=== PATIENT | male | born 1955 | race Caucasian/White ===

== ENCOUNTER 2016-04-22 20:30 | Outpatient (CLI) | payer BC ==
[~2016-04-22 20:30] MED LIST: ACET-93 PO; APIX5TAB PO; FLUT1DIS28 IH; HYDR-34 PO; OXYC-12 PO; SIMV10TA3 PO; SLMFT1E INH
--- OUTSIDE RECORDS SUMMARY | 2016-04-22 20:44 | XMS REPORT | Continuity of Care Document ---
Author Author [facility] Organization [facility] Address Unknown Phone Unavailable Care Team Providers Care Java Groovy Developer Name Role Phone ESTHER GARCIA MD PCP Insurance Providers Payer Name Policy Number Subscriber Name [id number] Justina Norris K 01 Advance Directives Directive Response Recorded Date/Time Advance Directives No 01/16/16 11:14am Health Care Power of Photographic Supervisor No 01/16/16 11:14am Problems Active Problems Medical Problem Onset Date Status Atrial fibrillation Unknown Resolved Medications Current Home Medications Medication Dose Units Route Directions Days/Qty Instructions Start Date Simvastatin 10 Mg 10 Mg Oral Bedtime LAST FILLED 10/02/15 #90 01/16/16 Fluticasone/Salmeterol 1 Each 1 Puff Inhalation Daily LAST FILLED 10/01 #1 INHALER 01/16/16 Acetaminophen 500 Mg 1,000 Mg Oral Twice A Day as needed for Pain TAKES 2 (500 MG) TABLETS 01/16/16 Apixaban 5 Mg 5 Mg Oral Twice A Day 60 01/17/16 Past Home Medications Medication Directions Ordered Status Simvastatin 10 Mg Tablet, 10 Mg Oral Daily 11/17/12 Discontinued Salmeterol Xinafoate/Fluticasone 1 Diskus Inhp, 1 Puff Inhalation Daily 11/17 Discontinued Oxycodone Hcl/Acetaminophen 1 Each Tablet, 1 - 2 Each Oral Q4-6H Prn Discontinued Acetaminophen/Hydrocodone Bitart 1 Ea Tablet, 1 - 2 Tab Oral 4-6HR as needed 11/26/12 Discontinued Social History Social History Problem Response Recorded Date/Time Alcohol Use Denies Use 11/23/2012 3:20pm Recreational Drug Use No 11/23/2012 3:20pm Recent Foreign Travel Yes 11/23/2012 3:20pm Recent Infectious Disease Exposure No 11/23/2012 3:20pm Hospitalization with Isolation Denies 11/26/2012 3:29pm Sexually Transmitted Disease No 01/16/2016 5:58pm HIV/AIDS No 01/16/2016 11:20am Recent Hopitalizations No 01/16/2016 11:20am Sexually Transmitted Disease No 01/16/2016 5:58pm Hospitalization with Isolation Denies 11/26/2012 3:29pm Hospital Discharge Instructions Current inpatient/outpatient. Discharge instructions are currently unavailable. Plan of Care Prescriptions Functional Status No functional status results. Allergies, Adverse Reactions, Alerts No known allergies. Immunizations Name Given Type FLU TRIvalent 5 years - Adult 01/16/16 Administered Vital Signs Acute Vital Signs Vital Response Date/Time Temperature (Fahrenheit) 98.0 degrees F (97.6 - 99.5) 01/17/2016 4:20pm Temperature (Calculated Celsius) 36.34141 degrees C (36.4 - 37.5) 01/17/2016 3:47pm Temperature Source Tympanic 01/17/2016 4:20pm Pulse Rate (adult) 59 bpm (60 - 90) 01/17/2016 4:20pm Respiratory Rate 16 bpm (12 - 24) 01/17/2016 4:20pm O2 Sat by Pulse Oximetry 98 % (88 - 100) 01/17/2016 4:20pm Blood Pressure 141/98 mm Hg 01/17/2016 4:20pm Blood Pressure Mean 112 mm Hg 01/17/2016 3:45pm Pain Numeric Pain Scale 0-No Pain 01/17/2016 4:20pm Height (Feet) 6 feet 01/16/2016 11:07am Height (Inches) 1.00 inches 01/16/2016 11:07am Height (Calculated Centimeters) 185.709713 cm 01/16/2016 11:07am Weight (Pounds) 190 pounds 01/16/2016 11:07am Weight (Ounces) 1.0 oz 01/16/2016 11:07am Weight (Calculated Grams) 79526.90 gm 01/16/2016 11:07am Weight (Calculated Kilograms) 86.425960 kilograms 01/16/2016 11:07am Calculated BMI 25.1 01/16/2016 11:07am Capillary Refill Capillary Refill Less Than 3 Seconds 01/17/2016 3:15pm Capillary Refill Capillary Refill Less Than 3 Seconds 01/17/2016 3:15pm Results Laboratory Results Test Name Result Units Flags Reference Collection Date/Time Result Date/ Time Comments White Blood Count 7.5 10^3/uL 4.3-11.0 01/17/2016 3:01/17/2016 3: 52am Red Blood Count 5.43 10^6/uL 4.35-5.85 01/17/2016 3:01/17/2016 3: 52am Hemoglobin 16.5 G/DL 13.3-17.7 01/17/2016 3:01/17/2016 3:52am Hematocrit 48 % 40-54 01/17/2016 3:01/17/2016 3:52am Mean Corpuscular Volume 89 FL 80-99 01/17/2016 3:01/17/2016 3: 52am Mean Corpuscular Hemoglobin 30 PG 25-34 01/17/2016 3:01/17/2016 3: 52am Mean Corpuscular Hemoglobin Concent 34 G/DL 32-36 01/17/2016 3:03/2015 3:52am Red Cell Distribution Width 13.1 % 10.0-14.5 01/17/2016 3:2015 3:52am Platelet Count 231 10^3/uL 130-400 01/17/2016 3:01/17/2016 3:52am Mean Platelet Volume 9.3 FL 7.4-10.4 01/17/2016 3:01/17/2016 3: 52am Neutrophils (%) (Auto) 65 % 42-75 01/17/2016 3:01/17/2016 3:52am Lymphocytes (%) (Auto) 20 % 12-44 01/17/2016 3:01/17/2016 3:52am Monocytes (%) (Auto) 13 % H 0-12 01/17/2016 3:01/17/2016 3:52am Eosinophils (%) (Auto) 2 % 0-10 01/17/2016 3:01/17/2016 3:52am Basophils (%) (Auto) 0 % 0-10 01/17/2016 3:01/17/2016 3:52am Neutrophils # (Auto) 4.9 X 10^3 1.8-7.8 01/17/2016 3:01/17/2016 3: 52am Lymphocytes # (Auto) 1.5 X 10^3 1.0-4.0 01/17/2016 3:01/17/2016 3: 52am Monocytes # (Auto) 0.9 X 10^3 0.0-1.0 01/17/2016 3:01/17/2016 3: 52am Eosinophils # (Auto) 0.2 10^3/uL 0.0-0.3 01/17/2016 3:01/17/2016 3 :52am Basophils # (Auto) 0.0 10^3/uL 0.0-0.1 01/17/2016 3:01/17/2016 3: 52am Sodium Level 142 MMOL/L 135-145 01/17/2016 3:01/17/2016 4:13am Potassium Level 4.2 MMOL/L 3.6-5.0 01/17/2016 3:01/17/2016 4:13am Chloride Level 112 MMOL/L H 98-107 01/17/2016 3:01/17/2016 4:13am Carbon Dioxide Level 22 MMOL/L 21-32 01/17/2016 3:01/17/2016 4: 13am Anion Gap 8 MMOL/L 5-14 01/17/2016 3:01/17/2016 4:13am Blood Urea Nitrogen 16 MG/DL 7-18 01/17/2016 3:01/17/2016 4:13am Creatinine 1.01 MG/DL 0.60-1.30 01/17/2016 3:01/17/2016 4:13am BUN/Creatinine Ratio 16 01/17/2016 3:01/17/2016 4:13am Estimat Glomerular Filtration Rate > 60 01/17/2016 3:2015 4:13am GFR INTERPRETIVE DATA UNITS FOR ESTIMATED GFR (eGFR): mL/min/1.73 M2 REFERENCE RANGE FOR ESTIMATED GFR (eGFR) eGFR NORMAL eGFR >60 MODERATELY DECREASED eGFR 30-59 SEVERLY DECREASED eGFR 15-29 KIDNEY FAILURE <15 (OR DIALYSIS) Glucose Level 99 MG/DL 70-105 01/17/2016 3:21am 01/17/2016 4:13am Calcium Level 8.6 MG/DL 8.5-10.1 01/17/2016 3:21am 01/17/2016 4:13am Phosphorus Level 3.9 MG/DL 2.3-4.7 01/17/2016 3:21am 01/17/2016 4:13am Magnesium Level 2.2 MG/DL 1.8-2.4 01/17/2016 3:21am 01/17/2016 4:13am Total Bilirubin 0.5 MG/DL 0.1-1.0 01/16/2016 10:40am 01/16/2016 11: 16am Alkaline Phosphatase 77 U/L 40-136 01/16/2016 10:40am 01/16/2016 11: 16am Aspartate Amino Transf (AST/SGOT) 23 U/L 5-34 01/16/2016 10:40am 2015 11:16am Alanine Aminotransferase (ALT/SGPT) 33 U/L 0-55 01/16/2016 10:40am 02/2015 11:16am Troponin I < 0.30 NG/ML <0.30 01/16/2016 10:40am 01/16/2016 11:24am Troponin I < 0.30 NG/ML <0.30 01/16/2016 10:11pm 01/16/2016 10:46pm Total Protein 6.4 G/DL 6.4-8.2 01/16/2016 10:40am 01/16/2016 11:16am Albumin 3.8 G/DL 3.2-4.5 01/16/2016 10:40am 01/16/2016 11:16am Procedures Procedure Status Date Provider(s) Tracing only of electrocardiogram Completed 01/16/16 ESTHER GARCIA MD Color Doppler echocardiography Active 01/16/16 Mulugeta JOEL MD Tracing only of electrocardiogram Completed 01/17/16 ESTHER GARCIA MD Encounters Encounter Location Arrival/Admit Date Discharge/Depart Date Attending Provider Registered Clinic [facility] 01/17/16 4:23pm Mulugeta JOEL MD Admitted Inpatient [facility] 01/16/16 10:12am ESTHER GARCIA MD
== END 2016-04-23 06:20 | disposition home or self-care (01) ==
LOC: SLEEP 20:30
PROVIDERS: ATTEND Internal Medicine Interventional Cardiology
DX: G47.33 Obstructive sleep apnea (adult) (pediatric) (principal)
CPT/HCPCS: 95810

== ENCOUNTER 2016-05-01 22:42 | Emergency (ER) | payer BC ==
[~2016-05-01] VITALS: Ht 182.9 cm; Wt 83.9 kg
--- OUTSIDE RECORDS SUMMARY | 2016-05-01 22:48 | XMS REPORT | Continuity of Care Document ---
Author Author [facility] Organization [facility] Address Unknown Phone Unavailable Care Team Providers Care Puddler Pile Driving Name Role Phone ESTHER GARCIA MD PCP Insurance Providers Payer Name Policy Number Subscriber Name [id number] Justina Norris K 01 Advance Directives Directive Response Recorded Date/Time Advance Directives No 01/16/16 11:14am Health Care Power of A/C Technician No 01/16/16 11:14am Problems Active Problems Medical [...] Isolation Denies 11/26/2012 3:29pm Hospital Discharge Instructions No hospital discharge instructions. Plan of Care Discharge Date 04/23/16 6:20am Prescriptions See Medication Section Functional Status No functional status results. Allergies, Adverse Reactions, Alerts No known allergies. Immunizations No immunization records. Vital Signs No known vital signs results. Results No known relevant diagnostic tests, laboratory data and/or discharge summary. Procedures No known history of procedures. Encounters Encounter Location Arrival/Admit Date Discharge/Depart Date Attending Provider Departed Clinic [facility] 04/22/16 8:30pm 04/23/16 6: 20am Mulugeta JOEL MD
--- NOTE | 2016-05-01 22:56 | ED Cardiac General ---
History of Present Illness General Chief Complaint: Cardiac/General Problems Stated Complaint: FLUTTER IN CHEST Nursing Triage Note: STARTED 2029 TODAY, CHEST "FLUTTERING" Source: patient History of Present Illness Time seen by provider: 22:44 Initial Comments PT ARRIVES VIA POV FROM HOME C/O FLUTTERING IN CHEST SINCE 2029--HAS BEEN GETTING BETTER ON THE WAY HERE AND IS NOT OCCURRING NOW HEART WAS BEATING FAST AND IRREGULAR STATES HE HAS HAD SEVERAL TIMES TODAY--ALL WENT AWAY AFTER A SHORT PERIOD OF TIME, WAS FINE YESTERDAY PT WAS DX WITH ATRIAL FIBRILLATION 01/2016, AND IS ON ELIQUIS SLIGHT CHEST PAIN WITH IT, NOT NOW NO SWEATS NO SHORTNESS OF BREATH NO DIZZINESS NO SWELLING IN LEGS/ FEET OR PAIN IN CALVES PCP: DR. GARCIA HOTEL ATTENDANT: DR. JOEL Allergies and Home Medications Allergies Coded Allergies: No Known Drug Allergies (Unverified , 11/13/11) Home Medications Acetaminophen 500 Mg Tablet 1,000 MG PO BID PRN PRN PAIN (Reported) TAKES 2 (500 MG) TABLETS Apixaban 5 Mg Tablet #60 5 MG PO BID Prescribed by: ESTHER GARCIA on 01/17/16 1423 Fluticasone/Salmeterol 1 Each Blst.w.dev 1 PUFF IH DAILY (Reported) LAST FILLED 10/02/15 #1 INHALER Simvastatin 10 Mg Tablet 10 MG PO HS (Reported) LAST FILLED 10/02/15 #90 Review of Systems Constitutional: no symptoms reported EENTM: No Symptoms Reported Respiratory: No Symptoms Reported Cardiovascular: See HPIDenies Edema, Irregular Heart RateDenies Lightheadedness, PalpitationsDenies Syncope Gastrointestinal: No Symptoms Reported Genitourinary: No Symptoms Reported Musculoskeletal: no symptoms reported Skin: no symptoms reported Psychiatric/Neurological: No Symptoms Reported Endocrine: No Symptoms Reported Hematologic/Lymphatic: No Symptoms Reported Past Jwzsqre-Wvmuha-Ererfs Hx Patient Social History 2nd Hand Smoke Exposure: No Recent Foreign Travel: No Contact w/Someone Who Travel: No Recent Infectious Disease Expo: No Recent Hopitalizations: No Immunizations Up To Date Tetanus Booster (TDap): Unknown PED Vaccines UTD: Yes Seasonal Allergies Seasonal Allergies: Yes Surgeries HX Surgeries: Yes (HERNIA, KNEE SCOPE, Left Total Knee ) Surgeries: Abdominal, Joint Replacement, Orthopedic Respiratory Hx Respiratory Disorders: Yes (ASTHMA) Respiratory Disorders: Asthma Cardiovascular Hx Cardiac Disorders: Yes Cardiac Disorders: Atrial Fibrillation, High Cholesterol, Hypertension Neurological Hx Neurological Disorders: No Reproductive System Hx Reproductive Disorders: No Sexually Transmitted Disease: No HIV/AIDS: No Genitourinary Hx Genitourinary Disorders: No Gastrointestinal Hx Gastrointestinal Disorders: No Musculoskeletal Hx Musculoskeletal Disorders: Yes (left knee surgery) Musculoskeletal Disorders: Arthritis Endocrine Hx Endocrine Disorders: No HEENT HX ENT Disorders: No Loss of Vision: Denies Hearing Impairment: Denies Cancer Hx Cancer: No Psychosocial Hx Psychiatric Problems: No Integumentary HX Skin/Integumentary Disorder: No Blood Transfusions Hx Blood Disorders: No Adverse Reaction to a Blood Tr: No Family Medical History Significant Family History: Heart Disease, Diabetes, Hypertension Family Medial History: Arthritis 19 FATHER Hypercholesterolemia 19 FATHER Hypertension 19 FATHER Myocardial infarction 19 FATHER Thyroid disease Daughter Physical Exam Vital Signs Vital Sign - Last 12Hours 05/01/16 22:47 Temp 97.5 Pulse 61 Resp 20 B/P 149/108 Pulse Ox 91 O2 Delivery Room Air Capillary Refill : Less Than 3 Seconds General Appearance: No Apparent Distress WD/WN HEENT: PERRL/EOMI Neck: Full Range of Motion Normal Inspection Non Tender SuppleNo Carotid Bruit , No JVD Respiratory: Normal Breath Sounds No Accessory Muscle Use No Respiratory Distress Cardiovascular: Regular Rate, Rhythm No Edema No Gallop No JVD No Murmur Normal Peripheral Pulses Gastrointestinal: Normal Bowel Sounds No Organomegaly No Pulsatile Mass Non Tender Soft Extremity: Normal Capillary Refill Normal Inspection Normal Range of Motion Non Tender No Calf Tenderness No Pedal Edema Neurologic/Psychiatric: Alert Oriented x3 No Motor/Sensory Deficits Normal Mood/Affect lens molder II-XII Norm as Tested Skin: Normal Color Warm/Dry Focused Exam Lactic Acid Level Laboratory Tests Test 05/01/16 22:50 Alanine Aminotransferase (ALT/SGPT) 33U/L (0-55) Albumin 4.0G/DL (3.2-4.5) Alkaline Phosphatase 79U/L (40-136) Anion Gap 10MMOL/L (5-14) Aspartate Amino Transf (AST/SGOT) 23U/L (5-34) B-Type Natriuretic Peptide 34.8PG/ML (<100.0) BUN/Creatinine Ratio 22 Blood Urea Nitrogen 24MG/DL (7-18) H Calcium Level 9.1MG/DL (8.5-10.1) Carbon Dioxide Level 23MMOL/L (21-32) Chloride Level 109MMOL/L (98-107) H Creatine Kinase MB 2.8NG/ML (<6.6) Creatinine 1.11MG/DL (0.60-1.30) Estimat Glomerular Filtration Rate > 60 Glucose Level 180MG/DL (70-105) H Potassium Level 3.9MMOL/L (3.6-5.0) Sodium Level 142MMOL/L (135-145) TSH Cloud Testing 3.42UIU/ML (0.35-4.94) Total Bilirubin 0.4MG/DL (0.1-1.0) Total Creatine Kinase 133U/L (30-200) Total Protein 6.7G/DL (6.4-8.2) Troponin I < 0.30NG/ML (<0.30) Progress/Results/Core Measures Results/Orders Lab Results Laboratory Tests Test 05/01/16 22:50 Range/Units Activated Partial Thromboplast Time 34 24-35 SEC Alanine Aminotransferase (ALT/SGPT) 33 0-55 U/L Albumin 4.0 3.2-4.5 G/DL Alkaline Phosphatase 79 40-136 U/L Anion Gap 10 5-14 MMOL/L Aspartate Amino Transf (AST/SGOT) 23 5-34 U/L B-Type Natriuretic Peptide 34.8 <100.0 PG/ML BUN/Creatinine Ratio 22 Basophils # (Auto) 0.0 0.0-0.1 10^3/uL Basophils (%) (Auto) 1 0-10 % Blood Urea Nitrogen 24 H 7-18 MG/DL Calcium Level 9.1 8.5-10.1 MG/DL Carbon Dioxide Level 23 21-32 MMOL/L Chloride Level 109 H 98-107 MMOL/L Creatine Kinase MB 2.8 <6.6 NG/ML Creatinine 1.11 0.60-1.30 MG/DL Eosinophils # (Auto) 0.1 0.0-0.3 10^3/uL Eosinophils (%) (Auto) 2 0-10 % Estimat Glomerular Filtration Rate > 60 Glucose Level 180 H 70-105 MG/DL Hematocrit 46 40-54 % Hemoglobin 15.6 13.3-17.7 G/DL INR Comment 1.0 0.8-1.4 Lymphocytes # (Auto) 1.6 1.0-4.0 X 10^3 Lymphocytes (%) (Auto) 29 12-44 % Mean Corpuscular Hemoglobin 31 25-34 PG Mean Corpuscular Hemoglobin Concent 34 32-36 G/DL Mean Corpuscular Volume 91 80-99 FL Mean Platelet Volume 9.3 7.4-10.4 FL Monocytes # (Auto) 0.6 0.0-1.0 X 10^3 Monocytes (%) (Auto) 11 0-12 % Neutrophils # (Auto) 3.3 1.8-7.8 X 10^3 Neutrophils (%) (Auto) 58 42-75 % Platelet Count 192 130-400 10^3/uL Potassium Level 3.9 3.6-5.0 MMOL/L Prothrombin Time 12.9 12.2-14.7 SEC Red Blood Count 5.08 4.35-5.85 10^6/uL Red Cell Distribution Width 13.9 10.0-14.5 % Sodium Level 142 135-145 MMOL/L TSH Cloud Testing 3.42 0.35-4.94 UIU/ML Total Bilirubin 0.4 0.1-1.0 MG/DL Total Creatine Kinase 133 30-200 U/L Total Protein 6.7 6.4-8.2 G/DL Troponin I < 0.30 <0.30 NG/ML White Blood Count 5.7 4.3-11.0 10^3/uL My Orders Orders-GEREMIAS VALIENTE DO Cbc With Automated Diff (05/01/16 22:50) Comprehensive Metabolic Panel (05/01/16 22:50) Creatine Kinase (05/01/16 22:50) Creatine Kinase Mb (05/01/16 22:50) Partial Thromboplastin Time (05/01/16 22:50) Protime With Inr (05/01/16 22:50) Troponin I (05/01/16 22:50) Chest 1 View, Ap/Pa Only (05/01/16 22:50) O2 (05/01/16 22:50) Ekg Tracing (05/01/16 22:50) BNP (05/01/16 22:50) Monitor-Rhythm Ecg Trace Only (05/01/16 22:50) Thyroid Analyzer (05/01/16 22:50) Vital Signs/I&O Vital Sign - Last 12Hours 05/01/16 05/02/16 22:47 00:06 Temp 97.5 97.5 Pulse 61 57 Resp 20 20 B/P 149/108 Pulse Ox 91 95 O2 Delivery Room Air Blood Pressure Mean: 122 Progress Note : Progress Note NO SYMPTOMS OF ANY KIND DURING ER STAY NO ARRHYTHMIAS DURING ER STAY ECG Initial ECG Impression Time: 21:47 Initial ECG Rate: 58 Initial ECG Rhythm: Normal Sinus Initial ECG Impression: Nonspecific Changes Initial ECG Comparisson: Changed (WAS IN ATRIAL FIB ON EKG 01/16/16) Diagnostic Imaging Comments CXR--NO ACUTE PROCESS, PENDING RADIOLOGIST REVIEW Departure Communication Progress Notes 2672--SPOKE WITH DR. DOLAN, DOES NOT FEEL THAT PT NEEDS ANY OTHER MEDICAL TREATMENT AT THIS TIME. WILL HAVE PT FOLLOW UP WITH DR. JOEL NEXT WEEK Impression Impression: Primary Impression: Palpitations Additional Impression: History of atrial fibrillation Disposition: HOME, SELF-CARE Condition: Improved Departure-Patient Inst. Referrals: ESTHER GARCIA MD (PCP/Family) Primary Care Physician Mulugeta JOEL MD Patient Instructions: Atrial Fibrillation (DC), Palpitations (DC) Add. Discharge Instructions: CONTINUE YOUR MEDICATIONS PRESCRIBED FOLLOW UP WITH DR. JOEL NEXT WEEK RETURN TO ER IF SYMPTOMS WORSEN All discharge instructions reviewed with patient and/or family. Voiced understanding. GEREMIAS VALIENTE DO May 01, 2016 22:56
[2016-05-01 22:59] LABS: BASOPHILS % (AUTO) 1 % (0-10); EOSINOPHILS # (AUTO) 0.1 10^3/uL (0.0-0.3); EOSINOPHILS % (AUTO) 2 % (0-10); LYMPHOCYTES # (AUTO) 1.6 X 10^3 (1.0-4.0); LYMPHOCYTES % (AUTO) 29 % (12-44); MEAN CORPUSCULAR HEMOGLOBIN 31 PG (25-34); MEAN CORPUSCULAR HGB CONC 34 G/DL (32-36); MEAN CORPUSCULAR VOLUME 91 FL (80-99); MEAN PLATELET VOLUME 9.3 FL (7.4-10.4); MONOCYTES # (AUTO) 0.6 X 10^3 (0.0-1.0); MONOCYTES % (AUTO) 11 % (0-12); NEUTROPHILS # (AUTO) 3.3 X 10^3 (1.8-7.8); NEUTROPHILS % (AUTO) 58 % (42-75); PLATELET COUNT 192 10^3/uL (130-400); RED BLOOD COUNT 5.08 10^6/uL (4.35-5.85); RED CELL DISTRIBUTION WIDTH 13.9 % (10.0-14.5); WHITE BLOOD COUNT 5.7 10^3/uL (4.3-11.0)
[2016-05-01 23:13] LABS: PROTHROMBIN TIME PATIENT 12.9 SEC (12.2-14.7)
[2016-05-01 23:28] LABS: ALANINE AMINOTRANSFERASE 33 U/L (0-55); ANION GAP 10 MMOL/L (5-14); ASPARTATE AMINO TRANSFERASE 23 U/L (5-34); BILIRUBIN,TOTAL 0.4 MG/DL (0.1-1.0); BLOOD UREA NITROGEN 24 MG/DL (7-18); BUN/CREATININE RATIO 22; CALCIUM 9.1 MG/DL (8.5-10.1); CARBON DIOXIDE 23 MMOL/L (21-32); CHLORIDE 109 MMOL/L (98-107); CREATINE KINASE 133 U/L (30-200); CREATININE SERUM 1.11 MG/DL (0.60-1.30); GFR ESTIMATED > 60; GLUCOSE 180 MG/DL (70-105); POTASSIUM 3.9 MMOL/L (3.6-5.0); SODIUM 142 MMOL/L (135-145); TOTAL PROTEIN 6.7 G/DL (6.4-8.2)
[2016-05-01 23:48] LABS: TROPONIN I < 0.30 NG/ML (<0.30)
[2016-05-02 00:06] VITALS: BP 115/92
--- NOTE | 2016-05-02 07:38 | Diagnostic Imaging Report ---
INDICATION: Patient feels fluttering in the chest. History of A-fib. Comparison is made with prior examination from 01-17-16. FINDINGS: The heart size, mediastinal configuration, and pulmonary vascularity are within normal limits. There is no pleural effusion, pneumothorax, or pneumonia. The osseous structures are unremarkable. IMPRESSION: No acute cardiopulmonary abnormality. Dictated by: Dictated on workstation # [id number]
== END 2016-05-02 00:07 | disposition home or self-care (01) ==
LOC: EDUNIT# 22:42 → ER 22:44
DX: R00.2 Palpitations (principal); I10 Essential (primary) hypertension; I48.2 Chronic atrial fibrillation; Z79.01 Long term (current) use of anticoagulants; Z79.899 Other long term (current) drug therapy
CPT/HCPCS: 36415; 71010; 80053; 82550; 82553; 83880; 84443; 84484; 85025; 85610; 85730; 93005; 93041

== ENCOUNTER → 2016-08-14 | Outpatient (CLI) | payer BC ==
--- NOTE | 2016-08-14 15:19 | Diagnostic Imaging Report ---
INDICATION: Left hand injury. EXAMINATION: AP, oblique and lateral views of the left hand were obtained. FINDINGS: No fracture or acute bony abnormality is seen. There are degenerative changes in the interphalangeal joints. IMPRESSION: No acute bony abnormality. Report was called to Katie Brand APRN at 3:17 p.m., by ruma. Dictated by: Dictated on workstation # [id number]
== END ==
LOC: RAD 14:53
PROVIDERS: ATTEND Nurse Practitioner Family
DX: M25.542 Pain in joints of left hand (principal)
CPT/HCPCS: 73130

== ENCOUNTER 2016-12-10 08:12 | Day surgery (SDC) | payer BC ==
[~2016-12-10] VITALS: Ht 182.9 cm; Wt 83.9 kg
[2016-12-10 08:25] VITALS: BP 139/102
[2016-12-10 10:28] VITALS: BP 143/96
--- NOTE | 2016-12-10 11:50 | Cardiac Procedure Note-CS/ASA ---
Pre-Procedure Note Pre-Op Procedure Note H&P Reviewed The H&P was reviewed, patient examined and no changes noted. Date H&P Reviewed: Dec 10, 2016 Time H&P Reviewed: 09:30 Conscious Sedation Pre-Proced Time Reviewed: 09:45 ASA Class: 3 Airway Mallampati Classification: ([place] appropriate class) I. II. III, IV Lungs Heart ASA score ASA 1: a normal healthy patient ASA 2: a patient with a mild systemic disease (mid diabetes, controlled hypertension, obesity ASA 3: a patient with a severe systemic disease that limits activity (angina , COPD, prior Myocardial infarction) ASA 4: a patient with an incapacitating disease that is a constant threat to life (CHF, renal failure) ASA 5: a moribund patient not expected to survive 24 hrs. (ruptured aneurysm) ASA 6: a declared brain patient whose organs are being harvested. For emergent operations, add the letter E after the classification Grade 1 Sedation Plan: Analgesia, Amnesia, Plan communicated to team members, Discussed options with patient/fam, Discussed risks with patient/fam Note The patient is an appropriate candidate to undergo the planned procedure, sedation, and anesthesia. The patient immediately re-assessed prior to indication. Mulugeta JOEL MD Dec 10, 2016 11:50 am
--- NOTE | 2016-12-10 11:51 | Cardiology Post Procedure Note ---
Post-Procedure Note Physician (s)/Store Administrative Assistant (s) Physician Mulugeta JOEL MD Pre-Procedure Diagnosis Pre-Procedure Diagnosis: Atrial Fibrillation Post-Procedure Note Procedure Start Date: Dec 10, 2016 Procedure Start Time: 09:45 Name of Procedure: implantable loop recorder Findings/Procedure Note for atrial fibrillation surveillance, a Medtronic implantable loop recorder was implanted under local anesthesia. Patient tolerated the procedure well and did not have any complications. Estimated blood loss (mL): none Contrast Amount: none Post-Procedure Diagnosis Post-operative diagnosis: implantation of loop recorder. Mulugeta JOEL MD Dec 10, 2016 11:51 am
--- NOTE | 2016-12-11 15:02 | OPERATIVE REPORT ---
DATE OF SERVICE: 12/10/2016 IMPLANTABLE LOOP RECORDER IMPLANTATION PREOPERATIVE DIAGNOSIS: Atrial fibrillation surveillance. POSTOPERATIVE DIAGNOSES: Successful Medtronic loop recorder implantation. HISTORY OF PRESENT ILLNESS: The patient is a 61-year-old gentleman who has previous history of atrial fibrillation. He has been in sinus rhythm, however, complains of occasional palpitations. An event monitor was done for 4 weeks, which did not show any episodes of atrial fibrillation. Long-term surveillance of atrial fibrillation is recommended. Therefore, the patient was consented for implantable loop recorder. PROCEDURE IN DETAIL: The patient was brought to the laborer car barn after informed consent was taken. All the risks and complications were explained in detail. The patient was draped and prepped in the usual sterile fashion. A Medtronic LINQ loop recorder was implanted according to the protocol on the left chest with local anesthesia. Steri-Strips were placed. The patient tolerated the procedure well and did not have any complications. IMPRESSION/CONCLUSION: 1. Long-term surveillance of atrial fibrillation with the implantable loop recorder, Medtronic. 2. The patient will follow up in the office in four to six weeks. Job ID: [id number] DocumentID: [id number] Dictated Date: 12/10/2016 13:16:35 Bleacher Sulfite Pulp Date: 12/10/2016 20:13:24 Dictated By: JOSHUA JOEL MD MTDD
--- NOTE | 2016-12-12 00:32 | OPERATIVE REPORT ---
DATE OF SERVICE: 12/10/2016 IMPLANTABLE LOOP RECORDER REPORT INDICATION: Long-term surveillance of atrial fibrillation is recommended. PREOPERATIVE DIAGNOSIS: Atrial fibrillation. POSTOPERATIVE DIAGNOSIS: Successful implantation of implantable loop recorder. HISTORY: The patient is a 61-year-old gentleman with history of paroxysmal atrial fibrillation. Event monitor was done for 4 weeks, which did not show any episodes of atrial fibrillation. The patient was complaining of occasional palpitations. Long-term surveillance of atrial fibrillation is recommended. Therefore an implantable loop recorder was indicated. PROCEDURE IN DETAIL: The patient was brought to the lab support tech after informed consent was taken. He was draped and prepped in the usual sterile fashion. Next, a small incision after local anesthesia was done in the 4th left lower sternal border close to the fourth intercostal space. The device of Medtronic LINQ implantable loop recorder was placed. The incision was closed with Steri-Strips. The patient tolerated procedure well, did not have any complications. IMPRESSION/CONCLUSION: 1. Long-term surveillance of atrial fibrillation is recommended. 2. Successful implantation of a Medtronic implantable loop recorder. Job ID: [id number] DocumentID: [id number] Dictated Date: 12/11/2016 13:00:37 Clearing Supervisor Date: 12/12/2016 00:31:00 Dictated By: JOSHUA JOEL MD
== END 2016-12-10 10:29 | disposition home or self-care (01) ==
LOC: CATH 08:12
PROVIDERS: ATTEND Internal Medicine Interventional Cardiology
DX: I48.0 Paroxysmal atrial fibrillation (principal); I10 Essential (primary) hypertension; E78.5 Hyperlipidemia, unspecified; G47.33 Obstructive sleep apnea (adult) (pediatric); M47.12 Other spondylosis with myelopathy, cervical region; M47.22 Other spondylosis with radiculopathy, cervical region; Z79.01 Long term (current) use of anticoagulants; Z79.899 Other long term (current) drug therapy
CPT/HCPCS: 33282

== ENCOUNTER 2018-08-15 09:28 | Day surgery (SDC) | payer BC ==
[2018-08-15] VITALS (17 sets, daily range): BP systolic 105–133; BP diastolic 71–96
[~2018-08-15] VITALS: Ht 182.9 cm; Wt 86.2 kg
[~2018-08-15 09:28] MED LIST changes: +HEParin (CATH LAB) 2,000 ML IV ONE; +LIDOCAINE 1% INJ 20 ML 20 ML VIAL ONE; +NS IV 1000 ML 1,000 ML ONE
[2018-08-15] MEDS ORDERED: NS IV 1000 ML 1,000 ML IV SCH ×2 (09:32→14:56)
[2018-08-15] MEDS ORDERED: ISOPROTERENOL 0.2 MG/D5W 50 ML IV ONE (09:45)
[2018-08-15 09:56] LABS: HEMOGLOBIN 15.7 G/DL (13.3-17.7); MEAN PLATELET VOLUME 9.2 FL (7.4-10.4); RED CELL DISTRIBUTION WIDTH 13.4 % (10.0-14.5); WHITE BLOOD COUNT 5.4 10^3/uL (4.3-11.0)
[2018-08-15] MEDS ORDERED: LISI-552 PO ×2 (09:58)
[2018-08-15] MEDS ORDERED: FLUT1AER IH ×2 (09:58)
[2018-08-15] MEDS ORDERED: DILT120T11 PO ×2 (09:58)
[2018-08-15 10:12] LABS: ALBUMIN 4.4 GM/DL (3.2-4.5); BILIRUBIN,TOTAL 0.9 MG/DL (0.1-1.0); CALCIUM 9.4 MG/DL (8.5-10.1); CREATININE SERUM 1.28 MG/DL (0.60-1.30); POTASSIUM 4.1 MMOL/L (3.6-5.0); TOTAL PROTEIN 7.1 GM/DL (6.4-8.2)
[2018-08-15] MEDS ORDERED: ONDANSETRON 4 MG/2 ML (SDV) Z0FRAN ONE (12:43)
[2018-08-15] MEDS ORDERED: MIDAZOLAM 2 MG/2 ML (VERSED) VIAL ONE (12:43)
[2018-08-15] MEDS ORDERED: proPOfol 200 MG/20 ML (DIPRIVAN) VIAL IV ONE (12:43)
[2018-08-15] MEDS ORDERED: DEXAMETHASONE 10 MG/ML (DECADRON) 1 ML VIAL ONE (12:43)
[2018-08-15] MEDS ORDERED: fentaNYL INJECTION 100 MCG/2 ML AMP ONE (12:43)
[2018-08-15] MEDS ORDERED: LIDOCAINE PF 1% 2 ML AMP ONE (12:44)
[2018-08-15] MEDS ORDERED: SEVOFLURANE (ULTANE) 15 ML INHAL SOLN ONE ×2 (12:44→14:50)
[2018-08-15] MEDS ORDERED: LIDOCAINE 1% INJ 20 ML 20 ML VIAL ONE (13:10)
[2018-08-15] MEDS ORDERED: GLYCOPYRROLATE 0.2 MG/ML (ROBINUL) 2 ML VIAL ONE (13:13)
[2018-08-15] MEDS ORDERED: PHENYLEPHRINE 100 MCG/ML 10 ML (ANESTHESIA) SYR ONE (13:33)
[2018-08-15] MEDS ORDERED: NS IV 1000 ML 1,000 ML ONE (14:17)
--- NOTE | 2018-08-15 14:53 | Cardiac Procedure Note-CS/ASA ---
Pre-Procedure Note Pre-Op Procedure Note H&P Reviewed The H&P was reviewed, patient examined and no changes noted. Date H&P Reviewed: Aug 15, 2018 Time H&P Reviewed: 11:00 Conscious Sedation Pre-Proced Time 11:00 ASA Score 3 For ASA 3 and 4: Consider anesthesia and medical clearance. Also, for patients with a history of failed moderate sedation consider anesthesia. Airway Lungs Heart ASA score ASA 1: a normal healthy patient ASA 2: a patient with a mild systemic disease (mid diabetes, controlled hypertension, obesity ASA 3: a patient with a severe systemic disease that limits activity (angina, COPD, prior Myocardial infarction) ASA 4: a patient with an incapacitating disease that is a constant threat to life (CHF, renal failure) ASA 5: a moribund patient not expected to survive 24 hrs. (ruptured aneurysm) ASA 6: a declared brain- patient whose organs are being harvested. For emergent operations, add the letter E after the classification Mallampati Classification Grade 1 Sedation Plan Analgesia, Amnesia, Plan communicated to team members, Discussed options with patient/fam, Discussed risks with patient/fam The patient is an appropriate candidate to undergo the planned procedure, sedation, and anesthesia. The patient immediately re-assessed prior to indication. Mulugeta JOEL MD Aug 15, 2018 14:53
--- NOTE | 2018-08-15 14:55 | History & Physicial-Cardiolgy ---
HPI-Cardiology Cardiology Consultation: Date of Consultation 08/15/18 Date of Admission Attending Physician Mulugeta Humphries MD Admitting Physician Esther Babb MD Consulting Physician Mulugeta HUMPHRIES MD HPI: Time Seen by a Provider: 11:00 Chief Complaint: palpitations this is a 62-year-old gentleman with possible paroxysmal atrial fibrillation. He has an implantable loop recorder which showed narrow complex tachycardia at cycle length 400 ms which is very typical for typical atrial flutter. Therefore EP study and typical atrial flutter ablation was recommended. Review of Systems-Cardiology Review of Systems Constitutional: As described under HPI; No As described under HPI, No no symptoms reported, No chills, No fever, No lightheadedness Eyes: No As described under HPI, No no symptoms reported, No blindness, No blurred vision, No contact lenses, No drainage, No decreased acuity, No foreign body sensation, No pain, No vision change Ears/Nose/Throat: No As described under HPI, No no symptoms reported, No chronic hearing loss, No ear discharge, No ear pain, No nasal drainage, No ulcerations Respiratory: No no symptoms reported; As described under HPI; No As described under HPI, No cough, No orthopnea, No shortness of breath, No SOB with excertion Cardiovascular: No no symptoms reported; As described under HPI; No As described under HPI, No chest pain, No edema, No irregular heart rate, No lightheadedness; palpitations Gastrointestinal: No no symptoms reported, No As described under HPI, No abdomen distended, No abdominal pain, No blood streaked bowels, No constipation, No diarrhea, No nausea, No vomiting, No stool coloration changes Genitourinary: No As described under HPI, No burning, No dysuria, No discharge, No frequency, No flank pain, No hematuria, No urgency Skin: No rash, No skin related problems, No ulcerations Psychiatric/Neurological: No anxiety, No depression, No seizure, No focal weakness, No syncope Hematologic: No bleeding abnormalities [id number]-[id number] Hx Patient Social History Alcohol Use: Occasionally Uses Recreational Drug Use: No Smoking Status: Never a Smoker 2nd Hand Smoke Exposure: No Recent Foreign Travel: No Recent Infectious Disease Expo: No Immunizations Up To Date Tetanus Booster (TDap): Unknown Past Medical History PMH As described under Assessment. Family Medical History Family History: Arthritis 19 FATHER Hypercholesterolemia 19 FATHER Hypertension 19 FATHER Myocardial infarction 19 FATHER Thyroid disease Daughter Allergies and Home Medications Allergies Coded Allergies: No Known Drug Allergies (Unverified , 11/13/11) Home Medications Acetaminophen 500 Mg Tablet, 1,000 MG PO BID PRN for PAIN, (Reported) TAKES 2 (500 MG) TABLETS Apixaban 5 Mg Tablet, 5 MG PO BID Prescribed by: ESTHER BABB on 01/17/16 1423 Diltiazem HCl 120 Mg Tablet, 120 MG PO DAILY, (Reported) Fluticasone/Vilanterol 1 Each Blst.w.dev, 1 EACH IH DAILY, (Reported) Lisinopril 20 Mg Tablet, 20 MG PO DAILY, (Reported) Simvastatin 10 Mg Tablet, 10 MG PO HS, (Reported) LAST FILLED 10/02/15 #90 Patient Home Medication List Home Medication List Reviewed: Yes Physical Exam-Cardiology Physical Exam Vital Signs/I&O 08/15/18 09:51 Temp 98.0 Pulse 52 Resp 18 B/P (MAP) 133/96 (108) Pulse Ox 98 O2 Delivery Room Air Capillary Refill : Constitutional: appears stated age, AAO x 3; No apparent distress; well- developed, well-nourished HEENT: PERRL; No normal ENT inspection, No TMs normal, No pharynx normal, No scleral icterus (R), No scleral icterus (L), No pale conjunctivae (R), No pale conjunctivae (L), No photophobia, No TM abnormal (R), No TM abnormal (L), No pharyngeal erythema, No tonsillar exudate, No other, No discharge, No EOMI; hearing is well preserved; No hard of hearing; oral hygience is good; No ulcera tion, No xanthelasmas are seen Neck: No non-tender, No full range of motion, No supple, No normal inspection, No carotid bruit, No limited range of motion, No lymphadenopathy (R), No lymphadenopathy (L), No tender lateral, No tender midline, No thyromegaly, No other; carotid pulses are 2 + bilaterally; No with good upstrokes Respiratory: No accessory muscle use, No respiratory distress, No chest tender, No chest expansion is symmetric; chest is bilaterally symmetric; No lungs clear to percussion; lungs clear to auscultation; No crackles, No rhonchi, No rales, No stridor, No wheezing, No pleural rub, No other Cardiovascular: regular rate-rhythm; No irregularly irregular, No extra beats, No parasternal heave is noted, No JVD, No edema, No bradycardia, No tachycardia, No point of maximal impulse, No cardiac thrills are palpable; S1 and S2; No gallop/S3, No gallop/S4, No diastolic murmur, No systolic murmur, No friction rub, No click, No other Gastrointestinal: No tender, No soft, No round, No distended, No pulsatile mass, No organomegaly, No guarding, No rebound, No tenderness, No hernia, No mass, No audible bowel sounds, No abnormal bowel sounds, No abdominal bruits, No spleenomegaly, No other Rectal: deferred Extremities: No normal range of motion, No non-tender, No normal inspection, No pedal edema, No calf tenderness, No normal capillary refill, No pelvis stable, No calf tenderness, No inflammation, No pedal edema, No slow capillary refill, No swelling, No other, No abrasion, No clubbing, No cyanosis, No ecchymosis, No laceration, No no lower extremity edema bilateral, No significant edema, No tenderness, No wound Neurologic/Psychiatric: no motor/sensory deficits, alert, normal mood/affect, oriented x 3, power is 5/5 both on sides Skin: No rash, No ulcerations Data Review Labs Laboratory Tests 08/15/18 09:50: White Blood Count 5.4, Red Blood Count 5.17, Hemoglobin 15.7, Hematocrit 47, Mean Corpuscular Volume 91, Mean Corpuscular Hemoglobin 30, Mean Corpuscular Hemoglobin Concent 33, Red Cell Distribution Width 13.4, Platelet Count 212, Mean Platelet Volume 9.2, Activated Partial Thromboplast Time 37H, Sodium Level 141, Potassium Level 4.1, Chloride Level 107, Carbon Dioxide Level 26, Anion Gap 8, Blood Urea Nitrogen 22H, Creatinine 1.28, Estimat Glomerular Filtration Rate 57, BUN/Creatinine Ratio 17, Glucose Level 98, Calcium Level 9.4, Corrected Calcium 9.1, Total Bilirubin 0.9, Aspartate Amino Transf (AST/SGOT) 24, Alanine Aminotransferase (ALT/SGPT) 32, Alkaline Phosphatase 84, Total Protein 7.1, Albumin 4.4 ECG Impression ECG Initial ECG Rhythm: Normal Sinus A/P-Cardiology Assessment/Admission Diagnosis paroxysmal atrial fibrillation, Typical atrial flutter Admission Status: Observation Plan typical atrial flutter ablation is recommended. Mulugeta HUMPHRIES MD Aug 15, 2018 14:55
--- NOTE | 2018-08-15 14:56 | Electrophysiology Procedure ---
EP Procedure DATE OF SERVICE:08/15/18 REFERRING PHYSICIAN: Michelle Babb MD CARDIAC ROCK CRUSHER: Ladarius Humphries MD INDICATION: Typical atrial flutter. PREOPERATIVE DIAGNOSIS: Typical atrial flutter. POSTOPERATIVE DIAGNOSES: Successful typical atrial flutter ablation. HISTORY: This is a 62-year-old gentleman who has paroxysmal atrial fibrillation and an implantable loop recorder. Implantable loop recorder showed narrow complex tachycardia with cycle length of 400 ms, very likely typical atrial flutter. The patient is planned for comprehensive EP study and ablation. PROCEDURE PERFORMED: 1. Comprehensive EP study with induction. 2. Fluoroscopy. 3. Left atrial pacing and recording. 4. Drug infusion. 5. Ablation of typical atrial flutter. 6. Comprehensive 3D mapping with the carto system. COMPLICATION: None. ESTIMATED BLOOD LOSS: 10 mL. CONTRAST USED: None. FLUOROSCOPY TIME: FLUOROSCOPY DOSE: SPECIMENS: None. ANESTHESIA: Done by our anesthesia colleagues. ANTICOAGULATION: Uninterrupted oral anticoagulation. PROCEDURE IN DETAIL: After informed consent was taken, the patient was brought to the EP lab. Anesthesia was provided by our anesthesia colleagues. The patient was draped and prepped in the usual sterile fashion. The patient presented to the EP lab in sinus rhythm. Access was gained in the right femoral vein with a 6-Thai and an 8-Thai sheath. Left access in left femoral vein was gained with 5-Thai and 6-Thai sheath respectively. High right atrial catheter was an ablation catheter, right ventricular catheter was placed, his catheter and the CS catheter were also placed. A comprehensive EP study was done. Typical atrial flutter was not induced with rapid atrial pacing with and without Isuprel infusion. A 3D electroanatomic mapping was donewith the carto system. Left atrial pacing and recording was done which did not demonstrate Left lateral bypass tract. There was no dual AV swapnil physiology. No PSVT was induced. Ablation was performed in the cavotricuspid isthmus.CS pacing and pacing from the ablation catheter at different positions on the lateral side of the ablation line were used to verify bidirectional block. We then waited for 30 minutes and rechecked and confirmed bidirectional block.Isuprel was given post-procedure, however, we could not induce atrial flutter.The patienttolerated the procedure well and did not have any complication. The patientleft the lab in sinus rhythm. Total ablation time was seconds. MEASUREMENTS/EP STUDY: AH Interval HV Interval AV Wenckebach retrograde Wenckebach AV node ERP Ventricular ERP PLAN: The patient will be observed overnight and will be discharged home tomorrow with precise followup instructions. Ladarius Humphries MD, RS, CCDS Cardiac Electrophysiology Mulugeta HUMPHRIES MD Aug 15, 2018 14:56
[2018-08-15] MEDS ORDERED: PATIENT MAY USE OWN MEDS, ALL PO SCH (15:00)
[2018-08-15] MEDS ORDERED: ONDANSETRON 4 MG/2 ML (SDV) Z0FRAN IVP PRN (16:00)
[2018-08-15] MEDS ORDERED: PROMETHAZINE INJ 25 MG/ML (PHENERGAN) AMP IVP ONE (16:00)
[2018-08-15] MEDS ORDERED: morphine INJ 10 MG/ML 1ML (SYR OR VIAL) IVP ONE (16:00)
--- NOTE | 2018-08-15 16:05 | NUR ---
ZULLY HOBBS admitted to room CU7-1, with an admitting diagnosis of EP, on 08/15/18 from PACU via , accompanied by .ZULLY HOBBS introduced to surroundings, call light, bed controls, phone, TV, temperature control, lights, meal times, smoking policy, visitor policy, side rail policy, bathrooms and showers. Patient Rights given to patient in the handbook. ZULLY HOBBS verbalizes understanding that [facility] is not responsible for the loss or damage to any personal effects or valuables that are kept in the patients posession during their hospitalization. The following Patient Care Plans were discussed with the : Discharge Planning, ,, and . ZULLY HOBBS verbalizes understanding of Interdisciplinary Patient Education. Patient and/or family were informed about the Rapid Response Team and its purpose.
--- OUTSIDE RECORDS SUMMARY | 2018-08-15 16:29 | XMS REPORT | CCD ---
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 Name Role Phone PP Unavailable CCM Unavailable Summary Purpose Interface Exchange Insurance Providers Payer name Policy type / Coverage type Covered democrat ID Effective Begin Date Effective End Date [place] [employer] [facility] Blue Cross/Blue [facility] [id number] Unknown Unknown Family history Mother Diagnosis Age At Onset Heart Attack Unknown Arthritis Unknown Skin cancer Unknown Father Diagnosis Age At Onset Cancer Unknown Social History Social History Element Codes Description Effective Dates Number of children Unknown 2 Kerry Jaramillo 08/24/2016 Marital status Unknown Justina 08/02/[address]: 844144501 Never smoker 08/02/2014 Alcohol history Unknown occasionally drinks alcohol 08/02/2014 Allergies, Adverse Reactions, Alerts Substance Reaction Codes Entered Date Inactivated Date Status * NO KNOWN DRUG ALLERGIES Unknown 08/01/2015 No Inactive Date Active Past Medical History Illness Codes Condition Status Onset Date Resolved Date Encounter for general adult medical examination without abnormal findings ICD-9: V70.0 ICD-10: Z00.00 Active 08/01/2014 Unknown Chronic atrial fibrillation ICD-9: 427.31 ICD-10: I48.2 Active 01/27/2016 Unknown Essential (primary) hypertension ICD-9: 401.1 ICD-10: I10 Active 07/30/2016 Unknown Other acute sinusitis ICD- 9: 461.8 ICD-10: J01.80 Active 01/28/2018 Unknown Other allergic rhinitis ICD-9: 477.8 ICD-10: J30.89 Active 04/01/2016 Unknown Acute upper respiratory infection, unspecified ICD-9: 465.9 ICD-10: J06.9 Active 01/28/2017 Unknown Cough ICD-9: 786.2 ICD-10: R05 Active 01/28/2017 Unknown Pain in left hand ICD-9: 729.5 ICD-10: M79.642 Active 08/24/2016 Unknown Melanocytic nevi of right ear and external auricular canal ICD-9: 216.2 ICD-10: D22.21 Active 07/30/2016 Unknown Acute laryngopharyngitis ICD-9: 465.0 ICD-10: J06.0 Active 04/01/2016 Unknown Other chest pain ICD-9: 786.59 ICD-10: R07.89 Active 01/15/2016 Unknown Other specified cardiac arrhythmias ICD-9: 427.89 ICD-10: I49.8 Active 01/15/2016 Unknown Palpitations ICD-9: 785.1 ICD-10: R00.2 Active 01/15/2016 Unknown Encounter for screening for malignant neoplasm of prostate ICD-9: V76.44 ICD-10: Z12.5 Active 11/18/2015 Unknown Cervicalgia ICD-9: 723.1 ICD-10: M54.2 Active 10/08/2015 Unknown Routine medical exam ICD- 9: V70.0 Active 08/01/2014 Unknown Problems Condition Codes Effective Dates Condition Status Encounter for general adult medical examination without abnormal findings ICD-9: V70.0 ICD-10: Z00.00 08/01/2014 Active Chronic atrial fibrillation ICD-9: 427.31 ICD-10: I48.2 01/27/2016 Active Essential (primary) hypertension ICD-9: 401.1 ICD-10: I10 07/30/2016 Active Other acute sinusitis ICD- 9: 461.8 ICD-10: J01.80 01/28/2018 Active Other allergic rhinitis ICD-9: 477.8 ICD-10: J30.89 04/01/2016 Active Acute upper respiratory infection, unspecified ICD-9: 465.9 ICD-10: J06.9 01/28/2017 Active Cough ICD-9: 786.2 ICD-10: R05 01/28/2017 Active Pain in left hand ICD-9: 729.5 ICD-10: M79.642 08/24/2016 Active Melanocytic nevi of right ear and external auricular canal ICD-9: 216.2 ICD-10: D22.21 07/30/2016 Active Acute laryngopharyngitis ICD-9: 465.0 ICD-10: J06.0 04/01/2016 Active Other chest pain ICD-9: 786.59 ICD-10: R07.89 01/15/2016 Active Other specified cardiac arrhythmias ICD-9: 427.89 ICD-10: I49.8 01/15/2016 Active Palpitations ICD-9: 785.1 ICD-10: R00.2 01/15/2016 Active Encounter for screening for malignant neoplasm of prostate ICD-9: V76.44 ICD-10: Z12.5 11/18/2015 Active Cervicalgia ICD-9: 723.1 ICD-10: M54.2 10/08/2015 Active Routine medical exam ICD- 9: V70.0 08/01/2014 Active Medications Medication Codes Instructions Start Date Stop Date Status Fill Instructions simvastatin 10 mg tablet RxNorm: 271702 TAKE ONE TABLET BY MOUTH ONCE A DAY 06/29/2018 03/25/2019 Active Zithromax Z-Sinan 250 mg tablet RxNorm: 764027 1 Tablet(s) PO UD 01/28/2018 02/01/2018 Inactive Eliquis 5 mg tablet RxNorm: 1711609 TAKE ONE TABLET BY MOUTH TWICE A DAY 08/17/2017 12/14/2017 Inactive simvastatin 10 mg tablet RxNorm: 516971 TAKE ONE TABLET BY MOUTH ONCE A DAY 06/11/2017 06/05/2018 Inactive Breo Ellipta 100 mcg-25 mcg/dose powder for inhalation RxNorm: 2540383 INHALE ONE DOSE BY MOUTH DAILY 05/03/2017 07/01/2017 Inactive Breo Ellipta 100 mcg-25 mcg/dose powder for inhalation RxNorm: 3800243 INHALE ONE DOSE BY MOUTH DAILY 05/03/2017 07/01/2017 Inactive Keflex 500 mg capsule RxNorm: 499381 1 Capsule(s) PO TID 02/19/2017 02/28/2017 Inactive Keflex 500 mg capsule RxNorm: 714345 1 Capsule(s) PO TID 02/19/2017 02/18/2017 Inactive Breo Ellipta 100 mcg-25 mcg/dose powder for inhalation RxNorm: 2977650 1 Puff(s) INH daily 02/04/2017 05/02/2017 Inactive Zithromax Z-Sinan 250 mg tablet RxNorm: 597846 1 Tablet(s) PO UD 01/28/2017 02/01/2017 Inactive simvastatin 10 mg tablet RxNorm: 873617 TAKE ONE TABLET BY MOUTH ONCE A DAY 08/24/2016 05/20/2017 Inactive Eliquis 5 mg tablet RxNorm: 8105110 1 Tablet(s) PO BID 08/04/2016 07/29/2017 Inactive Zithromax Z-Sinan 250 mg tablet RxNorm: 116601 1 Tablet(s) PO UD 04/01/2016 07/29/2016 Inactive ibuprofen 800 mg tablet RxNorm: 640769 1 Tablet(s) PO TID take with food - then when done with 2 weeks take as needed for pain 10/09/2015 10/22/2015 Inactive Advair Diskus 100 mcg-50 mcg/dose powder for inhalation RxNorm: 1988030 USE 1 INHALATION DAILY 10/02/2015 07/29/2016 Inactive Advair Diskus 100 mcg-50 mcg/dose powder for inhalation RxNorm: 5900982 USE 1 INHALATION DAILY 10/02/2015 10/01/2015 Inactive simvastatin 10 mg tablet RxNorm: 456856 TAKE ONE TABLET BY MOUTH ONCE A DAY 09/26/2015 06/30/2016 Inactive ibuprofen 800 mg tablet RxNorm: 434849 1 Tablet(s) PO TID take with food - then when done with 2 weeks take as needed for pain 08/01/2015 08/14/2015 Inactive Advair Diskus 100 mcg-50 mcg/dose powder for inhalation RxNorm: 8578593 1 INH daily 08/20/2014 08/19/2014 Inactive Advair Diskus 100 mcg-50 mcg/dose powder for inhalation RxNorm: 1997986 1 INH daily 08/20/2014 12/17/2014 Inactive simvastatin 10 mg tablet RxNorm: 317326 1 Tablet(s) PO daily 08/20/2014 04/16/2015 Inactive lisinopril 20 mg tablet RxNorm: 327096 1 Tablet(s) PO daily -Prescribed by Dr. Humphries No Start Date Active Cartia XT 120 mg capsule,extended release RxNorm: 382429 1 Capsule(s) PO daily No Start Date Active Breo Ellipta 100 mcg-25 mcg/dose powder for inhalation RxNorm: 6633600 1 Puff(s) INH daily No Start Date 02/03/2017 Inactive simvastatin 10 mg tablet RxNorm: 432978 1 Tablet(s) PO daily No Start Date 08/19/2014 Inactive Eliquis 5 mg tablet RxNorm: 1376145 1 Tablet(s) PO BID No Start Date 08/03/2016 Inactive Advair Diskus 100 mcg-50 mcg/dose powder for inhalation RxNorm: 1316040 1 INH daily No Start Date 08/19/2014 Inactive Medication Administered No Medication Administered data Immunizations Vaccine Codes Date Status Tetanus, Diptheria, Pertussis CVX: 113 11/15/2013 completed Tetanus/Diptheria CVX: 113 11/15/2013 completed Assessments Condition Codes Effective Dates Encounter for general adult medical examination without abnormal findings ICD-10: Z00.00 ICD-9: V70.0 08/04/2018 Essential (primary) hypertension ICD-10: I10 ICD-9: 401.1 08/01/2018 Chronic atrial fibrillation ICD-10: I48.2 ICD-9: 427.31 08/01/2018 Other acute sinusitis ICD-10: J01.80 ICD-9: 461.8 01/28/2018 Other allergic rhinitis ICD-10: J30.89 ICD-9: 477.8 01/28/2018 Acute upper respiratory infection, unspecified ICD-10: J06.9 ICD-9: 465.9 01/28/2017 Cough ICD-10: R05 ICD-9: 786.2 01/28/2017 Pain in left hand ICD-10: M79.642 ICD-9: 729.5 08/24/2016 Melanocytic nevi of right ear and external auricular canal ICD- 10: D22.21 ICD-9: 216.2 07/30/2016 Acute laryngopharyngitis ICD-10: J06.0 ICD-9: 465.0 04/01/2016 Other specified cardiac arrhythmias ICD-10: I49.8 ICD-9: 427.89 01/16/2016 Other chest pain ICD-10: R07.89 ICD-9: 786.59 01/16/2016 Palpitations ICD-10: R00.2 ICD-9: 785.1 01/16/2016 Encounter for screening for malignant neoplasm of prostate ICD- 10: Z12.5 ICD-9: V76.44 11/19/2015 Cervicalgia ICD-10: M54.2 ICD-9: 723.1 10/09/2015 Routine medical exam ICD-9: V70.0 08/02/2014 Reason For Visit Reason For Visit Effective Dates Notes well man exam (40-65 years) 08/04/2018 palpitations 08/01/2018 sinus congestion 01/28/2018 well man exam (40-65 years) 08/02/2017 cough 01/28/2017 hand pain 08/24/2016 well man exam (40-65 years) 07/30/2016 cough 04/01/2016 Hospital Follow Up 01/27/2016 palpitations 01/16/2016 neck pain 10/09/2015 hyperlipidemia 08/01/2015 hyperlipidemia 08/02/2014 Results No Results data Review of Systems System Result Effective Dates Constitutional No recent illness 08/04/2018 Constitutional No chills 08/04/2018 Constitutional No fatigue 08/04/2018 Constitutional No fever 08/04/2018 Constitutional No insomnia 08/04/2018 Constitutional No malaise 08/04/2018 Eyes No blindness 08/04/2018 Eyes No vision change 08/04/2018 Ears/Nose/Throat/Neck No dental pain 08/04/2018 Ears/Nose/Throat/Neck No dizziness 08/04/2018 Ears/Nose/Throat/Neck No dysphagia 08/04/2018 Ears/Nose/Throat/Neck No headache 08/04/2018 Ears/Nose/Throat/Neck No hearing loss 08/04/2018 Ears/Nose/Throat/Neck No nasal allergies 08/04/2018 Ears/Nose/Throat/Neck No sore throat 08/04/2018 Ears/Nose/Throat/Neck No postnasal drip 08/04/2018 Ears/Nose/Throat/Neck No sinus congestion 08/04/2018 Cardiovascular No chest pain/pressure 08/04/2018 Cardiovascular No dyspnea 08/04/2018 Cardiovascular No edema 08/04/2018 Cardiovascular No exercise intolerance 08/04/2018 Cardiovascular No fatigue 08/04/2018 Cardiovascular No near-syncope/dizziness 08/04/2018 Respiratory No chest tightness 08/04/2018 Respiratory No cough 08/04/2018 Respiratory No dyspnea 08/04/2018 Respiratory No pedal edema 08/04/2018 Gastrointestinal No abdominal pain 08/04/2018 Gastrointestinal No constipation 08/04/2018 Gastrointestinal No diarrhea 08/04/2018 Gastrointestinal No gastroesophageal reflux 08/04/2018 Gastrointestinal No nausea 08/04/2018 Gastrointestinal No vomiting 08/04/2018 Genitourinary/Nephrology No dysuria 08/04/2018 Genitourinary/Nephrology No nocturia 08/04/2018 Genitourinary/Nephrology No urinary incontinence 08/04/2018 Musculoskeletal No stiffness 08/04/2018 Musculoskeletal No swelling 08/04/2018 Musculoskeletal No muscle weakness 08/04/2018 Musculoskeletal No myalgias 08/04/2018 Dermatologic No rash 08/04/2018 Dermatologic No sores 08/04/2018 Dermatologic No scar 08/04/2018 Neurologic No dizziness 08/04/2018 Neurologic No headache 08/04/2018 Neurologic No neck pain 08/04/2018 Neurologic No syncope 08/04/2018 Psychiatric No anxiety 08/04/2018 Psychiatric No depression 08/04/2018 Respiratory snoring 08/04/2018 Cardiovascular palpitations 08/04/2018 Constitutional No recent illness 08/01/2018 Constitutional No night sweats 08/01/2018 Constitutional No chills 08/01/2018 Constitutional No diaphoresis 08/01/2018 Constitutional No fatigue 08/01/2018 Constitutional No fever 08/01/2018 Constitutional No insomnia 08/01/2018 Constitutional No malaise 08/01/2018 Constitutional No weight loss 08/01/2018 Constitutional No weight gain 08/01/2018 Constitutional No obesity 08/01/2018 Eyes No blindness 08/01/2018 Eyes No eye discharge 08/01/2018 Eyes No eye erythema 08/01/2018 Eyes No eye floaters 08/01/2018 Eyes No eye foreign body 08/01/2018 Eyes No eye pain 08/01/2018 Eyes No eye tearing 08/01/2018 Eyes No eye trauma 08/01/2018 Eyes No eyelid edema 08/01/2018 Eyes No eyelid erythema 08/01/2018 Eyes No eyelid pain 08/01/2018 Eyes No photophobia 08/01/2018 Eyes No vision change 08/01/2018 Eyes No amblyopia 08/01/2018 Eyes No cataract 08/01/2018 Eyes No glaucoma 08/01/2018 Eyes No macular degeneration 08/01/2018 Ears/Nose/Throat/Neck No dry mouth 08/01/2018 Ears/Nose/Throat/Neck No dental pain 08/01/2018 Ears/Nose/Throat/Neck No dizziness 08/01/2018 Ears/Nose/Throat/Neck No dysphagia 08/01/2018 Ears/Nose/Throat/Neck No headache 08/01/2018 Ears/Nose/Throat/Neck No hearing loss 08/01/2018 Ears/Nose/Throat/Neck No nasal allergies 08/01/2018 Ears/Nose/Throat/Neck No nasal discharge 08/01/2018 Ears/Nose/Throat/Neck No postnasal drip 08/01/2018 Ears/Nose/Throat/Neck No sinus congestion 08/01/2018 Ears/Nose/Throat/Neck No sore throat 08/01/2018 Cardiovascular chest pain/pressure 08/01/2018 Cardiovascular No dyspnea 08/01/2018 Cardiovascular No fatigue 08/01/2018 Cardiovascular hypertension 08/01/2018 Cardiovascular palpitations 08/01/2018 Cardiovascular No syncope 08/01/2018 Respiratory No electronic cigarettes/Vapor 08/01/2018 Respiratory No asthma 08/01/2018 Respiratory No pleuritic pain 08/01/2018 Respiratory No productive sputum 08/01/2018 Respiratory No chest tightness 08/01/2018 Respiratory No cigarette smoking 08/01/2018 Respiratory No cough 08/01/2018 Respiratory No dyspnea 08/01/2018 Respiratory No pedal edema 08/01/2018 Respiratory No snoring 08/01/2018 Respiratory No wheezing 08/01/2018 Gastrointestinal No hemorrhoids 08/01/2018 Gastrointestinal No abdominal pain 08/01/2018 Gastrointestinal No constipation 08/01/2018 Gastrointestinal No diarrhea 08/01/2018 Gastrointestinal No gastroesophageal reflux 08/01/2018 Gastrointestinal No melena 08/01/2018 Gastrointestinal No nausea 08/01/2018 Gastrointestinal No vomiting 08/01/2018 Genitourinary/Nephrology No dysuria 08/01/2018 Genitourinary/Nephrology No nocturia 08/01/2018 Genitourinary/Nephrology No urinary incontinence 08/01/2018 Musculoskeletal No stiffness 08/01/2018 Musculoskeletal No swelling 08/01/2018 Musculoskeletal No muscle weakness 08/01/2018 Musculoskeletal No myalgias 08/01/2018 Dermatologic No pruritus 08/01/2018 Dermatologic No rash 08/01/2018 Dermatologic No scar 08/01/2018 Neurologic No dizziness 08/01/2018 Neurologic No headache 08/01/2018 Neurologic No neck pain 08/01/2018 Neurologic No syncope 08/01/2018 Constitutional recent illness 01/28/2018 Constitutional No chills 01/28/2018 Constitutional No diaphoresis 01/28/2018 Constitutional No fever 01/28/2018 Eyes No eye erythema 01/28/2018 Ears/Nose/Throat/Neck nasal allergies 01/28/2018 Ears/Nose/Throat/Neck nasal discharge 01/28/2018 Ears/Nose/Throat/Neck postnasal drip 01/28/2018 Ears/Nose/Throat/Neck sinus congestion 01/28/2018 Ears/Nose/Throat/Neck No sore throat 01/28/2018 Cardiovascular No chest pain/pressure 01/28/2018 Cardiovascular No dyspnea 01/28/2018 Respiratory No chest congestion 01/28/2018 Respiratory cough 01/28/2018 Respiratory No dyspnea 01/28/2018 Gastrointestinal No abdominal pain 01/28/2018 Gastrointestinal No constipation 01/28/2018 Gastrointestinal No diarrhea 01/28/2018 Gastrointestinal No nausea 01/28/2018 Gastrointestinal No vomiting 01/28/2018 Dermatologic No rash 01/28/2018 Neurologic No alteration of consciousness 01/28/2018 Neurologic No mental status change 01/28/2018 Constitutional No recent illness 08/02/2017 Constitutional No chills 08/02/2017 Constitutional No fatigue 08/02/2017 Constitutional No fever 08/02/2017 Constitutional No insomnia 08/02/2017 Constitutional No malaise 08/02/2017 Eyes No blindness 08/02/2017 Eyes No vision change 08/02/2017 Ears/Nose/Throat/Neck No dental pain 08/02/2017 Ears/Nose/Throat/Neck No dizziness 08/02/2017 Ears/Nose/Throat/Neck No dysphagia 08/02/2017 Ears/Nose/Throat/Neck No headache 08/02/2017 Ears/Nose/Throat/Neck No hearing loss 08/02/2017 Ears/Nose/Throat/Neck No nasal allergies 08/02/2017 Ears/Nose/Throat/Neck No sore throat 08/02/2017 Ears/Nose/Throat/Neck No postnasal drip 08/02/2017 Ears/Nose/Throat/Neck No sinus congestion 08/02/2017 Cardiovascular No chest pain/pressure 08/02/2017 Cardiovascular No dyspnea 08/02/2017 Cardiovascular No edema 08/02/2017 Cardiovascular No exercise intolerance 08/02/2017 Cardiovascular No fatigue 08/02/2017 Cardiovascular No near-syncope/dizziness 08/02/2017 Respiratory No chest tightness 08/02/2017 Respiratory No cough 08/02/2017 Respiratory No dyspnea 08/02/2017 Respiratory No pedal edema 08/02/2017 Gastrointestinal No abdominal pain 08/02/2017 Gastrointestinal No constipation 08/02/2017 Gastrointestinal No diarrhea 08/02/2017 Gastrointestinal No gastroesophageal reflux 08/02/2017 Gastrointestinal No nausea 08/02/2017 Gastrointestinal No vomiting 08/02/2017 Genitourinary/Nephrology No dysuria 08/02/2017 Genitourinary/Nephrology No nocturia 08/02/2017 Genitourinary/Nephrology No urinary incontinence 08/02/2017 Musculoskeletal No stiffness 08/02/2017 Musculoskeletal No swelling 08/02/2017 Musculoskeletal No muscle weakness 08/02/2017 Musculoskeletal No myalgias 08/02/2017 Dermatologic No rash 08/02/2017 Dermatologic No sores 08/02/2017 Dermatologic No scar 08/02/2017 Neurologic No dizziness 08/02/2017 Neurologic No headache 08/02/2017 Neurologic No neck pain 08/02/2017 Neurologic No syncope 08/02/2017 Psychiatric No anxiety 08/02/2017 Psychiatric No depression 08/02/2017 Constitutional recent illness 01/28/2017 Eyes No blindness 01/28/2017 Ears/Nose/Throat/Neck nasal allergies 01/28/2017 Ears/Nose/Throat/Neck nasal discharge 01/28/2017 Ears/Nose/Throat/Neck postnasal drip 01/28/2017 Ears/Nose/Throat/Neck No sore throat 01/28/2017 Cardiovascular No chest pain/pressure 01/28/2017 Cardiovascular No dyspnea 01/28/2017 Respiratory productive sputum 01/28/2017 Respiratory No chest congestion 01/28/2017 Respiratory cough 01/28/2017 Respiratory No dyspnea 01/28/2017 Gastrointestinal No constipation 01/28/2017 Gastrointestinal No diarrhea 01/28/2017 Gastrointestinal No nausea 01/28/2017 Gastrointestinal No vomiting 01/28/2017 Dermatologic No rash 01/28/2017 Neurologic No alteration of consciousness 01/28/2017 Neurologic No mental status change 01/28/2017 Ears/Nose/Throat/Neck sinus congestion 01/28/2017 Constitutional No recent illness 08/24/2016 Constitutional No anorexia 08/24/2016 Constitutional No chills 08/24/2016 Constitutional No night sweats 08/24/2016 Constitutional No diaphoresis 08/24/2016 Constitutional No fatigue 08/24/2016 Constitutional No fever 08/24/2016 Constitutional No insomnia 08/24/2016 Constitutional No malaise 08/24/2016 Constitutional No weight loss 08/24/2016 Constitutional No weight gain 08/24/2016 Musculoskeletal joint complaint 08/24/2016 Constitutional No recent illness 07/30/2016 Constitutional No chills 07/30/2016 Constitutional No fatigue 07/30/2016 Constitutional No fever 07/30/2016 Constitutional No insomnia 07/30/2016 Constitutional No malaise 07/30/2016 Eyes No blindness 07/30/2016 Eyes No vision change 07/30/2016 Ears/Nose/Throat/Neck No dental pain 07/30/2016 Ears/Nose/Throat/Neck No dizziness 07/30/2016 Ears/Nose/Throat/Neck No dysphagia 07/30/2016 Ears/Nose/Throat/Neck No headache 07/30/2016 Ears/Nose/Throat/Neck No hearing loss 07/30/2016 Ears/Nose/Throat/Neck No nasal allergies 07/30/2016 Ears/Nose/Throat/Neck No sore throat 07/30/2016 Ears/Nose/Throat/Neck No postnasal drip 07/30/2016 Ears/Nose/Throat/Neck No sinus congestion 07/30/2016 Cardiovascular No chest pain/pressure 07/30/2016 Cardiovascular No dyspnea 07/30/2016 Cardiovascular No edema 07/30/2016 Cardiovascular No exercise intolerance 07/30/2016 Cardiovascular No fatigue 07/30/2016 Cardiovascular No near-syncope/dizziness 07/30/2016 Respiratory No chest tightness 07/30/2016 Respiratory No cough 07/30/2016 Respiratory No dyspnea 07/30/2016 Respiratory No pedal edema 07/30/2016 Gastrointestinal No abdominal pain 07/30/2016 Gastrointestinal No constipation 07/30/2016 Gastrointestinal No diarrhea 07/30/2016 Gastrointestinal No gastroesophageal reflux 07/30/2016 Gastrointestinal No nausea 07/30/2016 Gastrointestinal No vomiting 07/30/2016 Genitourinary/Nephrology No dysuria 07/30/2016 Genitourinary/Nephrology No nocturia 07/30/2016 Genitourinary/Nephrology No urinary incontinence 07/30/2016 Musculoskeletal No stiffness 07/30/2016 Musculoskeletal No swelling 07/30/2016 Musculoskeletal No muscle weakness 07/30/2016 Musculoskeletal No myalgias 07/30/2016 Dermatologic No rash 07/30/2016 Dermatologic No sores 07/30/2016 Dermatologic No scar 07/30/2016 Neurologic No dizziness 07/30/2016 Neurologic No headache 07/30/2016 Neurologic No neck pain 07/30/2016 Neurologic No syncope 07/30/2016 Psychiatric No anxiety 07/30/2016 Psychiatric No depression 07/30/2016 Constitutional recent illness 04/01/2016 Eyes No eye erythema 04/01/2016 Ears/Nose/Throat/Neck nasal allergies 04/01/2016 Ears/Nose/Throat/Neck nasal discharge 04/01/2016 Ears/Nose/Throat/Neck postnasal drip 04/01/2016 Ears/Nose/Throat/Neck sore throat 04/01/2016 Cardiovascular No chest pain/pressure 04/01/2016 Cardiovascular No dyspnea 04/01/2016 Respiratory No chest congestion 04/01/2016 Respiratory cough 04/01/2016 Respiratory No dyspnea 04/01/2016 Gastrointestinal No constipation 04/01/2016 Gastrointestinal No diarrhea 04/01/2016 Gastrointestinal No nausea 04/01/2016 Gastrointestinal No vomiting 04/01/2016 Dermatologic No rash 04/01/2016 Neurologic No alteration of consciousness 04/01/2016 Neurologic No mental status change 04/01/2016 Respiratory productive sputum 04/01/2016 Constitutional recent illness 01/27/2016 Constitutional No chills 01/27/2016 Constitutional No fatigue 01/27/2016 Constitutional No fever 01/27/2016 Constitutional No insomnia 01/27/2016 Constitutional No malaise 01/27/2016 Eyes No blindness 01/27/2016 Eyes No vision change 01/27/2016 Ears/Nose/Throat/Neck No dizziness 01/27/2016 Ears/Nose/Throat/Neck No dysphagia 01/27/2016 Ears/Nose/Throat/Neck No headache 01/27/2016 Ears/Nose/Throat/Neck No hearing loss 01/27/2016 Ears/Nose/Throat/Neck No sinus congestion 01/27/2016 Cardiovascular No chest pain/pressure 01/27/2016 Cardiovascular No dyspnea 01/27/2016 Cardiovascular No edema 01/27/2016 Cardiovascular No exercise intolerance 01/27/2016 Cardiovascular No fatigue 01/27/2016 Cardiovascular No near-syncope/dizziness 01/27/2016 Respiratory No chest tightness 01/27/2016 Respiratory No cough 01/27/2016 Respiratory No dyspnea 01/27/2016 Respiratory No pedal edema 01/27/2016 Gastrointestinal No abdominal pain 01/27/2016 Gastrointestinal No constipation 01/27/2016 Gastrointestinal No diarrhea 01/27/2016 Gastrointestinal No gastroesophageal reflux 01/27/2016 Gastrointestinal No nausea 01/27/2016 Gastrointestinal No vomiting 01/27/2016 Musculoskeletal No stiffness 01/27/2016 Musculoskeletal No swelling 01/27/2016 Musculoskeletal No muscle weakness 01/27/2016 Musculoskeletal No myalgias 01/27/2016 Neurologic No dizziness 01/27/2016 Neurologic No headache 01/27/2016 Neurologic No neck pain 01/27/2016 Neurologic No syncope 01/27/2016 Psychiatric No anxiety 01/27/2016 Psychiatric No depression 01/27/2016 Constitutional recent illness 01/16/2016 Constitutional No chills 01/16/2016 Constitutional fatigue 01/16/2016 Constitutional No fever 01/16/2016 Constitutional No insomnia 01/16/2016 Constitutional No malaise 01/16/2016 Eyes No blindness 01/16/2016 Eyes No vision change 01/16/2016 Ears/Nose/Throat/Neck No dental pain 01/16/2016 Ears/Nose/Throat/Neck No dizziness 01/16/2016 Ears/Nose/Throat/Neck No dysphagia 01/16/2016 Ears/Nose/Throat/Neck No headache 01/16/2016 Ears/Nose/Throat/Neck No hearing loss 01/16/2016 Ears/Nose/Throat/Neck No nasal allergies 01/16/2016 Ears/Nose/Throat/Neck No sore throat 01/16/2016 Ears/Nose/Throat/Neck No postnasal drip 01/16/2016 Ears/Nose/Throat/Neck No sinus congestion 01/16/2016 Cardiovascular chest pain/pressure 01/16/2016 Cardiovascular dyspnea 01/16/2016 Cardiovascular No edema 01/16/2016 Cardiovascular exercise intolerance 01/16/2016 Cardiovascular fatigue 01/16/2016 Cardiovascular No near-syncope/dizziness 01/16/2016 Respiratory No chest tightness 01/16/2016 Respiratory No cough 01/16/2016 Respiratory No dyspnea 01/16/2016 Respiratory No pedal edema 01/16/2016 Gastrointestinal No abdominal pain 01/16/2016 Gastrointestinal No constipation 01/16/2016 Gastrointestinal No diarrhea 01/16/2016 Gastrointestinal No gastroesophageal reflux 01/16/2016 Gastrointestinal No nausea 01/16/2016 Gastrointestinal No vomiting 01/16/2016 Musculoskeletal No stiffness 01/16/2016 Musculoskeletal No swelling 01/16/2016 Musculoskeletal No muscle weakness 01/16/2016 Musculoskeletal No myalgias 01/16/2016 Dermatologic No sores 01/16/2016 Neurologic No dizziness 01/16/2016 Neurologic No headache 01/16/2016 Neurologic No neck pain 01/16/2016 Neurologic No syncope 01/16/2016 Psychiatric No anxiety 01/16/2016 Psychiatric No depression 01/16/2016 Cardiovascular palpitations 01/16/2016 Constitutional No recent illness 10/09/2015 Constitutional No chills 10/09/2015 Constitutional No fever 10/09/2015 Eyes No eye erythema 10/09/2015 Eyes No vision change 10/09/2015 Ears/Nose/Throat/Neck No nasal allergies 10/09/2015 Ears/Nose/Throat/Neck No sore throat 10/09/2015 Ears/Nose/Throat/Neck No postnasal drip 10/09/2015 Ears/Nose/Throat/Neck No sinus congestion 10/09/2015 Cardiovascular No chest pain/pressure 10/09/2015 Cardiovascular No dyspnea 10/09/2015 Cardiovascular No edema 10/09/2015 Respiratory No cough 10/09/2015 Respiratory No dyspnea 10/09/2015 Dermatologic No rash 10/09/2015 Dermatologic No sores 10/09/2015 Dermatologic No scar 10/09/2015 Constitutional No diaphoresis 10/09/2015 Ears/Nose/Throat/Neck No headache 10/09/2015 Ears/Nose/Throat/Neck No nasal discharge 10/09/2015 Respiratory No chest congestion 10/09/2015 Gastrointestinal No abdominal pain 10/09/2015 Musculoskeletal neck pain 10/09/2015 Neurologic No alteration of consciousness 10/09/2015 Neurologic No mental status change 10/09/2015 Constitutional No recent illness 08/01/2015 Constitutional No chills 08/01/2015 Constitutional No fatigue 08/01/2015 Constitutional No fever 08/01/2015 Constitutional No insomnia 08/01/2015 Constitutional No malaise 08/01/2015 Eyes No blindness 08/01/2015 Eyes No vision change 08/01/2015 Ears/Nose/Throat/Neck No dental pain 08/01/2015 Ears/Nose/Throat/Neck No dizziness 08/01/2015 Ears/Nose/Throat/Neck No dysphagia 08/01/2015 Ears/Nose/Throat/Neck No headache 08/01/2015 Ears/Nose/Throat/Neck No hearing loss 08/01/2015 Ears/Nose/Throat/Neck No nasal allergies 08/01/2015 Ears/Nose/Throat/Neck No sore throat 08/01/2015 Ears/Nose/Throat/Neck No postnasal drip 08/01/2015 Ears/Nose/Throat/Neck No sinus congestion 08/01/2015 Cardiovascular No chest pain/pressure 08/01/2015 Cardiovascular No dyspnea 08/01/2015 Cardiovascular No edema 08/01/2015 Cardiovascular No exercise intolerance 08/01/2015 Cardiovascular No fatigue 08/01/2015 Cardiovascular No near-syncope/dizziness 08/01/2015 Respiratory No chest tightness 08/01/2015 Respiratory No cough 08/01/2015 Respiratory No dyspnea 08/01/2015 Respiratory No pedal edema 08/01/2015 Gastrointestinal No abdominal pain 08/01/2015 Gastrointestinal No constipation 08/01/2015 Gastrointestinal No diarrhea 08/01/2015 Gastrointestinal No gastroesophageal reflux 08/01/2015 Gastrointestinal No nausea 08/01/2015 Gastrointestinal No vomiting 08/01/2015 Genitourinary/Nephrology No dysuria 08/01/2015 Genitourinary/Nephrology No nocturia 08/01/2015 Genitourinary/Nephrology No urinary incontinence 08/01/2015 Musculoskeletal No stiffness 08/01/2015 Musculoskeletal No swelling 08/01/2015 Musculoskeletal No muscle weakness 08/01/2015 Musculoskeletal No myalgias 08/01/2015 Dermatologic No rash 08/01/2015 Dermatologic No sores 08/01/2015 Dermatologic No scar 08/01/2015 Neurologic No dizziness 08/01/2015 Neurologic No headache 08/01/2015 Neurologic No neck pain 08/01/2015 Neurologic No syncope 08/01/2015 Psychiatric No anxiety 08/01/2015 Psychiatric No depression 08/01/2015 Constitutional No recent illness 08/02/2014 Constitutional No chills 08/02/2014 Constitutional No fatigue 08/02/2014 Constitutional No fever 08/02/2014 Constitutional No insomnia 08/02/2014 Constitutional No malaise 08/02/2014 Eyes No blindness 08/02/2014 Eyes No vision change 08/02/2014 Ears/Nose/Throat/Neck No dental pain 08/02/2014 Ears/Nose/Throat/Neck No dizziness 08/02/2014 Ears/Nose/Throat/Neck No dysphagia 08/02/2014 Ears/Nose/Throat/Neck No headache 08/02/2014 Ears/Nose/Throat/Neck No hearing loss 08/02/2014 Ears/Nose/Throat/Neck No nasal allergies 08/02/2014 Ears/Nose/Throat/Neck No sore throat 08/02/2014 Ears/Nose/Throat/Neck No postnasal drip 08/02/2014 Ears/Nose/Throat/Neck No sinus congestion 08/02/2014 Cardiovascular No chest pain/pressure 08/02/2014 Cardiovascular No dyspnea 08/02/2014 Cardiovascular No edema 08/02/2014 Cardiovascular No exercise intolerance 08/02/2014 Cardiovascular No fatigue 08/02/2014 Cardiovascular No near-syncope/dizziness 08/02/2014 Respiratory No chest tightness 08/02/2014 Respiratory No cough 08/02/2014 Respiratory No dyspnea 08/02/2014 Respiratory No pedal edema 08/02/2014 Gastrointestinal No abdominal pain 08/02/2014 Gastrointestinal No constipation 08/02/2014 Gastrointestinal No diarrhea 08/02/2014 Gastrointestinal No gastroesophageal reflux 08/02/2014 Gastrointestinal No nausea 08/02/2014 Gastrointestinal No vomiting 08/02/2014 Genitourinary/Nephrology No dysuria 08/02/2014 Genitourinary/Nephrology No nocturia 08/02/2014 Genitourinary/Nephrology No urinary incontinence 08/02/2014 Musculoskeletal No stiffness 08/02/2014 Musculoskeletal No swelling 08/02/2014 Musculoskeletal No muscle weakness 08/02/2014 Musculoskeletal No myalgias 08/02/2014 Dermatologic No rash 08/02/2014 Dermatologic No sores 08/02/2014 Dermatologic No scar 08/02/2014 Neurologic No dizziness 08/02/2014 Neurologic No headache 08/02/2014 Neurologic No neck pain 08/02/2014 Neurologic No syncope 08/02/2014 Psychiatric No anxiety 08/02/2014 Psychiatric No depression 08/02/2014 Physical Exam Exam Name System Name Item Name Status Result Effective Dates Notes Full Exam - General 1994 Constitutional general appearance Development: well developed 08/04/2018 None Full Exam - General 1994 Constitutional general appearance Development: appears stated age 0608/04/2018 None Full Exam - General 1994 Constitutional general appearance Hygiene/Attention to Grooming: good hygiene 08/04/2018 None Full Exam - General 1994 Eyes conjunctiva/eyelids Overall: conjunctiva clear 08/04/2018 None Full Exam - General 1994 Eyes conjunctiva/eyelids Overall: cornea clear 08/04/2018 None Full Exam - General 1994 Eyes conjunctiva/eyelids Overall: eyelids normal 08/04/2018 None Full Exam - General 1994 Eyes pupils and irises Overall: pupils equal, round, reactive to light and accomodation 08/04/2018 None Full Exam - General 1994 Ears/Nose/Throat otoscopic exam Overall: external auditory canals clear 08/04/2018 None Full Exam - General 1994 Ears/Nose/Throat otoscopic exam Overall: tympanic membranes clear 08/04/2018 None Full Exam - General 1994 Ears/Nose/Throat lips/teeth/gingiva Overall: benign lips 08/04/2018 None Full Exam - General 1994 Ears/Nose/Throat lips/teeth/gingiva Overall: normal dentition 08/04/2018 None Full Exam - General 1994 Ears/Nose/Throat oral cavity/pharynx/larynx Overall: oral mucosa clear 08/04/2018 None Full Exam - General 1994 Ears/Nose/Throat oral cavity/pharynx/larynx Overall: oropharyngeal mucosa clear 08/04/2018 None Full Exam - General 1994 Ears/Nose/Throat oral cavity/pharynx/larynx Overall: hypopharynx benign 08/04/2018 None Full Exam - General 1994 Ears/Nose/Throat oral cavity/pharynx/larynx Overall: no masses 08/04/2018 None Full Exam - General 1994 Respiratory auscultation Overall: breath sounds clear bilaterally 08/04/2018 None Full Exam - General 1994 Respiratory respiratory effort/rhythm Overall: no retractions 08/04/2018 None Full Exam - General 1994 Respiratory respiratory effort/rhythm Overall: normal rate 08/04/2018 None Full Exam - General 1994 Cardiovascular extremities Overall: no clubbing 08/04/2018 None Full Exam - General 1994 Cardiovascular auscultation of heart Overall: regular rate 08/04/2018 None Full Exam - General 1994 Cardiovascular auscultation of heart Overall: normal heart sounds 08/04/2018 None Full Exam - General 1994 Abdomen abdominal exam Overall: no tenderness 08/04/2018 None Full Exam - General 1994 Abdomen abdominal exam Overall: normal bowel sounds 08/04/2018 None Full Exam - General 1994 Lymphatic neck nodes Overall: anterior cervical chain benign 08/04/2018 None Full Exam - General 1994 Lymphatic neck nodes Overall: posterior cervical chain benign 08/04/2018 None Full Exam - General 1994 Musculoskeletal spine, ribs and pelvis Overall: spine benign 08/04/2018 None Full Exam - General 1994 Musculoskeletal spine, ribs and pelvis Overall: sacroiliac joint benign 08/04/2018 None Full Exam - General 1994 Musculoskeletal spine, ribs and pelvis Overall: good posture 08/04/2018 None Full Exam - General 1994 Musculoskeletal head and neck Overall: head atraumatic 08/04/2018 None Full Exam - General 1994 Musculoskeletal head and neck Overall: cervical spine benign 08/04/2018 None Full Exam - General 1994 Integument inspection of skin Location: ear 08/04/2018 on top of right ear - dark brown irregularly shaped skin lesion Full Exam - General 1994 Neurologic deep tendon reflexes Overall: deep tendon reflexes intact 08/04/2018 None Full Exam - General 1994 Neurologic cranial nerves Overall: crainial nerves 2 - 12 grossly intact 08/04/2018 None Full Exam - General 1994 Psychiatric orientation/consciousness Overall: oriented to person, place and time 08/04/2018 None Full Exam - General 1994 Psychiatric mood and affect Overall: normal mood and affect 08/04/2018 None Full Exam - General 1994 Constitutional general appearance Development: well developed 08/01/2018 None Full Exam - General 1994 Constitutional general appearance Development: appears stated age 0608/01/2018 None Full Exam - General 1994 Constitutional general appearance Hygiene/Attention to Grooming: good hygiene 08/01/2018 None Full Exam - General 1994 Eyes conjunctiva/eyelids Overall: conjunctiva clear 08/01/2018 None Full Exam - General 1994 Eyes conjunctiva/eyelids Overall: cornea clear 08/01/2018 None Full Exam - General 1994 Eyes conjunctiva/eyelids Overall: eyelids normal 08/01/2018 None Full Exam - General 1994 Eyes pupils and irises Overall: pupils equal, round, reactive to light and accomodation 08/01/2018 None Full Exam - General 1994 Ears/Nose/Throat otoscopic exam Overall: external auditory canals clear 08/01/2018 None Full Exam - General 1994 Ears/Nose/Throat otoscopic exam Overall: tympanic membranes clear 08/01/2018 None Full Exam - General 1994 Ears/Nose/Throat lips/teeth/gingiva Overall: benign lips 08/01/2018 None Full Exam - General 1994 Ears/Nose/Throat lips/teeth/gingiva Overall: normal dentition 08/01/2018 None Full Exam - General 1994 Ears/Nose/Throat oral cavity/pharynx/larynx Overall: oral mucosa clear 08/01/2018 None Full Exam - General 1995 Ears/Nose/Throat oral cavity/pharynx/larynx Overall: oropharyngeal mucosa clear 08/01/2018 None Full Exam - General 1994 Ears/Nose/Throat oral cavity/pharynx/larynx Overall: hypopharynx benign 08/01/2018 None Full Exam - General 1994 Ears/Nose/Throat oral cavity/pharynx/larynx Overall: no masses 08/01/2018 None Full Exam - General 1994 Respiratory auscultation Overall: breath sounds clear bilaterally 08/01/2018 None Full Exam - General 1994 Respiratory respiratory effort/rhythm Overall: no retractions 08/01/2018 None Full Exam - General 1994 Respiratory respiratory effort/rhythm Overall: normal rate 08/01/2018 None Full Exam - General 1994 Cardiovascular extremities Overall: no clubbing 08/01/2018 None Full Exam - General 1994 Cardiovascular auscultation of heart Overall: normal heart sounds 08/01/2018 None Full Exam - General 1994 Abdomen abdominal exam Overall: no tenderness 08/01/2018 None Full Exam - General 1994 Abdomen abdominal exam Overall: normal bowel sounds 08/01/2018 None Full Exam - General 1994 Lymphatic neck nodes Overall: anterior cervical chain benign 08/01/2018 None Full Exam - General 1994 Lymphatic neck nodes Overall: posterior cervical chain benign 08/01/2018 None Full Exam - General 1994 Musculoskeletal spine, ribs and pelvis Overall: spine benign 08/01/2018 None Full Exam - General 1994 Musculoskeletal spine, ribs and pelvis Overall: sacroiliac joint benign 08/01/2018 None Full Exam - General 1994 Musculoskeletal spine, ribs and pelvis Overall: good posture 08/01/2018 None Full Exam - General 1994 Musculoskeletal head and neck Overall: head atraumatic 08/01/2018 None Full Exam - General 1994 Musculoskeletal head and neck Overall: cervical spine benign 08/01/2018 None Full Exam - General 1994 Neurologic deep tendon reflexes Overall: deep tendon reflexes intact 08/01/2018 None Full Exam - General 1994 Neurologic cranial nerves Overall: crainial nerves 2 - 12 grossly intact 08/01/2018 None Full Exam - General 1994 Psychiatric orientation/consciousness Overall: oriented to person, place and time 08/01/2018 None Full Exam - General 1994 Psychiatric mood and affect Overall: normal mood and affect 08/01/2018 None Full Exam - Cardiology Integument inspection/palpation Overall: no rash, lesions 08/01/2018 None Full Exam - Cardiology Cardiovascular auscultation of heart Rate: bradycardia 08/01/2018 None Full Exam - Cardiology Cardiovascular auscultation of heart Rhythm: regular rhythm 08/01/2018 None Full Exam - ENT Constitutional general appearance Overall: well nourished 01/28/2018 None Full Exam - ENT Constitutional general appearance Overall: well developed 01/28/2018 None Full Exam - ENT Constitutional general appearance Overall: in no acute distress 01/28/2018 None Full Exam - ENT Ears/Nose/Throat otoscopic exam Overall: external auditory canals normal 01/28/2018 None Full Exam - ENT Ears/Nose/Throat otoscopic exam Left tympanic membrane: air-fluid level 01/28/2018 None Full Exam - ENT Ears/Nose/Throat otoscopic exam Right tympanic membrane: air-fluid level 01/28/2018 None Full Exam - ENT Ears/Nose/Throat nasal mucosa, septum, turbinates Drainage: clear 01/28/2018 None Full Exam - ENT Ears/Nose/Throat nasal mucosa, septum, turbinates Drainage: yellow 01/28/2018 None Full Exam - ENT Ears/Nose/Throat lips/teeth/gingiva Overall: benign lips 01/28/2018 None Full Exam - ENT Ears/Nose/Throat oropharynx Posterior Pharynx: clear post nasal drainage 01/28/2018 None Full Exam - ENT Face and Head palpation Left maxillary sinus: tender 01/28/2018 None Full Exam - ENT Face and Head palpation Right maxillary sinus: tender 01/28/2018 None Full Exam - ENT Respiratory inspection Overall: no retractions 01/28/2018 None Full Exam - ENT Respiratory inspection Overall: normal rate 01/28/2018 None Full Exam - ENT Respiratory auscultation Overall: breath sounds clear bilaterally 01/28/2018 None Full Exam - ENT Cardiovascular auscultation of heart Overall: regular rate 01/28/2018 None Full Exam - ENT Cardiovascular auscultation of heart Overall: normal heart sounds 01/28/2018 None Full Exam - ENT Lymphatic palpation of lymph nodes Overall: anterior cervical chain benign 01/28/2018 None Full Exam - ENT Lymphatic palpation of lymph nodes Overall: posterior cervical chain benign 01/28/2018 None Full Exam - ENT Neurologic mood and affect Overall: normal mood 01/28/2018 None Full Exam - ENT Neurologic mood and affect Overall: normal affect 01/28/2018 None Full Exam - ENT Neurologic orientation Overall: oriented to person, place and time 01/28/2018 None Full Exam - General 1994 Constitutional general appearance Development: well developed 08/02/2017 None Full Exam - General 1994 Constitutional general appearance Development: appears stated age 0608/02/2017 None Full Exam - General 1994 Constitutional general appearance Hygiene/Attention to Grooming: good hygiene 08/02/2017 None Full Exam - General 1994 Eyes conjunctiva/eyelids Overall: conjunctiva clear 08/02/2017 None Full Exam - General 1994 Eyes conjunctiva/eyelids Overall: cornea clear 08/02/2017 None Full Exam - General 1994 Eyes conjunctiva/eyelids Overall: eyelids normal 08/02/2017 None Full Exam - General 1994 Eyes pupils and irises Overall: pupils equal, round, reactive to light and accomodation 08/02/2017 None Full Exam - General 1994 Ears/Nose/Throat otoscopic exam Overall: external auditory canals clear 08/02/2017 None Full Exam - General 1994 Ears/Nose/Throat otoscopic exam Overall: tympanic membranes clear 08/02/2017 None Full Exam - General 1994 Ears/Nose/Throat lips/teeth/gingiva Overall: benign lips 08/02/2017 None Full Exam - General 1994 Ears/Nose/Throat lips/teeth/gingiva Overall: normal dentition 08/02/2017 None Full Exam - General 1994 Ears/Nose/Throat oral cavity/pharynx/larynx Overall: oral mucosa clear 08/02/2017 None Full Exam - General 1994 Ears/Nose/Throat oral cavity/pharynx/larynx Overall: oropharyngeal mucosa clear 08/02/2017 None Full Exam - General 1994 Ears/Nose/Throat oral cavity/pharynx/larynx Overall: hypopharynx benign 08/02/2017 None Full Exam - General 1994 Ears/Nose/Throat oral cavity/pharynx/larynx Overall: no masses 08/02/2017 None Full Exam - General 1994 Respiratory auscultation Overall: breath sounds clear bilaterally 08/02/2017 None Full Exam - General 1994 Respiratory respiratory effort/rhythm Overall: no retractions 08/02/2017 None Full Exam - General 1994 Respiratory respiratory effort/rhythm Overall: normal rate 08/02/2017 None Full Exam - General 1994 Cardiovascular extremities Overall: no clubbing 08/02/2017 None Full Exam - General 1994 Cardiovascular auscultation of heart Overall: regular rate 08/02/2017 None Full Exam - General 1994 Cardiovascular auscultation of heart Overall: normal heart sounds 08/02/2017 None Full Exam - General 1994 Abdomen abdominal exam Overall: no tenderness 08/02/2017 None Full Exam - General 1994 Abdomen abdominal exam Overall: normal bowel sounds 08/02/2017 None Full Exam - General 1994 Lymphatic neck nodes Overall: anterior cervical chain benign 08/02/2017 None Full Exam - General 1994 Lymphatic neck nodes Overall: posterior cervical chain benign 08/02/2017 None Full Exam - General 1994 Musculoskeletal spine, ribs and pelvis Overall: spine benign 08/02/2017 None Full Exam - General 1994 Musculoskeletal spine, ribs and pelvis Overall: sacroiliac joint benign 08/02/2017 None Full Exam - General 1994 Musculoskeletal spine, ribs and pelvis Overall: good posture 08/02/2017 None Full Exam - General 1994 Musculoskeletal head and neck Overall: head atraumatic 08/02/2017 None Full Exam - General 1994 Musculoskeletal head and neck Overall: cervical spine benign 08/02/2017 None Full Exam - General 1994 Integument inspection of skin Location: ear 08/02/2017 on top of right ear - dark brown irregularly shaped skin lesion Full Exam - General 1994 Neurologic deep tendon reflexes Overall: deep tendon reflexes intact 08/02/2017 None Full Exam - General 1994 Neurologic cranial nerves Overall: crainial nerves 2 - 12 grossly intact 08/02/2017 None Full Exam - General 1994 Psychiatric orientation/consciousness Overall: oriented to person, place and time 08/02/2017 None Full Exam - General 1994 Psychiatric mood and affect Overall: normal mood and affect 08/02/2017 None Full Exam - ENT Constitutional general appearance Overall: well nourished 01/28/2017 None Full Exam - ENT Constitutional general appearance Overall: well developed 01/28/2017 None Full Exam - ENT Constitutional general appearance Overall: in no acute distress 01/28/2017 None Full Exam - ENT Ears/Nose/Throat otoscopic exam Overall: external auditory canals normal 01/28/2017 None Full Exam - ENT Ears/Nose/Throat lips/teeth/gingiva Overall: benign lips 01/28/2017 None Full Exam - ENT Ears/Nose/Throat oropharynx Overall: oral mucosa clear 01/28/2017 None Full Exam - ENT Respiratory inspection Overall: no retractions 01/28/2017 None Full Exam - ENT Respiratory inspection Overall: normal rate 01/28/2017 None Full Exam - ENT Respiratory auscultation Overall: breath sounds clear bilaterally 01/28/2017 None Full Exam - ENT Cardiovascular auscultation of heart Rate: normal rate 01/28/2017 None Full Exam - ENT Cardiovascular auscultation of heart Rhythm: regular rhythm 01/28/2017 None Full Exam - ENT Lymphatic palpation of lymph nodes Overall: anterior cervical chain benign 01/28/2017 None Full Exam - ENT Lymphatic palpation of lymph nodes Overall: posterior cervical chain benign 01/28/2017 None Full Exam - ENT Neurologic mood and affect Overall: normal mood 01/28/2017 None Full Exam - ENT Neurologic mood and affect Overall: normal affect 01/28/2017 None Full Exam - ENT Neurologic orientation Overall: oriented to person, place and time 01/28/2017 None Full Exam - ENT Ears/Nose/Throat otoscopic exam Overall: tympanic membranes normal 01/28/2017 None Full Exam - ENT Face and Head palpation Overall: no sinus tenderness 01/28/2017 None Full Exam - Orthopedics Constitutional general appearance Overall: well nourished 08/24/2016 None Full Exam - Orthopedics Constitutional general appearance Overall: well developed 08/24/2016 None Full Exam - Orthopedics Constitutional general appearance Overall: in no acute distress 08/24/2016 None Full Exam - Orthopedics Constitutional general appearance Overall: normal body habitus 08/24/2016 None Full Exam - Orthopedics Constitutional general appearance Overall: no deformities 08/24/2016 None Full Exam - Orthopedics Constitutional general appearance Overall: no assistive devices 08/24/2016 None Full Exam - Orthopedics Constitutional general appearance Overall: well groomed 08/24/2016 None Full Exam - Orthopedics Constitutional general appearance Overall: atraumatic 08/24/2016 None Full Exam - Orthopedics Constitutional general appearance Overall: cooperative 08/24/2016 None Full Exam - Orthopedics Constitutional general appearance Overall: healthy appearance 08/24/2016 None Full Exam - Orthopedics Constitutional general appearance Overall: pleasant 08/24/2016 None Full Exam - Orthopedics Constitutional general appearance Overall: relaxed 08/24/2016 None Full Exam - Orthopedics Psychiatric orientation/consciousness Overall: oriented to person, place and time 08/24/2016 None Full Exam - Orthopedics MS: left upper extremity insp & palp - LUE Ring finger: swelling 08/24/2016 None Full Exam - Orthopedics MS: left upper extremity insp & palp - LUE Ring finger: tenderness 08/24/2016 None Full Exam - Orthopedics MS: left upper extremity insp & palp - LUE Metacarpals: swelling 08/24/2016 None Full Exam - Orthopedics MS: left upper extremity insp & palp - LUE Metacarpals: bruising 08/24/2016 None Full Exam - Orthopedics MS: left upper extremity insp & palp - LUE Metacarpals: tender over the fourth metacarpal 08/24/2016 None Full Exam - Orthopedics MS: left upper extremity range of motion - LUE Ring finger: full range of motion 08/24/2016 None Full Exam - Orthopedics MS: left upper extremity range of motion - LUE Ring finger: pain with flexion at the MCP joint 08/24/2016 None Full Exam - Orthopedics MS: left upper extremity stability - LUE Ring finger: MCP joint normal 08/24/2016 None Full Exam - Orthopedics MS: left upper extremity stability - LUE Ring finger: PIP joint normal 08/24/2016 None Full Exam - Orthopedics MS: left upper extremity stability - LUE Ring finger: DIP joint normal 08/24/2016 None Full Exam - Orthopedics MS: left upper extremity strength & tone - LUE Ring finger strength: 5/5 strength for all maneuvers 08/24/2016 None Full Exam - Orthopedics MS: left upper extremity strength & tone - LUE Ring finger strength: normal extension with 5/5 strength 08/24/2016 None Full Exam - Orthopedics MS: left upper extremity strength & tone - LUE Ring finger strength: normal abduction with 5/5 strength 08/24/2016 None Full Exam - General 1994 Constitutional general appearance Development: well developed 07/30/2016 None Full Exam - General 1994 Constitutional general appearance Development: appears stated age 0607/30/2016 None Full Exam - General 1994 Constitutional general appearance Hygiene/Attention to Grooming: good hygiene 07/30/2016 None Full Exam - General 1994 Eyes conjunctiva/eyelids Overall: conjunctiva clear 07/30/2016 None Full Exam - General 1994 Eyes conjunctiva/eyelids Overall: cornea clear 07/30/2016 None Full Exam - General 1994 Eyes conjunctiva/eyelids Overall: eyelids normal 07/30/2016 None Full Exam - General 1994 Eyes pupils and irises Overall: pupils equal, round, reactive to light and accomodation 07/30/2016 None Full Exam - General 1994 Ears/Nose/Throat otoscopic exam Overall: external auditory canals clear 07/30/2016 None Full Exam - General 1994 Ears/Nose/Throat otoscopic exam Overall: tympanic membranes clear 07/30/2016 None Full Exam - General 1994 Ears/Nose/Throat lips/teeth/gingiva Overall: benign lips 07/30/2016 None Full Exam - General 1994 Ears/Nose/Throat lips/teeth/gingiva Overall: normal dentition 07/30/2016 None Full Exam - General 1994 Ears/Nose/Throat oral cavity/pharynx/larynx Overall: oral mucosa clear 07/30/2016 None Full Exam - General 1994 Ears/Nose/Throat oral cavity/pharynx/larynx Overall: oropharyngeal mucosa clear 07/30/2016 None Full Exam - General 1994 Ears/Nose/Throat oral cavity/pharynx/larynx Overall: hypopharynx benign 07/30/2016 None Full Exam - General 1994 Ears/Nose/Throat oral cavity/pharynx/larynx Overall: no masses 07/30/2016 None Full Exam - General 1994 Respiratory auscultation Overall: breath sounds clear bilaterally 07/30/2016 None Full Exam - General 1994 Respiratory respiratory effort/rhythm Overall: no retractions 07/30/2016 None Full Exam - General 1994 Respiratory respiratory effort/rhythm Overall: normal rate 07/30/2016 None Full Exam - General 1994 Cardiovascular extremities Overall: no clubbing 07/30/2016 None Full Exam - General 1994 Cardiovascular auscultation of heart Overall: regular rate 07/30/2016 None Full Exam - General 1994 Cardiovascular auscultation of heart Overall: normal heart sounds 07/30/2016 None Full Exam - General 1994 Abdomen abdominal exam Overall: no tenderness 07/30/2016 None Full Exam - General 1994 Abdomen abdominal exam Overall: normal bowel sounds 07/30/2016 None Full Exam - General 1994 Lymphatic neck nodes Overall: anterior cervical chain benign 07/30/2016 None Full Exam - General 1994 Lymphatic neck nodes Overall: posterior cervical chain benign 07/30/2016 None Full Exam - General 1994 Musculoskeletal spine, ribs and pelvis Overall: spine benign 07/30/2016 None Full Exam - General 1994 Musculoskeletal spine, ribs and pelvis Overall: sacroiliac joint benign 07/30/2016 None Full Exam - General 1994 Musculoskeletal spine, ribs and pelvis Overall: good posture 07/30/2016 None Full Exam - General 1994 Musculoskeletal head and neck Overall: head atraumatic 07/30/2016 None Full Exam - General 1994 Musculoskeletal head and neck Overall: cervical spine benign 07/30/2016 None Full Exam - General 1994 Neurologic deep tendon reflexes Overall: deep tendon reflexes intact 07/30/2016 None Full Exam - General 1994 Neurologic cranial nerves Overall: crainial nerves 2 - 12 grossly intact 07/30/2016 None Full Exam - General 1994 Psychiatric orientation/consciousness Overall: oriented to person, place and time 07/30/2016 None Full Exam - General 1994 Psychiatric mood and affect Overall: normal mood and affect 07/30/2016 None Full Exam - General 1994 Integument inspection of skin Location: ear 07/30/2016 on top of right ear - dark brown irregularly shaped skin lesion Full Exam - ENT Constitutional general appearance Overall: well nourished 04/01/2016 None Full Exam - ENT Constitutional general appearance Overall: well developed 04/01/2016 None Full Exam - ENT Constitutional general appearance Overall: in no acute distress 04/01/2016 None Full Exam - ENT Ears/Nose/Throat otoscopic exam Overall: external auditory canals normal 04/01/2016 None Full Exam - ENT Ears/Nose/Throat otoscopic exam Left tympanic membrane: air-fluid level 04/01/2016 None Full Exam - ENT Ears/Nose/Throat otoscopic exam Right tympanic membrane: air-fluid level 04/01/2016 None Full Exam - ENT Ears/Nose/Throat lips/teeth/gingiva Overall: benign lips 04/01/2016 None Full Exam - ENT Ears/Nose/Throat oropharynx Overall: oral mucosa clear 04/01/2016 None Full Exam - ENT Ears/Nose/Throat oropharynx Posterior Pharynx: clear post nasal drainage 04/01/2016 None Full Exam - ENT Ears/Nose/Throat oropharynx Posterior Pharynx: erythema 04/01/2016 None Full Exam - ENT Respiratory inspection Overall: no retractions 04/01/2016 None Full Exam - ENT Respiratory inspection Overall: normal rate 04/01/2016 None Full Exam - ENT Respiratory auscultation Overall: breath sounds clear bilaterally 04/01/2016 None Full Exam - ENT Cardiovascular auscultation of heart Rate: normal rate 04/01/2016 None Full Exam - ENT Cardiovascular auscultation of heart Rhythm: regular rhythm 04/01/2016 None Full Exam - ENT Lymphatic palpation of lymph nodes Overall: anterior cervical chain benign 04/01/2016 None Full Exam - ENT Lymphatic palpation of lymph nodes Overall: posterior cervical chain benign 04/01/2016 None Full Exam - ENT Neurologic mood and affect Overall: normal mood 04/01/2016 None Full Exam - ENT Neurologic mood and affect Overall: normal affect 04/01/2016 None Full Exam - ENT Neurologic orientation Overall: oriented to person, place and time 04/01/2016 None Full Exam - General 1994 Constitutional general appearance Development: well developed 01/27/2016 None Full Exam - General 1994 Constitutional general appearance Development: appears stated age 1201/27/2016 None Full Exam - General 1994 Constitutional general appearance Hygiene/Attention to Grooming: good hygiene 01/27/2016 None Full Exam - General 1994 Eyes conjunctiva/eyelids Overall: conjunctiva clear 01/27/2016 None Full Exam - General 1994 Eyes conjunctiva/eyelids Overall: cornea clear 01/27/2016 None Full Exam - General 1994 Eyes conjunctiva/eyelids Overall: eyelids normal 01/27/2016 None Full Exam - General 1994 Eyes pupils and irises Overall: pupils equal, round, reactive to light and accomodation 01/27/2016 None Full Exam - General 1994 Ears/Nose/Throat lips/teeth/gingiva Overall: benign lips 01/27/2016 None Full Exam - General 1994 Ears/Nose/Throat lips/teeth/gingiva Overall: normal dentition 01/27/2016 None Full Exam - General 1994 Ears/Nose/Throat oral cavity/pharynx/larynx Overall: oral mucosa clear 01/27/2016 None Full Exam - General 1994 Ears/Nose/Throat oral cavity/pharynx/larynx Overall: oropharyngeal mucosa clear 01/27/2016 None Full Exam - General 1994 Ears/Nose/Throat oral cavity/pharynx/larynx Overall: hypopharynx benign 01/27/2016 None Full Exam - General 1994 Ears/Nose/Throat oral cavity/pharynx/larynx Overall: no masses 01/27/2016 None Full Exam - General 1994 Respiratory auscultation Overall: breath sounds clear bilaterally 01/27/2016 None Full Exam - General 1994 Respiratory respiratory effort/rhythm Overall: no retractions 01/27/2016 None Full Exam - General 1994 Respiratory respiratory effort/rhythm Overall: normal rate 01/27/2016 None Full Exam - General 1994 Cardiovascular extremities Overall: no clubbing 01/27/2016 None Full Exam - General 1994 Cardiovascular auscultation of heart Overall: regular rate 01/27/2016 None Full Exam - General 1994 Cardiovascular auscultation of heart Overall: normal heart sounds 01/27/2016 None Full Exam - General 1994 Musculoskeletal spine, ribs and pelvis Overall: good posture 01/27/2016 None Full Exam - General 1994 Musculoskeletal head and neck Overall: head atraumatic 01/27/2016 None Full Exam - General 1994 Musculoskeletal head and neck Overall: cervical spine benign 01/27/2016 None Full Exam - General 1994 Neurologic cranial nerves Overall: crainial nerves 2 - 12 grossly intact 01/27/2016 None Full Exam - General 1994 Psychiatric orientation/consciousness Overall: oriented to person, place and time 01/27/2016 None Full Exam - General 1994 Psychiatric mood and affect Overall: normal mood and affect 01/27/2016 None Full Exam - General 1994 Constitutional general appearance Overall: well nourished 01/16/2016 None Full Exam - General 1994 Constitutional general appearance Overall: well developed 01/16/2016 None Full Exam - General 1994 Constitutional general appearance Overall: in no acute distress 01/16/2016 None Full Exam - General 1994 Eyes pupils and irises Overall: pupils equal, round, reactive to light and accomodation 01/16/2016 None Full Exam - General 1994 Ears/Nose/Throat oral cavity/pharynx/larynx Overall: oropharyngeal mucosa clear 01/16/2016 None Full Exam - General 1994 Ears/Nose/Throat oral cavity/pharynx/larynx Overall: no masses 01/16/2016 None Full Exam - General 1994 Ears/Nose/Throat oral cavity/pharynx/larynx Overall: oral mucosa clear 01/16/2016 None Full Exam - General 1994 Respiratory respiratory effort/rhythm Overall: normal rate 01/16/2016 None Full Exam - General 1994 Respiratory respiratory effort/rhythm Overall: no retractions 01/16/2016 None Full Exam - General 1994 Respiratory auscultation Overall: breath sounds clear bilaterally 01/16/2016 None Full Exam - General 1994 Cardiovascular auscultation of heart Rate: regular rate 01/16/2016 None Full Exam - General 1994 Cardiovascular auscultation of heart Rhythm: irregular rhythm 01/16/2016 None Full Exam - General 1994 Cardiovascular extremities Overall: no clubbing 01/16/2016 None Full Exam - General 1994 Abdomen abdominal exam Overall: no tenderness 01/16/2016 None Full Exam - General 1994 Abdomen abdominal exam Overall: normal bowel sounds 01/16/2016 None Full Exam - General 1994 Psychiatric orientation/consciousness Overall: oriented to person, place and time 01/16/2016 None Full Exam - General 1994 Psychiatric mood and affect Mood: happy 01/16/2016 None Full Exam - General 1994 Psychiatric mood and affect Overall: normal mood and affect 01/16/2016 None Full Exam - General 1994 Psychiatric appearance Overall: well-groomed, good eye contact 01/16/2016 None Full Exam - General 1994 Neurologic cranial nerves Overall: crainial nerves 2 - 12 grossly intact 01/16/2016 None Full Exam - General 1994 Neurologic gait Overall: no ataxia, no unsteadiness 01/16/2016 None Full Exam - General 1994 Musculoskeletal head and neck Overall: cervical spine benign 01/16/2016 None Full Exam - General 1994 Musculoskeletal head and neck Overall: head atraumatic 01/16/2016 None Full Exam - General 1994 Lymphatic neck nodes Overall: anterior cervical chain benign 01/16/2016 None Full Exam - General 1994 Lymphatic neck nodes Overall: posterior cervical chain benign 01/16/2016 None Full Exam - General 1994 Constitutional general appearance Hygiene/Attention to Grooming: good hygiene 10/09/2015 None Full Exam - General 1994 Eyes conjunctiva/eyelids Overall: conjunctiva clear 10/09/2015 None Full Exam - General 1994 Eyes conjunctiva/eyelids Overall: cornea clear 10/09/2015 None Full Exam - General 1994 Eyes conjunctiva/eyelids Overall: eyelids normal 10/09/2015 None Full Exam - General 1994 Eyes pupils and irises Overall: pupils equal, round, reactive to light and accomodation 10/09/2015 None Full Exam - General 1994 Ears/Nose/Throat lips/teeth/gingiva Overall: benign lips 10/09/2015 None Full Exam - General 1994 Ears/Nose/Throat lips/teeth/gingiva Overall: normal dentition 10/09/2015 None Full Exam - General 1994 Ears/Nose/Throat oral cavity/pharynx/larynx Overall: oral mucosa clear 10/09/2015 None Full Exam - General 1994 Respiratory auscultation Overall: breath sounds clear bilaterally 10/09/2015 None Full Exam - General 1994 Respiratory respiratory effort/rhythm Overall: no retractions 10/09/2015 None Full Exam - General 1994 Respiratory respiratory effort/rhythm Overall: normal rate 10/09/2015 None Full Exam - General 1994 Cardiovascular extremities Overall: no clubbing 10/09/2015 None Full Exam - General 1994 Cardiovascular auscultation of heart Overall: regular rate 10/09/2015 None Full Exam - General 1994 Cardiovascular auscultation of heart Overall: normal heart sounds 10/09/2015 None Full Exam - General 1994 Musculoskeletal spine, ribs and pelvis Overall: good posture 10/09/2015 None Full Exam - General 1994 Musculoskeletal head and neck Overall: head atraumatic 10/09/2015 None Full Exam - General 1994 Neurologic cranial nerves Overall: crainial nerves 2 - 12 grossly intact 10/09/2015 None Full Exam - General 1994 Psychiatric orientation/consciousness Overall: oriented to person, place and time 10/09/2015 None Full Exam - General 1994 Psychiatric mood and affect Overall: normal mood and affect 10/09/2015 None Full Exam - General 1994 Constitutional general appearance Overall: well developed 10/09/2015 None Full Exam - General 1994 Constitutional general appearance Overall: in no acute distress 10/09/2015 None Full Exam - General 1994 Constitutional general appearance Overall: well nourished 10/09/2015 None Full Exam - General 1994 Musculoskeletal head and neck Overall: cervical spine benign 10/09/2015 None Full Exam - General 1994 Musculoskeletal gait and station Overall: normal gait 10/09/2015 None Full Exam - General 1994 Musculoskeletal gait and station Overall: normal station 10/09/2015 None Full Exam - General 1994 Musculoskeletal spine, ribs and pelvis Spine: tender @ cervical spine 10/09/2015 None Full Exam - General 1994 Psychiatric appearance Overall: well-groomed, good eye contact 10/09/2015 None Full Exam - General 1994 Psychiatric speech Overall: normal quality, no aphasia 10/09/2015 None Full Exam - General 1994 Psychiatric speech Overall: normal quality, quantity, rate 10/09/2015 None Full Exam - General 1994 Constitutional general appearance Development: well developed 08/01/2015 None Full Exam - General 1994 Constitutional general appearance Development: appears stated age 0608/01/2015 None Full Exam - General 1994 Constitutional general appearance Hygiene/Attention to Grooming: good hygiene 08/01/2015 None Full Exam - General 1994 Eyes conjunctiva/eyelids Overall: conjunctiva clear 08/01/2015 None Full Exam - General 1994 Eyes conjunctiva/eyelids Overall: cornea clear 08/01/2015 None Full Exam - General 1994 Eyes conjunctiva/eyelids Overall: eyelids normal 08/01/2015 None Full Exam - General 1994 Eyes pupils and irises Overall: pupils equal, round, reactive to light and accomodation 08/01/2015 None Full Exam - General 1994 Ears/Nose/Throat otoscopic exam Overall: external auditory canals clear 08/01/2015 None Full Exam - General 1994 Ears/Nose/Throat otoscopic exam Overall: tympanic membranes clear 08/01/2015 None Full Exam - General 1994 Ears/Nose/Throat lips/teeth/gingiva Overall: benign lips 08/01/2015 None Full Exam - General 1994 Ears/Nose/Throat lips/teeth/gingiva Overall: normal dentition 08/01/2015 None Full Exam - General 1994 Ears/Nose/Throat oral cavity/pharynx/larynx Overall: oral mucosa clear 08/01/2015 None Full Exam - General 1994 Ears/Nose/Throat oral cavity/pharynx/larynx Overall: oropharyngeal mucosa clear 08/01/2015 None Full Exam - General 1994 Ears/Nose/Throat oral cavity/pharynx/larynx Overall: hypopharynx benign 08/01/2015 None Full Exam - General 1994 Ears/Nose/Throat oral cavity/pharynx/larynx Overall: no masses 08/01/2015 None Full Exam - General 1994 Respiratory auscultation Overall: breath sounds clear bilaterally 08/01/2015 None Full Exam - General 1994 Respiratory respiratory effort/rhythm Overall: no retractions 08/01/2015 None Full Exam - General 1994 Respiratory respiratory effort/rhythm Overall: normal rate 08/01/2015 None Full Exam - General 1994 Cardiovascular extremities Overall: no clubbing 08/01/2015 None Full Exam - General 1994 Cardiovascular auscultation of heart Overall: regular rate 08/01/2015 None Full Exam - General 1994 Cardiovascular auscultation of heart Overall: normal heart sounds 08/01/2015 None Full Exam - General 1994 Abdomen abdominal exam Overall: no tenderness 08/01/2015 None Full Exam - General 1994 Abdomen abdominal exam Overall: normal bowel sounds 08/01/2015 None Full Exam - General 1994 Lymphatic neck nodes Overall: anterior cervical chain benign 08/01/2015 None Full Exam - General 1994 Lymphatic neck nodes Overall: posterior cervical chain benign 08/01/2015 None Full Exam - General 1994 Musculoskeletal spine, ribs and pelvis Overall: spine benign 08/01/2015 None Full Exam - General 1994 Musculoskeletal spine, ribs and pelvis Overall: sacroiliac joint benign 08/01/2015 None Full Exam - General 1994 Musculoskeletal spine, ribs and pelvis Overall: good posture 08/01/2015 None Full Exam - General 1994 Musculoskeletal head and neck Overall: head atraumatic 08/01/2015 None Full Exam - General 1994 Musculoskeletal head and neck Overall: cervical spine benign 08/01/2015 None Full Exam - General 1994 Integument inspection of skin Overall: few scattered moles, no gross abnormalities 08/01/2015 None Full Exam - General 1994 Neurologic deep tendon reflexes Overall: deep tendon reflexes intact 08/01/2015 None Full Exam - General 1994 Neurologic cranial nerves Overall: crainial nerves 2 - 12 grossly intact 08/01/2015 None Full Exam - General 1994 Psychiatric orientation/consciousness Overall: oriented to person, place and time 08/01/2015 None Full Exam - General 1994 Psychiatric mood and affect Overall: normal mood and affect 08/01/2015 None Full Exam - General 1994 Constitutional general appearance Development: well developed 08/02/2014 None Full Exam - General 1994 Constitutional general appearance Development: appears stated age 0608/02/2014 None Full Exam - General 1994 Constitutional general appearance Hygiene/Attention to Grooming: good hygiene 08/02/2014 None Full Exam - General 1994 Eyes conjunctiva/eyelids Overall: conjunctiva clear 08/02/2014 None Full Exam - General 1994 Eyes conjunctiva/eyelids Overall: cornea clear 08/02/2014 None Full Exam - General 1994 Eyes conjunctiva/eyelids Overall: eyelids normal 08/02/2014 None Full Exam - General 1994 Eyes pupils and irises Overall: pupils equal, round, reactive to light and accomodation 08/02/2014 None Full Exam - General 1994 Ears/Nose/Throat otoscopic exam Overall: external auditory canals clear 08/02/2014 None Full Exam - General 1994 Ears/Nose/Throat otoscopic exam Overall: tympanic membranes clear 08/02/2014 None Full Exam - General 1994 Ears/Nose/Throat lips/teeth/gingiva Overall: benign lips 08/02/2014 None Full Exam - General 1994 Ears/Nose/Throat lips/teeth/gingiva Overall: normal dentition 08/02/2014 None Full Exam - General 1994 Ears/Nose/Throat oral cavity/pharynx/larynx Overall: oral mucosa clear 08/02/2014 None Full Exam - General 1994 Ears/Nose/Throat oral cavity/pharynx/larynx Overall: oropharyngeal mucosa clear 08/02/2014 None Full Exam - General 1994 Ears/Nose/Throat oral cavity/pharynx/larynx Overall: hypopharynx benign 08/02/2014 None Full Exam - General 1994 Ears/Nose/Throat oral cavity/pharynx/larynx Overall: no masses 08/02/2014 None Full Exam - General 1994 Respiratory auscultation Overall: breath sounds clear bilaterally 08/02/2014 None Full Exam - General 1994 Respiratory respiratory effort/rhythm Overall: no retractions 08/02/2014 None Full Exam - General 1994 Respiratory respiratory effort/rhythm Overall: normal rate 08/02/2014 None Full Exam - General 1994 Cardiovascular extremities Overall: no clubbing 08/02/2014 None Full Exam - General 1994 Cardiovascular auscultation of heart Overall: regular rate 08/02/2014 None Full Exam - General 1994 Cardiovascular auscultation of heart Overall: normal heart sounds 08/02/2014 None Full Exam - General 1994 Abdomen abdominal exam Overall: no tenderness 08/02/2014 None Full Exam - General 1994 Abdomen abdominal exam Overall: normal bowel sounds 08/02/2014 None Full Exam - General 1994 Lymphatic neck nodes Overall: anterior cervical chain benign 08/02/2014 None Full Exam - General 1994 Lymphatic neck nodes Overall: posterior cervical chain benign 08/02/2014 None Full Exam - General 1994 Musculoskeletal spine, ribs and pelvis Overall: spine benign 08/02/2014 None Full Exam - General 1994 Musculoskeletal spine, ribs and pelvis Overall: sacroiliac joint benign 08/02/2014 None Full Exam - General 1994 Musculoskeletal spine, ribs and pelvis Overall: good posture 08/02/2014 None Full Exam - General 1994 Musculoskeletal head and neck Overall: head atraumatic 08/02/2014 None Full Exam - General 1994 Musculoskeletal head and neck Overall: cervical spine benign 08/02/2014 None Full Exam - General 1994 Integument inspection of skin Overall: few scattered moles, no gross abnormalities 08/02/2014 None Full Exam - General 1994 Neurologic deep tendon reflexes Overall: deep tendon reflexes intact 08/02/2014 None Full Exam - General 1994 Neurologic cranial nerves Overall: crainial nerves 2 - 12 grossly intact 08/02/2014 None Full Exam - General 1994 Psychiatric orientation/consciousness Overall: oriented to person, place and time 08/02/2014 None Full Exam - General 1994 Psychiatric mood and affect Overall: normal mood and affect 08/02/2014 None Procedures No Procedures data Vital Signs Date Vital 08/04/2018 Blood Pressure 1: 124/70 Code: 8480-6 BMI: 25.8 Code: 21871-5 Heart Rate 1: 50 bpm Height: 6' SpO2: 97% Weight: 190 lbs 08/01/2018 Blood Pressure 1: 136/82 Code: 8480-6 BMI: 26.0 Code: 19649-3 Heart Rate 1: 54 bpm Height: 6' SpO2: 95% Weight: 192 lbs 01/28/2018 Blood Pressure 1: 132/80 Code: 8480-6 BMI: 25.9 Code: 16087-3 Heart Rate 1: 78 bpm Height: 6' SpO2: 97% Temperature: 36.6 (C) / 97.8 (F) Weight: 191 lbs 08/02/2017 Blood Pressure 1: 118/70 Code: 8480-6 BMI: 25.2 Code: 59403-0 Heart Rate 1: 53 bpm Height: 6' SpO2: 95% Weight: 185 lbs 01/28/2017 Blood Pressure 1: 130/82 Code: 8480-6 BMI: 25.8 Code: 56137-7 Heart Rate 1: 60 bpm Height: 6' SpO2: 98% Temperature: 36.7 (C) / 98.0 (F) Weight: 190 lbs 08/24/2016 Blood Pressure 1: 142/86 Code: 8480-6 Heart Rate 1: 62 bpm Height: 6' SpO2: 95% Weight: 07/30/2016 Blood Pressure 1: 136/96 Code: 8480-6 BMI: 25.2 Code: 03620-4 Heart Rate 1: 55 bpm Height: 6' SpO2: 97% Weight: 186 lbs 04/01/2016 Blood Pressure 1: 132/86 Code: 8480-6 BMI: 25.5 Code: 69710-5 Heart Rate 1: 60 bpm Height: 6' SpO2: 96% Weight: 188 lbs 01/27/2016 Blood Pressure 1: 142/82 Code: 8480-6 BMI: 26.6 Code: 48875-1 Heart Rate 1: 53 bpm Height: 6' SpO2: 95% Weight: 196 lbs 01/16/2016 Blood Pressure 1: 122/80 Code: 8480-6 BMI: 26.7 Code: 08885-1 Heart Rate 1: 79 bpm Height: 6' SpO2: 96% Weight: 197 lbs 10/09/2015 Blood Pressure 1: 126/74 Code: 8480-6 BMI: 26.2 Code: 38763-8 Heart Rate 1: 63 bpm Height: 6' SpO2: 97% Weight: 193 lbs 08/01/2015 Blood Pressure 1: 142/100 Code: 8480-6 Blood Pressure 1: 146/104 Code: 8480-6 BMI: 25.8 Code: 84049-7 Heart Rate 1: 57 bpm Height: 6' SpO2: 96% Weight: 190 lbs 08/02/2014 Blood Pressure 1: 126/80 Code: 8480-6 BMI: 25.6 Code: 04946-9 Heart Rate 1: 60 bpm Height: 6' SpO2: 96% Weight: 189 lbs Functional Status No Functional Status data History of Present Illness Symptom Name Status Result Effective Date Notes Lifestyle regular seatbelt use 08/04/2018 None Lifestyle normal sleep patterns 08/04/2018 None Lifestyle normal amount of stress 08/04/2018 None Nutrition and Exercise normal weight 08/04/2018 None Nutrition and Exercise balanced nutrition 08/04/2018 None Nutrition and Exercise moderate exercise 08/04/2018 None Cardiovascular Risk Factors family history of cardiovascular disease 08/04/2018 None Cardiovascular Risk Factors hypertension 08/04/2018 None Cardiovascular Risk Factors dyslipidemia 08/04/2018 None Onset and Resolution ongoing 08/04/2018 None Onset of Symptom during adulthood 08/04/2018 None Blood Pressure Values patient checking blood pressure at home - did not bring in readings 08/04/2018 None Alleviating Factors medication 08/04/2018 None Pertinent Findings Denies dizziness 08/04/2018 None Pertinent Findings Denies dyspnea 08/04/2018 None Pertinent Findings Denies edema 08/04/2018 None Quality intermittent 08/01/2018 None Onset and Resolution sudden in onset 08/01/2018 None Limitation on Activities moderately limits activities 08/01/2018 None Pertinent Findings Denies dyspnea 08/01/2018 None Pertinent Findings tachycardia 08/01/2018 he reports was 100 this am Frequency of Episodes decreasing 08/01/2018 gone now Triggers no known associated factors 08/01/2018 None Alleviating Factors medication 08/01/2018 None Location frontal sinuses 01/28/2018 None Quality fullness 01/28/2018 None Quality pressure 01/28/2018 None Onset and Resolution sudden in onset 01/28/2018 None Onset of Symptom 5 days ago 01/28/2018 None Frequency of Episodes daily 01/28/2018 None well man exam (40-65 years) Lifestyle regular seatbelt use 08/02/2017 None well man exam (40-65 years) Lifestyle normal sleep patterns 08/02/2017 None well man exam (40-65 years) Lifestyle normal amount of stress 08/02/2017 None well man exam (40-65 years) Nutrition and Exercise normal weight 08/02/2017 None well man exam (40-65 years) Nutrition and Exercise balanced nutrition 08/02/2017 None well man exam (40-65 years) Nutrition and Exercise moderate exercise 08/02/2017 None well man exam (40-65 years) Cardiovascular Risk Factors family history of cardiovascular disease 08/02/2017 None well man exam (40-65 years) Cardiovascular Risk Factors hypertension 08/02/2017 None well man exam (40-65 years) Cardiovascular Risk Factors dyslipidemia 08/02/2017 None hypertension Onset and Resolution ongoing 08/02/2017 None hypertension Onset of Symptom during adulthood 08/02/2017 None hypertension Blood Pressure Values patient checking blood pressure at home - did not bring in readings 08/02/2017 None hypertension Alleviating Factors medication 08/02/2017 None hypertension Pertinent Findings Denies dizziness 08/02/2017 None hypertension Pertinent Findings Denies dyspnea 08/02/2017 None hypertension Pertinent Findings Denies edema 08/02/2017 None changing lesion Location-Major on the back 08/02/2017 None changing lesion Color brown 08/02/2017 None changing lesion Pertinent Findings Denies pain 08/02/2017 None cough Quality acute 01/28/2017 None cough Quality intermittent 01/28/2017 None cough Quality productive 01/28/2017 None cough Onset and Resolution sudden in onset 01/28/2017 None cough Onset of Symptom 2 weeks ago 01/28/2017 None cough Pertinent Findings Denies fever 01/28/2017 None cough Pertinent Findings nasal congestion 01/28/2017 None cough Pertinent Findings post nasal drip 01/28/2017 None cough Pertinent Findings sputum production 01/28/2017 (clear) sinus congestion Quality acute 01/28/2017 None sinus congestion Onset and Resolution sudden in onset 01/28/2017 None sinus congestion Onset of Symptom 2 weeks ago 01/28/2017 None sinus congestion Pertinent Findings cough 01/28/2017 None sinus congestion Pertinent Findings Denies fever 01/28/2017 None cough Limitation on Activities does not limit activities 01/28/2017 None cough Frequency of Episodes increasing 01/28/2017 None cough Length of Episodes 2 weeks 01/28/2017 None cough Triggers no known associated factors 01/28/2017 None hand pain Location on the left 08/24/2016 None hand pain Quality sharp pain 08/24/2016 None hand pain Quality acute 08/24/2016 None hand pain Alleviating Factors rest 08/24/2016 None hand pain Pertinent Findings Denies decreased range of motion 08/24/2016 None hand pain Pertinent Findings pain with movement 08/24/2016 None hand pain Pertinent Findings stiffness 08/24/2016 None hand pain Mechanism of injury direct trauma 08/24/2016 None hand pain Severity severe 08/24/2016 None hand pain Onset and Resolution ongoing 08/24/2016 None hand pain Onset of Symptom 1 weeks ago 08/24/2016 improving hand pain Frequency of Episodes decreasing 08/24/2016 None hand pain Limitation on Activities does not limit activities 08/24/2016 None well man exam (40-65 years) Lifestyle regular seatbelt use 07/30/2016 None well man exam (40-65 years) Lifestyle normal sleep patterns 07/30/2016 None well man exam (40-65 years) Lifestyle normal amount of stress 07/30/2016 None well man exam (40-65 years) Nutrition and Exercise balanced nutrition 07/30/2016 None well man exam (40-65 years) Nutrition and Exercise moderate exercise 07/30/2016 None well man exam (40-65 years) Nutrition and Exercise normal weight 07/30/2016 None well man exam (40-65 years) Cardiovascular Risk Factors family history of cardiovascular disease 07/30/2016 None well man exam (40-65 years) Cardiovascular Risk Factors hypertension 07/30/2016 None well man exam (40-65 years) Cardiovascular Risk Factors dyslipidemia 07/30/2016 None hypertension Onset and Resolution ongoing 07/30/2016 None hypertension Onset of Symptom during adulthood 07/30/2016 None hypertension Blood Pressure Values patient checking blood pressure at home - did not bring in readings 07/30/2016 None hypertension Alleviating Factors medication 07/30/2016 None hypertension Pertinent Findings Denies dizziness 07/30/2016 None hypertension Pertinent Findings Denies dyspnea 07/30/2016 None hypertension Pertinent Findings Denies edema 07/30/2016 None cough Location in the throat 04/01/2016 None cough Quality constant 04/01/2016 None cough Quality dry 04/01/2016 None cough Onset and Resolution sudden in onset 04/01/2016 None cough Frequency of Episodes daily 04/01/2016 None cough Onset of Symptom 10 days ago 04/01/2016 None Hospital Follow Up _ Other: new onset atrial fibrillation 01/27/2016 None Hospital Follow Up Quality acute 01/27/2016 None Hospital Follow Up Alleviating Factors medication 01/27/2016 None Hospital Follow Up Onset and Resolution resolved 01/27/2016 None Hospital Follow Up Onset and Resolution sudden in onset 01/27/2016 None palpitations Quality constant 01/16/2016 None palpitations Quality acute 01/16/2016 None palpitations Onset and Resolution sudden in onset 01/16/2016 None palpitations Onset of Symptom 3 hours ago 01/16/2016 when he woke up this morning palpitations Triggers no known associated factors 01/16/2016 None palpitations Pertinent Findings lightheadedness 01/16/2016 None palpitations Pertinent Findings Denies nausea 01/16/2016 None palpitations Pertinent Findings dyspnea 01/16/2016 None neck pain Location on the right 10/09/2015 None neck pain Quality constant 10/09/2015 None neck pain Onset and Resolution ongoing 10/09/2015 None neck pain Onset of Symptom months ago 10/09/2015 None hyperlipidemia Onset and Resolution ongoing 08/01/2015 None hyperlipidemia Triggers no known associated factors 08/01/2015 None hyperlipidemia Alleviating Factors medication 08/01/2015 None hyperlipidemia Exacerbating Factors diet 08/01/2015 None hyperlipidemia Quality chronic 08/01/2015 None hyperlipidemia Significant Family History hyperlipidemia 08/01/2015 None hyperlipidemia Onset and Resolution gradual in onset 08/01/2015 None hyperlipidemia Onset of Symptom during adulthood 08/01/2015 None neck pain Location on the right 08/01/2015 None neck pain Quality constant 08/01/2015 None neck pain Onset and Resolution ongoing 08/01/2015 None neck pain Onset of Symptom 7-8 months ago 08/01/2015 None foot pain Location on the left 08/01/2015 None foot pain Quality constant 08/01/2015 None foot pain Onset and Resolution ongoing 08/01/2015 None foot pain Onset of Symptom 2 months ago 08/01/2015 None hyperlipidemia Onset of Symptom 5 years ago 08/02/2014 None hyperlipidemia Onset and Resolution ongoing 08/02/2014 None hyperlipidemia Triggers no known associated factors 08/02/2014 None hyperlipidemia Alleviating Factors medication 08/02/2014 None hyperlipidemia Exacerbating Factors diet 08/02/2014 None hyperlipidemia Quality chronic 08/02/2014 None hyperlipidemia Significant Family History hyperlipidemia 08/02/2014 None Advance Directives No Advance Directive data Encounters Encounter Performer Location Codes Date ([id number]) PREV VISIT EST AGE 40-64 Diagnosis: Encounter for general adult medical examination without abnormal findings[ICD10: Z00.00] [facility] CPT-4: 65103 08/04/2018 ([id number]) 02008 EST. PATIENT, LEVEL III Diagnosis: Essential (primary) hypertension[ICD10: I10] Diagnosis: Chronic atrial fibrillation[ICD10: I48.2] Taylor Babb MD [facility] CPT-4: 68435 08/01/2018 16120 EST. PATIENT, LEVEL IV Diagnosis: Other acute sinusitis[ICD10: J01.80] Diagnosis: Other allergic rhinitis[ICD10: J30.89] Katie Babb MD, [facility] CPT- 4: 32527 01/28/2018 ([id number]) PREV VISIT EST AGE 40-64 Diagnosis: Encounter for general adult medical examination without abnormal findings[ICD10: Z00.00] Michelle Babb MD [facility] CPT-4: 71846 08/02/2017 ([id number]) 42464 EST. PATIENT, LEVEL III Diagnosis: Cough[ICD10: R05] Diagnosis: Acute upper respiratory infection, unspecified[ICD10: J06.9] Taylor Babb MD [facility] CPT-4: 19900 01/28/2017 ([id number]) 23079 EST. PATIENT, LEVEL III Diagnosis: Pain in left hand[ICD10: M79.642] Taylor Babb MD [facility] CPT- 4: 47974 08/24/2016 ([id number]) PREV VISIT EST AGE 40-64 Diagnosis: Encounter for general adult medical examination without abnormal findings[ICD10: Z00.00] [facility] CPT-4: 80037 07/30/2016 02131 EST. PATIENT, LEVEL III Diagnosis: Acute laryngopharyngitis[ICD10: J06.0] Diagnosis: Other allergic rhinitis[ICD10: J30.89] [facility] CPT- 4: 56067 04/01/2016 ([id number]) 69763 EST. PATIENT, LEVEL III Diagnosis: Chronic atrial fibrillation[ICD10: I48.2] [facility] CPT-4: 45127 01/27/2016 ([id number]) Patient admitted to the hospital from clinic (NO CHARGE) Diagnosis: Other chest pain[ICD10: R07.89] Diagnosis: Palpitations[ICD10: R00.2] Diagnosis: Other specified cardiac arrhythmias[ICD10: I49.8] [facility] CPT-4: 11404W 01/16/2016 20128 EST. PATIENT, LEVEL III Diagnosis: Cervicalgia[ICD10: M54.2] Katie Brand [facility] CPT-4: 29901 10/09/2015 ([id number]) PREV VISIT EST AGE 40-64 Diagnosis: Encounter for general adult medical examination without abnormal findings[ICD10: Z00.00] [facility] CPT-4: 57837 08/01/2015 ([id number]) PREV VISIT NEW AGE 40-64 Diagnosis: Routine medical exam[ICD9: V70.0] [facility] CPT- 4: 28919 08/02/2014 Plan of Care Planned Activity Notes Codes Status Date Visit Plan: Well Adult - pt was counseled about diet, exercise, and encouraged to follow a heart healthy diet and increase activity level. The patient was instructed to RTC yearly for well adult exams and PRN for acute illnesses. The pt was also instructed to have yearly labs for check of cholesterol, thyroid, chem panel, CBC, and renal functioning. Sleep apnea - discussed with pt - he has not been using his device - I have recommended that he needs to use his cpap this is of great importance to his overall health, cardiac, pulmonary, renal and cognitive health for now and in the future. Afib - pt to keep appt for ablation with Dr. Humphries. Advised pt to get shingarix immunization. 08/04/2018 Patient Education: Patient Medication Summary Completed 08/04/2018 Care Plan: Comp Metabolic Pending 08/04/2018 Care Plan: Cbc With Differential Pending 08/04/2018 Care Plan: Tsh Pending 08/04/2018 Care Plan: Lipid Pending 08/04/2018 Care Plan: Total Psa Pending 08/04/2018 Visit Plan: Afib-discussed with Dr Humphries's nurse--scheduled for ablation in 2 weeks- patient is now rate controlled and symptoms have resolved -continue to monitor -call, come back to the office, or go to ER if any symptoms return. Patient and his verbalized understanding of plan. [id number] change in medications. 08/01/2018 Appointment: Taylor Teague WPtel: [phone] [phone] (15 min) Moderate 08/01/2018 Patient Education: Patient Medication Summary Completed 08/01/2018 Visit Plan: Sinusitis - Pt has acute infection - pain in face, maxillary region, Pt informed to use decongestant, RX given to patient, sinus rinses also recommended. Call if symptoms do not show improvement. Allergies - chronic - recommended pt to use allergy medication as prescribed. Pt has been counseled as to the appropriate use of the medication. Pt to call if allergy symptoms are not controlled with the medication. If using nasal spray, instructions as follows: Nasal spray- use twice daily, one spray per nostril twice daily, after 30 minutes, rinse out nose with saline spray.. Use opposite hand per nostril to spray in the nasal steroid allergy spray. 01/28/2018 Appointment: Katie Brand WPtel: [phone] [phone] (15 min) Moderate 01/28/2018 Patient Education: Patient Medication Summary Completed 01/28/2018 Visit Plan: Well Adult - pt was counseled about diet, exercise, and encouraged to follow a heart healthy diet and increase activity level. The patient was instructed to RTC yearly for well adult exams and PRN for acute illnesses. The pt was also instructed to have yearly labs for check of cholesterol, thyroid, chem panel, CBC, and renal functioning. 08/02/2017 Appointment: Michelle Babb WPtel: [phone] [phone] (15 min) Moderate 08/02/2017 Patient Education: Patient Medication Summary Completed 08/02/2017 Care Plan: Comp Metabolic Pending 08/02/2017 Care Plan: Cbc With Differential Pending 08/02/2017 Care Plan: Tsh Pending 08/02/2017 Care Plan: Lipid Pending 08/02/2017 Care Plan: Total Psa Pending 08/02/2017 Visit Plan: URI - Pt advised to increase fluids, vitamin C. Discussed natural and expected course of this diagnosis and need to alert me if symptoms do not follow expected course, or if any worse. RX sent to patient's pharmacy. 01/28/2017 [facility]ment: [phone] [phone] (15 min) Moderate 01/28/2017 Patient Education: Patient Medication Summary Completed 01/28/2017 Patient Education: Obesity Completed 01/28/2017 Visit Plan: Left hand pain/swelling-xray negative- symptoms improving with full ROM-recommend patient continue rest, ice and tylenol as directed-call if symptoms do not completely resolve and we can do further imag ing. Patient verbalized understanding of plan. 08/24/2016 Appointment: [facility] [phone] [phone] (30 min) Complex 08/24/2016 Patient Education: Patient Medication Summary Completed 08/24/2016 Referral: Dr Guerrero Patient informed. Referral info faxed. Completed 08/14/2016 Visit Plan: Well Adult - pt was counseled about diet, exercise, and encouraged to follow a heart healthy diet and increase activity level. The patient was instructed to RTC yearly for well adult exams and PRN for acute illnesses. The pt was also instructed to have yearly labs for check of cholesterol, thyroid, chem panel, CBC, and renal functioning. skin lesion on top of right ear - referral to dr. guerrero for biopsy Hypertension - well controlled - continue with current medications, continue with no added salt diet. Pt has been encouraged to exercise daily. The pt has been advised to call the office if there are any acute concerns about change in blood pressure readings at home. 07/30/2016 Patient Education: Patient Medication Summary Completed 07/30/2016 Patient Education: Obesity Completed 07/30/2016 Care Plan: Referral Order SNOMED-CT : [id number] Pending 07/30/2016 Visit Plan: URI - Pt advised to increase fluids, vitamin C. Discussed natural and expected course of this diagnosis and need to alert me if symptoms do not follow expected course, or if any worse. RX sent to patient's pharmacy. Allergies - chronic - recommended pt to use allergy medication as prescribed. Pt has been counseled as to the appropriate use of the medication. Pt to call if allergy symptoms are not controlled with the medication. If using nasal spray, instructions as follows: Nasal spray- use twice daily, one spray per nostril twice daily, after 30 minutes, rinse out nose with saline spray.. Use opposite hand per nostril to spray in the nasal steroid allergy spray. 04/01/2016 Appointment: Katie [facility] [phone] [phone] (15 min) Moderate 04/01/2016 Patient Education: Patient Medication Summary Completed 04/01/2016 Patient Education: Obesity Completed 04/01/2016 Visit Plan: Atrial fibrillation - rate controlled - converted in the hospital - continue with eliquis as per muck hauler - monitor symptoms call if heart rate picks back up. 01/27/2016 Appointment: [facility] [phone] [phone] (15 min) Moderate 01/27/2016 Patient Education: Patient Medication Summary Completed 01/27/2016 Patient Education: Obesity Completed 01/27/2016 Visit Plan: ADMIT FROM CLINIC TO HOSPITAL - PT IS ACUTELY ILL, REQUIRES HOSPITALIZATION. THE PATIENT HAS BEEN EVALUATED IN CLINIC AND THIS STANDS THE HOSPITAL HISTORY AND PHYSICAL EXAMINATION. THE PATIENT HAS BEEN SENT TO THE HOSPITAL WITH WRITTEN ORDERS FOR TREATMENT AND EVALUATION OF THE ACUTE ILLNESS. Chest pain - admission to the hospital under observation, consult to Dr. Humphries, Chest pain protocol, ekg on admit, chest xray pa and lat, prn nitro,morphine, cardiac analyzer. pt has irregular rhythm - this may be atrial fib - need ekg, and telemetry. 01/16/2016 Appointment: [facility] [phone] [phone] (15 min) Moderate 01/16/2016 Patient Education: Patient Medication Summary Completed 01/16/2016 Patient Education: Obesity Completed 01/16/2016 Patient Education: Patient Medication Summary Completed 11/19/2015 Care Plan: Cbc With Differential Cancelled 11/19/2015 Care Plan: Lipid Cancelled 11/19/2015 Care Plan: Total Psa Cancelled 11/19/2015 Care Plan: Comp Metabolic Cancelled 11/19/2015 Care Plan: Tsh Cancelled 11/19/2015 Visit Plan: Neck Pain- ongoing - will send RX - it pain continues pt is to get an X-ray and will consider going to physical therapy at [place] - pt to use anti-inflammatory rub two times daily and start neck exercises daily. Notify clinic if symptoms do not improve, if the worsen, or with any changes or concerns. 10/09/2015 Appointment: Taylor Teague [facility] [phone] [phone] (30 min) Complex 10/09/2015 Patient Education: Patient Medication Summary Completed 10/09/2015 Patient Education: .Cervicalgia Neck Pain Completed 10/09/2015 Care Plan: X-RAY EXAM NECK SPINE 2-3 VW [facility] : 74490-8 Pending 10/09/2015 Visit Plan: Well Adult - pt was counseled about diet, exercise, and encouraged to follow a heart healthy diet and increase activity level. The patient was instructed to RTC yearly for well adult exams and PRN for acute illnesses. The pt was also instructed to have yearly labs for check of cholesterol, thyroid, chem panel, CBC, and renal functioning. 08/01/2015 Patient Education: Patient Medication Summary Completed 08/01/2015 Patient Education: Obesity Completed 08/01/2015 Visit Plan: Well Adult - pt was counseled about diet, exercise, and encouraged to follow a heart healthy diet and increase activity level. The patient was instructed to RTC yearly for well adult exams and PRN for acute illnesses. The pt was also instructed to have yearly labs for check of cholesterol, thyroid, chem panel, CBC, and renal functioning. 08/02/2014 Patient Education: Patient Medication Summary Completed 08/02/2014 Referral: Dr Guerrero Referral Completed Instructions Comment . Sinusitis - Pt has acute infection - pain in face, maxillary region, Pt informed to use decongestant, RX given to patient, sinus rinses also recommended. Call if symptoms do not show improvement. Allergies - chronic - recommended pt to use allergy medication as prescribed. Pt has been counseled as to the appropriate use of the medication. Pt to call if allergy symptoms are not controlled with the medication. If using nasal spray, instructions as follows: Nasal spray- use twice daily, one spray per nostril twice daily, after 30 minutes, rinse out nose with saline spray.. Use opposite hand per nostril to spray in the nasal steroid allergy spray. . Well Adult - pt was counseled about diet, exercise, and encouraged to follow a heart healthy diet and increase activity level. The patient was instructed to RTC yearly for well adult exams and PRN for acute illnesses. The pt was also instructed to have yearly labs for check of cholesterol, thyroid, chem panel, CBC, and renal functioning. skin lesion on top of right ear - referral to dr. guerrero for biopsy Hypertension - well controlled - continue with current medications, continue with no added salt diet. Pt has been encouraged to exercise daily. The pt has been advised to call the office if there are any acute concerns about change in blood pressure readings at home. . Left hand pain/swelling-xray negative- symptoms improving with full ROM-recommend patient continue rest, ice and tylenol as directed-call if symptoms do not completely resolve and we can do further imaging. Patient verbalized understanding of plan. . URI - Pt advised to increase fluids, vitamin C. Discussed natural and expected course of this diagnosis and need to alert me if symptoms do not follow expected course, or if any worse. RX sent to patient's pharmacy. Allergies - chronic - recommended pt to use allergy medication as prescribed. Pt has been counseled as to the appropriate use of the medication. Pt to call if allergy symptoms are not controlled with the medication. If using nasal spray, instructions as follows: Nasal spray- use twice daily, one spray per nostril twice daily, after 30 minutes, rinse out nose with saline spray.. Use opposite hand per nostril to spray in the nasal steroid allergy spray. . ADMIT FROM CLINIC TO HOSPITAL - PT IS ACUTELY ILL, REQUIRES HOSPITALIZATION. THE PATIENT HAS BEEN EVALUATED IN CLINIC AND THIS STANDS THE HOSPITAL HISTORY AND PHYSICAL EXAMINATION. THE PATIENT HAS BEEN SENT TO THE HOSPITAL WITH WRITTEN ORDERS FOR TREATMENT AND EVALUATION OF THE ACUTE ILLNESS. Chest pain - admission to the hospital under observation, consult to Dr. Humphries, Chest pain protocol, ekg on admit, chest xray pa and lat, prn nitro,morphine, cardiac analyzer. pt has irregular rhythm - this may be atrial fib - need ekg, and telemetry. . Neck Pain- ongoing - will send RX - it pain continues pt is to get an X-ray and will consider going to physical therapy at [place] - pt to use anti-inflammatory rub two times daily and start neck exercises daily. Notify clinic if symptoms do not improve, if the worsen, or with any changes or concerns. . Well Adult - pt was counseled about diet, exercise, and encouraged to follow a heart healthy diet and increase activity level. The patient was instructed to RTC yearly for well adult exams and PRN for acute illnesses. The pt was also instructed to have yearly labs for check of cholesterol, thyroid, chem panel, CBC, and renal functioning. . Well Adult - pt was counseled about diet, exercise, and encouraged to follow a heart healthy diet and increase activity level. The patient was instructed to RTC yearly for well adult exams and PRN for acute illnesses. The pt was also instructed to have yearly labs for check of cholesterol, thyroid, chem panel, CBC, and renal functioning. Sleep apnea - discussed with pt - he has not been using his device - I have recommended that he needs to use his cpap this is of great importance to his overall health, cardiac, pulmonary, renal and cognitive health for now and in the future. Afib - pt to keep appt for ablation with Dr. Humphries. Advised pt to get shingarix immunization. . Afib-discussed with Dr Humphries's nurse--scheduled for ablation in 2 weeks- patient is now rate controlled and symptoms have resolved -continue to monitor -call, come back to the office, or go to ER if any symptoms return. Patient and his verbalized understanding of plan. [id number] change in medications. use vaseline on the skin lesion on the back of your right shoulder - then scrub off the vaseline with a face brush in the morning - do this until the skin is supple and soft, the skin lesion is called a SEBORRHEIC KERATOSIS - which is benign. . Well Adult - pt was counseled about diet, exercise, and encouraged to follow a heart healthy diet and increase activity level. The patient was instructed to RTC yearly for well adult exams and PRN for acute illnesses. The pt was also instructed to have yearly labs for check of cholesterol, thyroid, chem panel, CBC, and renal functioning. . Atrial fibrillation - rate controlled - converted in the hospital - continue with eliquis as per muck hauler - monitor symptoms call if heart rate picks back up. . Well Adult - pt was counseled about diet, exercise, and encouraged to follow a heart healthy diet and increase activity level. The patient was instructed to RTC yearly for well adult exams and PRN for acute illnesses. The pt was also instructed to have yearly labs for check of cholesterol, thyroid, chem panel, CBC, and renal functioning. FLONASE NASAL SPRAY . URI - Pt advised to increase fluids, vitamin C. Discussed natural and expected course of this diagnosis and need to alert me if symptoms do not follow expected course, or if any worse. RX sent to patient's pharmacy.
--- OUTSIDE RECORDS SUMMARY | 2018-08-15 16:30 | XMS REPORT | CCD ---
Author Author Michelle Babb MD, [facility] Address [address] [place] [address] Phone Care Team Providers Care Tool Filer Hand Name Role Phone PP Unavailable CCM Unavailable Summary Purpose Interface Exchange Insurance Providers Payer name Policy type / Coverage type Covered alliance party ID Effective Begin Date Effective End Date Blue Cross [facility] Blue Cross/Blue [facility] [id number] Unknown Unknown Family history Mother Diagnosis Age At Onset Heart Attack Unknown Arthritis Unknown Skin cancer Unknown Father Diagnosis Age At Onset Cancer Unknown Social History Social History Element Codes Description Effective Dates Number of children Unknown 2 Kerry Jaramillo 08/24/2016 Marital status Unknown Justina 08/02/[address]: 624567021 Never smoker 08/02/2014 Alcohol history Unknown occasionally drinks alcohol 08/02/2014 Allergies, Adverse Reactions, Alerts Substance Reaction Codes Entered Date Inactivated Date Status * NO KNOWN DRUG ALLERGIES Unknown 08/01/2015 No Inactive Date Active Past Medical History Illness Codes Condition Status Onset Date Resolved Date Chronic atrial fibrillation ICD-9: 427.31 ICD-10: I48.2 Active 01/27/2016 Unknown Essential (primary) hypertension ICD-9: 401.1 ICD-10: I10 Active 07/30/2016 Unknown Other acute sinusitis ICD- 9: 461.8 ICD-10: J01.80 Active 01/28/2018 Unknown Other allergic rhinitis ICD-9: 477.8 ICD-10: J30.89 Active 04/01/2016 Unknown Encounter for general adult medical examination without abnormal findings ICD-9: V70.0 ICD-10: Z00.00 Active 08/01/2014 Unknown Acute upper respiratory infection, unspecified ICD-9: [...] Problems Condition Codes Effective Dates Condition Status Chronic atrial fibrillation ICD-9: 427.31 ICD-10: I48.2 01/27/2016 Active Essential (primary) hypertension ICD-9: 401.1 ICD-10: I10 07/30/2016 Active Other acute sinusitis ICD- 9: 461.8 ICD-10: J01.80 01/28/2018 Active Other allergic rhinitis ICD-9: 477.8 ICD-10: J30.89 04/01/2016 Active Encounter for general adult medical examination without abnormal findings ICD-9: V70.0 ICD-10: Z00.00 08/01/2014 Active Acute upper respiratory infection, unspecified ICD-9: [...] Fill Instructions simvastatin 10 mg tablet RxNorm: 519528 TAKE ONE TABLET BY MOUTH ONCE A DAY 06/29/2018 03/25/2019 Active Zithromax Z-Sinan 250 mg tablet RxNorm: 017363 1 Tablet(s) PO UD 01/28/2018 02/01/2018 Inactive Eliquis 5 mg tablet RxNorm: 2464973 TAKE ONE TABLET BY MOUTH TWICE A DAY 08/17/2017 12/14/2017 Inactive simvastatin 10 mg tablet RxNorm: 437035 TAKE ONE TABLET BY MOUTH ONCE A DAY 06/11/2017 06/05/2018 Inactive Breo Ellipta 100 mcg-25 mcg/dose powder for inhalation RxNorm: 1707137 INHALE ONE DOSE BY MOUTH DAILY 05/03/2017 07/01/2017 Inactive Breo Ellipta 100 mcg-25 mcg/dose powder for inhalation RxNorm: 9861050 INHALE ONE DOSE BY MOUTH DAILY 05/03/2017 07/01/2017 Inactive Keflex 500 mg capsule RxNorm: 046473 1 Capsule(s) PO TID 02/19/2017 02/28/2017 Inactive Keflex 500 mg capsule RxNorm: 142741 1 Capsule(s) PO TID 02/19/2017 02/18/2017 Inactive Breo Ellipta 100 mcg-25 mcg/dose powder for inhalation RxNorm: 7511837 1 Puff(s) INH daily 02/04/2017 05/02/2017 Inactive Zithromax Z-Sinan 250 mg tablet RxNorm: 967719 1 Tablet(s) PO UD 01/28/2017 02/01/2017 Inactive simvastatin 10 mg tablet RxNorm: 433611 TAKE ONE TABLET BY MOUTH ONCE A DAY 08/24/2016 05/20/2017 Inactive Eliquis 5 mg tablet RxNorm: 7296164 1 Tablet(s) PO BID 08/04/2016 07/29/2017 Inactive Zithromax Z-Sinan 250 mg tablet RxNorm: 655311 1 Tablet(s) PO UD 04/01/2016 07/29/2016 Inactive ibuprofen 800 mg tablet RxNorm: 116446 1 Tablet(s) PO TID take with food - then when done with 2 weeks take as needed for pain 10/09/2015 10/22/2015 Inactive Advair Diskus 100 mcg-50 mcg/dose powder for inhalation RxNorm: 5320215 USE 1 INHALATION DAILY 10/02/2015 07/29/2016 Inactive Advair Diskus 100 mcg-50 mcg/dose powder for inhalation RxNorm: 0280410 USE 1 INHALATION DAILY 10/02/2015 10/01/2015 Inactive simvastatin 10 mg tablet RxNorm: 585437 TAKE ONE TABLET BY MOUTH ONCE A DAY 09/26/2015 06/30/2016 Inactive ibuprofen 800 mg tablet RxNorm: 706851 1 Tablet(s) PO TID take with food - then when done with 2 weeks take as needed for pain 08/01/2015 08/14/2015 Inactive Advair Diskus 100 mcg-50 mcg/dose powder for inhalation RxNorm: 6821911 1 INH daily 08/20/2014 08/19/2014 Inactive Advair Diskus 100 mcg-50 mcg/dose powder for inhalation RxNorm: 8370307 1 INH daily 08/20/2014 12/17/2014 Inactive simvastatin 10 mg tablet RxNorm: 848987 1 Tablet(s) PO daily 08/20/2014 04/16/2015 Inactive lisinopril 20 mg tablet RxNorm: 032575 1 Tablet(s) PO daily -Prescribed by Dr. Humphries No Start Date Active Cartia XT 120 mg capsule,extended release RxNorm: 478852 1 Capsule(s) PO daily No Start Date Active Breo Ellipta 100 mcg-25 mcg/dose powder for inhalation RxNorm: 6468072 1 Puff(s) INH daily No Start Date 02/03/2017 Inactive simvastatin 10 mg tablet RxNorm: 899033 1 Tablet(s) PO daily No Start Date 08/19/2014 Inactive Eliquis 5 mg tablet RxNorm: 0354672 1 Tablet(s) PO BID No Start Date 08/03/2016 Inactive Advair Diskus 100 mcg-50 mcg/dose powder for inhalation RxNorm: 4428589 1 INH daily No Start Date 08/19/2014 Inactive Medication Administered No Medication Administered data Immunizations Vaccine Codes Date Status Tetanus, Diptheria, Pertussis CVX: 113 11/15/2013 completed Tetanus/Diptheria CVX: 113 11/15/2013 completed Assessments Condition Codes Effective Dates Essential (primary) hypertension ICD-10: I10 ICD-9: 401.1 08/01/2018 Chronic atrial fibrillation ICD-10: I48.2 ICD-9: 427.31 08/01/2018 Other acute sinusitis ICD-10: J01.80 ICD-9: 461.8 01/28/2018 Other allergic rhinitis ICD-10: J30.89 ICD-9: 477.8 01/28/2018 Encounter for general adult medical examination without abnormal findings ICD-10: Z00.00 ICD-9: V70.0 08/02/2017 Acute upper respiratory infection, unspecified ICD-10: J06.9 [...] Visit Reason For Visit Effective Dates Notes palpitations 08/01/2018 sinus congestion 01/28/2018 well man exam (40-65 years) 08/02/2017 cough 01/28/2017 hand pain 08/24/2016 well man exam (40-65 years) 07/30/2016 cough 04/01/2016 Hospital Follow Up 01/27/2016 palpitations 01/16/2016 neck pain 10/09/2015 hyperlipidemia 08/01/2015 hyperlipidemia 08/02/2014 Results No Results data Review of Systems System Result Effective Dates Constitutional No recent illness 08/01/2018 Constitutional No [...] No Procedures data Vital Signs Date Vital 08/01/2018 Blood Pressure 1: 136/82 Code: 8480-6 BMI: 26.0 Code: 34259-7 Heart Rate 1: 54 bpm Height: 6' SpO2: 95% Weight: 192 lbs 01/28/2018 Blood Pressure 1: 132/80 Code: 8480-6 BMI: 25.9 Code: 04644-6 Heart Rate 1: 78 bpm Height: 6' SpO2: 97% Temperature: 36.6 (C) / 97.8 (F) Weight: 191 lbs 08/02/2017 Blood Pressure 1: 118/70 Code: 8480-6 BMI: 25.2 Code: 78414-0 Heart Rate 1: 53 bpm Height: 6' SpO2: 95% Weight: 185 lbs 11 oz 01/28/2017 Blood Pressure 1: 130/82 Code: 8480-6 BMI: 25.8 Code: 29442-5 Heart Rate 1: 60 bpm Height: 6' SpO2: 98% Temperature: 36.7 (C) / 98.0 (F) Weight: 190 lbs 08/24/2016 Blood Pressure 1: 142/86 Code: 8480-6 Heart Rate 1: 62 bpm Height: 6' SpO2: 95% Weight: 07/30/2016 Blood Pressure 1: 136/96 Code: 8480-6 BMI: 25.2 Code: 33903-2 Heart Rate 1: 55 bpm Height: 6' SpO2: 97% Weight: 186 lbs 04/01/2016 Blood Pressure 1: 132/86 Code: 8480-6 BMI: 25.5 Code: 17006-3 Heart Rate 1: 60 bpm Height: 6' SpO2: 96% Weight: 188 lbs 01/27/2016 Blood Pressure 1: 142/82 Code: 8480-6 BMI: 26.6 Code: 14685-2 Heart Rate 1: 53 bpm Height: 6' SpO2: 95% Weight: 196 lbs 01/16/2016 Blood Pressure 1: 122/80 Code: 8480-6 BMI: 26.7 Code: 08216-4 Heart Rate 1: 79 bpm Height: 6' SpO2: 96% Weight: 197 lbs 10/09/2015 Blood Pressure 1: 126/74 Code: 8480-6 BMI: 26.2 Code: 84553-0 Heart Rate 1: 63 bpm Height: 6' SpO2: 97% Weight: 193 lbs 08/01/2015 Blood Pressure 1: 142/100 Code: 8480-6 Blood Pressure 1: 146/104 Code: 8480-6 BMI: 25.8 Code: 26316-8 Heart Rate 1: 57 bpm Height: 6' SpO2: 96% Weight: 190 lbs 08/02/2014 Blood Pressure 1: 126/80 Code: 8480-6 BMI: 25.6 Code: 33904-7 Heart Rate 1: 60 bpm Height: 6' SpO2: 96% Weight: 189 lbs Functional Status No Functional Status data History of Present Illness Symptom Name Status Result Effective Date Notes Quality intermittent 08/01/2018 None Onset and Resolution [...] data Encounters Encounter Performer Location Codes Date ( 18130 EST. PATIENT, LEVEL III Diagnosis: Essential (primary) hypertension[ICD10: I10] Diagnosis: Chronic atrial fibrillation[ICD10: I48.2] [facility] CPT-4: 90324 08/01/2018 70535 EST. PATIENT, LEVEL IV Diagnosis: Other acute sinusitis[ICD10: J01.80] Diagnosis: Other allergic rhinitis[ICD10: J30.89] [facility] CPT- 4: 95164 01/28/2018 ([id number]) PREV VISIT EST AGE 40-64 Diagnosis: Encounter for general adult medical examination without abnormal findings[ICD10: Z00.00] Michelle Babb MD, [facility] CPT-4: 11973 08/02/2017 ([id number]) 02544 EST. PATIENT, LEVEL III Diagnosis: Cough[ICD10: R05] Diagnosis: Acute upper respiratory infection, unspecified[ICD10: J06.9] Taylor Babb MD, [facility] CPT-4: 75323 01/28/2017 ([id number]) 58873 EST. PATIENT, LEVEL III Diagnosis: Pain in left hand[ICD10: M79.642] Taylor Babb MD [facility] CPT- 4: 89572 08/24/2016 ([id number]) PREV VISIT EST AGE 40-64 Diagnosis: Encounter for general adult medical examination without abnormal findings[ICD10: Z00.00] Michelle Babb MD [facility] CPT-4: 00152 07/30/2016 [id number] EST. PATIENT, LEVEL III Diagnosis: Acute laryngopharyngitis[ICD10: J06.0] Diagnosis: Other allergic rhinitis[ICD10: J30.89] Katie Babb MD, [facility] CPT- 4: 08590 04/01/2016 ([id number]) 83337 EST. PATIENT, LEVEL III Diagnosis: Chronic atrial fibrillation[ICD10: I48.2] Michelle Babb MD, [facility] CPT-4: 75238 01/27/2016 ([id number]) Patient admitted to the hospital from clinic (NO CHARGE) Diagnosis: Other chest pain[ICD10: R07.89] Diagnosis: Palpitations[ICD10: R00.2] Diagnosis: Other specified cardiac arrhythmias[ICD10: I49.8] [facility] CPT-4: 64479N 01/16/2016 98893 EST. PATIENT, LEVEL III Diagnosis: Cervicalgia[ICD10: M54.2] [facility] CPT-4: 85757 10/09/2015 ([id number]) PREV VISIT EST AGE 40-64 Diagnosis: Encounter for general adult medical examination without abnormal findings[ICD10: Z00.00] [facility] CPT-4: 54936 08/01/2015 ([id number]) PREV VISIT NEW AGE 40-64 Diagnosis: Routine medical exam[ICD9: V70.0] Michelle Babb MD, [facility] CPT- 4: 39414 08/02/2014 Plan of Care Planned Activity Notes Codes Status Date Visit Plan: Afib-discussed with Dr Humphries's nurse--scheduled for ablation in 2 weeks- patient is now rate controlled and symptoms have resolved -continue to monitor -call, come back to the office, or go to ER if any symptoms return. Patient and his verbalized understanding of plan. [id number]-jc change in medications. 08/01/2018 Appointment: Taylor Teague WPtel: [facility] [place] [phone] (15 min) Moderate 08/01/2018 Patient Education: Patient [...] allergy spray. 01/28/2018 Appointment: Katie Brand WPtel: [phone] (15 min) Moderate 01/28/2018 Patient Education: Patient [...] renal functioning. 08/02/2017 Appointment: Michelle Babb WPtel: [phone] (15 min) Moderate 08/02/2017 Patient Education: [...] patient's pharmacy. 01/28/2017 Appointment: Taylor Teague WPtel: [phone] [phone] (15 min) Moderate 01/28/2017 Patient Education: Patient Medication Summary Completed 01/28/2017 Patient Education: Obesity Completed 01/28/2017 Visit Plan: Left hand pain/swelling-xray negative- symptoms improving with full ROM-recommend patient continue rest, ice and tylenol as directed-call if symptoms do not completely resolve and we can do further imag ing. Patient verbalized understanding of plan. 08/24/2016 Appointment: [phone] [phone] (30 min) Complex 08/24/2016 Patient Education: Patient [...] 07/30/2016 Care Plan: Referral Order SNOMED-CT : [id number] Pending 07/30/2016 Visit Plan: URI - Pt [...] allergy spray. 04/01/2016 Appointment: Katie Brand WPtel: [facility] (15 min) Moderate 04/01/2016 Patient Education: Patient Medication Summary Completed 04/01/2016 Patient Education: Obesity Completed 04/01/2016 Visit Plan: Atrial fibrillation - rate controlled - converted in the hospital - continue with eliquis as per grief counselor - monitor symptoms call if heart rate picks back up. 01/27/2016 Appointment: Michelle Babb WPtel: [facility] (15 min) Moderate 01/27/2016 Patient Education: Patient [...] and telemetry. 01/16/2016 Appointment: Michelle Babb WPtel: [facility] (15 min) Moderate 01/16/2016 Patient Education: Patient [...] will consider going to physical therapy at [place] - pt to use anti-inflammatory rub two times daily and start neck exercises daily. Notify clinic if symptoms do not improve, if the worsen, or with any changes or concerns. 10/09/2015 Appointment: Taylor Teague [facility]el[phone] [facility] [phone] (30 min) Complex 10/09/2015 Patient Education: Patient Medication Summary Completed 10/09/2015 Patient Education: .Cervicalgia Neck Pain Completed 10/09/2015 Care Plan: X-RAY EXAM NECK SPINE 2-3 VW LOINC : 41217-6 Pending 10/09/2015 Visit Plan: Well Adult - [...] will consider going to physical therapy at [place] - pt to use anti-inflammatory rub two [...] chem panel, CBC, and renal functioning. . Afib-discussed with Dr Humphries's nurse--scheduled for ablation in 2 weeks- patient is now rate controlled and symptoms have resolved -continue to monitor -call, come back to the office, or go to ER if any symptoms return. Patient and his verbalized understanding of plan. [id number]-[id number] change in medications. use vaseline on the [...] hospital - continue with eliquis as per grief counselor - monitor symptoms call if heart rate [...]
--- OUTSIDE RECORDS SUMMARY | 2018-08-15 16:31 | XMS REPORT | CCD ---
Author Author Michelle Babb MD, [facility] Address [address] [place] [address] Phone Care Team Providers Care [employer] Name Role Phone PP Unavailable CCM Unavailable Summary Purpose Interface Exchange Insurance Providers Payer name Policy type / Coverage type Covered alliance party ID Effective Begin Date Effective End Date [place] [employer] [facility] Blue Cross/Blue [facility] [id number] Unknown Unknown Family history Mother Diagnosis Age At Onset Heart Attack Unknown Arthritis Unknown Skin cancer Unknown Father Diagnosis Age At Onset Cancer Unknown Social History Social History Element Codes Description Effective Dates Number of children Unknown 2 Kerry Jaramillo 08/24/2016 Marital status Unknown Justina 08/02/[address]: 513851193 Never smoker 08/02/2014 Alcohol history Unknown occasionally [...] Fill Instructions simvastatin 10 mg tablet RxNorm: 080711 TAKE ONE TABLET BY MOUTH ONCE A DAY 06/29/2018 03/25/2019 Active Zithromax Z-Sinan 250 mg tablet RxNorm: 256669 1 Tablet(s) PO UD 01/28/2018 02/01/2018 Inactive Eliquis 5 mg tablet RxNorm: 4412841 TAKE ONE TABLET BY MOUTH TWICE A DAY 08/17/2017 12/14/2017 Inactive simvastatin 10 mg tablet RxNorm: 890566 TAKE ONE TABLET BY MOUTH ONCE A DAY 06/11/2017 06/05/2018 Inactive Breo Ellipta 100 mcg-25 mcg/dose powder for inhalation RxNorm: 4152823 INHALE ONE DOSE BY MOUTH DAILY 05/03/2017 07/01/2017 Inactive Breo Ellipta 100 mcg-25 mcg/dose powder for inhalation RxNorm: 2637642 INHALE ONE DOSE BY MOUTH DAILY 05/03/2017 07/01/2017 Inactive Keflex 500 mg capsule RxNorm: 917772 1 Capsule(s) PO TID 02/19/2017 02/28/2017 Inactive Keflex 500 mg capsule RxNorm: 203261 1 Capsule(s) PO TID 02/19/2017 02/18/2017 Inactive Breo Ellipta 100 mcg-25 mcg/dose powder for inhalation RxNorm: 4241588 1 Puff(s) INH daily 02/04/2017 05/02/2017 Inactive Zithromax Z-Sinan 250 mg tablet RxNorm: 692115 1 Tablet(s) PO UD 01/28/2017 02/01/2017 Inactive simvastatin 10 mg tablet RxNorm: 784438 TAKE ONE TABLET BY MOUTH ONCE A DAY 08/24/2016 05/20/2017 Inactive Eliquis 5 mg tablet RxNorm: 8729279 1 Tablet(s) PO BID 08/04/2016 07/29/2017 Inactive Zithromax Z-Sinan 250 mg tablet RxNorm: 309986 1 Tablet(s) PO UD 04/01/2016 07/29/2016 Inactive ibuprofen 800 mg tablet RxNorm: 919855 1 Tablet(s) PO TID take with food - then when done with 2 weeks take as needed for pain 10/09/2015 10/22/2015 Inactive Advair Diskus 100 mcg-50 mcg/dose powder for inhalation RxNorm: 6926509 USE 1 INHALATION DAILY 10/02/2015 07/29/2016 Inactive Advair Diskus 100 mcg-50 mcg/dose powder for inhalation RxNorm: 7205147 USE 1 INHALATION DAILY 10/02/2015 10/01/2015 Inactive simvastatin 10 mg tablet RxNorm: 933567 TAKE ONE TABLET BY MOUTH ONCE A DAY 09/26/2015 06/30/2016 Inactive ibuprofen 800 mg tablet RxNorm: 412672 1 Tablet(s) PO TID take with food - then when done with 2 weeks take as needed for pain 08/01/2015 08/14/2015 Inactive Advair Diskus 100 mcg-50 mcg/dose powder for inhalation RxNorm: 7285753 1 INH daily 08/20/2014 08/19/2014 Inactive Advair Diskus 100 mcg-50 mcg/dose powder for inhalation RxNorm: 3458196 1 INH daily 08/20/2014 12/17/2014 Inactive simvastatin 10 mg tablet RxNorm: 680025 1 Tablet(s) PO daily 08/20/2014 04/16/2015 Inactive lisinopril 20 mg tablet RxNorm: 864399 1 Tablet(s) PO daily -Prescribed by Dr. Humphries No Start Date Active Cartia XT 120 mg capsule,extended release RxNorm: 979714 1 Capsule(s) PO daily No Start Date Active Breo Ellipta 100 mcg-25 mcg/dose powder for inhalation RxNorm: 4586864 1 Puff(s) INH daily No Start Date 02/03/2017 Inactive simvastatin 10 mg tablet RxNorm: 118030 1 Tablet(s) PO daily No Start Date 08/19/2014 Inactive Eliquis 5 mg tablet RxNorm: 9752662 1 Tablet(s) PO BID No Start Date 08/03/2016 Inactive Advair Diskus 100 mcg-50 mcg/dose powder for inhalation RxNorm: 1107435 1 INH daily No Start Date 08/19/2014 [...] 1: 136/82 Code: 8480-6 BMI: 26.0 Code: 75729-1 Heart Rate 1: 54 bpm Height: 6' SpO2: 95% Weight: 192 lbs 01/28/2018 Blood Pressure 1: 132/80 Code: 8480-6 BMI: 25.9 Code: 39795-9 Heart Rate 1: 78 bpm Height: 6' SpO2: 97% Temperature: 36.6 (C) / 97.8 (F) Weight: 191 lbs 08/02/2017 Blood Pressure 1: 118/70 Code: 8480-6 BMI: 25.2 Code: 89297-7 Heart Rate 1: 53 bpm Height: 6' SpO2: 95% Weight: 185 lbs 11 oz 01/28/2017 Blood Pressure 1: 130/82 Code: 8480-6 BMI: 25.8 Code: 58503-6 Heart Rate 1: 60 bpm Height: 6' SpO2: 98% Temperature: 36.7 (C) / 98.0 (F) Weight: 190 lbs 08/24/2016 Blood Pressure 1: 142/86 Code: 8480-6 Heart Rate 1: 62 bpm Height: 6' SpO2: 95% Weight: 07/30/2016 Blood Pressure 1: 136/96 Code: 8480-6 BMI: 25.2 Code: 63156-1 Heart Rate 1: 55 bpm Height: 6' SpO2: 97% Weight: 186 lbs 04/01/2016 Blood Pressure 1: 132/86 Code: 8480-6 BMI: 25.5 Code: 47919-4 Heart Rate 1: 60 bpm Height: 6' SpO2: 96% Weight: 188 lbs 01/27/2016 Blood Pressure 1: 142/82 Code: 8480-6 BMI: 26.6 Code: 24237-6 Heart Rate 1: 53 bpm Height: 6' SpO2: 95% Weight: 196 lbs 01/16/2016 Blood Pressure 1: 122/80 Code: 8480-6 BMI: 26.7 Code: 54034-5 Heart Rate 1: 79 bpm Height: 6' SpO2: 96% Weight: 197 lbs 10/09/2015 Blood Pressure 1: 126/74 Code: 8480-6 BMI: 26.2 Code: 05831-0 Heart Rate 1: 63 bpm Height: 6' SpO2: 97% Weight: 193 lbs 08/01/2015 Blood Pressure 1: 142/100 Code: 8480-6 Blood Pressure 1: 146/104 Code: 8480-6 BMI: 25.8 Code: 66399-0 Heart Rate 1: 57 bpm Height: 6' SpO2: 96% Weight: 190 lbs 08/02/2014 Blood Pressure 1: 126/80 Code: 8480-6 BMI: 25.6 Code: 53882-7 Heart Rate 1: 60 bpm Height: 6' [...] Encounters Encounter Performer Location Codes Date ( 30851 EST. PATIENT, LEVEL III Diagnosis: Essential (primary) hypertension[ICD10: I10] Diagnosis: Chronic atrial fibrillation[ICD10: I48.2] [facility] CPT-4: 63529 08/01/2018 [id number] EST. PATIENT, LEVEL IV Diagnosis: Other acute sinusitis[ICD10: J01.80] Diagnosis: Other allergic rhinitis[ICD10: J30.89] [facility] CPT- 4: 85903 01/28/2018 ([id number]) PREV VISIT EST AGE 40-64 Diagnosis: Encounter for general adult medical examination without abnormal findings[ICD10: Z00.00] Michelle Babb MD, [facility] CPT-4: 51256 08/02/2017 ([id number]) 66477 EST. PATIENT, LEVEL III Diagnosis: Cough[ICD10: R05] Diagnosis: Acute upper respiratory infection, unspecified[ICD10: J06.9] Taylor Babb MD, [facility] CPT-4: 72934 01/28/2017 ([id number]) 76538 EST. PATIENT, LEVEL III Diagnosis: Pain in left hand[ICD10: M79.642] Taylor Babb MD [facility] CPT- 4: 87657 08/24/2016 ([id number]) PREV VISIT EST AGE 40-64 Diagnosis: Encounter for general adult medical examination without abnormal findings[ICD10: Z00.00] Michelle Babb MD [facility] CPT-4: 91009 07/30/2016 80546 EST. PATIENT, LEVEL III Diagnosis: Acute laryngopharyngitis[ICD10: J06.0] Diagnosis: Other allergic rhinitis[ICD10: J30.89] Katie Babb MD, [facility] CPT- 4: 64347 04/01/2016 ([id number]) 27169 EST. PATIENT, LEVEL III Diagnosis: Chronic atrial fibrillation[ICD10: I48.2] Michelle Babb MD, [facility] CPT-4: 67472 01/27/2016 ([id number]) Patient admitted to the hospital from clinic (NO CHARGE) Diagnosis: Other chest pain[ICD10: R07.89] Diagnosis: Palpitations[ICD10: R00.2] Diagnosis: Other specified cardiac arrhythmias[ICD10: I49.8] [facility] CPT-4: 99922W 01/16/2016 [id number] EST. PATIENT, LEVEL III Diagnosis: Cervicalgia[ICD10: M54.2] [facility] CPT-4: 31805 10/09/2015 ([id number]) PREV VISIT EST AGE 40-64 Diagnosis: Encounter for general adult medical examination without abnormal findings[ICD10: Z00.00] [facility] CPT-4: 37785 08/01/2015 ([id number]) PREV VISIT NEW AGE 40-64 Diagnosis: Routine medical exam[ICD9: V70.0] [facility] CPT- 4: 02423 08/02/2014 Plan of Care Planned Activity Notes Codes Status Date Visit Plan: Afib-discussed with Dr Humphries's nurse--scheduled for ablation in 2 weeks- patient is now rate controlled and symptoms have resolved -continue to monitor -call, come back to the office, or go to ER if any symptoms return. Patient and his verbalized understanding of plan. [id number]-[id number] change in medications. 08/01/2018 Patient Education: Patient Medication Summary Completed [...] allergy spray. 01/28/2018 Appointment: Katie Brand WPtel: [facility] (15 min) Moderate 01/28/2018 Patient Education: Patient [...] renal functioning. 08/02/2017 [facility] [phone] [facility] (15 min) Moderate 08/02/2017 Patient Education: Patient [...] pharmacy. 01/28/2017 Appointment: Taylor Teague WPtel[facility] [phone] [facility] [phone] (15 min) Moderate 01/28/2017 Patient Education: Patient Medication Summary Completed 01/28/2017 Patient Education: Obesity Completed 01/28/2017 Visit Plan: Left hand pain/swelling-xray negative- symptoms improving with full ROM-recommend patient continue rest, ice and tylenol as directed-call if symptoms do not completely resolve and we can do further imag ing. Patient verbalized understanding of plan. 08/24/2016 Appointment: Taylor Teague WPtel[facility] [phone] [facility] [phone] (30 min) Complex 08/24/2016 Patient Education: Patient [...] 07/30/2016 Care Plan: Referral Order SNOMED-CT : [id number] Pending 07/30/2016 Visit Plan: URI - Pt [...] spray. 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 01/27/2016 Appointment: Michelle Babb WPtel: [phone] [facility] (15 min) Moderate 01/27/2016 Patient Education: Patient [...] and telemetry. 01/16/2016 Appointment: Michelle Babb WPtel: [phone] [phone] (15 min) Moderate 01/16/2016 Patient Education: Patient [...] will consider going to physical therapy at [facility] - pt to use anti-inflammatory rub two times daily and start neck exercises daily. Notify clinic if symptoms do not improve, if the worsen, or with any changes or concerns. 10/09/2015 Appointment: Taylor Teague WPtel: [phone] (30 min) Complex 10/09/2015 Patient Education: Patient Medication Summary Completed 10/09/2015 Patient Education: .Cervicalgia Neck Pain Completed 10/09/2015 Care Plan: X-RAY EXAM NECK SPINE 2-3 VW LOINC : 91980-9 Pending 10/09/2015 Visit Plan: Well Adult - [...] will consider going to physical therapy at [facility] - pt to use anti-inflammatory rub two [...] Patient and his verbalized understanding of plan. [id number] change in medications. use vaseline on the [...] hospital - continue with eliquis as per blacksmith hammer operator - monitor symptoms call if heart rate [...]
--- OUTSIDE RECORDS SUMMARY | 2018-08-15 16:35 | XMS REPORT | CCD ---
Author Author Michelle Babb MD, [facility] Address [address] [place] [address] Phone Care Team Providers Care Orthodontic Band Maker Name Role Phone PP Unavailable CCM Unavailable Summary Purpose Interface Exchange Insurance Providers Payer name Policy type / Coverage type Covered democrat ID Effective Begin Date Effective End Date Jermyn Cross [facility] Blue Cross/Blue [facility] [id number] Unknown Unknown Family history Mother Diagnosis Age At Onset Heart Attack Unknown Arthritis Unknown Skin cancer Unknown Father Diagnosis Age At Onset Cancer Unknown Social History Social History Element Codes Description Effective Dates Number of children Unknown 2 Kerry Jaramillo 08/24/2016 Marital status Unknown Justina 08/02/[address]: 706444807 Never smoker 08/02/2014 Alcohol history Unknown occasionally drinks alcohol 08/02/2014 Allergies, Adverse Reactions, Alerts Substance Reaction Codes Entered Date Inactivated Date Status * NO KNOWN DRUG ALLERGIES Unknown 08/01/2015 No Inactive Date Active Past Medical History Illness Codes Condition Status Onset Date Resolved Date Other acute sinusitis ICD- 9: 461.8 ICD-10: J01.80 Active 01/28/2018 Unknown Other allergic rhinitis ICD-9: 477.8 ICD-10: J30.89 Active 04/01/2016 Unknown Chronic atrial fibrillation ICD-9: 427.31 ICD-10: I48.2 Active 01/27/2016 Unknown Encounter for general adult medical examination without abnormal findings ICD-9: V70.0 ICD-10: Z00.00 Active 08/01/2014 Unknown Essential (primary) hypertension ICD-9: 401.1 ICD-10: I10 Active 07/30/2016 Unknown Acute upper respiratory infection, unspecified ICD-9: [...] Problems Condition Codes Effective Dates Condition Status Other acute sinusitis ICD- 9: 461.8 ICD-10: J01.80 01/28/2018 Active Other allergic rhinitis ICD-9: 477.8 ICD-10: J30.89 04/01/2016 Active Chronic atrial fibrillation ICD-9: 427.31 ICD-10: I48.2 01/27/2016 Active Encounter for general adult medical examination without abnormal findings ICD-9: V70.0 ICD-10: Z00.00 08/01/2014 Active Essential (primary) hypertension ICD-9: 401.1 ICD-10: I10 07/30/2016 Active Acute upper respiratory infection, unspecified ICD-9: [...] Fill Instructions simvastatin 10 mg tablet RxNorm: 487348 TAKE ONE TABLET BY MOUTH ONCE A DAY 06/29/2018 03/25/2019 Active Zithromax Z-Sinan 250 mg tablet RxNorm: 773793 1 Tablet(s) PO UD 01/28/2018 02/01/2018 Inactive Eliquis 5 mg tablet RxNorm: 9531837 TAKE ONE TABLET BY MOUTH TWICE A DAY 08/17/2017 12/14/2017 Inactive simvastatin 10 mg tablet RxNorm: 848396 TAKE ONE TABLET BY MOUTH ONCE A DAY 06/11/2017 06/05/2018 Inactive Breo Ellipta 100 mcg-25 mcg/dose powder for inhalation RxNorm: 3785844 INHALE ONE DOSE BY MOUTH DAILY 05/03/2017 07/01/2017 Inactive Breo Ellipta 100 mcg-25 mcg/dose powder for inhalation RxNorm: 1015182 INHALE ONE DOSE BY MOUTH DAILY 05/03/2017 07/01/2017 Inactive Keflex 500 mg capsule RxNorm: 367237 1 Capsule(s) PO TID 02/19/2017 02/28/2017 Inactive Keflex 500 mg capsule RxNorm: 291191 1 Capsule(s) PO TID 02/19/2017 02/18/2017 Inactive Breo Ellipta 100 mcg-25 mcg/dose powder for inhalation RxNorm: 2500267 1 Puff(s) INH daily 02/04/2017 05/02/2017 Inactive Zithromax Z-Sinan 250 mg tablet RxNorm: 245349 1 Tablet(s) PO UD 01/28/2017 02/01/2017 Inactive simvastatin 10 mg tablet RxNorm: 261331 TAKE ONE TABLET BY MOUTH ONCE A DAY 08/24/2016 05/20/2017 Inactive Eliquis 5 mg tablet RxNorm: 7116860 1 Tablet(s) PO BID 08/04/2016 07/29/2017 Inactive Zithromax Z-Sinan 250 mg tablet RxNorm: 200411 1 Tablet(s) PO UD 04/01/2016 07/29/2016 Inactive ibuprofen 800 mg tablet RxNorm: 022942 1 Tablet(s) PO TID take with food - then when done with 2 weeks take as needed for pain 10/09/2015 10/22/2015 Inactive Advair Diskus 100 mcg-50 mcg/dose powder for inhalation RxNorm: 6685121 USE 1 INHALATION DAILY 10/02/2015 07/29/2016 Inactive Advair Diskus 100 mcg-50 mcg/dose powder for inhalation RxNorm: 9302313 USE 1 INHALATION DAILY 10/02/2015 10/01/2015 Inactive simvastatin 10 mg tablet RxNorm: 415238 TAKE ONE TABLET BY MOUTH ONCE A DAY 09/26/2015 06/30/2016 Inactive ibuprofen 800 mg tablet RxNorm: 723529 1 Tablet(s) PO TID take with food - then when done with 2 weeks take as needed for pain 08/01/2015 08/14/2015 Inactive Advair Diskus 100 mcg-50 mcg/dose powder for inhalation RxNorm: 2443299 1 INH daily 08/20/2014 08/19/2014 Inactive Advair Diskus 100 mcg-50 mcg/dose powder for inhalation RxNorm: 9587785 1 INH daily 08/20/2014 12/17/2014 Inactive simvastatin 10 mg tablet RxNorm: 195994 1 Tablet(s) PO daily 08/20/2014 04/16/2015 Inactive lisinopril 20 mg tablet RxNorm: 435744 1 Tablet(s) PO daily -Prescribed by Dr. Humphries No Start Date Active Breo Ellipta 100 mcg-25 mcg/dose powder for inhalation RxNorm: 8864674 1 Puff(s) INH daily No Start Date 02/03/2017 Inactive simvastatin 10 mg tablet RxNorm: 765648 1 Tablet(s) PO daily No Start Date 08/19/2014 Inactive Eliquis 5 mg tablet RxNorm: 0255453 1 Tablet(s) PO BID No Start Date 08/03/2016 Inactive Advair Diskus 100 mcg-50 mcg/dose powder for inhalation RxNorm: 4960154 1 INH daily No Start Date 08/19/2014 Inactive Medication Administered No Medication Administered data Immunizations Vaccine Codes Date Status Tetanus, Diptheria, Pertussis CVX: 113 11/15/2013 completed Tetanus/Diptheria CVX: 113 11/15/2013 completed Assessments Condition Codes Effective Dates Other acute sinusitis ICD-10: J01.80 ICD-9: 461.8 01/28/2018 Other allergic rhinitis ICD-10: J30.89 ICD-9: 477.8 01/28/2018 Chronic atrial fibrillation ICD-10: I48.2 ICD-9: 427.31 08/02/2017 Encounter for general adult medical examination without abnormal findings ICD-10: Z00.00 ICD-9: V70.0 08/02/2017 Essential (primary) hypertension ICD-10: I10 ICD-9: 401.1 08/02/2017 Acute upper respiratory infection, unspecified ICD-10: [...] Visit Reason For Visit Effective Dates Notes sinus congestion 01/28/2018 well man exam (40-65 years) 08/02/2017 cough 01/28/2017 hand pain 08/24/2016 well man exam (40-65 years) 07/30/2016 cough 04/01/2016 Hospital Follow Up 01/27/2016 palpitations 01/16/2016 neck pain 10/09/2015 hyperlipidemia 08/01/2015 hyperlipidemia 08/02/2014 Results No Results data Review of Systems System Result Effective Dates Constitutional recent illness 01/28/2018 Constitutional No chills [...] Result Effective Dates Notes Full Exam - ENT Constitutional general appearance [...] No Procedures data Vital Signs Date Vital 01/28/2018 Blood Pressure 1: 132/80 Code: 8480-6 BMI: 25.9 Code: 50667-3 Heart Rate 1: 78 bpm Height: 6' SpO2: 97% Temperature: 36.6 (C) / 97.8 (F) Weight: 191 lbs 08/02/2017 Blood Pressure 1: 118/70 Code: 8480-6 BMI: 25.2 Code: 87348-3 Heart Rate 1: 53 bpm Height: 6' SpO2: 95% Weight: 185 lbs 11 oz 01/28/2017 Blood Pressure 1: 130/82 Code: 8480-6 BMI: 25.8 Code: 78878-8 Heart Rate 1: 60 bpm Height: 6' SpO2: 98% Temperature: 36.7 (C) / 98.0 (F) Weight: 190 lbs 08/24/2016 Blood Pressure 1: 142/86 Code: 8480-6 Heart Rate 1: 62 bpm Height: 6' SpO2: 95% Weight: 07/30/2016 Blood Pressure 1: 136/96 Code: 8480-6 BMI: 25.2 Code: 73661-1 Heart Rate 1: 55 bpm Height: 6' SpO2: 97% Weight: 186 lbs 04/01/2016 Blood Pressure 1: 132/86 Code: 8480-6 BMI: 25.5 Code: 61440-5 Heart Rate 1: 60 bpm Height: 6' SpO2: 96% Weight: 188 lbs 01/27/2016 Blood Pressure 1: 142/82 Code: 8480-6 BMI: 26.6 Code: 71449-6 Heart Rate 1: 53 bpm Height: 6' SpO2: 95% Weight: 196 lbs 01/16/2016 Blood Pressure 1: 122/80 Code: 8480-6 BMI: 26.7 Code: 91488-5 Heart Rate 1: 79 bpm Height: 6' SpO2: 96% Weight: 197 lbs 10/09/2015 Blood Pressure 1: 126/74 Code: 8480-6 BMI: 26.2 Code: 90062-3 Heart Rate 1: 63 bpm Height: 6' SpO2: 97% Weight: 193 lbs 08/01/2015 Blood Pressure 1: 142/100 Code: 8480-6 Blood Pressure 1: 146/104 Code: 8480-6 BMI: 25.8 Code: 40580-7 Heart Rate 1: 57 bpm Height: 6' SpO2: 96% Weight: 190 lbs 08/02/2014 Blood Pressure 1: 126/80 Code: 8480-6 BMI: 25.6 Code: 78883-3 Heart Rate 1: 60 bpm Height: 6' SpO2: 96% Weight: 189 lbs Functional Status No Functional Status data History of Present Illness Symptom Name Status Result Effective Date Notes Location frontal sinuses 01/28/2018 None Quality fullness [...] data Encounters Encounter Performer Location Codes Date 24082 EST. PATIENT, LEVEL IV Diagnosis: Other acute sinusitis[ICD10: J01.80] Diagnosis: Other allergic rhinitis[ICD10: J30.89] Katie Babb MD, [facility] CPT- 4: 64037 01/28/2018 ([id number]) PREV VISIT EST AGE 40-64 Diagnosis: Encounter for general adult medical examination without abnormal findings[ICD10: Z00.00] Michelle Babb MD, [facility] CPT-4: 17950 08/02/2017 ([id number]) 50220 EST. PATIENT, LEVEL III Diagnosis: Cough[ICD10: R05] Diagnosis: Acute upper respiratory infection, unspecified[ICD10: J06.9] Taylor Babb MD, [facility] CPT-4: 05056 01/28/2017 ([id number]) 57055 EST. PATIENT, LEVEL III Diagnosis: Pain in left hand[ICD10: M79.642] Taylor Babb MD, [facility] CPT- 4: 32768 08/24/2016 ([id number]) PREV VISIT EST AGE 40-64 Diagnosis: Encounter for general adult medical examination without abnormal findings[ICD10: Z00.00] Michelle Babb MD, [facility] CPT-4: 73945 07/30/2016 09114 EST. PATIENT, LEVEL III Diagnosis: Acute laryngopharyngitis[ICD10: J06.0] Diagnosis: Other allergic rhinitis[ICD10: J30.89] [facility] CPT- 4: 17568 04/01/2016 ([id number]) 63970 EST. PATIENT, LEVEL III Diagnosis: Chronic atrial fibrillation[ICD10: I48.2] [facility] CPT-4: 88073 01/27/2016 ([id number]) Patient admitted to the hospital from clinic (NO CHARGE) Diagnosis: Other chest pain[ICD10: R07.89] Diagnosis: Palpitations[ICD10: R00.2] Diagnosis: Other specified cardiac arrhythmias[ICD10: I49.8] [facility] CPT-4: 55471I 01/16/2016 88099 EST. PATIENT, LEVEL III Diagnosis: Cervicalgia[ICD10: M54.2] [facility] CPT-4: 08943 10/09/2015 ([id number]) PREV VISIT EST AGE 40-64 Diagnosis: Encounter for general adult medical examination without abnormal findings[ICD10: Z00.00] Michelle Babb MD, [facility] CPT-4: 19327 08/01/2015 ([id number]) PREV VISIT NEW AGE 40-64 Diagnosis: Routine medical exam[ICD9: V70.0] [facility] CPT- 4: 52598 08/02/2014 Plan of Care Planned Activity Notes Codes Status Date Visit Plan: Sinusitis - Pt has acute [...] allergy spray. 01/28/2018 Appointment: Katie Brand WPtel: [address] [place], [place] [phone] (15 min) Moderate 01/28/2018 Patient Education: Patient [...] functioning. 08/02/2017 [facility] [phone] [facility] [place] (15 min) Moderate 08/02/2017 Patient Education: Patient [...] pharmacy. 01/28/2017 Appointment: Taylor Teague WPtel: [phone] [phone] (15 min) Moderate 01/28/2017 Patient Education: Patient Medication Summary Completed 01/28/2017 Patient Education: Obesity Completed 01/28/2017 Visit Plan: Left hand pain/swelling-xray negative- symptoms improving with full ROM-recommend patient continue rest, ice and tylenol as directed-call if symptoms do not completely resolve and we can do further imag ing. Patient verbalized understanding of plan. 08/24/2016 Appointment: Taylor Teague WPtel: [phone] [phone] (30 min) Complex 08/24/2016 Patient Education: Patient [...] 07/30/2016 Care Plan: Referral Order SNOMED-CT : [id number] Pending 07/30/2016 Visit Plan: URI - Pt [...] allergy spray. 04/01/2016 [facility] [place] ([facility] min) Moderate 04/01/2016 Patient Education: Patient Medication Summary Completed 04/01/2016 Patient Education: Obesity Completed 04/01/2016 Visit Plan: Atrial fibrillation - rate controlled - converted in the hospital - continue with eliquis as per telephonic nurse - monitor symptoms call if heart rate picks back up. 01/27/2016 Appointment: Michelle Babb [facility] [phone] (15 min) Moderate 01/27/2016 Patient [...] telemetry. 01/16/2016 [facility]ment: [facility] [phone] [phone] (15 min) Moderate 01/16/2016 Patient [...] will consider going to physical therapy at [place] - pt to use anti-inflammatory rub two times daily and start neck exercises daily. Notify clinic if symptoms do not improve, if the worsen, or with any changes or concerns. 10/09/2015 App[facility] [phone] [phone] (30 min) Complex 10/09/2015 Patient Education: Patient Medication Summary Completed 10/09/2015 Patient Education: .Cervicalgia Neck Pain Completed 10/09/2015 Care Plan: X-RAY EXAM NECK SPINE 2-3 VW LOINC : 20078-6 Pending 10/09/2015 Visit Plan: Well Adult - [...] will consider going to physical therapy at [place] - pt to use anti-inflammatory rub two [...] thyroid, chem panel, CBC, and renal functioning. use vaseline on the skin lesion on [...] hospital - continue with eliquis as per telephonic nurse - monitor symptoms call if heart rate [...]
--- OUTSIDE RECORDS SUMMARY | 2018-08-15 16:37 | XMS REPORT | CCD ---
Author Author Michelle Babb MD, [facility] Address [address] [place] [address] Phone Care Team Providers Care Helmet Hat Sweatband Puncher Name Role Phone PP Unavailable CCM Unavailable Summary Purpose Interface Exchange Insurance Providers Payer name Policy type / Coverage type Covered alliance party ID Effective Begin Date Effective End Date Blue Cross Blue [facility] Blue Cross/Blue Shield [id number] Unknown Unknown Family history Mother Diagnosis Age At Onset Heart Attack Unknown Arthritis Unknown Skin cancer Unknown Father Diagnosis Age At Onset Cancer Unknown Social History Social History Element Codes Description Effective Dates Number of children Unknown 2 Kerry Jaramillo 08/24/2016 Marital status Unknown Justina 08/02/[address]: 544557271 Never smoker 08/02/2014 Alcohol history Unknown occasionally drinks alcohol 08/02/2014 Allergies, Adverse Reactions, Alerts Allergies, Adverse Reactions, Alerts data not found Past Medical History Illness Codes Condition Status Onset Date Resolved Date Pain in left hand ICD-9: 729.5 ICD-10: M79.642 Active 08/24/2016 Unknown Encounter for general adult medical examination without abnormal findings ICD-9: V70.0 ICD-10: Z00.00 Active 08/01/2014 Unknown Essential (primary) hypertension ICD-9: 401.1 ICD-10: I10 Active 07/30/2016 Unknown Melanocytic nevi of right ear and external auricular canal ICD-9: 216.2 ICD-10: D22.21 Active 07/30/2016 Unknown Acute laryngopharyngitis ICD-9: 465.0 ICD-10: J06.0 Active 04/01/2016 Unknown Other allergic rhinitis ICD-9: 477.8 ICD-10: J30.89 Active 04/01/2016 Unknown Chronic atrial fibrillation ICD-9: 427.31 ICD-10: I48.2 Active 01/27/2016 Unknown Other chest pain ICD-9: 786.59 ICD-10: [...] Problems Condition Codes Effective Dates Condition Status Pain in left hand ICD-9: 729.5 ICD-10: M79.642 08/24/2016 Active Encounter for general adult medical examination without abnormal findings ICD-9: V70.0 ICD-10: Z00.00 08/01/2014 Active Essential (primary) hypertension ICD-9: 401.1 ICD-10: I10 07/30/2016 Active Melanocytic nevi of right ear and external auricular canal ICD-9: 216.2 ICD-10: D22.21 07/30/2016 Active Acute laryngopharyngitis ICD-9: 465.0 ICD-10: J06.0 04/01/2016 Active Other allergic rhinitis ICD-9: 477.8 ICD-10: J30.89 04/01/2016 Active Chronic atrial fibrillation ICD-9: 427.31 ICD-10: I48.2 01/27/2016 Active Other chest pain ICD-9: 786.59 ICD-10: [...] Fill Instructions simvastatin 10 mg tablet RxNorm: 528471 TAKE ONE TABLET BY MOUTH ONCE A DAY 08/24/2016 05/20/2017 Active Eliquis 5 mg tablet RxNorm: 7667052 1 Tablet(s) PO BID 08/04/2016 07/29/2017 Active Zithromax Z-Sinan 250 mg tablet RxNorm: 725712 1 Tablet(s) PO UD 04/01/2016 07/29/2016 Inactive ibuprofen 800 mg tablet RxNorm: 403325 1 Tablet(s) PO TID take with food - then when done with 2 weeks take as needed for pain 10/09/2015 10/22/2015 Inactive Advair Diskus 100 mcg-50 mcg/dose powder for inhalation RxNorm: 4064171 USE 1 INHALATION DAILY 10/02/2015 07/29/2016 Inactive Advair Diskus 100 mcg-50 mcg/dose powder for inhalation RxNorm: 0255784 USE 1 INHALATION DAILY 10/02/2015 10/01/2015 Inactive simvastatin 10 mg tablet RxNorm: 364618 TAKE ONE TABLET BY MOUTH ONCE A DAY 09/26/2015 06/30/2016 Inactive ibuprofen 800 mg tablet RxNorm: 017990 1 Tablet(s) PO TID take with food - then when done with 2 weeks take as needed for pain 08/01/2015 08/14/2015 Inactive Advair Diskus 100 mcg-50 mcg/dose powder for inhalation RxNorm: 7754530 1 INH daily 08/20/2014 08/19/2014 Inactive Advair Diskus 100 mcg-50 mcg/dose powder for inhalation RxNorm: 7607791 1 INH daily 08/20/2014 12/17/2014 Inactive simvastatin 10 mg tablet RxNorm: 830368 1 Tablet(s) PO daily 08/20/2014 04/16/2015 Inactive Breo Ellipta 100 mcg-25 mcg/dose powder for inhalation RxNorm: 6160412 1 Puff(s) INH daily No Start Date Active lisinopril 20 mg tablet RxNorm: 635648 1 Tablet(s) PO daily -Prescribed by Dr. Humphries No Start Date Active simvastatin 10 mg tablet RxNorm: 081144 1 Tablet(s) PO daily No Start Date 08/19/2014 Inactive Eliquis 5 mg tablet RxNorm: 2375749 1 Tablet(s) PO BID No Start Date 08/03/2016 Inactive Advair Diskus 100 mcg-50 mcg/dose powder for inhalation RxNorm: 4830234 1 INH daily No Start Date 08/19/2014 Inactive Medication Administered No Medication Administered data Immunizations Vaccine Codes Date Status Tetanus, Diptheria, Pertussis CVX: 113 11/15/2013 completed Tetanus/Diptheria CVX: 113 11/15/2013 completed Assessments Condition Codes Effective Dates Pain in left hand ICD-10: M79.642 ICD-9: 729.5 08/24/2016 Melanocytic nevi of right ear and external auricular canal ICD- 10: D22.21 ICD-9: 216.2 07/30/2016 Encounter for general adult medical examination without abnormal findings ICD-10: Z00.00 ICD-9: V70.0 07/30/2016 Essential (primary) hypertension ICD-10: I10 ICD-9: 401.1 07/30/2016 Other allergic rhinitis ICD-10: J30.89 ICD-9: 477.8 04/01/2016 Acute laryngopharyngitis ICD-10: J06.0 ICD-9: 465.0 04/01/2016 Chronic atrial fibrillation ICD-10: I48.2 ICD-9: 427.31 01/27/2016 Palpitations ICD-10: R00.2 ICD-9: 785.1 01/16/2016 Other specified cardiac arrhythmias ICD-10: I49.8 ICD-9: 427.89 01/16/2016 Other chest pain ICD-10: R07.89 ICD-9: 786.59 01/16/2016 Encounter for screening for malignant neoplasm of prostate ICD- 10: Z12.5 ICD-9: V76.44 11/19/2015 Cervicalgia ICD-10: M54.2 ICD-9: 723.1 10/09/2015 Routine medical exam ICD-9: V70.0 08/02/2014 Reason For Visit Reason For Visit Effective Dates Notes hand pain 08/24/2016 well man exam (40-65 years) 07/30/2016 cough 04/01/2016 Hospital Follow Up 01/27/2016 palpitations 01/16/2016 neck pain 10/09/2015 hyperlipidemia 08/01/2015 hyperlipidemia 08/02/2014 Results No Results data Review of Systems System Result Effective Dates Constitutional No recent illness 08/24/2016 Constitutional No [...] Result Effective Dates Notes Full Exam - Orthopedics Constitutional general appearance [...] No Procedures data Vital Signs Date Vital 08/24/2016 Blood Pressure 1: 142/86 Code: 8480-6 Heart Rate 1: 62 bpm Height: 6' SpO2: 95% Weight: 07/30/2016 Blood Pressure 1: 136/96 Code: 8480-6 BMI: 25.2 Code: 63442-3 Heart Rate 1: 55 bpm Height: 6' SpO2: 97% Weight: 186 lbs 04/01/2016 Blood Pressure 1: 132/86 Code: 8480-6 BMI: 25.5 Code: 69669-7 Heart Rate 1: 60 bpm Height: 6' SpO2: 96% Weight: 188 lbs 01/27/2016 Blood Pressure 1: 142/82 Code: 8480-6 BMI: 26.6 Code: 25040-1 Heart Rate 1: 53 bpm Height: 6' SpO2: 95% Weight: 196 lbs 01/16/2016 Blood Pressure 1: 122/80 Code: 8480-6 BMI: 26.7 Code: 99443-3 Heart Rate 1: 79 bpm Height: 6' SpO2: 96% Weight: 197 lbs 10/09/2015 Blood Pressure 1: 126/74 Code: 8480-6 BMI: 26.2 Code: 40793-9 Heart Rate 1: 63 bpm Height: 6' SpO2: 97% Weight: 193 lbs 08/01/2015 Blood Pressure 1: 142/100 Code: 8480-6 Blood Pressure 1: 146/104 Code: 8480-6 BMI: 25.8 Code: 05012-6 Heart Rate 1: 57 bpm Height: 6' SpO2: 96% Weight: 190 lbs 08/02/2014 Blood Pressure 1: 126/80 Code: 8480-6 BMI: 25.6 Code: 95179-9 Heart Rate 1: 60 bpm Height: 6' SpO2: 96% Weight: 189 lbs Functional Status No Functional Status data History of Present Illness Symptom Name Status Result Effective Date Notes hand pain Location on the left 08/24/2016 [...] data Encounters Encounter Performer Location Codes Date ([id number]) 98573 EST. PATIENT, LEVEL III Diagnosis: Pain in left hand[ICD10: M79.642] [facility] CPT- 4: 88412 08/24/2016 ([id number]) PREV VISIT EST AGE 40-64 Diagnosis: Encounter for general adult medical examination without abnormal findings[ICD10: Z00.00] [facility] CPT-4: 02025 07/30/2016 63853 EST. PATIENT, LEVEL III Diagnosis: Acute laryngopharyngitis[ICD10: J06.0] Diagnosis: Other allergic rhinitis[ICD10: J30.89] [facility] CPT- 4: 48250 04/01/2016 ([id number]) 55485 EST. PATIENT, LEVEL III Diagnosis: Chronic atrial fibrillation[ICD10: I48.2] [facility] CPT-4: 18391 01/27/2016 ([id number]) Patient admitted to the hospital from clinic (NO CHARGE) Diagnosis: Other chest pain[ICD10: R07.89] Diagnosis: Palpitations[ICD10: R00.2] Diagnosis: Other specified cardiac arrhythmias[ICD10: I49.8] [facility] CPT-4: 34977X 01/16/2016 80800 EST. PATIENT, LEVEL III Diagnosis: Cervicalgia[ICD10: M54.2] [facility] CPT-4: 39738 10/09/2015 ([id number]) PREV VISIT EST AGE 40-64 Diagnosis: Encounter for general adult medical examination without abnormal findings[ICD10: Z00.00] [facility] CPT-4: 12130 08/01/2015 ([id number]) PREV VISIT NEW AGE 40-64 Diagnosis: Routine medical exam[ICD9: V70.0] [facility] CPT- 4: 76952 08/02/2014 Plan of Care Planned Activity Notes Codes Status Date Visit Plan: Left hand pain/swelling-xray negative- symptoms improving with full ROM-recommend patient continue rest, ice and tylenol as directed-call if symptoms do not completely resolve and we can do further imaging. Patient verbalized understanding of plan. 08/24/2016 Appointment: Taylor Teague WPtel: [phone] (30 min) Complex 08/24/2016 Patient Education: Patient [...] cholesterol, thyroid, chem panel, CBC, and renal functioning.skin lesion on top of right ear - referral to dr. guerrero for biopsyHypertension - well controlled - continue with current medications, continue with no added salt diet. Pt has been encouraged to exercise daily.The pt has been advised to call the office if there are any acute concerns about change in blood pressure readings at home. 07/30/2016 Patient Education: Patient Medication Summary Completed 07/30/2016 Patient Education: Obesity Completed 07/30/2016 Care Plan: Referral Order SNOMED-CT : [id number] Pending 07/30/2016 Visit Plan: URI - Pt advised to increase fluids, vitamin C. Discussed natural and expected course of this diagnosis and need to alert me if symptoms do not follow expected course, or if any worse. RX sent to patient's pharmacy.Allergies - chronic - recommended pt to use allergy medication as prescribed. Pt has been counseled as to the appropriate use of the medication. Pt to call if allergy symptoms are not controlled with the medication.If using nasal spray, instructions as follows: Nasal spray- use twice daily, one spray per nostril twice daily, after 30 minutes, rinse out nose with saline spray.. Use opposite hand per nostril to spray in the nasal steroid allergy spray. 04/01/2016 Appointment: Katie Brand WPtel: [phone] [phone] (15 min) Moderate 04/01/2016 Patient Education: Patient Medication Summary Completed 04/01/2016 Patient Education: Obesity Completed 04/01/2016 Visit Plan: Atrial fibrillation - rate controlled - converted in the hospital - continue with eliquis as per mutuel department manager - monitor symptoms call if heart rate picks back up. 01/27/2016 Appointment: Michelle Babb WPtel: [phone] [phone] (15 min) Moderate 01/27/2016 Patient Education: Patient [...] FOR TREATMENT AND EVALUATION OF THE ACUTE ILLNESS.Chest pain - admission to the hospital under observation, consult to Dr. Humphries, Chest pain protocol, ekg on admit, chest xray pa and lat, prn nitro,morphine, cardiac analyzer.pt has irregular rhythm - this may be atrial fib - need ekg, and telemetry. 01/16/2016 Appointment: Michelle Babb WPtel: [facility] (15 min) Moderate 01/16/2016 Patient Education: Patient [...] will consider going to physical therapy at [place] - pt to use anti- inflammatory rub two times daily and start neck exercises daily. Notify clinic if symptoms do not improve, if the worsen, or with any changes or concerns. 10/09/2015 App[facility]ment: [facility] [phone] [phone] (30 min) Complex 10/09/2015 Patient Education: Patient Medication Summary Completed 10/09/2015 Patient Education: .Cervicalgia Neck Pain Completed 10/09/2015 Care Plan: X-RAY EXAM NECK SPINE 2-3 VW [facility] : 09346-6 Pending 10/09/2015 Visit Plan: Well Adult - [...] Summary Completed 08/02/2014 Referral: Dr Guerrero Referral Appointment Requested Instructions Comment . Well Adult - pt was counseled [...] will consider going to physical therapy at [place] - pt to use anti-inflammatory rub two [...] hospital - continue with eliquis as per mutuel department manager - monitor symptoms call if heart rate [...]
--- OUTSIDE RECORDS SUMMARY | 2018-08-15 16:38 | XMS REPORT | CCD ---
Author Author Michelle Babb MD, [facility] Address [address] [place] [address] Phone Care Team Providers Care Silk Screen Printer Helper Name Role Phone PP Unavailable CCM Unavailable Summary Purpose Interface Exchange Insurance Providers Payer name Policy type / Coverage type Covered constitution party ID Effective Begin Date Effective End Date [employer] [facility] Blue Cross/Blue [facility] [id number] Unknown Unknown Family history Mother Diagnosis Age At Onset Heart Attack Unknown Arthritis Unknown Skin cancer Unknown Father Diagnosis Age At Onset Cancer Unknown Social History Social History Element Codes Description Effective Dates Marital status Unknown Justina 08/02/2014 Number of children Unknown 2 08/02/[address]: 616314165 Never smoker 08/02/2014 Alcohol history Unknown occasionally [...] Fill Instructions simvastatin 10 mg tablet RxNorm: 842628 TAKE ONE TABLET BY MOUTH ONCE A DAY 08/24/2016 05/20/2017 Active Eliquis 5 mg tablet RxNorm: 3209048 1 Tablet(s) PO BID 08/04/2016 07/29/2017 Active Zithromax Z-Sinan 250 mg tablet RxNorm: 294070 1 Tablet(s) PO UD 04/01/2016 07/29/2016 Inactive ibuprofen 800 mg tablet RxNorm: 205542 1 Tablet(s) PO TID take with food - then when done with 2 weeks take as needed for pain 10/09/2015 10/22/2015 Inactive Advair Diskus 100 mcg-50 mcg/dose powder for inhalation RxNorm: 2834663 USE 1 INHALATION DAILY 10/02/2015 07/29/2016 Inactive Advair Diskus 100 mcg-50 mcg/dose powder for inhalation RxNorm: 8312691 USE 1 INHALATION DAILY 10/02/2015 10/01/2015 Inactive simvastatin 10 mg tablet RxNorm: 385546 TAKE ONE TABLET BY MOUTH ONCE A DAY 09/26/2015 06/30/2016 Inactive ibuprofen 800 mg tablet RxNorm: 253836 1 Tablet(s) PO TID take with food - then when done with 2 weeks take as needed for pain 08/01/2015 08/14/2015 Inactive Advair Diskus 100 mcg-50 mcg/dose powder for inhalation RxNorm: 8774670 1 INH daily 08/20/2014 08/19/2014 Inactive Advair Diskus 100 mcg-50 mcg/dose powder for inhalation RxNorm: 4760377 1 INH daily 08/20/2014 12/17/2014 Inactive simvastatin 10 mg tablet RxNorm: 177131 1 Tablet(s) PO daily 08/20/2014 04/16/2015 Inactive Breo Ellipta 100 mcg-25 mcg/dose powder for inhalation RxNorm: 6322442 1 Puff(s) INH daily No Start Date Active lisinopril 20 mg tablet RxNorm: 463027 1 Tablet(s) PO daily -Prescribed by Dr. Humphries No Start Date Active simvastatin 10 mg tablet RxNorm: 373200 1 Tablet(s) PO daily No Start Date 08/19/2014 Inactive Eliquis 5 mg tablet RxNorm: 2999781 1 Tablet(s) PO BID No Start Date 08/03/2016 Inactive Advair Diskus 100 mcg-50 mcg/dose powder for inhalation RxNorm: 1773773 1 INH daily No Start Date 08/19/2014 Inactive Medication Administered No Medication Administered data Immunizations Vaccine Codes Date Status Tetanus, Diptheria, Pertussis CVX: 113 11/15/2013 completed Tetanus/Diptheria CVX: 113 11/15/2013 completed Assessments Condition Codes Effective Dates Encounter for general adult medical examination without abnormal findings ICD-10: Z00.00 ICD-9: V70.0 07/30/2016 Melanocytic nevi of right ear and external auricular canal ICD- 10: D22.21 ICD-9: 216.2 07/30/2016 Essential (primary) hypertension ICD-10: I10 ICD-9: 401.1 07/30/2016 Acute laryngopharyngitis ICD-10: J06.0 ICD-9: 465.0 04/01/2016 Other allergic rhinitis ICD-10: J30.89 ICD-9: 477.8 04/01/2016 Chronic atrial fibrillation ICD-10: I48.2 ICD-9: 427.31 01/27/2016 Other specified cardiac arrhythmias ICD-10: I49.8 ICD-9: 427.89 01/16/2016 Other chest pain ICD-10: R07.89 ICD-9: 786.59 01/16/2016 Palpitations ICD-10: R00.2 ICD-9: 785.1 01/16/2016 Encounter for screening for malignant neoplasm of prostate ICD- 10: Z12.5 ICD-9: V76.44 11/19/2015 Cervicalgia ICD-10: M54.2 ICD-9: 723.1 10/09/2015 Routine medical exam ICD-9: V70.0 08/02/2014 Reason For Visit Reason For Visit Effective Dates Notes well man exam (40-65 years) 07/30/2016 cough 04/01/2016 Hospital Follow Up 01/27/2016 palpitations 01/16/2016 neck pain 10/09/2015 hyperlipidemia 08/01/2015 hyperlipidemia 08/02/2014 Results No Results data Review of Systems System Result Effective Dates Constitutional No recent illness 07/30/2016 Constitutional No [...] No Procedures data Vital Signs Date Vital 07/30/2016 Blood Pressure 1: 136/96 Code: 8480-6 BMI: 25.2 Code: 39103-6 Heart Rate 1: 55 bpm Height: 6' SpO2: 97% Weight: 186 lbs 04/01/2016 Blood Pressure 1: 132/86 Code: 8480-6 BMI: 25.5 Code: 77146-4 Heart Rate 1: 60 bpm Height: 6' SpO2: 96% Weight: 188 lbs 01/27/2016 Blood Pressure 1: 142/82 Code: 8480-6 BMI: 26.6 Code: 32394-4 Heart Rate 1: 53 bpm Height: 6' SpO2: 95% Weight: 196 lbs 01/16/2016 Blood Pressure 1: 122/80 Code: 8480-6 BMI: 26.7 Code: 51741-3 Heart Rate 1: 79 bpm Height: 6' SpO2: 96% Weight: 197 lbs 10/09/2015 Blood Pressure 1: 126/74 Code: 8480-6 BMI: 26.2 Code: 45520-3 Heart Rate 1: 63 bpm Height: 6' SpO2: 97% Weight: 193 lbs 08/01/2015 Blood Pressure 1: 146/104 Code: 8480-6 Blood Pressure 1: 142/100 Code: 8480-6 BMI: 25.8 Code: 52740-0 Heart Rate 1: 57 bpm Height: 6' SpO2: 96% Weight: 190 lbs 08/02/2014 Blood Pressure 1: 126/80 Code: 8480-6 BMI: 25.6 Code: 73731-0 Heart Rate 1: 60 bpm Height: 6' SpO2: 96% Weight: 189 lbs Functional Status No Functional Status data History of Present Illness Symptom Name Status Result Effective Date Notes well man exam (40-65 years) Lifestyle regular [...] data Encounters Encounter Performer Location Codes Date ([id number]) PREV VISIT EST AGE 40-64 Diagnosis: Encounter for general adult medical examination without abnormal findings[ICD10: Z00.00] [facility] CPT-4: 51964 07/30/2016 25418 EST. PATIENT, LEVEL III Diagnosis: Acute laryngopharyngitis[ICD10: J06.0] Diagnosis: Other allergic rhinitis[ICD10: J30.89] [facility] CPT- 4: 64889 04/01/2016 ([id number]) 53985 EST. PATIENT, LEVEL III Diagnosis: Chronic atrial fibrillation[ICD10: I48.2] [facility] CPT-4: 63613 01/27/2016 ([id number]) Patient admitted to the hospital from clinic (NO CHARGE) Diagnosis: Other chest pain[ICD10: R07.89] Diagnosis: Palpitations[ICD10: R00.2] Diagnosis: Other specified cardiac arrhythmias[ICD10: I49.8] [facility] CPT-4: 01933S 01/16/2016 68014 EST. PATIENT, LEVEL III Diagnosis: Cervicalgia[ICD10: M54.2] [facility] CPT-4: 42229 10/09/2015 ([id number]) PREV VISIT EST AGE 40-64 Diagnosis: Encounter for general adult medical examination without abnormal findings[ICD10: Z00.00] [facility] CPT-4: 29019 08/01/2015 ([id number]) PREV VISIT NEW AGE 40-64 Diagnosis: Routine medical exam[ICD9: V70.0] [facility] CPT- 4: 71905 08/02/2014 Plan of Care Planned Activity Notes Codes Status Date Referral: Dr Guerrero Patient informed. Referral info [...] 07/30/2016 Care Plan: Referral Order SNOMED-CT : [id number] Pending 07/30/2016 Visit Plan: URI - Pt [...] [facility]ment: [facility] [phone] [facility] (15 min) Moderate 04/01/2016 Patient Education: Patient Medication Summary Completed 04/01/2016 Patient Education: Obesity Completed 04/01/2016 Visit Plan: Atrial fibrillation - rate controlled - converted in the hospital - continue with eliquis as per inspector eyeglass frames - monitor symptoms call if heart rate picks back up. 01/27/2016 App[facility]ment: [facility] [phone] [phone] (15 min) Moderate 01/27/2016 Patient Education: Patient [...] and telemetry. 01/16/2016 Appointment: Michelle Babb [facility]el[facility] [phone] [facility] [place] (15 min) Moderate 01/16/2016 Patient Education: Patient [...] will consider going to physical therapy at [place] - pt to use anti- inflammatory rub two times daily and start neck exercises daily. Notify clinic if symptoms do not improve, if the worsen, or with any changes or concerns. 10/09/2015 Appointment: Taylor Teague WPtel: [phone] [place] (30 min) Complex 10/09/2015 Patient Education: Patient Medication Summary Completed 10/09/2015 Patient Education: .Cervicalgia Neck Pain Completed 10/09/2015 Care Plan: X-RAY EXAM NECK SPINE 2-3 VW [facility] : 74744-3 Pending 10/09/2015 Visit Plan: Well Adult - [...] in blood pressure readings at home. . URI - Pt advised to increase [...] will consider going to physical therapy at [place] - pt to use anti-inflammatory rub two [...] hospital - continue with eliquis as per inspector eyeglass frames - monitor symptoms call if heart rate [...]
--- OUTSIDE RECORDS SUMMARY | 2018-08-15 16:38 | XMS REPORT | CCD ---
Author Author Michelle Babb MD, [facility] Address [address] [place] [address] Phone Care Team Providers Care Under Seal Operator Name Role Phone PP Unavailable CCM Unavailable Summary Purpose Interface Exchange Insurance Providers Payer name Policy type / Coverage type Covered alliance party ID Effective Begin Date Effective End Date Blue Cross [facility] Blue Cross/Blue Shield [id number] Unknown Unknown Family history Mother Diagnosis Age At Onset Heart Attack Unknown Arthritis Unknown Skin cancer Unknown Father Diagnosis Age At Onset Cancer Unknown Social History Social History Element Codes Description Effective Dates Number of children Unknown 2 Kerry Jaramillo 08/24/2016 Marital status Unknown Justina 08/02/[address]: 420965399 Never smoker 08/02/2014 Alcohol history Unknown occasionally [...] Fill Instructions simvastatin 10 mg tablet RxNorm: 772559 TAKE ONE TABLET BY MOUTH ONCE A DAY 08/24/2016 05/20/2017 Active Eliquis 5 mg tablet RxNorm: 6579382 1 Tablet(s) PO BID 08/04/2016 07/29/2017 Active Zithromax Z-Sinan 250 mg tablet RxNorm: 761944 1 Tablet(s) PO UD 04/01/2016 07/29/2016 Inactive ibuprofen 800 mg tablet RxNorm: 548793 1 Tablet(s) PO TID take with food - then when done with 2 weeks take as needed for pain 10/09/2015 10/22/2015 Inactive Advair Diskus 100 mcg-50 mcg/dose powder for inhalation RxNorm: 5434721 USE 1 INHALATION DAILY 10/02/2015 07/29/2016 Inactive Advair Diskus 100 mcg-50 mcg/dose powder for inhalation RxNorm: 4239284 USE 1 INHALATION DAILY 10/02/2015 10/01/2015 Inactive simvastatin 10 mg tablet RxNorm: 453287 TAKE ONE TABLET BY MOUTH ONCE A DAY 09/26/2015 06/30/2016 Inactive ibuprofen 800 mg tablet RxNorm: 111224 1 Tablet(s) PO TID take with food - then when done with 2 weeks take as needed for pain 08/01/2015 08/14/2015 Inactive Advair Diskus 100 mcg-50 mcg/dose powder for inhalation RxNorm: 7347205 1 INH daily 08/20/2014 08/19/2014 Inactive Advair Diskus 100 mcg-50 mcg/dose powder for inhalation RxNorm: 4003885 1 INH daily 08/20/2014 12/17/2014 Inactive simvastatin 10 mg tablet RxNorm: 604666 1 Tablet(s) PO daily 08/20/2014 04/16/2015 Inactive Breo Ellipta 100 mcg-25 mcg/dose powder for inhalation RxNorm: 2207766 1 Puff(s) INH daily No Start Date Active lisinopril 20 mg tablet RxNorm: 642889 1 Tablet(s) PO daily -Prescribed by Dr. Humphries No Start Date Active simvastatin 10 mg tablet RxNorm: 572966 1 Tablet(s) PO daily No Start Date 08/19/2014 Inactive Eliquis 5 mg tablet RxNorm: 3875770 1 Tablet(s) PO BID No Start Date 08/03/2016 Inactive Advair Diskus 100 mcg-50 mcg/dose powder for inhalation RxNorm: 7384350 1 INH daily No Start Date 08/19/2014 Inactive Medication Administered No Medication Administered data Immunizations Vaccine Codes Date Status Tetanus, Diptheria, Pertussis CVX: 113 11/15/2013 completed Tetanus/Diptheria CVX: 113 11/15/2013 completed Assessments Condition Codes Effective Dates Pain in left hand ICD-10: M79.642 ICD-9: 729.5 08/24/2016 Encounter for general adult medical examination without [...] 1: 136/96 Code: 8480-6 BMI: 25.2 Code: 19630-7 Heart Rate 1: 55 bpm Height: 6' SpO2: 97% Weight: 186 lbs 04/01/2016 Blood Pressure 1: 132/86 Code: 8480-6 BMI: 25.5 Code: 13286-3 Heart Rate 1: 60 bpm Height: 6' SpO2: 96% Weight: 188 lbs 01/27/2016 Blood Pressure 1: 142/82 Code: 8480-6 BMI: 26.6 Code: 29915-5 Heart Rate 1: 53 bpm Height: 6' SpO2: 95% Weight: 196 lbs 01/16/2016 Blood Pressure 1: 122/80 Code: 8480-6 BMI: 26.7 Code: 01450-4 Heart Rate 1: 79 bpm Height: 6' SpO2: 96% Weight: 197 lbs 10/09/2015 Blood Pressure 1: 126/74 Code: 8480-6 BMI: 26.2 Code: 54781-6 Heart Rate 1: 63 bpm Height: 6' SpO2: 97% Weight: 193 lbs 08/01/2015 Blood Pressure 1: 142/100 Code: 8480-6 Blood Pressure 1: 146/104 Code: 8480-6 BMI: 25.8 Code: 01027-2 Heart Rate 1: 57 bpm Height: 6' SpO2: 96% Weight: 190 lbs 08/02/2014 Blood Pressure 1: 126/80 Code: 8480-6 BMI: 25.6 Code: 51308-1 Heart Rate 1: 60 bpm Height: 6' [...] data Encounters Encounter Performer Location Codes Date ([id number]) 43449 EST. PATIENT, LEVEL III Diagnosis: Pain in left hand[ICD10: M79.642] [facility] CPT- 4: 04226 08/24/2016 ([id number]) PREV VISIT EST AGE 40-64 Diagnosis: Encounter for general adult medical examination without abnormal findings[ICD10: Z00.00] [facility] CPT-4: 26050 07/30/2016 21456 EST. PATIENT, LEVEL III Diagnosis: Acute laryngopharyngitis[ICD10: J06.0] Diagnosis: Other allergic rhinitis[ICD10: J30.89] [facility] CPT- 4: 24533 04/01/2016 ([id number]) 01833 EST. PATIENT, LEVEL III Diagnosis: Chronic atrial fibrillation[ICD10: I48.2] [facility] CPT-4: 73445 01/27/2016 ([id number]) Patient admitted to the hospital from clinic (NO CHARGE) Diagnosis: Other chest pain[ICD10: R07.89] Diagnosis: Palpitations[ICD10: R00.2] Diagnosis: Other specified cardiac arrhythmias[ICD10: I49.8] [facility] CPT-4: 90287O 01/16/2016 96738 EST. PATIENT, LEVEL III Diagnosis: Cervicalgia[ICD10: M54.2] [facility] CPT-4: 87012 10/09/2015 ([id number]) PREV VISIT EST AGE 40-64 Diagnosis: Encounter for general adult medical examination without abnormal findings[ICD10: Z00.00] [facility] CPT-4: 29816 08/01/2015 ([id number]) PREV VISIT NEW AGE 40-64 Diagnosis: Routine medical exam[ICD9: V70.0] [facility] CPT- 4: 91874 08/02/2014 Plan of Care Planned Activity Notes Codes Status Date Visit Plan: Left hand pain/swelling-xray negative- symptoms improving with full ROM-recommend patient continue rest, ice and tylenol as directed-call if symptoms do not completely resolve and we can do further imaging. Patient verbalized understanding of plan. 08/24/2016 Patient Education: Patient Medication Summary Completed [...] 07/30/2016 Care Plan: Referral Order SNOMED-CT : 551807836 Pending 07/30/2016 Visit Plan: URI - Pt [...] spray. 04/01/2016 Appointment: [phone] [facility] (15 min) Moderate 04/01/2016 Patient Education: Patient Medication Summary Completed 04/01/2016 Patient Education: Obesity Completed 04/01/2016 Visit Plan: Atrial fibrillation - rate controlled - converted in the hospital - continue with eliquis as per band builder - monitor symptoms call if heart rate picks back up. 01/27/2016 Appointment: Michelle Babb WPtel: [facility] (15 min) Moderate 01/27/2016 Patient Education: Patient [...] and telemetry. 01/16/2016 Appointment: Michelle Babb WPtel: [facility] (15 min) Moderate 01/16/2016 Patient Education: Patient [...] will consider going to physical therapy at [place] - pt to use anti- inflammatory rub two times daily and start neck exercises daily. Notify clinic if symptoms do not improve, if the worsen, or with any changes or concerns. 10/09/2015 Appointment: Taylor Teague WPtel[phone] [facility] (30 min) Complex 10/09/2015 Patient Education: Patient Medication Summary Completed 10/09/2015 Patient Education: .Cervicalgia Neck Pain Completed 10/09/2015 Care Plan: X-RAY EXAM NECK SPINE 2-3 VW LOINC : 99781-3 Pending 10/09/2015 Visit Plan: Well Adult - [...] will consider going to physical therapy at [place] - pt to use anti-inflammatory rub two [...] hospital - continue with eliquis as per band builder - monitor symptoms call if heart rate [...]
--- OUTSIDE RECORDS SUMMARY | 2018-08-15 16:39 | XMS REPORT | CCD ---
Author Author Michelle Babb MD, [facility] Address [address] [place] [address] Phone Care Team Providers Care Cone Runner Name Role Phone PP Unavailable CCM Unavailable Summary Purpose Interface Exchange Insurance Providers Payer name Policy type / Coverage type Covered libertarian ID Effective Begin Date Effective End Date Blue Cross [facility] Blue Cross/Blue [facility] [id number] Unknown Unknown Family history Mother Diagnosis Age At Onset Heart Attack Unknown Arthritis Unknown Skin cancer Unknown Father Diagnosis Age At Onset Cancer Unknown Social History Social History Element Codes Description Effective Dates Marital status Unknown Justina 08/02/2014 Number of children Unknown 2 08/02/[address]: 863688264 Never smoker 08/02/2014 Alcohol history Unknown occasionally [...] Start Date Stop Date Status Fill Instructions Zithromax Z-Sinan 250 mg tablet RxNorm: 533256 1 Tablet(s) PO UD 04/01/2016 07/29/2016 Inactive ibuprofen 800 mg tablet RxNorm: 709250 1 Tablet(s) PO TID take with food - then when done with 2 weeks take as needed for pain 10/09/2015 10/22/2015 Inactive Advair Diskus 100 mcg-50 mcg/dose powder for inhalation RxNorm: 1090594 USE 1 INHALATION DAILY 10/02/2015 07/29/2016 Inactive Advair Diskus 100 mcg-50 mcg/dose powder for inhalation RxNorm: 3326033 USE 1 INHALATION DAILY 10/02/2015 10/01/2015 Inactive simvastatin 10 mg tablet RxNorm: 286451 TAKE ONE TABLET BY MOUTH ONCE A DAY 09/26/2015 06/30/2016 Inactive ibuprofen 800 mg tablet RxNorm: 224573 1 Tablet(s) PO TID take with food - then when done with 2 weeks take as needed for pain 08/01/2015 08/14/2015 Inactive Advair Diskus 100 mcg-50 mcg/dose powder for inhalation RxNorm: 1595896 1 INH daily 08/20/2014 08/19/2014 Inactive Advair Diskus 100 mcg-50 mcg/dose powder for inhalation RxNorm: 6079659 1 INH daily 08/20/2014 12/17/2014 Inactive simvastatin 10 mg tablet RxNorm: 011906 1 Tablet(s) PO daily 08/20/2014 04/16/2015 Inactive Breo Ellipta 100 mcg-25 mcg/dose powder for inhalation RxNorm: 9959390 1 Puff(s) INH daily No Start Date Active Eliquis 5 mg tablet RxNorm: 4988214 1 Tablet(s) PO BID No Start Date Active lisinopril 20 mg tablet RxNorm: 492094 1 Tablet(s) PO daily -Prescribed by Dr. Humphries No Start Date Active simvastatin 10 mg tablet RxNorm: 996003 1 Tablet(s) PO daily No Start Date 08/19/2014 Inactive Advair Diskus 100 mcg-50 mcg/dose powder for inhalation RxNorm: 0877075 1 INH daily No Start Date 08/19/2014 [...] 1: 136/96 Code: 8480-6 BMI: 25.2 Code: 16578-8 Heart Rate 1: 55 bpm Height: 6' SpO2: 97% Weight: 186 lbs 04/01/2016 Blood Pressure 1: 132/86 Code: 8480-6 BMI: 25.5 Code: 07827-4 Heart Rate 1: 60 bpm Height: 6' SpO2: 96% Weight: 188 lbs 01/27/2016 Blood Pressure 1: 142/82 Code: 8480-6 BMI: 26.6 Code: 30401-2 Heart Rate 1: 53 bpm Height: 6' SpO2: 95% Weight: 196 lbs 01/16/2016 Blood Pressure 1: 122/80 Code: 8480-6 BMI: 26.7 Code: 82960-6 Heart Rate 1: 79 bpm Height: 6' SpO2: 96% Weight: 197 lbs 10/09/2015 Blood Pressure 1: 126/74 Code: 8480-6 BMI: 26.2 Code: 08837-5 Heart Rate 1: 63 bpm Height: 6' SpO2: 97% Weight: 193 lbs 08/01/2015 Blood Pressure 1: 142/100 Code: 8480-6 Blood Pressure 1: 146/104 Code: 8480-6 BMI: 25.8 Code: 07221-0 Heart Rate 1: 57 bpm Height: 6' SpO2: 96% Weight: 190 lbs 08/02/2014 Blood Pressure 1: 126/80 Code: 8480-6 BMI: 25.6 Code: 59203-4 Heart Rate 1: 60 bpm Height: 6' [...] data Encounters Encounter Performer Location Codes Date (14615) PREV VISIT EST AGE 40-64 Diagnosis: Encounter for general adult medical examination without abnormal findings[ICD10: Z00.00] [facility] CPT-4: 71103 07/30/2016 70685 EST. PATIENT, LEVEL III Diagnosis: Acute laryngopharyngitis[ICD10: J06.0] Diagnosis: Other allergic rhinitis[ICD10: J30.89] [facility] CPT- 4: 72834 04/01/2016 ([id number]) 53205 EST. PATIENT, LEVEL III Diagnosis: Chronic atrial fibrillation[ICD10: I48.2] [facility] CPT-4: 44931 01/27/2016 ([id number]) Patient admitted to the hospital from clinic (NO CHARGE) Diagnosis: Other chest pain[ICD10: R07.89] Diagnosis: Palpitations[ICD10: R00.2] Diagnosis: Other specified cardiac arrhythmias[ICD10: I49.8] [facility] CPT-4: 71748T 01/16/2016 79331 EST. PATIENT, LEVEL III Diagnosis: Cervicalgia[ICD10: M54.2] [facility] CPT-4: 27478 10/09/2015 ([id number]) PREV VISIT EST AGE 40-64 Diagnosis: Encounter for general adult medical examination without abnormal findings[ICD10: Z00.00] [facility] CPT-4: 16291 08/01/2015 ([id number]) PREV VISIT NEW AGE 40-64 Diagnosis: Routine medical exam[ICD9: V70.0] [facility] CPT- 4: 61168 08/02/2014 Plan of Care Planned Activity Notes Codes Status Date Patient Education: Patient Medication Summary Completed 07/30/2016 Patient Education: Obesity Completed 07/30/2016 Care Plan: Comp Metabolic Pending 07/30/2016 Care Plan: Cbc With Differential Pending 07/30/2016 Care Plan: Tsh Pending 07/30/2016 Care Plan: Lipid Pending 07/30/2016 Care Plan: Total Psa Pending 07/30/2016 Care Plan: Referral Order SNOMED-CT : [id number] Pending 07/30/2016 [facility]ment: [phone] (15 min) Moderate 04/01/2016 Patient Education: Patient Medication Summary Completed 04/01/2016 Patient Education: Obesity Completed 04/01/2016 Appointment: Michelle Babb WPtel: [facility] (15 min) Moderate 01/27/2016 Patient Education: Patient Medication Summary Completed 01/27/2016 Patient Education: Obesity Completed 01/27/2016 Appointment: Michelle Babb WPtel: [facility] (15 min) Moderate 01/16/2016 Patient Education: Patient Medication Summary Completed 01/16/2016 Patient Education: Obesity Completed 01/16/2016 Patient Education: Patient Medication Summary Completed 11/19/2015 Care Plan: Cbc With Differential Cancelled 11/19/2015 Care Plan: Lipid Cancelled 11/19/2015 Care Plan: Total Psa Cancelled 11/19/2015 Care Plan: Comp Metabolic Cancelled 11/19/2015 Care Plan: Tsh Cancelled 11/19/2015 Appointment: Taylor Teague WPtel[phone] [place] (30 min) Complex 10/09/2015 Patient Education: Patient Medication Summary Completed 10/09/2015 Patient Education: .Cervicalgia Neck Pain Completed 10/09/2015 Care Plan: X-RAY EXAM NECK SPINE 2-3 VW LOINC : 22647-5 Pending 10/09/2015 Patient Education: Patient Medication Summary Completed 08/01/2015 Patient Education: Obesity Completed 08/01/2015 Patient Education: Patient Medication Summary Completed 08/02/2014 Referral: Dr Guerrero Referral Appointment Requested Instructions No Instructions
--- OUTSIDE RECORDS SUMMARY | 2018-08-15 16:39 | XMS REPORT | CCD ---
Author Author Michelle Babb MD, [facility] Address [address] [place] [address] Phone Care Team Providers Care Inspector Paper Products Name Role Phone PP Unavailable CCM Unavailable Summary Purpose Interface Exchange Insurance Providers Payer name Policy type / Coverage type Covered democrat ID Effective Begin Date Effective End Date Blue Cross [facility] Blue Cross/Blue [facility] [id number] Unknown Unknown Family history Mother Diagnosis Age At Onset Heart Attack Unknown Arthritis Unknown Skin cancer Unknown Father Diagnosis Age At Onset Cancer Unknown Social History Social History Element Codes Description Effective Dates Marital status Unknown Justina 08/02/2014 Number of children Unknown 2 08/02/[address]: 101136400 Never smoker 08/02/2014 Alcohol history Unknown occasionally [...] Start Date Stop Date Status Fill Instructions Eliquis 5 mg tablet RxNorm: 1144096 1 Tablet(s) PO BID 08/04/2016 07/29/2017 Active Zithromax Z-Sinan 250 mg tablet RxNorm: 051401 1 Tablet(s) PO UD 04/01/2016 07/29/2016 Inactive ibuprofen 800 mg tablet RxNorm: 276687 1 Tablet(s) PO TID take with food - then when done with 2 weeks take as needed for pain 10/09/2015 10/22/2015 Inactive Advair Diskus 100 mcg-50 mcg/dose powder for inhalation RxNorm: 0118348 USE 1 INHALATION DAILY 10/02/2015 07/29/2016 Inactive Advair Diskus 100 mcg-50 mcg/dose powder for inhalation RxNorm: 4767438 USE 1 INHALATION DAILY 10/02/2015 10/01/2015 Inactive simvastatin 10 mg tablet RxNorm: 944416 TAKE ONE TABLET BY MOUTH ONCE A DAY 09/26/2015 06/30/2016 Inactive ibuprofen 800 mg tablet RxNorm: 893426 1 Tablet(s) PO TID take with food - then when done with 2 weeks take as needed for pain 08/01/2015 08/14/2015 Inactive Advair Diskus 100 mcg-50 mcg/dose powder for inhalation RxNorm: 4285292 1 INH daily 08/20/2014 08/19/2014 Inactive Advair Diskus 100 mcg-50 mcg/dose powder for inhalation RxNorm: 3927413 1 INH daily 08/20/2014 12/17/2014 Inactive simvastatin 10 mg tablet RxNorm: 516956 1 Tablet(s) PO daily 08/20/2014 04/16/2015 Inactive Breo Ellipta 100 mcg-25 mcg/dose powder for inhalation RxNorm: 3309955 1 Puff(s) INH daily No Start Date Active lisinopril 20 mg tablet RxNorm: 105560 1 Tablet(s) PO daily -Prescribed by Dr. Humphries No Start Date Active simvastatin 10 mg tablet RxNorm: 368786 1 Tablet(s) PO daily No Start Date 08/19/2014 Inactive Eliquis 5 mg tablet RxNorm: 4679657 1 Tablet(s) PO BID No Start Date 08/03/2016 Inactive Advair Diskus 100 mcg-50 mcg/dose powder for inhalation RxNorm: 5251068 1 INH daily No Start Date 08/19/2014 Inactive Medication Administered No Medication Administered data Immunizations Vaccine Codes Date Status Tetanus, Diptheria, Pertussis CVX: 113 11/15/2013 completed Tetanus/Diptheria CVX: 113 11/15/2013 completed Assessments Condition Codes Effective Dates Melanocytic nevi of right ear and external auricular canal ICD- 10: D22.21 ICD-9: 216.2 07/30/2016 Essential (primary) hypertension ICD-10: I10 ICD-9: 401.1 07/30/2016 Encounter for general adult medical examination without abnormal findings ICD-10: Z00.00 ICD-9: V70.0 07/30/2016 Acute laryngopharyngitis ICD-10: J06.0 ICD-9: 465.0 [...] 1: 136/96 Code: 8480-6 BMI: 25.2 Code: 01312-4 Heart Rate 1: 55 bpm Height: 6' SpO2: 97% Weight: 186 lbs 04/01/2016 Blood Pressure 1: 132/86 Code: 8480-6 BMI: 25.5 Code: 14792-7 Heart Rate 1: 60 bpm Height: 6' SpO2: 96% Weight: 188 lbs 01/27/2016 Blood Pressure 1: 142/82 Code: 8480-6 BMI: 26.6 Code: 28038-4 Heart Rate 1: 53 bpm Height: 6' SpO2: 95% Weight: 196 lbs 01/16/2016 Blood Pressure 1: 122/80 Code: 8480-6 BMI: 26.7 Code: 26712-0 Heart Rate 1: 79 bpm Height: 6' SpO2: 96% Weight: 197 lbs 10/09/2015 Blood Pressure 1: 126/74 Code: 8480-6 BMI: 26.2 Code: 29761-8 Heart Rate 1: 63 bpm Height: 6' SpO2: 97% Weight: 193 lbs 08/01/2015 Blood Pressure 1: 146/104 Code: 8480-6 Blood Pressure 1: 142/100 Code: 8480-6 BMI: 25.8 Code: 27120-0 Heart Rate 1: 57 bpm Height: 6' SpO2: 96% Weight: 190 lbs 08/02/2014 Blood Pressure 1: 126/80 Code: 8480-6 BMI: 25.6 Code: 04362-5 Heart Rate 1: 60 bpm Height: 6' [...] data Encounters Encounter Performer Location Codes Date ([id number]) PREV VISIT EST AGE 40-64 Diagnosis: Encounter for general adult medical examination without abnormal findings[ICD10: Z00.00] [facility] CPT-4: 84722 07/30/2016 47558 EST. PATIENT, LEVEL III Diagnosis: Acute laryngopharyngitis[ICD10: J06.0] Diagnosis: Other allergic rhinitis[ICD10: J30.89] [facility] CPT- 4: 90429 04/01/2016 ([id number]) 96830 EST. PATIENT, LEVEL III Diagnosis: Chronic atrial fibrillation[ICD10: I48.2] [facility] CPT-4: 59404 01/27/2016 ([id number]) Patient admitted to the hospital from clinic (NO CHARGE) Diagnosis: Other chest pain[ICD10: R07.89] Diagnosis: Palpitations[ICD10: R00.2] Diagnosis: Other specified cardiac arrhythmias[ICD10: I49.8] [facility] CPT-4: 60507A 01/16/2016 93309 EST. PATIENT, LEVEL III Diagnosis: Cervicalgia[ICD10: M54.2] [facility] CPT-4: 12682 10/09/2015 ([id number]) PREV VISIT EST AGE 40-64 Diagnosis: Encounter for general adult medical examination without abnormal findings[ICD10: Z00.00] [facility] CPT-4: 72093 08/01/2015 ([id number]) PREV VISIT NEW AGE 40-64 Diagnosis: Routine medical exam[ICD9: V70.0] [facility] CPT- 4: 72166 08/02/2014 Plan of Care Planned Activity Notes [...] 07/30/2016 Care Plan: Referral Order SNOMED-CT : 139337047 Pending 07/30/2016 Visit Plan: URI - Pt [...] allergy spray. 04/01/2016 Appointment: Katie Brand [facility]Ptel[facility] (15 min) Moderate 04/01/2016 Patient Education: Patient Medication Summary Completed 04/01/2016 Patient Education: Obesity Completed 04/01/2016 Visit Plan: Atrial fibrillation - rate controlled - converted in the hospital - continue with eliquis as per speed runner - monitor symptoms call if heart rate picks back up. 01/27/2016 Appointment: Michelle Babb WPtel: [facility] (15 min) Moderate 01/27/2016 Patient Education: Patient [...] and telemetry. 01/16/2016 Appointment: Michelle Babb WPtel: [facility] [place] (15 min) Moderate 01/16/2016 Patient Education: [...] will consider going to physical therapy at [place] - pt to use anti- inflammatory rub two times daily and start neck exercises daily. Notify clinic if symptoms do not improve, if the worsen, or with any changes or concerns. 10/09/2015 Appointment: Taylor Teague [facility]Ptel[phone] [facility] [place] (30 min) Complex 10/09/2015 Patient Education: Patient Medication Summary Completed 10/09/2015 Patient Education: .Cervicalgia Neck Pain Completed 10/09/2015 Care Plan: X-RAY EXAM NECK SPINE 2-3 VW LOINC : 33485-2 Pending 10/09/2015 Visit Plan: Well Adult - [...] will consider going to physical therapy at [place] - pt to use anti-inflammatory rub two [...] hospital - continue with eliquis as per speed runner - monitor symptoms call if heart rate [...]
--- OUTSIDE RECORDS SUMMARY | 2018-08-15 16:40 | XMS REPORT | CCD ---
Author Author Michelle Babb MD, [facility] Address [address] [place] [address] Phone Care Team Providers Care Tutor Name Role Phone PP Unavailable CCM Unavailable Summary Purpose Interface Exchange Insurance Providers Payer name Policy type / Coverage type Covered libertarian ID Effective Begin Date Effective End Date [place] [facility] Blue Cross/[facility] [id number] Unknown Unknown Family history Mother Diagnosis Age At Onset Heart Attack Unknown Arthritis Unknown Skin cancer Unknown Father Diagnosis Age At Onset Cancer Unknown Social History Social History Element Codes Description Effective Dates Number of children Unknown 2 Kerry Jaramillo 08/24/2016 Marital status Unknown Justina 08/02/[address]: 804252066 Never smoker 08/02/2014 Alcohol history Unknown occasionally [...] Instructions Zithromax Z-Sinan 250 mg tablet RxNorm: 922335 1 Tablet(s) PO UD 01/28/2018 02/01/2018 Active Eliquis 5 mg tablet RxNorm: 6522359 TAKE ONE TABLET BY MOUTH TWICE A DAY 08/17/2017 12/14/2017 Inactive simvastatin 10 mg tablet RxNorm: 130389 TAKE ONE TABLET BY MOUTH ONCE A DAY 06/11/2017 06/05/2018 Active Breo Ellipta 100 mcg-25 mcg/dose powder for inhalation RxNorm: 5281024 INHALE ONE DOSE BY MOUTH DAILY 05/03/2017 07/01/2017 Inactive Breo Ellipta 100 mcg-25 mcg/dose powder for inhalation RxNorm: 1019378 INHALE ONE DOSE BY MOUTH DAILY 05/03/2017 07/01/2017 Inactive Keflex 500 mg capsule RxNorm: 963856 1 Capsule(s) PO TID 02/19/2017 02/28/2017 Inactive Keflex 500 mg capsule RxNorm: 894961 1 Capsule(s) PO TID 02/19/2017 02/18/2017 Inactive Breo Ellipta 100 mcg-25 mcg/dose powder for inhalation RxNorm: 8265874 1 Puff(s) INH daily 02/04/2017 05/02/2017 Inactive Zithromax Z-Sinan 250 mg tablet RxNorm: 038641 1 Tablet(s) PO UD 01/28/2017 02/01/2017 Inactive simvastatin 10 mg tablet RxNorm: 450948 TAKE ONE TABLET BY MOUTH ONCE A DAY 08/24/2016 05/20/2017 Inactive Eliquis 5 mg tablet RxNorm: 7971925 1 Tablet(s) PO BID 08/04/2016 07/29/2017 Inactive Zithromax Z-Sinan 250 mg tablet RxNorm: 641969 1 Tablet(s) PO UD 04/01/2016 07/29/2016 Inactive ibuprofen 800 mg tablet RxNorm: 392177 1 Tablet(s) PO TID take with food - then when done with 2 weeks take as needed for pain 10/09/2015 10/22/2015 Inactive Advair Diskus 100 mcg-50 mcg/dose powder for inhalation RxNorm: 9904884 USE 1 INHALATION DAILY 10/02/2015 07/29/2016 Inactive Advair Diskus 100 mcg-50 mcg/dose powder for inhalation RxNorm: 9076076 USE 1 INHALATION DAILY 10/02/2015 10/01/2015 Inactive simvastatin 10 mg tablet RxNorm: 297643 TAKE ONE TABLET BY MOUTH ONCE A DAY 09/26/2015 06/30/2016 Inactive ibuprofen 800 mg tablet RxNorm: 693294 1 Tablet(s) PO TID take with food - then when done with 2 weeks take as needed for pain 08/01/2015 08/14/2015 Inactive Advair Diskus 100 mcg-50 mcg/dose powder for inhalation RxNorm: 5094739 1 INH daily 08/20/2014 08/19/2014 Inactive Advair Diskus 100 mcg-50 mcg/dose powder for inhalation RxNorm: 1678341 1 INH daily 08/20/2014 12/17/2014 Inactive simvastatin 10 mg tablet RxNorm: 816330 1 Tablet(s) PO daily 08/20/2014 04/16/2015 Inactive lisinopril 20 mg tablet RxNorm: 591307 1 Tablet(s) PO daily -Prescribed by Dr. Humphries No Start Date Active Breo Ellipta 100 mcg-25 mcg/dose powder for inhalation RxNorm: 0980551 1 Puff(s) INH daily No Start Date 02/03/2017 Inactive simvastatin 10 mg tablet RxNorm: 601035 1 Tablet(s) PO daily No Start Date 08/19/2014 Inactive Eliquis 5 mg tablet RxNorm: 1588578 1 Tablet(s) PO BID No Start Date 08/03/2016 Inactive Advair Diskus 100 mcg-50 mcg/dose powder for inhalation RxNorm: 2537258 1 INH daily No Start Date 08/19/2014 [...] 1: 132/80 Code: 8480-6 BMI: 25.9 Code: 87814-2 Heart Rate 1: 78 bpm Height: 6' SpO2: 97% Temperature: 36.6 (C) / 97.8 (F) Weight: 191 lbs 08/02/2017 Blood Pressure 1: 118/70 Code: 8480-6 BMI: 25.2 Code: 35881-6 Heart Rate 1: 53 bpm Height: 6' SpO2: 95% Weight: 185 lbs 11 oz 01/28/2017 Blood Pressure 1: 130/82 Code: 8480-6 BMI: 25.8 Code: 34559-3 Heart Rate 1: 60 bpm Height: 6' SpO2: 98% Temperature: 36.7 (C) / 98.0 (F) Weight: 190 lbs 08/24/2016 Blood Pressure 1: 142/86 Code: 8480-6 Heart Rate 1: 62 bpm Height: 6' SpO2: 95% Weight: 07/30/2016 Blood Pressure 1: 136/96 Code: 8480-6 BMI: 25.2 Code: 93459-8 Heart Rate 1: 55 bpm Height: 6' SpO2: 97% Weight: 186 lbs 04/01/2016 Blood Pressure 1: 132/86 Code: 8480-6 BMI: 25.5 Code: 48577-6 Heart Rate 1: 60 bpm Height: 6' SpO2: 96% Weight: 188 lbs 01/27/2016 Blood Pressure 1: 142/82 Code: 8480-6 BMI: 26.6 Code: 45487-9 Heart Rate 1: 53 bpm Height: 6' SpO2: 95% Weight: 196 lbs 01/16/2016 Blood Pressure 1: 122/80 Code: 8480-6 BMI: 26.7 Code: 33597-3 Heart Rate 1: 79 bpm Height: 6' SpO2: 96% Weight: 197 lbs 10/09/2015 Blood Pressure 1: 126/74 Code: 8480-6 BMI: 26.2 Code: 52680-1 Heart Rate 1: 63 bpm Height: 6' SpO2: 97% Weight: 193 lbs 08/01/2015 Blood Pressure 1: 142/100 Code: 8480-6 Blood Pressure 1: 146/104 Code: 8480-6 BMI: 25.8 Code: 09587-1 Heart Rate 1: 57 bpm Height: 6' SpO2: 96% Weight: 190 lbs 08/02/2014 Blood Pressure 1: 126/80 Code: 8480-6 BMI: 25.6 Code: 20376-5 Heart Rate 1: 60 bpm Height: 6' [...] data Encounters Encounter Performer Location Codes Date EST. PATIENT, LEVEL IV Diagnosis: Other acute sinusitis[ICD10: J01.80] Diagnosis: Other allergic rhinitis[ICD10: J30.89] Katie Babb MD, [facility] CPT- 4: 49352 01/28/2018 ([id number]) PREV VISIT EST AGE 40-64 Diagnosis: Encounter for general adult medical examination without abnormal findings[ICD10: Z00.00] [facility] CPT-4: 77330 08/02/2017 ([id number]) 98687 EST. PATIENT, LEVEL III Diagnosis: Cough[ICD10: R05] Diagnosis: Acute upper respiratory infection, unspecified[ICD10: J06.9] [facility] CPT-4: 96332 01/28/2017 ([id number]) 38121 EST. PATIENT, LEVEL III Diagnosis: Pain in left hand[ICD10: M79.642] [facility] CPT- 4: 53171 08/24/2016 ([id number]) PREV VISIT EST AGE 40-64 Diagnosis: Encounter for general adult medical examination without abnormal findings[ICD10: Z00.00] [facility] CPT-4: 54153 07/30/2016 80134 EST. PATIENT, LEVEL III Diagnosis: Acute laryngopharyngitis[ICD10: J06.0] Diagnosis: Other allergic rhinitis[ICD10: J30.89] [facility] CPT- 4: 28117 04/01/2016 ([id number]) 28079 EST. PATIENT, LEVEL III Diagnosis: Chronic atrial fibrillation[ICD10: I48.2] [facility] CPT-4: 08856 01/27/2016 ([id number]) Patient admitted to the hospital from clinic (NO CHARGE) Diagnosis: Other chest pain[ICD10: R07.89] Diagnosis: Palpitations[ICD10: R00.2] Diagnosis: Other specified cardiac arrhythmias[ICD10: I49.8] [facility] CPT-4: 91627M 01/16/2016 25607 EST. PATIENT, LEVEL III Diagnosis: Cervicalgia[ICD10: M54.2] [facility] CPT-4: 76514 10/09/2015 ([id number]) PREV VISIT EST AGE 40-64 Diagnosis: Encounter for general adult medical examination without abnormal findings[ICD10: Z00.00] [facility] CPT-4: 55755 08/01/2015 ([id number]) PREV VISIT NEW AGE 40-64 Diagnosis: Routine medical exam[ICD9: V70.0] [facility] CPT- 4: 94246 08/02/2014 Plan of Care Planned Activity Notes [...] allergy spray. 01/28/2018 Appointment: Katie Brand WPtel[facility] (15 min) Moderate 01/28/2018 Patient Education: Patient [...] functioning. 08/02/2017 Appointment: [facility] [address] [facility] (15 min) Moderate 08/02/2017 Patient Education: [...] patient's pharmacy. 01/28/2017 Appointment: Taylor Teague WPtel: [phone] (15 min) Moderate 01/28/2017 Patient Education: Patient Medication Summary Completed 01/28/2017 Patient Education: Obesity Completed 01/28/2017 Visit Plan: Left hand pain/swelling-xray negative- symptoms improving with full ROM-recommend patient continue rest, ice and tylenol as directed-call if symptoms do not completely resolve and we can do further imag ing. Patient verbalized understanding of plan. 08/24/2016 Appointment: Taylor Teague WPtel: [phone] (30 min) Complex 08/24/2016 Patient Education: [...] 07/30/2016 Care Plan: Referral Order SNOMED-CT : 921732335 Pending 07/30/2016 Visit Plan: URI - Pt [...] allergy spray. 04/01/2016 Appointment: Katie Brand WPtel: [facility]1 [facility] (15 min) Moderate 04/01/2016 Patient Education: Patient Medication Summary Completed 04/01/2016 Patient Education: Obesity Completed 04/01/2016 Visit Plan: Atrial fibrillation - rate controlled - converted in the hospital - continue with eliquis as per wet process head miller - monitor symptoms call if heart rate picks back up. 01/27/2016 Appointment: Michelle Babb WPtel: [facility]0 [facility] (15 min) Moderate 01/27/2016 Patient Education: [...] telemetry. 01/16/2016 Appointment: Michelle Babb WPtel: [phone] [facility] (15 min) Moderate 01/16/2016 Patient Education: Patient [...] will consider going to physical therapy at [place] - pt to use anti-inflammatory rub two times daily and start neck exercises daily. Notify clinic if symptoms do not improve, if the worsen, or with any changes or concerns. 10/09/2015 Appointment: Taylor Teague WPtel: [phone] (30 min) Complex 10/09/2015 Patient Education: Patient Medication Summary Completed 10/09/2015 Patient Education: .Cervicalgia Neck Pain Completed 10/09/2015 Care Plan: X-RAY EXAM NECK SPINE 2-3 VW LOINC : 15828-8 Pending 10/09/2015 Visit Plan: Well Adult - [...] the hospital under observation, consult to Dr. Khalid, Chest pain protocol, ekg on admit, chest xray pa and lat, prn nitro,morphine, cardiac analyzer. pt has irregular rhythm - this may be atrial fib - need ekg, and telemetry. . Neck Pain- ongoing - will send RX - it pain continues pt is to get an X-ray and will consider going to physical therapy at [place] - pt to use anti-inflammatory rub two [...] hospital - continue with eliquis as per wet process head miller - monitor symptoms call if heart rate [...]
--- OUTSIDE RECORDS SUMMARY | 2018-08-15 16:41 | XMS REPORT | CCD ---
Author Author iMchelle Babb MD, [facility] Address [address] [place] [address] Phone Care Team Providers Care Journeyman Plumber Name Role Phone PP Unavailable CCM Unavailable Summary Purpose Interface Exchange Insurance Providers Payer name Policy type / Coverage type Covered green party ID Effective Begin Date Effective End Date [place] [facility] Blue Cross/[facility] [id number] Unknown Unknown Family history Mother Diagnosis Age At Onset Heart Attack Unknown Arthritis Unknown Skin cancer Unknown Father Diagnosis Age At Onset Cancer Unknown Social History Social History Element Codes Description Effective Dates Number of children Unknown 2 Kerry Jaramillo 08/24/2016 Marital status Unknown Justina 08/02/[address]: 990539312 Never smoker 08/02/2014 Alcohol history Unknown occasionally [...] Instructions Zithromax Z-Sinan 250 mg tablet RxNorm: 432159 1 Tablet(s) PO UD 01/28/2018 02/01/2018 Active Eliquis 5 mg tablet RxNorm: 0161168 TAKE ONE TABLET BY MOUTH TWICE A DAY 08/17/2017 12/14/2017 Inactive simvastatin 10 mg tablet RxNorm: 940167 TAKE ONE TABLET BY MOUTH ONCE A DAY 06/11/2017 06/05/2018 Active Breo Ellipta 100 mcg-25 mcg/dose powder for inhalation RxNorm: 3844642 INHALE ONE DOSE BY MOUTH DAILY 05/03/2017 07/01/2017 Inactive Breo Ellipta 100 mcg-25 mcg/dose powder for inhalation RxNorm: 4530120 INHALE ONE DOSE BY MOUTH DAILY 05/03/2017 07/01/2017 Inactive Keflex 500 mg capsule RxNorm: 743618 1 Capsule(s) PO TID 02/19/2017 02/28/2017 Inactive Keflex 500 mg capsule RxNorm: 569736 1 Capsule(s) PO TID 02/19/2017 02/18/2017 Inactive Breo Ellipta 100 mcg-25 mcg/dose powder for inhalation RxNorm: 0004484 1 Puff(s) INH daily 02/04/2017 05/02/2017 Inactive Zithromax Z-Sinan 250 mg tablet RxNorm: 293579 1 Tablet(s) PO UD 01/28/2017 02/01/2017 Inactive simvastatin 10 mg tablet RxNorm: 735575 TAKE ONE TABLET BY MOUTH ONCE A DAY 08/24/2016 05/20/2017 Inactive Eliquis 5 mg tablet RxNorm: 2897701 1 Tablet(s) PO BID 08/04/2016 07/29/2017 Inactive Zithromax Z-Sinan 250 mg tablet RxNorm: 851416 1 Tablet(s) PO UD 04/01/2016 07/29/2016 Inactive ibuprofen 800 mg tablet RxNorm: 862848 1 Tablet(s) PO TID take with food - then when done with 2 weeks take as needed for pain 10/09/2015 10/22/2015 Inactive Advair Diskus 100 mcg-50 mcg/dose powder for inhalation RxNorm: 3802961 USE 1 INHALATION DAILY 10/02/2015 07/29/2016 Inactive Advair Diskus 100 mcg-50 mcg/dose powder for inhalation RxNorm: 7932363 USE 1 INHALATION DAILY 10/02/2015 10/01/2015 Inactive simvastatin 10 mg tablet RxNorm: 088056 TAKE ONE TABLET BY MOUTH ONCE A DAY 09/26/2015 06/30/2016 Inactive ibuprofen 800 mg tablet RxNorm: 799629 1 Tablet(s) PO TID take with food - then when done with 2 weeks take as needed for pain 08/01/2015 08/14/2015 Inactive Advair Diskus 100 mcg-50 mcg/dose powder for inhalation RxNorm: 7465487 1 INH daily 08/20/2014 08/19/2014 Inactive Advair Diskus 100 mcg-50 mcg/dose powder for inhalation RxNorm: 5581507 1 INH daily 08/20/2014 12/17/2014 Inactive simvastatin 10 mg tablet RxNorm: 391651 1 Tablet(s) PO daily 08/20/2014 04/16/2015 Inactive lisinopril 20 mg tablet RxNorm: 339752 1 Tablet(s) PO daily -Prescribed by Dr. Humphries No Start Date Active Breo Ellipta 100 mcg-25 mcg/dose powder for inhalation RxNorm: 1233618 1 Puff(s) INH daily No Start Date 02/03/2017 Inactive simvastatin 10 mg tablet RxNorm: 143046 1 Tablet(s) PO daily No Start Date 08/19/2014 Inactive Eliquis 5 mg tablet RxNorm: 7690672 1 Tablet(s) PO BID No Start Date 08/03/2016 Inactive Advair Diskus 100 mcg-50 mcg/dose powder for inhalation RxNorm: 1483975 1 INH daily No Start Date 08/19/2014 [...] 1: 132/80 Code: 8480-6 BMI: 25.9 Code: 82129-8 Heart Rate 1: 78 bpm Height: 6' SpO2: 97% Temperature: 36.6 (C) / 97.8 (F) Weight: 191 lbs 08/02/2017 Blood Pressure 1: 118/70 Code: 8480-6 BMI: 25.2 Code: 11644-7 Heart Rate 1: 53 bpm Height: 6' SpO2: 95% Weight: 185 lbs 11 oz 01/28/2017 Blood Pressure 1: 130/82 Code: 8480-6 BMI: 25.8 Code: 78729-3 Heart Rate 1: 60 bpm Height: 6' SpO2: 98% Temperature: 36.7 (C) / 98.0 (F) Weight: 190 lbs 08/24/2016 Blood Pressure 1: 142/86 Code: 8480-6 Heart Rate 1: 62 bpm Height: 6' SpO2: 95% Weight: 07/30/2016 Blood Pressure 1: 136/96 Code: 8480-6 BMI: 25.2 Code: 22182-0 Heart Rate 1: 55 bpm Height: 6' SpO2: 97% Weight: 186 lbs 04/01/2016 Blood Pressure 1: 132/86 Code: 8480-6 BMI: 25.5 Code: 46468-6 Heart Rate 1: 60 bpm Height: 6' SpO2: 96% Weight: 188 lbs 01/27/2016 Blood Pressure 1: 142/82 Code: 8480-6 BMI: 26.6 Code: 81044-1 Heart Rate 1: 53 bpm Height: 6' SpO2: 95% Weight: 196 lbs 01/16/2016 Blood Pressure 1: 122/80 Code: 8480-6 BMI: 26.7 Code: 09865-4 Heart Rate 1: 79 bpm Height: 6' SpO2: 96% Weight: 197 lbs 10/09/2015 Blood Pressure 1: 126/74 Code: 8480-6 BMI: 26.2 Code: 32785-3 Heart Rate 1: 63 bpm Height: 6' SpO2: 97% Weight: 193 lbs 08/01/2015 Blood Pressure 1: 142/100 Code: 8480-6 Blood Pressure 1: 146/104 Code: 8480-6 BMI: 25.8 Code: 86101-0 Heart Rate 1: 57 bpm Height: 6' SpO2: 96% Weight: 190 lbs 08/02/2014 Blood Pressure 1: 126/80 Code: 8480-6 BMI: 25.6 Code: 11492-2 Heart Rate 1: 60 bpm Height: 6' [...] Other allergic rhinitis[ICD10: J30.89] Katie Babb MD, [facility] CPT- 4: 55406 01/28/2018 ([id number]) PREV VISIT EST AGE 40-64 Diagnosis: Encounter for general adult medical examination without abnormal findings[ICD10: Z00.00] [facility] CPT-4: 98752 08/02/2017 ([id number]) 99170 EST. PATIENT, LEVEL III Diagnosis: Cough[ICD10: R05] Diagnosis: Acute upper respiratory infection, unspecified[ICD10: J06.9] [facility] CPT-4: 31290 01/28/2017 ([id number]) 39141 EST. PATIENT, LEVEL III Diagnosis: Pain in left hand[ICD10: M79.642] [facility] CPT- 4: 98698 08/24/2016 ([id number]) PREV VISIT EST AGE 40-64 Diagnosis: Encounter for general adult medical examination without abnormal findings[ICD10: Z00.00] [facility] CPT-4: 08823 07/30/2016 36595 EST. PATIENT, LEVEL III Diagnosis: Acute laryngopharyngitis[ICD10: J06.0] Diagnosis: Other allergic rhinitis[ICD10: J30.89] [facility] CPT- 4: 64097 04/01/2016 ([id number]) 16759 EST. PATIENT, LEVEL III Diagnosis: Chronic atrial fibrillation[ICD10: I48.2] [facility] CPT-4: 39334 01/27/2016 ([id number]) Patient admitted to the hospital from clinic (NO CHARGE) Diagnosis: Other chest pain[ICD10: R07.89] Diagnosis: Palpitations[ICD10: R00.2] Diagnosis: Other specified cardiac arrhythmias[ICD10: I49.8] [facility] CPT-4: 95202N 01/16/2016 23104 EST. PATIENT, LEVEL III Diagnosis: Cervicalgia[ICD10: M54.2] Katie Brand [facility] CPT-4: 68448 10/09/2015 ([id number]) PREV VISIT EST AGE 40-64 Diagnosis: Encounter for general adult medical examination without abnormal findings[ICD10: Z00.00] [facility] CPT-4: 46643 08/01/2015 ([id number]) PREV VISIT NEW AGE 40-64 Diagnosis: Routine medical exam[ICD9: V70.0] [facility] CPT- 4: 89291 08/02/2014 Plan of Care Planned Activity Notes [...] in the nasal steroid allergy spray. 01/28/2018 Patient Education: Patient Medication Summary Completed [...] CBC, and renal functioning. 08/02/2017 Appointment: Michelle aBbb WPtel: [address] [place], [place] [address] (15 min) Moderate 08/02/2017 Patient Education: Patient [...] pharmacy. 01/28/2017 App[facility]ment: [facility]el[facility] [address] [phone] (15 min) Moderate 01/28/2017 Patient Education: Patient Medication Summary Completed 01/28/2017 Patient Education: Obesity Completed 01/28/2017 Visit Plan: Left hand pain/swelling-xray negative- symptoms improving with full ROM-recommend patient continue rest, ice and tylenol as directed-call if symptoms do not completely resolve and we can do further imag ing. Patient verbalized understanding of plan. 08/24/2016 Appointment: Taylor Teague WPtel[facility] [address] [phone] (30 min) Complex 08/24/2016 Patient Education: Patient [...] 07/30/2016 Care Plan: Referral Order SNOMED-CT : 713009985 Pending 07/30/2016 Visit Plan: URI - Pt [...] allergy spray. 04/01/2016 Appointment: Katie Brand WPtel: [facility] [address] (15 min) Moderate 04/01/2016 Patient Education: Patient Medication Summary Completed 04/01/2016 Patient Education: Obesity Completed 04/01/2016 Visit Plan: Atrial fibrillation - rate controlled - converted in the hospital - continue with eliquis as per catch basin cleaner - monitor symptoms call if heart rate picks back up. 01/27/2016 Appointment: Michelle Babb WPtel: [facility]0 [facility] (15 min) Moderate 01/27/2016 Patient [...] and telemetry. 01/16/2016 Appointment: Michelle Babb WPtel: [facility] (15 min) Moderate 01/16/2016 Patient Education: [...] will consider going to physical therapy at [place] - pt to use anti-inflammatory rub two times daily and start neck exercises daily. Notify clinic if symptoms do not improve, if the worsen, or with any changes or concerns. 10/09/2015 Appointment: Taylor Teague WPtel: [address] [place], [place] [phone] (30 min) Complex 10/09/2015 Patient Education: Patient Medication Summary Completed 10/09/2015 Patient Education: .Cervicalgia Neck Pain Completed 10/09/2015 Care Plan: X-RAY EXAM NECK SPINE 2-3 VW LOINC : 01069-2 Pending 10/09/2015 Visit Plan: Well Adult - [...] will consider going to physical therapy at [place] - pt to use anti-inflammatory rub two [...] hospital - continue with eliquis as per catch basin cleaner - monitor symptoms call if heart rate [...]
--- OUTSIDE RECORDS SUMMARY | 2018-08-15 16:42 | XMS REPORT | Continuity of Care Document ---
Author Organization Unknown Address Unknown Allergies Active Description Code Type Severity Reaction Onset Reported/Identified Relationship to Patient Clinical Status Yes No Known Drug Allergies [id number] Drug Allergy Unknown N/A 11/13/2011 Medications There is no data. Problems Date Dx Coded Attending Type Code Diagnosis Diagnosed By 11/26/2012 TIA FERRARA, EDILSON [place] Ot 272.0 PURE HYPERCHOLESTEROLEM 11/26/2012 TIA FERRARA, EDILSON [place] Ot 272.4 HYPERLIPIDEMIA NEC/NOS 11/26/2012 TIA FERRARA, EDILSON [place] Ot 493.90 ASTHMA, UNSPECIFIED 11/26/2012 TIA FERRARA, EDILSON [place] Ot 715.36 LOC OSTEOARTH NOS-L/LEG 11/26/2012 TIA FERRARA, EDILSON [place] Ot 780.50 SLEEP DISTURBANCE NOS 02/04/2015 Ot 211.3 02/04/2015 Ot 562.10 02/04/2015 Ot V16.0 02/04/2015 Ot V76.51 02/04/2015 Ot V72.84 02/04/2015 TIA FERRARA, EDILSON [place] Ot 153.6 02/04/2015 TIA FERRARA, EDILSON [place] Ot 780.79 02/04/2015 TIA FERRARA, EDILSON [place] Ot V57.1 02/04/2015 TIA FERRARA, EDILSON P Ot V57.21 02/04/2015 TIA FERRARA, EDILSON P Ot V72.63 02/04/2015 TIA FERRARA, EDILSON P Ot V72.81 02/04/2015 TIA FERRARA, EDILSON [place] Ot V72.83 02/04/2015 TIA FERRARA, EDILSON [place] Ot V74.8 02/04/2015 ANNI FERRARA, LISA [place] Ot 784.7 01/16/2016 Ot 211.3 BENIGN NEOPLASM LG BOWEL 01/16/2016 Ot 562.10 DIVERTICULOSIS COLON (W/O MENT OF HEMORR 01/16/2016 Ot V16.0 FAMILY HX-GI MALIGNANCY 01/16/2016 Ot V76.51 SCREEN MAL NEOP- COLON 01/16/2016 Ot V72.84 EXAM PRE-OPERATIVE NOS 01/16/2016 TIA FERRARA, EDILSON [place] Ot 153.6 MALIG HEATHER ASCEND COLON 01/16/2016 TIA FERRARA, EDILSON [place] Ot 780.79 OTH MALAISE FATIGUE 01/16/2016 EDILSON WEBER MD Ot V57.1 PHYSICAL THERAPY NEC 01/16/2016 EDILSON WEBER MD Ot V57.21 ENCOUNTER FOR OCCUPATIONAL THERAPY 01/16/2016 TIA FERRARA, EDILSON [place] Ot V72.63 PRE-PROCEDURAL LABORATORY EXAMINATION 01/16/2016 EDILSON WEBER MD Ot V72.81 [id number] CARDIOVASCULAR 01/16/2016 EDILSON WEBER MD Ot V72.83 EXAM PRE-OPERATIVE NEC 01/16/2016 EDILSON WEBER MD Ot V74.8 SCREEN-BACTERIAL DIS NEC 01/16/2016 ANNI FERRARA, LISA [place] Ot 784.7 EPISTAXIS 01/17/2016 ESTHER GARCIA MD Ot E78.5 HYPERLIPIDEMIA, UNSPECIFIED 01/17/2016 ESTHER GARCIA MD Ot I10 ESSENTIAL (PRIMARY) HYPERTENSION 01/17/2016 ESTHER GARCIA MD Ot I48.91 UNSPECIFIED ATRIAL FIBRILLATION 01/17/2016 ESTHER GARCIA MD Ot R07.89 OTHER CHEST PAIN 01/22/2016 ESTHER GARCIA MD Ot E78.5 HYPERLIPIDEMIA, UNSPECIFIED 01/22/2016 ESTHER GARCIA MD Ot I10 ESSENTIAL (PRIMARY) HYPERTENSION 01/22/2016 ESTHER GARCIA MD Ot I48.91 UNSPECIFIED ATRIAL FIBRILLATION 01/22/2016 ESTHER GARCIA MD Ot R07.89 OTHER CHEST PAIN 01/22/2016 ESTHER GARCIA MD Ot E78.5 HYPERLIPIDEMIA, UNSPECIFIED 01/22/2016 ESTHER GARCIA MD Ot I10 ESSENTIAL (PRIMARY) HYPERTENSION 01/22/2016 ESTHER GARCIA MD Ot I48.91 UNSPECIFIED ATRIAL FIBRILLATION 01/22/2016 ESTHER GARCIA MD Ot R07.89 OTHER CHEST PAIN 01/24/2016 Mulugeta JOEL MD Ot I48.91 UNSPECIFIED ATRIAL FIBRILLATION 01/24/2016 Mulugeta JOEL MD Ot I48.91 UNSPECIFIED ATRIAL FIBRILLATION 01/27/2016 Mulugeta JOEL MD Ot I48.91 UNSPECIFIED ATRIAL FIBRILLATION 02/17/2016 MENDY ROONEY FIRE LOOKOUT Ot M54.2 CERVICALGIA 02/26/2016 MENDY ROONEY FIRE LOOKOUT Ot M54.2 CERVICALGIA 04/01/2016 JAKE KITCHEN 723.1 CERVICALGIA 04/01/2016 JAKE KTICHEN M54.2 CERVICALGIA 04/23/2016 WISAM FERRARA, Mulugeta HOU Ot G47.33 OBSTRUCTIVE SLEEP APNEA (ADULT) (PEDIATR 04/23/2016 Mulugeta JOEL MD Ot G47.33 OBSTRUCTIVE SLEEP APNEA (ADULT) (PEDIATR 05/02/2016 ROCCO DO, GEREMIAS K Ot I10 ESSENTIAL (PRIMARY) HYPERTENSION 05/02/2016 ROCCO DO, GEREMIAS K Ot I48.2 CHRONIC ATRIAL FIBRILLATION 05/02/2016 ROCCO DO, GEREMIAS K Ot R00.2 PALPITATIONS 05/02/2016 ROCCO DO, GEREMIAS K Ot Z79.01 MEAT LUGGER (CURRENT) USE OF ANTICOAGULANT 05/02/2016 ROCCO DO, GEREMIAS K Ot Z79.899 OTHER SKILLED NURSING (CURRENT) DRUG THERAPY 05/04/2016 ROCCO DO, GEREMIAS K Ot I10 ESSENTIAL (PRIMARY) HYPERTENSION 05/04/2016 ROCCO DO, GEREMIAS K Ot I48.2 CHRONIC ATRIAL FIBRILLATION 05/04/2016 ROCCO DO, GEREMIAS K Ot R00.2 PALPITATIONS 05/04/2016 ROCCO DO, GEREMIAS K Ot Z79.01 SKILLED NURSING (CURRENT) USE OF ANTICOAGULANT 05/04/2016 ROCCO DO, GEREMIAS K Ot Z79.899 OTHER MEAT LUGGER (CURRENT) DRUG THERAPY 05/05/2016 ROCCO DO, GEREMIAS K Ot I10 ESSENTIAL (PRIMARY) HYPERTENSION 05/05/2016 ROCCO DO, GEREMIAS K Ot I48.2 CHRONIC ATRIAL FIBRILLATION 05/05/2016 ROCCO DO, GEREMIAS K Ot R00.2 PALPITATIONS 05/05/2016 ORCCO DO, GEREMIAS K Ot Z79.01 SKILLED NURSING (CURRENT) USE OF ANTICOAGULANT 05/05/2016 ROCCO DO, GEREMIAS K Ot Z79.899 OTHER SKILLED NURSING (CURRENT) DRUG THERAPY 05/08/2016 Mulugeta JOEL MDWAN Ot I48.91 UNSPECIFIED ATRIAL FIBRILLATION 05/19/2016 WISAM FERRARA, Mulugeta HOU Ot I48.91 UNSPECIFIED ATRIAL FIBRILLATION 07/27/2016 Ot 211.3 BENIGN NEOPLASM LG BOWEL 07/27/2016 Ot 562.10 DIVERTICULOSIS COLON (W/O MENT OF HEMORR 07/27/2016 Ot V16.0 FAMILY HX-GI MALIGNANCY 07/27/2016 Ot V76.51 SCREEN MAL NEOP- COLON 07/27/2016 Ot V72.84 EXAM PRE-OPERATIVE NOS 07/27/2016 EDILSON WEBER MD Ot 153.6 MALIG HEATHER ASCEND COLON 07/27/2016 EDILSON WEBER MD Ot 780.79 OTH MALAISE FATIGUE 07/27/2016 EDILSON WEBER MD Ot V57.1 PHYSICAL THERAPY NEC 07/27/2016 EDILSON WEBER MD Ot V57.21 ENCOUNTER FOR OCCUPATIONAL THERAPY 07/27/2016 EDILSON WEBER MD Ot V72.63 PRE-PROCEDURAL LABORATORY EXAMINATION 07/27/2016 EDILSON WEBER MD Ot V72.81 [id number] CARDIOVASCULAR 07/27/2016 EDILSON WEBER MD Ot V72.83 EXAM PRE-OPERATIVE NEC 07/27/2016 EDILSON WEBER MD Ot V74.8 SCREEN-BACTERIAL DIS NEC 07/27/2016 ANNI FERRARA, LISA [place] Ot 784.7 EPISTAXIS 07/27/2016 WISAM FERRARA, Mulugeta HOU Ot I48.91 UNSPECIFIED ATRIAL FIBRILLATION 07/27/2016 MENDY ROONEY APRN Ot M54.2 CERVICALGIA 09/07/2016 MENDY ROONEY APRN Ot M25.542 PAIN IN JOINTS OF LEFT HAND 12/10/2016 WISAM FERRARA, Mulugeta HOU Ot E78.5 HYPERLIPIDEMIA, UNSPECIFIED 12/10/2016 WISAM FERRARA, Mulugeta HOU Ot G47.33 OBSTRUCTIVE SLEEP APNEA (ADULT) (PEDIATR 12/10/2016 Mulugeta JOEL MD Ot I10 ESSENTIAL (PRIMARY) HYPERTENSION 12/10/2016 WISAM FERRARA, Mulugeta HOU Ot I48.0 PAROXYSMAL ATRIAL FIBRILLATION 12/10/2016 WISAM FERRARA, Mulugeta HOU Ot M47.12 OTHER SPONDYLOSIS WITH MYELOPATHY, CERVI 12/10/2016 WISAM FERRARA, Mulugeta HOU Ot M47.22 OTHER SPONDYLOSIS WITH RADICULOPATHY, CE 12/10/2016 Mulugeta JOEL MD Ot Z79.01 SKILLED NURSING (CURRENT) USE OF ANTICOAGULANT 12/10/2016 Mulugeta JOEL MD, Ot Z79.899 OTHER MEAT LUGGER (CURRENT) DRUG THERAPY 01/01/2017 Mulugeta JOEL MD Ot E78.5 HYPERLIPIDEMIA, UNSPECIFIED 01/01/2017 Mulugeta JOEL MD, Ot G47.33 OBSTRUCTIVE SLEEP APNEA (ADULT) (PEDIATR 01/01/2017 Mulugeta JOEL MD Ot I10 ESSENTIAL (PRIMARY) HYPERTENSION 01/01/2017 Mulugeta JOEL MD Ot I48.0 PAROXYSMAL ATRIAL FIBRILLATION 01/01/2017 Mulugeta JOEL MD Ot M47.12 OTHER SPONDYLOSIS WITH MYELOPATHY, CERVI 01/01/2017 Mulugeta JOEL MD, Ot M47.22 OTHER SPONDYLOSIS WITH RADICULOPATHY, CE 01/01/2017 Mulugeta JOEL MD Ot Z79.01 SKILLED NURSING (CURRENT) USE OF ANTICOAGULANT 01/01/2017 Mulugeta JOEL MD, Ot Z79.899 OTHER SKILLED NURSING (CURRENT) DRUG THERAPY 04/09/2017 Ot 211.3 BENIGN NEOPLASM LG BOWEL 04/09/2017 Ot 562.10 DIVERTICULOSIS COLON (W/O MENT OF HEMORR 04/09/2017 Ot V16.0 FAMILY HX-GI MALIGNANCY 04/09/2017 Ot V76.51 SCREEN MAL NEOP- COLON 04/09/2017 Ot V72.84 EXAM PRE-OPERATIVE NOS 04/09/2017 EDILSON WEBER MD Ot 153.6 MALIG HEATHER ASCEND COLON 04/09/2017 EDILSON WEBER MD Ot 780.79 OTH MALAISE FATIGUE 04/09/2017 EDILSON WEBER MD Ot V57.1 PHYSICAL THERAPY NEC 04/09/2017 EDILSON WEBER MD Ot V57.21 ENCOUNTER FOR OCCUPATIONAL THERAPY 04/09/2017 EDILSON WEBER MD Ot V72.63 PRE-PROCEDURAL LABORATORY EXAMINATION 04/09/2017 EDILSON WEBER MD Ot V72.81 [id number] CARDIOVASCULAR 04/09/2017 EDILSON WEEBR MD Ot V72.83 EXAM PRE-OPERATIVE NEC 04/09/2017 EDILSON WEBER MD Ot V74.8 SCREEN-BACTERIAL DIS NEC 04/09/2017 ANNI FERRARA, LISA [place] Ot 784.7 EPISTAXIS 04/09/2017 Mulugeta JOEL MD Ot I48.91 UNSPECIFIED ATRIAL FIBRILLATION 04/09/2017 MENDY ROONEY APRN Ot M54.2 CERVICALGIA 04/09/2017 MENDY ROONEY APRN Ot M25.542 PAIN IN JOINTS OF LEFT HAND Procedures Code Description Performed By Performed On 81.54 TOTAL KNEE REPLACEMENT 11/23/2012 [id number] MEASURE OF CARDIAC SAMPL PRESSURE, L H 01/17/2016 [id number] FLUOROSCOPY OF MULT COR ART USING L OSM 01/17/2016 Results Test Result Range Complete blood count (CBC) with automated white blood cell (WBC) differential - 01/16/16 10:40 Blood leukocytes automated count (number/volume) 6.3 10*3/uL 4.3-11.0 Blood erythrocytes automated count (number/volume) 5.59 10*6/uL 4.35-5.85 Venous blood hemoglobin measurement (mass/volume) 17.0 g/dL 13.3-17.7 Blood hematocrit (volume fraction) 49 % 40-54 Automated erythrocyte mean corpuscular volume 88 [foz_us] 80-99 Automated erythrocyte mean corpuscular hemoglobin (mass per erythrocyte) 30 pg 25-34 Automated erythrocyte mean corpuscular hemoglobin concentration measurement (mass/volume) 34 g/dL 32-36 Automated erythrocyte distribution width ratio 12.9 % 10.0- 14.5 Automated blood platelet count (count/volume) 223 10*3/uL 130-400 Automated blood platelet mean volume measurement 8.9 [foz_us] 7.4-10.4 Automated blood neutrophils/100 leukocytes 64 % 42-75 Automated blood lymphocytes/100 leukocytes 23 % 12-44 Blood monocytes/100 leukocytes 11 % 0-12 Automated blood eosinophils/100 leukocytes 2 % 0-10 Automated blood basophils/100 leukocytes 1 % 0-10 Blood neutrophils automated count (number/volume) 4.0 10*3 1.8-7.8 Blood lymphocytes automated count (number/volume) 1.4 10*3 1.0-4.0 Blood monocytes automated count (number/volume) 0.7 10*3 0.0- 1.0 Automated eosinophil count 0.1 10*3/uL 0.0-0.3 Automated blood basophil count (count/volume) 0.0 10*3/uL 0.0-0.1 Comprehensive metabolic panel - 01/16/16 10:40 Serum or plasma sodium measurement (moles/volume) 140 mmol/L 135-145 Serum or plasma potassium measurement (moles/volume) 4.4 mmol/L 3.6-5.0 Serum or plasma chloride measurement (moles/volume) 110 mmol/L 98-107 Carbon dioxide 21 mmol/L 21-32 Serum or plasma anion gap determination (moles/volume) 9 mmol/L 5-14 Serum or plasma urea nitrogen measurement (mass/volume) 20 mg/dL 7-18 Serum or plasma creatinine measurement (mass/volume) 0.98 mg/dL 0.60-1.30 Serum or plasma urea nitrogen/creatinine mass ratio 20 NRG Serum or plasma creatinine measurement with calculation of estimated glomerular filtration rate > NRG Serum or plasma glucose measurement (mass/volume) 104 mg/dL 70-105 Serum or plasma calcium measurement (mass/volume) 9.1 mg/dL 8.5-10.1 Serum or plasma total bilirubin measurement (mass/volume) 0.5 mg/dL 0.1-1.0 Serum or plasma alkaline phosphatase measurement (enzymatic activity/volume) 77 U/L 40-136 Serum or plasma aspartate aminotransferase measurement (enzymatic activity/volume) 23 U/L 5-34 Serum or plasma alanine aminotransferase measurement (enzymatic activity/volume) 33 U/L 0-55 Serum or plasma protein measurement (mass/volume) 6.4 g/dL 6.4-8.2 Serum or plasma albumin measurement (mass/volume) 3.8 g/dL 3.2-4.5 Serum or plasma troponin i.cardiac measurement (mass/volume) - 01/16/16 10:40 Serum or plasma troponin i.cardiac measurement (mass/volume) < ng/mL <0.30 Serum or plasma troponin i.cardiac measurement (mass/volume) - 01/16/16 15:36 Serum or plasma troponin i.cardiac measurement (mass/volume) < ng/mL <0.30 Serum or plasma troponin i.cardiac measurement (mass/volume) - 01/16/16 22:11 Serum or plasma troponin i.cardiac measurement (mass/volume) < ng/mL <0.30 Complete blood count (CBC) with automated white blood cell (WBC) differential - 01/17/16 03:21 Blood leukocytes automated count (number/volume) 7.5 10*3/uL 4.3-11.0 Blood erythrocytes automated count (number/volume) 5.43 10*6/uL 4.35-5.85 Venous blood hemoglobin measurement (mass/volume) 16.5 g/dL 13.3-17.7 Blood hematocrit (volume fraction) 48 % 40-54 Automated erythrocyte mean corpuscular volume 89 [foz_us] 80-99 Automated erythrocyte mean corpuscular hemoglobin (mass per erythrocyte) 30 pg 25-34 Automated erythrocyte mean corpuscular hemoglobin concentration measurement (mass/volume) 34 g/dL 32-36 Automated erythrocyte distribution width ratio 13.1 % 10.0- 14.5 Automated blood platelet count (count/volume) 231 10*3/uL 130-400 Automated blood platelet mean volume measurement 9.3 [foz_us] 7.4-10.4 Automated blood neutrophils/100 leukocytes 65 % 42-75 Automated blood lymphocytes/100 leukocytes 20 % 12-44 Blood monocytes/100 leukocytes 13 % 0-12 Automated blood eosinophils/100 leukocytes 2 % 0-10 Automated blood basophils/100 leukocytes 0 % 0-10 Blood neutrophils automated count (number/volume) 4.9 10*3 1.8-7.8 Blood lymphocytes automated count (number/volume) 1.5 10*3 1.0-4.0 Blood monocytes automated count (number/volume) 0.9 10*3 0.0- 1.0 Automated eosinophil count 0.2 10*3/uL 0.0-0.3 Automated blood basophil count (count/volume) 0.0 10*3/uL 0.0-0.1 Whole blood basic metabolic panel - 01/17/16 03:21 Serum or plasma sodium measurement (moles/volume) 142 mmol/L 135-145 Serum or plasma potassium measurement (moles/volume) 4.2 mmol/L 3.6-5.0 Serum or plasma chloride measurement (moles/volume) 112 mmol/L 98-107 Carbon dioxide 22 mmol/L 21-32 Serum or plasma anion gap determination (moles/volume) 8 mmol/L 5-14 Serum or plasma urea nitrogen measurement (mass/volume) 16 mg/dL 7-18 Serum or plasma creatinine measurement (mass/volume) 1.01 mg/dL 0.60-1.30 Serum or plasma urea nitrogen/creatinine mass ratio 16 NRG Serum or plasma creatinine measurement with calculation of estimated glomerular filtration rate > NRG Serum or plasma glucose measurement (mass/volume) 99 mg/dL 70-105 Serum or plasma calcium measurement (mass/volume) 8.6 mg/dL 8.5-10.1 Serum or plasma phosphate measurement (mass/volume) - 01/17/16 03:21 Serum or plasma phosphate measurement (mass/volume) 3.9 mg/dL 2.3-4.7 Magnesium - 01/17/16 03:21 Magnesium 2.2 mg/dL 1.8-2.4 Complete blood count (CBC) with automated white blood cell (WBC) differential - 05/01/16 22:50 Blood leukocytes automated count (number/volume) 5.7 10*3/uL 4.3-11.0 Blood erythrocytes automated count (number/volume) 5.08 10*6/uL 4.35-5.85 Venous blood hemoglobin measurement (mass/volume) 15.6 g/dL 13.3-17.7 Blood hematocrit (volume fraction) 46 % 40-54 Automated erythrocyte mean corpuscular volume 91 [foz_us] 80-99 Automated erythrocyte mean corpuscular hemoglobin (mass per erythrocyte) 31 pg 25-34 Automated erythrocyte mean corpuscular hemoglobin concentration measurement (mass/volume) 34 g/dL 32-36 Automated erythrocyte distribution width ratio 13.9 % 10.0- 14.5 Automated blood platelet count (count/volume) 192 10*3/uL 130-400 Automated blood platelet mean volume measurement 9.3 [foz_us] 7.4-10.4 Automated blood neutrophils/100 leukocytes 58 % 42-75 Automated blood lymphocytes/100 leukocytes 29 % 12-44 Blood monocytes/100 leukocytes 11 % 0-12 Automated blood eosinophils/100 leukocytes 2 % 0-10 Automated blood basophils/100 leukocytes 1 % 0-10 Blood neutrophils automated count (number/volume) 3.3 10*3 1.8-7.8 Blood lymphocytes automated count (number/volume) 1.6 10*3 1.0-4.0 Blood monocytes automated count (number/volume) 0.6 10*3 0.0- 1.0 Automated eosinophil count 0.1 10*3/uL 0.0-0.3 Automated blood basophil count (count/volume) 0.0 10*3/uL 0.0-0.1 PT panel in platelet poor plasma by coagulation assay - 05/01/16 22:50 Prothrombin time (PT) in platelet poor plasma by coagulation assay 12.9 s 12.2-14.7 INR in platelet poor plasma or blood by coagulation assay 1.0 0.8-1.4 Activated partial thromboplastin time (aPTT) in platelet poor plasma bycoagulation assay - 05/01/16 22:50 Activated partial thromboplastin time (aPTT) in platelet poor plasma bycoagulation assay 34 s 24-35 Comprehensive metabolic panel - 05/01/16 22:50 Serum or plasma sodium measurement (moles/volume) 142 mmol/L 135-145 Serum or plasma potassium measurement (moles/volume) 3.9 mmol/L 3.6-5.0 Serum or plasma chloride measurement (moles/volume) 109 mmol/L 98-107 Carbon dioxide 23 mmol/L 21-32 Serum or plasma anion gap determination (moles/volume) 10 mmol/L 5-14 Serum or plasma urea nitrogen measurement (mass/volume) 24 mg/dL 7-18 Serum or plasma creatinine measurement (mass/volume) 1.11 mg/dL 0.60-1.30 Serum or plasma urea nitrogen/creatinine mass ratio 22 NRG Serum or plasma creatinine measurement with calculation of estimated glomerular filtration rate > NRG Serum or plasma glucose measurement (mass/volume) 180 mg/dL 70-105 Serum or plasma calcium measurement (mass/volume) 9.1 mg/dL 8.5-10.1 Serum or plasma total bilirubin measurement (mass/volume) 0.4 mg/dL 0.1-1.0 Serum or plasma alkaline phosphatase measurement (enzymatic activity/volume) 79 U/L 40-136 Serum or plasma aspartate aminotransferase measurement (enzymatic activity/volume) 23 U/L 5-34 Serum or plasma alanine aminotransferase measurement (enzymatic activity/volume) 33 U/L 0-55 Serum or plasma protein measurement (mass/volume) 6.7 g/dL 6.4-8.2 Serum or plasma albumin measurement (mass/volume) 4.0 g/dL 3.2-4.5 Serum or plasma creatine kinase measurement (enzymatic activity/volume) - 05/01/16 22:50 Serum or plasma creatine kinase measurement (enzymatic activity/volume) 133 U/L 30-200 Serum or plasma lithium measurement (moles/volume) - 05/01/16 22:50 BNP level 34.8 pg/mL <100.0 Serum or plasma creatine kinase MB measurement (enzymatic activity/volume) - 05/01/16 22:50 Serum or plasma creatine kinase MB measurement (enzymatic activity/volume) 2.8 ng/mL <6.6 Serum or plasma troponin i.cardiac measurement (mass/volume) - 05/01/16 22:50 Serum or plasma troponin i.cardiac measurement (mass/volume) < ng/mL <0.30 Serum or plasma thyrotropin measurement by detection limit <=0.05 miu/l (units/volume) - 05/01/16 22:50 Serum or plasma thyrotropin measurement by detection limit <=0.05 miu/l (units/volume) 3.42 u[iU]/mL 0.35-4.94 Automated blood complete blood count (hemogram) panel - 08/15/18 09:50 Blood leukocytes automated count (number/volume) 5.4 10*3/uL 4.3-11.0 Blood erythrocytes automated count (number/volume) 5.17 10*6/uL 4.35-5.85 Venous blood hemoglobin measurement (mass/volume) 15.7 g/dL 13.3-17.7 Blood hematocrit (volume fraction) 47 % 40-54 Automated erythrocyte mean corpuscular volume 91 [foz_us] 80-99 Automated erythrocyte mean corpuscular hemoglobin (mass per erythrocyte) 30 pg 25-34 Automated erythrocyte mean corpuscular hemoglobin concentration measurement (mass/volume) 33 g/dL 32-36 Automated erythrocyte distribution width ratio 13.4 % 10.0- 14.5 Automated blood platelet count (count/volume) 212 10*3/uL 130-400 Automated blood platelet mean volume measurement 9.2 [foz_us] 7.4-10.4 Activated partial thromboplastin time (aPTT) in platelet poor plasma bycoagulation assay - 08/15/18 09:50 Activated partial thromboplastin time (aPTT) in platelet poor plasma bycoagulation assay 37 s 24-35 Comprehensive metabolic panel - 08/15/18 09:50 Serum or plasma sodium measurement (moles/volume) 141 mmol/L 135-145 Serum or plasma potassium measurement (moles/volume) 4.1 mmol/L 3.6-5.0 Serum or plasma chloride measurement (moles/volume) 107 mmol/L 98-107 Carbon dioxide 26 mmol/L 21-32 Serum or plasma anion gap determination (moles/volume) 8 mmol/L 5-14 Serum or plasma urea nitrogen measurement (mass/volume) 22 mg/dL 7-18 Serum or plasma creatinine measurement (mass/volume) 1.28 mg/dL 0.60-1.30 Serum or plasma urea nitrogen/creatinine mass ratio 17 NRG Serum or plasma creatinine measurement with calculation of estimated glomerular filtration rate 57 NRG Serum or plasma glucose measurement (mass/volume) 98 mg/dL 70-105 Serum or plasma calcium measurement (mass/volume) 9.4 mg/dL 8.5-10.1 Serum or plasma total bilirubin measurement (mass/volume) 0.9 mg/dL 0.1-1.0 Serum or plasma alkaline phosphatase measurement (enzymatic activity/volume) 84 U/L 40-136 Serum or plasma aspartate aminotransferase measurement (enzymatic activity/volume) 24 U/L 5-34 Serum or plasma alanine aminotransferase measurement (enzymatic activity/volume) 32 U/L 0-55 Serum or plasma protein measurement (mass/volume) 7.1 g/dL 6.4-8.2 Serum or plasma albumin measurement (mass/volume) 4.4 g/dL 3.2-4.5 CALCIUM CORRECTED 9.1 mg/dL 8.5-10.1 Encounters ACCT No. Visit Date/Time Discharge Status Pt. Type Provider Facility Loc./Unit Complaint [id number] 06/06/2018 11:00:00 06/06/2018 23:59:59 CLS Preadmit Mulugeta JOEL MD [facility] TYPICAL ATRIAL FLUTTER [id number] 12/10/2016 08:12:00 12/10/2016 10:29:00 DIS Outpatient Mulugeta JOEL MD [facility] CATH AFIB, PALPITATIONS [id number] 08/14/2016 14:53:00 08/14/2016 23:59:59 CLS Outpatient MENDY ROONEY APRN [facility] RAD L HAND PAIN [id number] 05/01/2016 22:44:00 05/02/2016 00:07:00 DIS Emergency GEREMIAS VALIENTE DO [facility] ER FLUTTER IN CHEST [id number] 04/22/2016 20:30:00 04/23/2016 06:20:00 DIS Outpatient Mulugeta JOEL MD [facility] SLEEP DAVID [id number] 02/15/2016 11:56:00 02/15/2016 23:59:59 CLS Outpatient MENDY ROONEY APRN [facility] RAD NECK PAIN [id number] 01/17/2016 16:23:00 01/17/2016 23:59:59 CLS Outpatient Mulugeta JOEL MD [facility] CARD AFIB [id number] 01/16/2016 10:12:00 01/17/2016 16:20:00 DIS Inpatient ESTHER GARCIA MD [facility] ICU CHEST DISCOMFORT,PALPATIONS,IRREGULAR HEART BEAT [id number] 01/20/2013 11:30:00 01/20/2013 23:59:59 CLS Outpatient LISA HUTTON MD [facility] LAB EPISTAXIS [id number] 11/23/2012 08:28:00 11/26/2012 14:30:00 DIS Inpatient EDILSON WEBER MD [facility] SURGICAL LEFT KNEE OSTEOARTHRITIS [id number] 11/17/2012 09:59:00 11/17/2012 23:59:59 CLS Outpatient EDILSON WEBER MD [facility] PREOP LEFT KNEE SEVERE OSTEOARTHRITIS [id number] 08/15/2018 09:28:00 ACT Outpatient Mulugeta JOEL MD [facility] CATH TYPICAL ATRIAL FLUTTER [id number] 11/13/2011 07:21:00 Document Registration [id number] 11/12/2011 08:05:00 Document Registration [id number] 10/06/2016 08:34:45 10/06/2016 23:59:59 CLS Outpatient [id number] 05/04/2016 13:41:00 06/11/2016 08:45:00 DIS Outpatient JAKE KITCHEN
--- NOTE | 2018-08-15 21:30 | NUR ---
Administered pt's home med of Eliquis 5 mg PO
[2018-08-16] MEDS: APIXABAN 5 MG (ELIQUIS) TABLET PO SCH ×2 (01:34→09:14)
[2018-08-16 03:58] LABS: HEMOGLOBIN 14.6 G/DL (13.3-17.7); MEAN PLATELET VOLUME 9.2 FL (7.4-10.4); RED CELL DISTRIBUTION WIDTH 13.1 % (10.0-14.5); WHITE BLOOD COUNT 8.2 10^3/uL (4.3-11.0)
[2018-08-16 04:00] VITALS: BP 93/70
[2018-08-16 04:20] LABS: BUN/CREATININE RATIO 21; CALCIUM 8.4 MG/DL (8.5-10.1); CARBON DIOXIDE 19 MMOL/L (21-32); CHLORIDE 111 MMOL/L (98-107); CREATININE SERUM 1.06 MG/DL (0.60-1.30); GFR ESTIMATED > 60; GLUCOSE 137 MG/DL (70-105); POTASSIUM 4.4 MMOL/L (3.6-5.0); SODIUM 139 MMOL/L (135-145)
[2018-08-16 06:00] VITALS: BP 112/76
--- NOTE | 2018-08-16 07:11 | Anesthesia-General Post-Op ---
General Patient Condition Mental Status/LOC: Same as Preop Cardiovascular: Satisfactory Nausea/Vomiting: Absent Respiratory: Satisfactory Pain: Controlled Complications: Absent Post Op Complications Complications None Follow Up Care/Instructions Patient Instructions None needed. Anesthesia/Patient Condition Patient Condition Patient is doing well, no complaints, stable vital signs, no apparent adverse anesthesia problems. No complications reported per nursing. MORRIS ANAND CRNA Aug 16, 2018 07:11
[2018-08-16 08:00] VITALS: BP 117/86
[2018-08-16] MEDS ORDERED: DILT60CA PO ×2 (10:59)
[2018-08-16 11:30] VITALS: BP 117/86
--- NOTE | 2018-08-16 15:14 | Cardiology Discharge Summary ---
Diagnosis/Chief Complaint Date of Admission 08/15/2018 Date of Discharge 08/16/2018 Admission Diagnosis Typical atrial flutter Final/Discharge Diagnosis Typical atrial flutter, successful ablation Chief Complaint/HPI Chief Complaint/HPI this is a 62-year-old gentleman with possible paroxysmal atrial fibrillation. He has an implantable loop recorder which showed narrow complex tachycardia at cycle length 400 ms which is very typical for typical atrial flutter. Therefore EP study and typical atrial flutter ablation was recommended. Discharge Summary Procedures Successful typical atrial flutter ablation. Discharge Physical Examination Unremarkable. Hospital Course Was the Problem List Reviewed?: Yes Unremarkable. Discussion & Recommendations Discussion Discharge took over 30 minutes to complete. Discharge instructions were discussed at length with the patient. Follow up appt.: Dr. Humphries in 3-4 weeks. Dicharge Diet: Cardiac Diet Activity as Tolerated: Yes Home Medications Reviewed patient Home Medication Reconciliation performed by pharmacy medication reconciliations geotechnical field technician and/or nursing. Patients Allergies have been reviewed. Discharge Home Medications: Reviewed and agree with Discharge Medication list on patient's Discharge Instruction sheet Condition at discharge Stable. Instructions to patient/family Discussed with the patient family at length. Mulugeta HUMPHRIES MD Aug 16, 2018 15:14
== END 2018-08-16 11:35 | disposition home or self-care (01) ==
LOC: CATH 09:28 → ICU 16:05 → CATH 08-16 11:35
PROVIDERS: ATTEND Internal Medicine Interventional Cardiology
DX: I48.3 Typical atrial flutter (principal); I48.0 Paroxysmal atrial fibrillation; I10 Essential (primary) hypertension; J45.909 Unspecified asthma, uncomplicated; G47.33 Obstructive sleep apnea (adult) (pediatric); Z79.01 Long term (current) use of anticoagulants; Z79.899 Other long term (current) drug therapy
CPT/HCPCS: 36415; 80048; 80053; 85027; 85730; 87081; 93005; 93613; 93620; 93621; 93623; 93653

== ENCOUNTER 2018-08-18 11:04 | Emergency (ER) | payer BC ==
[~2018-08-18] VITALS: Ht 182.9 cm; Wt 86.2 kg
[~2018-08-18 11:04] MED LIST changes: +DILT120T11 PO; +DILT60CA PO; +FLUT1AER IH; -HEParin (CATH LAB) 2,000 ML IV ONE; -LIDOCAINE 1% INJ 20 ML 20 ML VIAL ONE; +LISI-552 PO; -NS IV 1000 ML 1,000 ML ONE
[2018-08-18 11:28] LABS: BASOPHILS % (AUTO) 0 % (0-10); EOSINOPHILS # (AUTO) 0.1 10^3/uL (0.0-0.3); EOSINOPHILS % (AUTO) 1 % (0-10); HEMATOCRIT 42 % (40-54); HEMOGLOBIN 14.1 G/DL (13.3-17.7); LYMPHOCYTES # (AUTO) 2.2 X 10^3 (1.0-4.0); LYMPHOCYTES % (AUTO) 28 % (12-44); MEAN CORPUSCULAR HEMOGLOBIN 31 PG (25-34); MEAN CORPUSCULAR HGB CONC 33 G/DL (32-36); MEAN CORPUSCULAR VOLUME 92 FL (80-99); MEAN PLATELET VOLUME 9.4 FL (7.4-10.4); MONOCYTES # (AUTO) 0.8 X 10^3 (0.0-1.0); MONOCYTES % (AUTO) 10 % (0-12); NEUTROPHILS # (AUTO) 4.6 X 10^3 (1.8-7.8); NEUTROPHILS % (AUTO) 60 % (42-75); PLATELET COUNT 175 10^3/uL (130-400); RED CELL DISTRIBUTION WIDTH 13.7 % (10.0-14.5); WHITE BLOOD COUNT 7.7 10^3/uL (4.3-11.0)
[2018-08-18 11:41] LABS: PROTHROMBIN TIME PATIENT 13.8 SEC (12.2-14.7)
--- NOTE | 2018-08-18 11:47 | Diagnostic Imaging Report ---
EXAMINATION: Single frontal view of the chest. INDICATION: Heart palpitations. Recent ablation. COMPARISON: Multiple priors, most recent performed on 05/01/2016. FINDINGS: Loop recorder overlying the left medial chest is new since the prior exam. The lungs are clear and the pulmonary vasculature is normal. No pneumothorax or large pleural effusion. Cardiomediastinal silhouette is unchanged. No acute osseous abnormality is appreciated. IMPRESSION: No radiographic evidence of acute chest disease. Interval placement of loop recorder, otherwise no significant change from prior. Dictated by: Dictated on workstation # [id number]
[2018-08-18 11:48] LABS: ALANINE AMINOTRANSFERASE 37 U/L (0-55); ALBUMIN 3.7 GM/DL (3.2-4.5); ALKALINE PHOSPHATASE 73 U/L (40-136); BILIRUBIN,TOTAL 0.3 MG/DL (0.1-1.0); BUN/CREATININE RATIO 21; CALCIUM 8.5 MG/DL (8.5-10.1); CARBON DIOXIDE 22 MMOL/L (21-32); CHLORIDE 108 MMOL/L (98-107); GFR ESTIMATED > 60; GLUCOSE 106 MG/DL (70-105); MAGNESIUM 2.1 MG/DL (1.8-2.4); POTASSIUM 3.5 MMOL/L (3.6-5.0); SODIUM 139 MMOL/L (135-145); TOTAL PROTEIN 6.1 GM/DL (6.4-8.2)
--- NOTE | 2018-08-18 15:43 | ED Cardiac General ---
History of Present Illness General Chief Complaint: Cardiac/General Problems Stated Complaint: SOA - CHEST PAIN Nursing Triage Note: PT AMB TO RM 3 WITH COMPLAINT OF HEART FLUTTERING AND SOA. PT STATES HE HAD AN ABLATION ON WEDNESDAY BY DR HUMPHRIES FOR A FLUTTER. STATES AFTER ABLATION, HR WAS IN 40s. PT STATES SYMPTOMS STARTED THIS AM AROUND 0600. Source: patient Exam Limitations: no limitations History of Present Illness Date Seen by Provider: Aug 18, 2018 Time Seen by Provider: 11:40 Allergies and Home Medications Allergies Coded Allergies: No Known Drug Allergies (Unverified , 11/13/11) Home Medications Acetaminophen 500 Mg Tablet, 1,000 MG PO BID PRN for PAIN, (Reported) TAKES 2 (500 MG) TABLETS Apixaban 5 Mg Tablet, 5 MG PO BID Prescribed by: ESTHER GARCIA on 01/17/16 1423 Diltiazem HCl 60 Mg Cap.er.12h, 60 MG PO BID Prescribed by: ADRIANNA ESPINOZA on 08/16/18 1059 Fluticasone/Vilanterol 1 Each Blst.w.dev, 1 EACH IH DAILY, (Reported) Lisinopril 20 Mg Tablet, 20 MG PO DAILY, (Reported) Simvastatin 10 Mg Tablet, 10 MG PO HS, (Reported) LAST FILLED 10/02/15 #90 Past Amitnnz-Xzsufi-Pttzgc Hx Patient Social History Alcohol Use: Denies Use Number of Drinks Today: AA Alcohol Beverage of Choice: Beer Recreational Drug Use: No Smoking Status: Never a Smoker 2nd Hand Smoke Exposure: No Recent Foreign Travel: No Contact w/Someone Who Travel: No Recent Infectious Disease Expo: No Recent Hopitalizations: No Immunizations Up To Date Tetanus Booster (TDap): Unknown PED Vaccines UTD: Yes Seasonal Allergies Seasonal Allergies: Yes Past Medical History Surgeries: Yes (HERNIA, KNEE SCOPE, Left Total Knee ) Abdominal, Joint Replacement, Orthopedic Respiratory: Yes (ASTHMA) Asthma Currently Using CPAP: No Currently Using BIPAP: No Cardiac: Yes Atrial Fibrillation, High Cholesterol, Hypertension Neurological: No Reproductive Disorders: No Sexually Transmitted Disease: No HIV/AIDS: No Gastrointestinal: No Musculoskeletal: Yes (left knee surgery) Arthritis Endocrine: No Loss of Vision: Denies Hearing Impairment: Denies Cancer: No Psychosocial: No Integumentary: No Blood Disorders: No Adverse Reaction/Blood Tranf: No Family Medical History Arthritis 19 FATHER Hypercholesterolemia 19 FATHER Hypertension 19 FATHER Myocardial infarction 19 FATHER Thyroid disease Daughter Heart Disease, Diabetes, Hypertension Physical Exam Vital Signs Vital Signs - First Documented 08/18/18 11:05 Pulse 45 Resp 11 B/P (MAP) 181/65 (103) Pulse Ox 97 O2 Delivery Room Air Capillary Refill : Less Than 3 Seconds Height, Weight, BMI Height: 6'0" Weight: 190lbs. 0.0oz. 86.413513hw; 25.8 BMI Method:Stated Progress/Results/Core Measures Results/Orders Lab Results Laboratory Tests Test 08/18/18 11:21 08/18/18 15:06 Range/Units White Blood Count 7.7 4.3-11.0 10^3/uL Red Blood Count 4.60 4.35-5.85 10^6/uL Hemoglobin 14.1 13.3-17.7 G/DL Hematocrit 42 40-54 % Mean Corpuscular Volume 92 80-99 FL Mean Corpuscular Hemoglobin 31 25-34 PG Mean Corpuscular Hemoglobin Concent 33 32-36 G/DL Red Cell Distribution Width 13.7 10.0-14.5 % Platelet Count 175 130-400 10^3/uL Mean Platelet Volume 9.4 7.4-10.4 FL Neutrophils (%) (Auto) 60 42-75 % Lymphocytes (%) (Auto) 28 12-44 % Monocytes (%) (Auto) 10 0-12 % Eosinophils (%) (Auto) 1 0-10 % Basophils (%) (Auto) 0 0-10 % Neutrophils # (Auto) 4.6 1.8-7.8 X 10^3 Lymphocytes # (Auto) 2.2 1.0-4.0 X 10^3 Monocytes # (Auto) 0.8 0.0-1.0 X 10^3 Eosinophils # (Auto) 0.1 0.0-0.3 10^3/uL Basophils # (Auto) 0.0 0.0-0.1 10^3/uL Prothrombin Time 13.8 12.2-14.7 SEC INR Comment 1.0 0.8-1.4 Activated Partial Thromboplast Time 33 24-35 SEC Sodium Level 139 135-145 MMOL/L Potassium Level 3.5 L 3.6-5.0 MMOL/L Chloride Level 108 H 98-107 MMOL/L Carbon Dioxide Level 22 21-32 MMOL/L Anion Gap 9 5-14 MMOL/L Blood Urea Nitrogen 21 H 7-18 MG/DL Creatinine 1.00 0.60-1.30 MG/DL Estimat Glomerular Filtration Rate > 60 BUN/Creatinine Ratio 21 Glucose Level 106 H 70-105 MG/DL Calcium Level 8.5 8.5-10.1 MG/DL Corrected Calcium 8.7 8.5-10.1 MG/DL Magnesium Level 2.1 1.8-2.4 MG/DL Total Bilirubin 0.3 0.1-1.0 MG/DL Aspartate Amino Transf (AST/SGOT) 24 5-34 U/L Alanine Aminotransferase (ALT/SGPT) 37 0-55 U/L Alkaline Phosphatase 73 40-136 U/L Myoglobin 40.9 10.0-92.0 NG/ML Troponin I 0.554 *H 0.547 *H <0.028 NG/ML B-Type Natriuretic Peptide 235.8 H <100.0 PG/ML Total Protein 6.1 L 6.4-8.2 GM/DL Albumin 3.7 3.2-4.5 GM/DL My Orders Orders - HAROON GUTIERREZ MD Cbc With Automated Diff (08/18/18 11:13) Magnesium (08/18/18 11:13) Chest 1 View, Ap/Pa Only (08/18/18 11:13) Ekg Tracing (08/18/18 11:13) Cardiac Profile 1 (08/18/18 11:13) Comprehensive Metabolic Panel (08/18/18 11:13) Myoglobin Serum (08/18/18 11:13) Protime With Inr (08/18/18 11:13) Partial Thromboplastin Time (08/18/18 11:13) O2 (08/18/18 11:13) Monitor-Rhythm Ecg Trace Only (08/18/18 11:13) Lipid Panel (08/19/18 06:00) Ed Iv/Invasive Line Start (08/18/18 11:13) BNP (08/18/18 11:56) Troponin I (08/18/18 15:20) Vital Signs/I&O 08/18/18 11:05 Pulse 45 Resp 11 B/P (MAP) 181/65 (103) Pulse Ox 97 O2 Delivery Room Air Blood Pressure Mean: 103 Departure Impression Primary Impression: Palpitations Additional Impression: Bradycardia Disposition: 01 HOME, SELF-CARE Condition: Improved Departure-Patient Inst. Decision time for Depature: 15:39 Referrals: ESTHER GARCIA MD (PCP/Family) Primary Care Physician Patient Instructions: Catheter Ablation for the Heart Add. Discharge Instructions: Contact Dr. Humphries's office tomorrow morning for follow-up instructions. Also asked them about the symptom marker feature of your loop recorder so that you know how to use that in the future. Return to the emergency room if you have any further problems or concerns. All discharge instructions reviewed with patient and/or family. Voiced understanding. Copy Copies To 1: Mulugeta HUMPHRIES MD, JOSHUA T MD Aug 18, 2018 15:42
[2018-08-18 15:59] VITALS: BP 130/95
== END 2018-08-18 16:00 | disposition home or self-care (01) ==
LOC: EDUNIT# 11:04 → ER 11:06
DX: R00.2 Palpitations (principal); R00.1 Bradycardia, unspecified; J45.909 Unspecified asthma, uncomplicated; I10 Essential (primary) hypertension; E78.00 Pure hypercholesterolemia, unspecified; I48.91 Unspecified atrial fibrillation; Z96.652 Presence of left artificial knee joint; Z82.49 Family history of ischemic heart disease and other diseases of the circulatory system
CPT/HCPCS: 36415; 71045; 80053; 83735; 83874; 83880; 84484; 85025; 85610; 85730; 93005; 93041

== ENCOUNTER → 2020-11-22 | Outpatient (CLI) | payer BC ==
[~2020-11-22] MED LIST changes: -LISI-552 PO; +LISI20TA26 PO; +SIMV10TA26 PO
--- NOTE | 2020-11-22 12:37 | Diagnostic Imaging Report ---
INDICATION: Right leg pain. Right leg venous Doppler study was performed in the routine fashion with color flow Doppler and waveform analysis. FINDINGS: The right common femoral vein, superficial femoral vein, popliteal vein and visualized portion of the tibial veins show normal compressibility and venous flow patterns. There is normal augmentation. IMPRESSION: No evidence of deep vein thrombosis of the major veins of the right leg. Dictated by: Dictated on workstation # [id number]
== END ==
LOC: RAD 11:54
PROVIDERS: ATTEND Nurse Practitioner Family
DX: M79.661 Pain in right lower leg (principal); M79.89 Other specified soft tissue disorders

== ENCOUNTER 2022-01-10 08:53 | Inpatient (IN) | payer MEDICARE, OTHER ==
[~2022-01-10] VITALS: Ht 182.9 cm; Wt 87.0 kg
[2022-01-10] MEDS ORDERED: PANTOPRAZOLE 40 MG (PROTONIX) VIAL IV ONE (09:00)
[2022-01-10] MEDS ORDERED: ONDANSETRON 4 MG/2 ML (SDV) Z0FRAN IVP ONE (09:00)
[2022-01-10] MEDS ORDERED: OSELTAMIVIR 75 MG (TAMIFLU) CAPSULE PO ONE (09:45)
[2022-01-10] MEDS ORDERED: RT-ALBUTEROL HFA 8.5 GM INHALER IH STA (09:51)
[2022-01-10] MEDS ORDERED: methylPREDNISolone 125 MG (Solu-MEDROL) VIAL IVP ONE (10:00)
[2022-01-10 10:24] LABS: BILIRUBIN,URINE NEGATIVE (NEGATIVE); CLARITY,URINE CLEAR; COLOR,URINE YELLOW; GLUCOSE, URINE (UA) NEGATIVE (NEGATIVE); KETONES,URINE 1+ (NEGATIVE); LEUKOCYTE ESTERASE ,URINE NEGATIVE (NEGATIVE); NITRITE,URINE NEGATIVE (NEGATIVE); PROTEIN,URINE 1+ (NEGATIVE)
--- NOTE | 2022-01-10 10:28 | Diagnostic Imaging Report ---
EXAMINATION: Chest 1 view HISTORY: Hypoxia, Flu COMPARISON: 08/18/2018 FINDINGS: Heart size and pulmonary vasculature are normal. The lungs are clear without consolidation, pleural effusion, or pneumothorax. The osseous structures are intact. IMPRESSION: 1. No acute radiographic abnormality in the chest. Dictated by: Dictated on workstation # [id number]
[2022-01-10 10:33] LABS: BACTERIA,URINE TRACE /HPF
[2022-01-10 10:40] LABS: ALBUMIN 3.8 GM/DL (3.2-4.5); POTASSIUM 3.8 MMOL/L (3.6-5.0)
[2022-01-10 10:42] LABS: CALCIUM 9.1 MG/DL (8.5-10.1)
[2022-01-10 10:45] LABS: BASOPHILS % (AUTO) 0 % (0-10); EOSINOPHILS % (AUTO) 0 % (0-10); HEMATOCRIT 46 % (40-54); HEMOGLOBIN 15.7 g/dL (13.3-17.7); LYMPHOCYTES # (AUTO) 1.6 10^3/uL (1.0-4.0); LYMPHOCYTES % (AUTO) 22 % (12-44); MEAN CORPUSCULAR HEMOGLOBIN 31 pg (25-34); MEAN CORPUSCULAR HGB CONC 34 g/dL (32-36); MEAN CORPUSCULAR VOLUME 90 fL (80-99); MEAN PLATELET VOLUME 8.8 fL (9.0-12.2); MONOCYTES # (AUTO) 0.9 10^3/uL (0.0-1.0); MONOCYTES % (AUTO) 13 % (0-12); NEUTROPHILS # (AUTO) 4.6 10^3/uL (1.8-7.8); NEUTROPHILS % (AUTO) 65 % (42-75); PLATELET COUNT 196 10^3/uL (130-400); WHITE BLOOD COUNT 7.1 10^3/uL (4.3-11.0)
[2022-01-10 10:45] LABS: BILIRUBIN,TOTAL 0.7 MG/DL (0.1-1.0)
[2022-01-10 10:47] LABS: CREATININE SERUM 0.84 MG/DL (0.60-1.30)
--- NOTE | 2022-01-10 10:49 | ED General ---
General Chief Complaint: COVID19 Suspect/Confirmed Stated Complaint: COUGH/VOMITING BLOOD/FEVER Nursing Triage Note: PT AMBULATE TO ROOM 04 WITHOUT DIFFICULTY WITH C/O COUGH AND NOT FEELING WELL. PT REPORTS BLOOD TINGED SPUTUM LAST NIGHT WITH NOTHING TODAY. PT REPORTS NOT FEELING WELL SINCE WEDNESDAY. PT STATES HE HAS NOT SEEN HIS PCP OR CLINIC FOR THIS C/O. PT REPORTS TAKING ADVIL FOR C/O. PT REPORTS FEVER AT HOME AND DOES NOT KNOW WHAT THAT FEVER WAS. Source of Information: Patient Exam Limitations: No Limitations History of Present Illness Date Seen by Provider: Jan 10, 2022 Time Seen by Provider: 09:00 Initial Comments This is 66-year-old gentleman presents to the emergency room with complaints of congestion, shortness of breath, cough, nausea and fever. Symptoms started on Wednesday (about 5 days ago). He is noted to be hypoxic on arrival. He also notes he coughed up a small amount of blood last night. There has been no hemoptysis today. He did not take his Xarelto dose last night due to nausea. He takes Xarelto for atrial fibrillation. His primary care provider is Dr. BABB. His cobol application developer is Dr. Torres. He reports history of asthma for which he takes Breo. He has not been able to take Breo because he could not tolerate it with the acute illness. He has been wheezing at home. Allergies and Home Medications Allergies Coded Allergies: No Known Drug Allergies (Unverified , 11/13/11) Patient Home Medication List Home Medication List Reviewed: Yes Acetaminophen (Acetaminophen) 500 Mg Tablet, 1,000 MG PO BID PRN for PAIN, (Reported) Entered as Reported by: DORON HALL on 01/16/16 1156 Apixaban (Eliquis) 5 Mg Tablet, 5 MG PO BID Prescribed by: ESTHER BABB on 01/17/16 1423 Last Action: Last Taken Edited Diltiazem HCl (Diltiazem 12Hr ER) 60 Mg Cap.er.12h, 60 MG PO BID Prescribed by: ADRIANNA ESPINOZA on 08/16/18 1059 Last Action: Last Taken Edited Fluticasone/Vilanterol (Breo Ellipta 100-25 Mcg INH) 1 Each Blst.w.dev, 1 EACH IH DAILY, (Reported) Entered as Reported by: ANDRE MOONEY on 08/15/18957 Lisinopril (Lisinopril) 20 Mg Tablet, 20 MG PO DAILY, (Reported) Entered as Reported by: ANDRE MOONEY on 08/15/18957 Last Action: Last Taken Edited Simvastatin (Simvastatin) 10 Mg Tablet, 10 MG PO HS, (Reported) Entered as Reported by: DORON HALL on 01/16/16 1154 Last Action: Last Taken Edited Review of Systems Review of Systems Constitutional: see HPI EENTM: see HPI Respiratory: see HPI Cardiovascular: see HPI Gastrointestinal: see HPI Genitourinary: no symptoms reported Musculoskeletal: no symptoms reported Skin: no symptoms reported Psychiatric/Neurological: No Symptoms Reported Hematologic/Lymphatic: See HPI Immunological/Allergic: no symptoms reported Past Imkhlkr-Bodsij-Oruvjv Hx Patient Social History Tobacco Use?: No Smoking Status: Never a Smoker Smokeless Tobacco Frequency: Never a User Use of E-Cig and/or Vaping dev: No Use of E-Cig and/or Vaping [place]: Never a User Substance use?: No Alcohol Use?: No Pt feels they are or have been: No Immunizations Up To Date Tetanus Booster (TDap): Unknown PED Vaccines UTD: Yes 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: [employer] Seasonal Allergies Seasonal Allergies: Yes Past Medical History Surgeries: Yes (HERNIA, KNEE SCOPE, Left Total Knee ) Abdominal, Cardiac, Joint Replacement (Knee), Orthopedic Respiratory: Yes (ASTHMA) Asthma Currently Using CPAP: No Currently Using BIPAP: No Cardiac: Yes Atrial Fibrillation, High Cholesterol, Hypertension Neurological: No Reproductive Disorders: No Sexually Transmitted Disease: No HIV/AIDS: No Gastrointestinal: No Musculoskeletal: Yes (left knee surgery) Arthritis Endocrine: No Loss of Vision: Denies Hearing Impairment: Denies Cancer: No Psychosocial: No Integumentary: No Blood Disorders: No Adverse Reaction/Blood Tranf: No Family Medical History Arthritis 19 FATHER Hypercholesterolemia 19 FATHER Hypertension 19 FATHER Myocardial infarction 19 FATHER Thyroid disease Daughter Heart Disease, Diabetes, Hypertension Physical Exam-Suspected Sepsis Physical Exam Vital Signs Vital Signs - First Documented 01/10/22 01/10/22 09:15 18:54 Pulse Ox 95 O2 Flow Rate 4.00 FiO2 100 Capillary Refill : Less Than 3 Seconds Blood Pressure Mean: 104 Height, Weight, BMI Height: 6'0" Weight: 190lbs. 0.0oz. 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 Norm as Tested Skin: normal color, warm/dry Focused Exam Lactate Level 01/10/22 10:40: Lactic Acid Level 1.44 Lactic Acid Level Progress/Results/Core Measures Suspected Sepsis SIRS Temperature: Pulse: 77 Respiratory Rate: 17 Laboratory Tests 01/10/22 10:40: White Blood Count 7.1 Blood Pressure 139 /87 Mean: 104 01/10/22 10:40: Lactic Acid Level 1.44 Laboratory Tests 01/10/22 10:33: Creatinine 0.84, Total Bilirubin 0.7 01/10/22 10:40: INR Comment 1.1, Platelet Count 196 Results/Orders Lab Results Laboratory Tests Test 01/10/22 09:12 01/10/22 10:17 01/10/22 10:33 01/10/22 10:40 Range/Units Influenza Type A (RT-PCR) Detected H Not Detecte Influenza Type B (RT-PCR) Not Detected Not Detecte SARS-CoV-2 RNA (RT-PCR) Not Detected Not Detecte Urine Color YELLOW Urine Clarity CLEAR Urine pH 6.0 5-9 Urine Specific [place] 1.025 H 1.016-1.022 Urine Protein 1+ H NEGATIVE Urine Glucose (UA) NEGATIVE NEGATIVE Urine Ketones 1+ H NEGATIVE Urine Nitrite NEGATIVE NEGATIVE Urine Bilirubin NEGATIVE NEGATIVE Urine Urobilinogen 2.0 < = 1.0 MG/DL Urine Leukocyte Esterase NEGATIVE NEGATIVE Urine RBC (Auto) 1+ H NEGATIVE Urine RBC 2-5 H /HPF Urine WBC NONE /HPF Urine Crystals NONE /LPF Urine Bacteria TRACE /HPF Urine Casts NONE /LPF Urine Mucus SMALL H /LPF Urine Culture Indicated CULTURE PENDING Sodium Level 137 135-145 MMOL/L Potassium Level 3.8 3.6-5.0 MMOL/L Chloride Level 103 98-107 MMOL/L Carbon Dioxide Level 21 21-32 MMOL/L Anion Gap 13 5-14 MMOL/L Blood Urea Nitrogen 20 H 7-18 MG/DL Creatinine 0.84 0.60-1.30 MG/DL Estimat Glomerular Filtration Rate 97 BUN/Creatinine Ratio 24 Glucose Level 96 70-105 MG/DL Calcium Level 9.1 8.5-10.1 MG/DL Corrected Calcium 9.3 8.5-10.1 MG/DL Total Bilirubin 0.7 0.1-1.0 MG/DL Aspartate Amino Transf (AST/SGOT) 69 H 5-34 U/L Alanine Aminotransferase (ALT/SGPT) 56 H 0-55 U/L Alkaline Phosphatase 84 40-136 U/L C-Reactive Protein High Sensitivity 15.75 H 0.00-0.50 MG/DL Total Protein 7.0 6.4-8.2 GM/DL Albumin 3.8 3.2-4.5 GM/DL Procalcitonin 0.17 H <0.10 NG/ML White Blood Count 7.1 4.3-11.0 10^3/uL Red Blood Count 5.12 4.30-5.52 10^6/uL Hemoglobin 15.7 13.3-17.7 g/dL Hematocrit 46 40-54 % Mean Corpuscular Volume 90 80-99 fL Mean Corpuscular Hemoglobin 31 25-34 pg Mean Corpuscular Hemoglobin Concent 34 32-36 g/dL Red Cell Distribution Width 12.9 10.0-14.5 % Platelet Count 196 130-400 10^3/uL Mean Platelet Volume 8.8 L 9.0-12.2 fL Immature Granulocyte % (Auto) 0 % Neutrophils (%) (Auto) 65 42-75 % Lymphocytes (%) (Auto) 22 12-44 % Monocytes (%) (Auto) 13 H 0-12 % Eosinophils (%) (Auto) 0 0-10 % Basophils (%) (Auto) 0 0-10 % Neutrophils # (Auto) 4.6 1.8-7.8 10^3/uL Lymphocytes # (Auto) 1.6 1.0-4.0 10^3/uL Monocytes # (Auto) 0.9 0.0-1.0 10^3/uL Eosinophils # (Auto) 0.0 0.0-0.3 10^3/uL Basophils # (Auto) 0.0 0.0-0.1 10^3/uL Immature Granulocyte # (Auto) 0.0 0.0-0.1 10^3/uL Prothrombin Time 14.8 H 12.2-14.7 SEC INR Comment 1.1 0.8-1.4 Activated Partial Thromboplast Time 41 H 24-35 SEC Lactic Acid Level 1.44 0.50-2.00 MMOL/L B-Type Natriuretic Peptide 35.4 <100.0 PG/ML My Orders Orders - HAROON GUTIERREZ MD Cbc With Automated Diff (01/10/22 09:00) Comprehensive Metabolic Panel (01/10/22 09:00) Protime With Inr (01/10/22 09:00) Partial Thromboplastin Time (01/10/22 09:00) Ed Iv/Invasive Line Start (01/10/22 09:00) Ondansetron Injection (Zofran Injectio (01/10/22 09:00) Covid 19 Inhouse Test (01/10/22 09:02) Influenza A And B By Pcr (01/10/22 09:02) Hs C Reactive Protein (01/10/22 09:45) Procalcitonin (Pct) (01/10/22 09:45) Oseltamivir 75 Mg Capsule (Tamiflu 75 (01/10/22 09:45) Vital Signs Adult Sepsis Patie Q15M (01/10/22 09:45) O2 (01/10/22 09:45) Remove Rings In Anticipation O (01/10/22 09:45) Lactic Acid Analyzer (01/10/22 09:45) Bnp Isra (01/10/22 09:45) Blood Culture (01/10/22 09:45) Sputum Culture (01/10/22 09:45) Urinalysis (01/10/22 09:45) Urine Culture (01/10/22 09:45) Chest 1 View, Ap/Pa Only (01/10/22 09:45) Methylprednisolone Sod Succ (Solu-Medrol (01/10/22 10:00) Albuterol Inhaler (Albuterol) (01/10/22 09:51) Cefepime Injection (Maxipime Injection) (01/10/22 11:45) Fluconazole Tablet (Ed Only) (Diflucan T (01/10/22 11:45) Acetaminophen Tablet (Tylenol Tablet) (01/10/22 12:00) Medications Given in ED Current Medications Medications Dose Ordered Sig/Sammy Route Start Time Stop Time Status Last Admin Dose Admin Cefepime HCl 2000 mg/Sodium Chloride 50 ml @ 100 mls/hr ONCE ONCE IV 01/10/22 11:45 01/10/22 12:14 DC 01/10/22 11:58 100 MLS/HR Fluconazole 150 mg ONCE ONCE PO 01/10/22 11:45 01/10/22 11:46 DC 01/10/22 11:58 150 MG Methylprednisolone Sodium Succinate 125 mg ONCE ONCE IVP 01/10/22 10:00 01/10/22 10:01 DC 01/10/22 10:01 125 MG Ondansetron HCl 8 mg ONCE ONCE IVP 01/10/22 09:00 01/10/22 09:02 DC 01/10/22 10:01 8 MG Oseltamivir Phosphate 75 mg ONCE ONCE PO 01/10/22 09:45 01/10/22 09:49 DC 01/10/22 10:01 75 MG Vital Signs/I&O 01/10/22 01/10/22 01/10/22 01/10/22 09:02 09:02 09:15 13:16 Temp 36.4 Pulse 77 105 Resp 17 24 B/P (MAP) 139/87 (104) 129/97 Pulse Ox 95 93 O2 Delivery Room Air Room Air Nasal Cannula Nasal Cannula O2 Flow Rate 4.00 6.00 01/10/22 01/10/22 01/10/22 01/10/22 13:30 13:30 13:34 13:51 Temp 37.8 Pulse 98 96 B/P (MAP) 149/121 (130) Pulse Ox 91 O2 Delivery Nasal Cannula Nasal Cannula O2 Flow Rate 6.00 6.00 01/10/22 01/10/22 01/10/22 01/10/22 14:00 15:00 15:28 16:00 Temp 36.4 Pulse 89 78 89 Resp 15 26 B/P (MAP) 129/97 (108) 130/94 (106) Pulse Ox 95 91 95 O2 Delivery Nasal Cannula Nasal Cannula Nasal Cannula O2 Flow Rate 6.00 6.00 6.00 01/10/22 01/10/22 01/10/22 01/10/22 16:00 17:00 18:00 18:00 Temp 37.1 Pulse 84 81 64 Resp 20 20 10 B/P (MAP) 135/103 (114) 135/103 (114) 143/97 (112) Pulse Ox 91 91 93 O2 Delivery Nasal Cannula Vapotherm Vapotherm O2 Flow Rate 6.00 35.00 35.00 100.00 100.00 01/10/22 01/10/22 01/10/22 01/10/22 18:54 19:25 19:29 19:52 Temp 36.4 37.6 Pulse 67 Pulse Ox 88 O2 Delivery Vapotherm Vapotherm O2 Flow Rate 35.00 40.00 FiO2 100 100 Capillary Refill : Less Than 3 Seconds Blood Pressure Mean: 104 Progress Note #1: Time: 12:00 Progress Note Patient was found to have influenza A. Because of his atrial fibrillation, asthma, and respiratory failure, he was started on Tamiflu. We are starting Tamiflu on day 4 5 of illness because of his risk factors, hypoxia and comorbidities. His Xarelto will be restarted this evening. He had significant rhonchi in the left lung as well as elevated CRP and procalcitonin. Cefepime is being administered as a precaution and as part of the treatment for asthma exacerbation. He received albuterol and Solu-Medrol also for asthma exacerbation. Tylenol is being given for fever. I discussed CODE STATUS with the patient. He would like to remain full code. I discussed the case with Dr. Babb who accepts admission. She agrees with empiric antibiotic therapy and Tamiflu. She requests admission to the ICU. She also recommended giving a dose of Diflucan due to his Breo use. Progress Note #2: Time: 12:10 Progress Note Report was given to eICU. No additional orders suggested. Diagnostic Imaging Diagonstic Imaging: Xray Plain Films/CT/US/NM/MRI: chest Comments Chest x-ray viewed by me and report reviewed. See report below: [facility] [place], [place] NAME: ZULLY HOBBS [facility] REC#: [id number] PT STATUS: REG ER : 1955 PHYSICIAN: HAROON GUTIERREZ MD ADMIT DATE: 01/10/22/ER Signed Date of Exam:01/10/22 CHEST 1 VIEW, AP/PA ONLY EXAMINATION: Chest 1 view HISTORY: Hypoxia, Flu COMPARISON: 08/18/2018 FINDINGS: Heart size and pulmonary vasculature are normal. The lungs are clear without consolidation, pleural effusion, or pneumothorax. The osseous structures are intact. IMPRESSION: 1. No acute radiographic abnormality in the chest. Dictated by: Dictated on workstation # [id number] Dict: 01/10/22 1018 Trans: 01/10/22 1043 [facility] [id number] Interpreted by: DONAL HORNE DO Electronically signed by: DONAL HORNE DO 01/10/22 1043 Departure Communication (Admissions) Time/Spoke to Admitting Phy: 11:45 Dr. Babb Impression Primary Impression: Acute respiratory failure Qualified Codes: J96.01 - Acute respiratory failure with hypoxia Additional Impressions: Influenza A Asthma exacerbation Qualified Codes: J45.901 - Unspecified asthma with (acute) exacerbation Atrial fibrillation Qualified Codes: I48.91 - Unspecified atrial fibrillation Disposition: 09 ADMITTED INPATIENT Condition: Stable Admissions Decision to Admit Reason: Admit from ER (General) Decision to Admit/Date: Jan 10, 2022 Time/Decision to Admit Time: 11:45 Departure-Patient Inst. Referrals: ESTHER BABB MD (PCP/Family) Primary Care Physician HAROON GUTIERREZ MD Jan 10, 2022 10:49
[2022-01-10 10:55] LABS: INR 1.1 (0.8-1.4); PROTHROMBIN TIME PATIENT 14.8 SEC (12.2-14.7)
[2022-01-10] MEDS ORDERED: CEFEPIME INJECTION 2,000 MG in NS (IVPB) 50 ML IV ONE (11:45)
[2022-01-10] MEDS ORDERED: FLUCONAZOLE 150 MG TABLET (ED ONLY) PO ONE (11:45)
[2022-01-10] MEDS ORDERED: ACETAMINOPHEN 500 MG TAB (TYLENOL) PO ONE (12:00)
--- NOTE | 2022-01-10 14:24 | Tele-ICU Consult ---
Progress Note 66 y/o male presents to ED with hx of fever, cough and not feeling well Tested positive for Infuenza A, negative for Covid Started on Tamaflu, steroids and and antibiotics with ainhalers for asthma CXR: no PNA. PLAN:ICU admission for respiratory failure and Influenza Focused Exam Lactate Level 01/10/22 10:40: Lactic Acid Level 1.44 Height, Weight, BMI Height: 6'0" Weight: 190lbs. 0.0oz. 86.768807tx; 25.00 BMI Method:Stated Lactic Acid Level Laboratory Tests Test 01/10/22 10:40 Lactic Acid Level 1.44 MMOL/L (0.50-2.00) Labs Laboratory Tests 01/10/22 10:33 01/10/22 10:40 Results Results/Procedures Labs Laboratory Tests 01/10/22 10:33 01/10/22 10:40 Patient resulted labs reviewed. Results Labs Labs Laboratory Tests 01/10/22 09:12: Influenza Type A (RT-PCR) DetectedH, Influenza Type B (RT-PCR) Not Detected, SARS-CoV-2 RNA (RT-PCR) Not Detected 01/10/22 10:17: Urine Color YELLOW, Urine Clarity CLEAR, Urine pH 6.0, Urine Specific [place] 1.025H, Urine Protein 1+H, Urine Glucose (UA) NEGATIVE, Urine Ketones 1+H, Urine Nitrite NEGATIVE, Urine Bilirubin NEGATIVE, Urine Urobilinogen 2.0, Urine Leukocyte Esterase NEGATIVE, Urine RBC (Auto) 1+H, Urine RBC 2-5H, Urine WBC NONE, Urine Crystals NONE, Urine Bacteria TRACE, Urine Casts NONE, Urine Mucus SMALLH, Urine Culture Indicated CULTURE PENDING 01/10/22 10:33: Sodium Level 137, Potassium Level 3.8, Chloride Level 103, Carbon Dioxide Level 21, Anion Gap 13, Blood Urea Nitrogen 20H, Creatinine 0.84, Estimat Glomerular Filtration Rate 97, BUN/Creatinine Ratio 24, Glucose Level 96, Calcium Level 9.1, Corrected Calcium 9.3, Total Bilirubin 0.7, Aspartate Amino Transf (AST/SGOT) 69H, Alanine Aminotransferase (ALT/SGPT) 56H, Alkaline Phosphatase 84, C-Reactive Protein High Sensitivity 15.75H, Total Protein 7.0, Albumin 3.8, Procalcitonin 0.17H 01/10/22 10:40: White Blood Count 7.1, Red Blood Count 5.12, Hemoglobin 15.7, Hematocrit 46, Mean Corpuscular Volume 90, Mean Corpuscular Hemoglobin 31, Mean Corpuscular Hemoglobin Concent 34, Red Cell Distribution Width 12.9, Platelet Count 196, Mean Platelet Volume 8.8L, Immature Granulocyte % (Auto) 0, Neutrophils (%) (Auto) 65, Lymphocytes (%) (Auto) 22, Monocytes (%) (Auto) 13H, Eosinophils (%) (Auto) 0, Basophils (%) (Auto) 0, Neutrophils # (Auto) 4.6, Lymphocytes # (Auto) 1.6, Monocytes # (Auto) 0.9, Eosinophils # (Auto) 0.0, Basophils # (Auto) 0.0, Immature Granulocyte # (Auto) 0.0, Prothrombin Time 14.8H, INR Comment 1.1, Activated Partial Thromboplast Time 41H, Lactic Acid Level 1.44, B-Type Natriuretic Peptide 35.4 YUMI MORA MD Jan 10, 2022 14:24
[2022-01-10] MEDS ORDERED: LACTATED RINGERS 1,000 ML IV SCH (15:00)
[2022-01-10] MEDS ORDERED: ONDANSETRON 4 MG/2 ML (SDV) Z0FRAN IV PRN (15:00)
[2022-01-10] MEDS ORDERED: ACETAMINOPHEN 500 MG TAB (TYLENOL) PO PRN (15:00)
[2022-01-10 15:28] VITALS: BP 129/97
[2022-01-10] MEDS: LACTATED RINGERS 1,000 ML IV SCH (15:41)
[2022-01-10] MEDS: RIVAROXABAN 20 MG TABLET (XARELTO) PO SCH (15:42)
[2022-01-10] MEDS ORDERED: methylPREDNISolone 125 MG (Solu-MEDROL) VIAL ONE (17:47)
[2022-01-10] MEDS: CEFEPIME 1,000 MG/NS 50 ML IVPB IV SCH ×2 (18:02)
[2022-01-10] MEDS: methylPREDNISolone 125 MG (Solu-MEDROL) VIAL IVP SCH (18:02)
[2022-01-10 19:25] VITALS: BP 129/90
[2022-01-10] MEDS ORDERED: RT-ALBUTEROL HFA 8.5 GM INHALER IH PRN (19:30)
[2022-01-10] MEDS: OSELTAMIVIR 75 MG (TAMIFLU) CAPSULE PO SCH (20:45)
[2022-01-10] MEDS ORDERED: RT-ALBUTEROL HFA 8.5 GM INHALER IH SCH (21:00)
[2022-01-10] MEDS: RT-ALBUTEROL SULF 2.5 MG/3 ML PRE-MIX VIAL INH SCH (22:38)
[2022-01-11] MEDS: CEFEPIME 1,000 MG/NS 50 ML IVPB IV SCH ×8 (00:08→17:02)
[2022-01-11] MEDS: LACTATED RINGERS 1,000 ML IV SCH (00:08)
[2022-01-11] MEDS: RT-ALBUTEROL SULF 2.5 MG/3 ML PRE-MIX VIAL INH SCH ×6 (02:21→22:40)
[2022-01-11 05:05] LABS: BASOPHILS % (AUTO) 0 % (0-10); EOSINOPHILS % (AUTO) 0 % (0-10); HEMATOCRIT 41 % (40-54); HEMOGLOBIN 14.1 g/dL (13.3-17.7); LYMPHOCYTES # (AUTO) 0.6 10^3/uL (1.0-4.0); LYMPHOCYTES % (AUTO) 10 % (12-44); MEAN CORPUSCULAR HEMOGLOBIN 30 pg (25-34); MEAN CORPUSCULAR HGB CONC 34 g/dL (32-36); MEAN CORPUSCULAR VOLUME 89 fL (80-99); MEAN PLATELET VOLUME 9.2 fL (9.0-12.2); MONOCYTES # (AUTO) 0.4 10^3/uL (0.0-1.0); MONOCYTES % (AUTO) 7 % (0-12); NEUTROPHILS # (AUTO) 4.7 10^3/uL (1.8-7.8); NEUTROPHILS % (AUTO) 83 % (42-75); PLATELET COUNT 189 10^3/uL (130-400); WHITE BLOOD COUNT 5.7 10^3/uL (4.3-11.0)
[2022-01-11 05:25] LABS: ALBUMIN 3.4 GM/DL (3.2-4.5); BILIRUBIN,TOTAL 0.4 MG/DL (0.1-1.0); CALCIUM 8.6 MG/DL (8.5-10.1); CREATININE SERUM 0.83 MG/DL (0.60-1.30); POTASSIUM 3.6 MMOL/L (3.6-5.0); TOTAL PROTEIN 6.3 GM/DL (6.4-8.2)
--- NOTE | 2022-01-11 08:06 | Diagnostic Imaging Report ---
EXAMINATION: Chest 1 view HISTORY: Influenza COMPARISON: 01/10/2022 FINDINGS: The lungs are clear without edema or pneumonia. No pleural effusion or pneumothorax. Heart size is normal. Loop recorder is present. IMPRESSION: 1. Clear lungs. Dictated by: Dictated on workstation # [id number]
[2022-01-11] MEDS: OSELTAMIVIR 75 MG (TAMIFLU) CAPSULE PO SCH ×2 (08:25→20:11)
[2022-01-11] MEDS: methylPREDNISolone 125 MG (Solu-MEDROL) VIAL IVP SCH ×3 (08:25→20:11)
--- NOTE | 2022-01-11 09:16 | Tele-ICU Progress Note ---
Subjective Date Seen by a Provider: Jan 11, 2022 Time Seen by a Provider: 09:16 Subjective/Events-last exam (Tele-ICU Physician , Progress Note ) Service provided via interactive audio and video telecommunications E-CARE system to a patient admitted to ICU bed in [facility]. Available chart/ vitals / labs / Images reviewed Video assessment done using teleICU camera, rest of exam as per RN Discussed with RN Events overnight : Afebrile hemodynamically stable Respiratory - VT 30 L 90% I/O = Drips: Pressors- no Consultants: Hospital course: Patient is seen today due to persistent and new A/P Acute hypoxix resp failure ( with influenza PNA ? , ? 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 Discussed with RN to reach out if any questions or concerns A total of 25 minutes of critical care time was devoted to this patient today, required to treat and/or prevent further deterioration of critical care condition ( as above ) . I am remotely monitoring this patient from another state. I am unable to do the bedside exam, and history/physical and pertinent information is taken from other notes in the computer and bedside staff. Sepsis Event Evaluation Height, Weight, BMI Height: 6'0" Weight: 190lbs. 0.0oz. 86.720895hf; 25.97 BMI Method:Stated Focused Exam Lactate Level 01/10/22 10:40: Lactic Acid Level 1.44 Exam Exam Patient acknowledged, consented, and participated in this virtual visit which was conducted using real time audio/video Vital Signs Date Time Temp Pulse Resp B/P (MAP) Pulse Ox O2 Delivery O2 Flow Rate FiO2 01/11/22 08:00 Vapotherm 25.00 90 01/11/22 08:00 71 21 121/92 (102) 94 Vapotherm 30.00 90.00 01/11/22 07:33 36.2 01/11/22 07:00 68 01/11/22 07:00 53 26 119/85 (96) 97 Vapotherm 30.00 90.00 01/11/22 06:53 95 Vapotherm 30.00 90 01/11/22 06:00 53 16 117/84 (95) 94 Vapotherm 30.00 90.00 01/11/22 05:00 62 22 123/89 (100) 97 Vapotherm 30.00 90.00 01/11/22 04:00 57 26 114/78 (90) 95 Vapotherm 30.00 90.00 01/11/22 04:00 Vapotherm 40.00 100 01/11/22 03:00 78 17 111/79 (90) 94 Vapotherm 30.00 90.00 01/11/22 02:21 96 Vapotherm 30.00 90 01/11/22 02:00 57 16 112/84 (93) 95 Vapotherm 30.00 90.00 01/11/22 01:00 68 19 125/76 (92) 93 Vapotherm 30.00 90.00 01/11/22 01:00 70 01/11/22 00:00 Vapotherm 40.00 100 01/11/22 00:00 88 27 138/96 (110) 90 Vapotherm 30.00 90.00 01/10/22 23:00 97 17 119/89 (99) 97 Vapotherm 30.00 90.00 01/10/22 22:49 30.00 90.00 01/10/22 22:39 98 Vapotherm 40.00 100 01/10/22 22:00 73 20 134/83 (100) 98 Vapotherm 35.00 100.00 01/10/22 21:00 82 21 140/92 (108) 94 Vapotherm 35.00 100.00 01/10/22 20:00 91 15 118/94 (102) 92 Vapotherm 35.00 100.00 01/10/22 19:52 Vapotherm 40.00 100 01/10/22 19:29 37.6 01/10/22 19:25 36.4 67 88 01/10/22 19:00 80 17 121/84 (96) 97 Vapotherm 35.00 100.00 01/10/22 19:00 100 01/10/22 18:54 Vapotherm 35.00 100 01/10/22 18:00 37.1 01/10/22 18:00 64 10 143/97 (112) 93 Vapotherm 35.00 100.00 01/10/22 17:00 81 20 135/103 (114) 91 Vapotherm 35.00 100.00 01/10/22 16:00 84 20 135/103 (114) 91 Nasal Cannula 6.00 01/10/22 16:00 Nasal Cannula 6.00 01/10/22 15:28 36.4 89 95 01/10/22 15:00 78 26 130/94 (106) 91 Nasal Cannula 6.00 01/10/22 14:00 89 15 129/97 (108) 95 Nasal Cannula 6.00 01/10/22 13:51 96 149/121 (130) 91 Nasal Cannula 6.00 01/10/22 13:34 98 01/10/22 13:30 Nasal Cannula 6.00 01/10/22 13:30 37.8 01/10/22 13:16 105 24 129/97 93 Nasal Cannula 6.00 I & O 01/11/22 07:00 Intake Total 600 ml Output Total 0 ml Balance 600 ml Height & Weight Height: 6'0" Weight: 190lbs. 0.0oz. 86.149392rq; 25.97 BMI Method:Stated General Appearance: No Apparent Distress, WD/WN HEENT: PERRL/EOMI, Normal ENT Inspection Neck: Normal Inspection Respiratory: No Accessory Muscle Use, No Respiratory Distress, Rhonci (Left lung), Other (Forced expiration produces wheezing and cough) Cardiovascular: No Edema, No Murmur, Irregularly Irregular Capillary Refill: Less Than 3 Seconds Extremity: Normal Inspection, No Pedal Edema Neurologic/Psychiatric: Alert, Oriented x3, No Motor/Sensory Deficits, Normal Mood/Affect, planning aide II-XII Norm as Tested Results Lab Laboratory Tests 01/10/22 10:33 01/10/22 10:40 01/11/22 04:48 Assessment/Plan Assessment/Plan 1 MACKENZIE THOMAS MD Jan 11, 2022 09:16
--- NOTE | 2022-01-11 09:30 | History & Physicial ---
History of Present Illness History of Present Illness Reason for visit/HPI Pt is a 66 y/o male who is known to me from clinic. He reports that both the patient and his were ill recently - he tested positive for influenza A as did his , however he was increasingly short of breath. He currently is short of breath, but feels as if he is better than on admission. Prior to this ghost writer coming into the room, the pt reports that he had very large amount of sputum come up which helped him to feel less short of breath. Date of Admission Jan 10, 2022 at 11:54 Date Seen by a Provider: Jan 11, 2022 Time Seen by a Provider: 09:30 I consulted on this patient on 01/11/22 09:30 Attending Physician Esther Babb MD Admitting Physician Admitting Physician: Esther Babb MD Attending Physician: Esther Babb MD Consult EICU Allergies and Home Medications Allergies Coded Allergies: No Known Drug Allergies (Unverified , 11/13/11) Patient Home Medication List Home Medication List Reviewed: Yes Acetaminophen (Acetaminophen) 500 Mg Tablet, 1,000 MG PO BID PRN for PAIN, (Reported) Entered as Reported by: DORON HALL on 01/16/16 1156 Last Action: Continued Apixaban (Eliquis) 5 Mg Tablet, 5 MG PO BID Prescribed by: ESTHER BABB on 01/17/16 1423 Last Action: Held Diltiazem HCl (Diltiazem 12Hr ER) 60 Mg Cap.er.12h, 60 MG PO BID Prescribed by: ADRIANNA ESPINOZA on 08/16/18 1059 Last Action: Held Fluticasone/Vilanterol (Breo Ellipta 100-25 Mcg INH) 1 Each Blst.w.dev, 1 EACH IH DAILY, (Reported) Entered as Reported by: NADRE MOONEY on 08/15/18957 Last Action: Continued Lisinopril (Lisinopril) 20 Mg Tablet, 20 MG PO DAILY, (Reported) Entered as Reported by: ANDRE MOONEY on 08/15/18957 Last Action: Held Simvastatin (Simvastatin) 10 Mg Tablet, 10 MG PO HS, (Reported) Entered as Reported by: DORON HALL on 01/16/16 1154 Last Action: Held Past Lkdnfzj-Mvctmi-Jgalob Hx Patient Social History Marrital Status: Living Status: lives with his spouse 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[employer]) Alcohol Beverage of Choice: Beer Smoking Status: Never a Smoker 2nd Hand Smoke Exposure: No Recent Hopitalizations: No Have you traveled recently?: No Alcohol Use?: No Pt feels they are or have been: No Immunizations Up To Date Tetanus Booster (TDap): Unknown Pediatric: Yes Seasonal Allergies Seasonal Allergies: Yes Surgeries Yes (HERNIA, KNEE SCOPE, Left Total Knee ) Abdominal, Cardiac, Joint Replacement (Knee), Orthopedic Respiratory Yes (ASTHMA) Currently Using CPAP: No Currently Using BIPAP: No Cardiovascular Yes Atrial Fibrillation, High Cholesterol, Hypertension Neurological No Reproductive System Hx Reproductive Disorders: No Sexually Transmitted Disease: No HIV/AIDS: No Gastrointestinal No Musculoskeletal Yes (left knee surgery) Arthritis Endocrine History of Endocrine Disorders: No HEENT Loss of Vision: Denies Hearing Impairment: Denies Cancer No Psychosocial History of Psychiatric Problem: No Integumentary History of Skin or Integumenta: No Blood Transfusions History of Blood Disorders: No Adverse Reaction to a Blood Tr: No Reviewed Nursing Assessment Reviewed/Agree w Nursing PMH: Yes Family Medical History Significant Family History: Heart Disease, Diabetes, Hypertension Family Hx: Arthritis 19 FATHER Hypercholesterolemia 19 FATHER Hypertension 19 FATHER Myocardial infarction 19 FATHER Thyroid disease Daughter Review of Systems Constitutional: No chills, No diaphoresis; malaise, weakness EENTM: No hoarseness, No throat pain Respiratory: cough, dyspnea on exertion, short of breath Cardiovascular: No edema; Hx of Intervention; No palpitations Gastrointestinal: No abdominal pain, No constipation, No nausea, No vomiting Genitourinary: no symptoms reported; No dysuria, No frequency Musculoskeletal: muscle cramps, muscle weakness Skin: no symptoms reported Psychiatric/Neurological: Denies Anxiety, Denies Depressed; Weakness All Other Systems Reviewed Negative Unless Noted: Yes Physical Exam Vital Signs Vital Signs - First Documented 01/10/22 01/10/22 09:15 18:54 Pulse Ox 95 O2 Flow Rate 4.00 FiO2 100 Capillary Refill : Less Than 3 Seconds Height, Weight, BMI Height: 6'0" Weight: 190lbs. 0.0oz. 86.528521pb; 25.97 BMI Method:Stated General Appearance: WD/WN, Mild Distress HEENT: PERRL/EOMI Neck: Full Range of Motion, Non Tender, Supple Respiratory: Chest Non Tender, Decreased Breath Sounds, Rhonci, Other (pt on vapotherm) Cardiovascular: Regular Rate, Rhythm Gastrointestinal: Normal Bowel Sounds, Non Tender, Soft Rectal: Deferred Back: Normal Inspection Extremity: Normal Capillary Refill, Normal Inspection, Non Tender, No Calf Tenderness, No Pedal Edema Neurologic/Psychiatric: Alert, Oriented x3, Normal Mood/Affect Skin: Normal Color, Warm/Dry Lymphatic: No Adenopathy Assessment/Plan Assessment and Plan Influenza A Acute Respiratory failure Hypoxia Chronic Atrial flutter Chronic anticoagualation with NOAC (eliquis) Chronic Asthma Urinary tract infection with Ecoli Elevated procalcitonin Elevated Liver enzymes Chronic Hypertension Chronic Hyperlipidemia Influenza A with Acute Respiratory failure, Hypoxia, Chronic Asthma with elevated procalcitonin Chest xray - COMPARISON: 01/10/2022 FINDINGS: The lungs are clear without edema or pneumonia. No pleural effusion or pneumothorax. Heart size is normal. Loop recorder is present. IMPRESSION: 1. Clear lungs. - pt on steroids, tamiflu, breathing treatments, vapotherm -continue with plans to wean vapotherm and monitor Rob's symptoms. - sputum cx pending - restarted breo inhaler Chronic Atrial flutter on Chronic anticoagualation with NOAC (eliquis) - wait on blood pressure improvement prior to starting diltiazem. Urinary tract infection with Ecoli - low number of ecoli on culture report - pt to be on antibiotics Elevated Liver enzymes - hold statin, monitor labs. Chronic Hypertension - bp low right now , monitor pressures, may restart diltiazem later today Chronic Hyperlipidemia - hold statin therapy. dvt prophylaxis with scd's and xarelto (pt on eliquis as outpatient) gi prophylaxis with ppi Admission Diagnosis Influenza A Acute Respiratory failure Hypoxia Chronic Atrial flutter Chronic anticoagualation with NOAC (eliquis) Chronic Asthma Urinary tract infection with Ecoli Elevated procalcitonin Elevated Liver enzymes Chronic Hypertension Chronic Hyperlipidemia Admission Status: Inpatient Order (span 2 midnights) Reason for Inpatient Admission: inpt admission for dyspnea and acute respiratory failure from influenza - will require at least 48 hours for stabilization and respiratory management ESTHER BABB MD Jan 11, 2022 09:30
[2022-01-11] MEDS: PANTOPRAZOLE 40 MG (PROTONIX) TAB PO SCH (10:45)
[2022-01-11] MEDS ORDERED: ACETAMINOPHEN 500 MG TAB (TYLENOL) PO PRN (12:15)
[2022-01-11] MEDS: FLUTICASONE/VILANTEROL 100 MCG 14'S (BREO) IH SCH (14:37)
[2022-01-11] MEDS: RIVAROXABAN 20 MG TABLET (XARELTO) PO SCH (17:02)
[2022-01-12] MEDS: CEFEPIME 1,000 MG/NS 50 ML IVPB IV SCH ×4 (01:09→06:38)
[2022-01-12] MEDS: RT-ALBUTEROL SULF 2.5 MG/3 ML PRE-MIX VIAL INH SCH ×3 (02:32→11:13)
[2022-01-12] MEDS: FLUTICASONE/VILANTEROL 100 MCG 14'S (BREO) IH SCH (07:21)
[2022-01-12] MEDS: methylPREDNISolone 125 MG (Solu-MEDROL) VIAL IVP SCH ×2 (07:58→13:20)
[2022-01-12] MEDS: OSELTAMIVIR 75 MG (TAMIFLU) CAPSULE PO SCH (07:58)
[2022-01-12] MEDS: PANTOPRAZOLE 40 MG (PROTONIX) TAB PO SCH (07:58)
--- NOTE | 2022-01-12 08:27 | Progress Note ---
Subjective All Other Systems Reviewed All Other Systems Reviewed: Yes Objective Exam Vital Signs Vital Signs Date Time Temp Pulse Resp B/P (MAP) Pulse Ox O2 Delivery O2 Flow Rate FiO2 01/12/22 08:00 58 21 115/96 (102) 89 Nasal Cannula 5.00 01/12/22 07:30 96 Nasal Cannula 4.00 01/12/22 07:21 94 Nasal Cannula 5.00 01/12/22 07:15 57 01/12/22 07:00 54 21 116/77 (90) 94 Nasal Cannula 5.00 01/12/22 06:00 46 20 103/77 (86) 91 Nasal Cannula 5.00 01/12/22 05:00 46 14 106/76 (86) 94 Nasal Cannula 5.00 01/12/22 04:00 Vapotherm 25.00 90 01/12/22 04:00 55 17 117/85 (96) 90 Nasal Cannula 5.00 01/12/22 03:00 57 17 117/92 (100) 92 Nasal Cannula 5.00 01/12/22 02:33 Nasal Cannula 5.00 01/12/22 02:00 56 21 126/81 (96) 92 Nasal Cannula 5.00 01/12/22 01:00 55 19 108/61 (77) 93 Nasal Cannula 5.00 01/12/22 01:00 55 01/12/22 00:00 53 23 111/76 (88) 86 Nasal Cannula 5.00 01/12/22 00:00 Vapotherm 25.00 90 01/11/22 23:00 55 16 110/73 (85) 90 Nasal Cannula 5.00 01/11/22 22:41 92 Nasal Cannula 5.00 01/11/22 22:00 53 16 110/74 (86) 89 Nasal Cannula 5.00 01/11/22 21:30 66 01/11/22 21:00 67 115/74 (88) 90 Nasal Cannula 5.00 01/11/22 21:00 53 16 110/74 (86) 89 Nasal Cannula 5.00 01/11/22 20:00 Vapotherm 25.00 90 01/11/22 20:00 36.4 01/11/22 20:00 80 129/79 (96) 92 Nasal Cannula 5.00 01/11/22 19:10 93 Nasal Cannula 5.00 01/11/22 19:05 50 01/11/22 19:00 70 01/11/22 19:00 75 18 133/92 (106) 93 Nasal Cannula 5.00 01/11/22 18:00 75 24 123/90 (101) 96 Nasal Cannula 5.00 01/11/22 17:00 61 19 134/84 (101) 91 Nasal Cannula 5.00 01/11/22 16:00 Vapotherm 25.00 90 01/11/22 16:00 35.9 01/11/22 16:00 80 18 123/83 (96) 91 Nasal Cannula 5.00 01/11/22 15:00 81 16 121/85 (97) 93 Nasal Cannula 5.00 01/11/22 14:41 Nasal Cannula 5.00 01/11/22 14:38 93 Nasal Cannula 5.00 01/11/22 14:00 62 12 129/85 (100) 91 Vapotherm 30.00 90.00 01/11/22 13:00 59 17 134/76 (95) 95 Vapotherm 30.00 90.00 01/11/22 13:00 56 01/11/22 12:00 Vapotherm 25.00 90 01/11/22 12:00 68 20 125/82 (96) 91 Vapotherm 30.00 90.00 01/11/22 11:45 36.2 01/11/22 11:00 56 19 124/90 (101) 91 Vapotherm 30.00 90.00 01/11/22 10:55 93 Vapotherm 15.00 90 01/11/22 10:00 64 25 115/93 (100) 95 Vapotherm 30.00 90.00 01/11/22 09:00 58 28 118/91 (100) 94 Vapotherm 30.00 90.00 I & O 01/12/22 07:00 Intake Total 1385 ml Output Total 400 ml Balance 985 ml General Appearance: WD/WN, Mild Distress HEENT: PERRL/EOMI Neck: Full Range of Motion, Non Tender, Supple Respiratory: Chest Non Tender, Decreased Breath Sounds, Rhonci, Other (pt on vapotherm) Cardiovascular: Regular Rate, Rhythm Gastrointestinal: Normal Bowel Sounds, Non Tender, Soft Rectal: Deferred Back: Normal Inspection Extremity: Normal Capillary Refill, Normal Inspection, Non Tender, No Calf Tenderness, No Pedal Edema Neurologic/Psychiatric: Alert, Oriented x3, Normal Mood/Affect Skin: Normal Color, Warm/Dry Lymphatic: No Adenopathy Results Lab Microbiology 01/10/22 Blood Culture - Preliminary, Resulted No growth 01/10/22 Urine Culture - Final, Complete Escherichia coli See Comments Assessment/Plan Assessment/Plan Admission Dx Influenza A Acute Respiratory failure Hypoxia Chronic Atrial flutter Chronic anticoagualation with NOAC (eliquis) Chronic Asthma Urinary tract infection with Ecoli Elevated procalcitonin Elevated Liver enzymes Chronic Hypertension Chronic Hyperlipidemia Admission Dx Influenza A Acute Respiratory failure Hypoxia Chronic Atrial flutter Chronic anticoagualation with NOAC (eliquis) Chronic Asthma Urinary tract infection with Ecoli Elevated procalcitonin Elevated Liver enzymes Chronic Hypertension Chronic Hyperlipidemia Clinical Quality Measures Admission Status Admission Dx Influenza A Acute Respiratory failure Hypoxia Chronic Atrial flutter Chronic anticoagualation with NOAC (eliquis) Chronic Asthma Urinary tract infection with Ecoli Elevated procalcitonin Elevated Liver enzymes Chronic Hypertension Chronic Hyperlipidemia ESTHER GARCIA MD Jan 12, 2022 08:27
--- NOTE | 2022-01-12 09:36 | Tele-ICU Progress Note ---
Subjective Date Seen by a Provider: Jan 12, 2022 Time Seen by a Provider: 09:35 Subjective/Events-last exam (Tele-ICU Physician , Progress Note ) Service provided via interactive audio and video telecommunications E-CARE system to a patient admitted to ICU bed in [facility]. Available chart/ vitals / labs / Images reviewed Video assessment done using teleICU camera, rest of exam as per RN Discussed with RN Events overnight : Afebrile hemodynamically stable Respiratory - VT 30 L 90% - IMPROVED to 5 L nc I/O = Drips: ns off Pressors- no Consultants: Hospital course: Patient is seen today due to persistent and new A/P Acute hypoxix resp failure ( with influenza PNA ? , ? 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 Discussed with RN to reach out if any questions or concerns A total of 25 minutes of critical care time was devoted to this patient today, required to treat and/or prevent further deterioration of critical care condition ( as above ) . I am remotely monitoring this patient from another state. I am unable to do the bedside exam, and history/physical and pertinent information is taken from other notes in the computer and bedside staff. Sepsis Event Evaluation Height, Weight, BMI Height: 6'0" Weight: 190lbs. 0.0oz. 86.744705gx; 26.00 BMI Method:Stated Focused Exam Lactate Level 01/10/22 10:40: Lactic Acid Level 1.44 Exam Exam Patient acknowledged, consented, and participated in this virtual visit which was conducted using real time audio/video Vital Signs Date Time Temp Pulse Resp B/P (MAP) Pulse Ox O2 Delivery O2 Flow Rate FiO2 01/12/22 08:45 36.9 01/12/22 08:00 58 21 115/96 (102) 89 Nasal Cannula 5.00 01/12/22 07:48 89 Nasal Cannula 5.00 01/12/22 07:30 96 Nasal Cannula 4.00 01/12/22 07:21 94 Nasal Cannula 5.00 01/12/22 07:15 57 01/12/22 07:00 54 21 116/77 (90) 94 Nasal Cannula 5.00 01/12/22 06:00 46 20 103/77 (86) 91 Nasal Cannula 5.00 01/12/22 05:00 46 14 106/76 (86) 94 Nasal Cannula 5.00 01/12/22 04:00 Vapotherm 25.00 90 01/12/22 04:00 55 17 117/85 (96) 90 Nasal Cannula 5.00 01/12/22 03:00 57 17 117/92 (100) 92 Nasal Cannula 5.00 01/12/22 02:33 Nasal Cannula 5.00 01/12/22 02:00 56 21 126/81 (96) 92 Nasal Cannula 5.00 01/12/22 01:00 55 19 108/61 (77) 93 Nasal Cannula 5.00 01/12/22 01:00 55 01/12/22 00:00 53 23 111/76 (88) 86 Nasal Cannula 5.00 01/12/22 00:00 Vapotherm 25.00 90 01/11/22 23:00 55 16 110/73 (85) 90 Nasal Cannula 5.00 01/11/22 22:41 92 Nasal Cannula 5.00 01/11/22 22:00 53 16 110/74 (86) 89 Nasal Cannula 5.00 01/11/22 21:30 66 01/11/22 21:00 67 115/74 (88) 90 Nasal Cannula 5.00 01/11/22 21:00 53 16 110/74 (86) 89 Nasal Cannula 5.00 01/11/22 20:00 Vapotherm 25.00 90 01/11/22 20:00 36.4 01/11/22 20:00 80 129/79 (96) 92 Nasal Cannula 5.00 01/11/22 19:10 93 Nasal Cannula 5.00 01/11/22 19:05 50 01/11/22 19:00 70 01/11/22 19:00 75 18 133/92 (106) 93 Nasal Cannula 5.00 01/11/22 18:00 75 24 123/90 (101) 96 Nasal Cannula 5.00 01/11/22 17:00 61 19 134/84 (101) 91 Nasal Cannula 5.00 01/11/22 16:00 Vapotherm 25.00 90 01/11/22 16:00 35.9 01/11/22 16:00 80 18 123/83 (96) 91 Nasal Cannula 5.00 01/11/22 15:00 81 16 121/85 (97) 93 Nasal Cannula 5.00 01/11/22 14:41 Nasal Cannula 5.00 01/11/22 14:38 93 Nasal Cannula 5.00 01/11/22 14:00 62 12 129/85 (100) 91 Vapotherm 30.00 90.00 01/11/22 13:00 59 17 134/76 (95) 95 Vapotherm 30.00 90.00 01/11/22 13:00 56 01/11/22 12:00 Vapotherm 25.00 90 01/11/22 12:00 68 20 125/82 (96) 91 Vapotherm 30.00 90.00 01/11/22 11:45 36.2 01/11/22 11:00 56 19 124/90 (101) 91 Vapotherm 30.00 90.00 01/11/22 10:55 93 Vapotherm 15.00 90 01/11/22 10:00 64 25 115/93 (100) 95 Vapotherm 30.00 90.00 I & O 01/12/22 07:00 Intake Total 1385 ml Output Total 400 ml Balance 985 ml Height & Weight Height: 6'0" Weight: 190lbs. 0.0oz. 86.248010ol; 26.00 BMI Method:Stated General Appearance: WD/WN, Mild Distress HEENT: PERRL/EOMI Neck: Full Range of Motion, Non Tender, Supple Respiratory: Chest Non Tender, Decreased Breath Sounds, Rhonci, Other (pt on vapotherm) Cardiovascular: Regular Rate, Rhythm Capillary Refill: Less Than 3 Seconds Extremity: Normal Capillary Refill, Normal Inspection, Non Tender, No Calf Tenderness, No Pedal Edema Neurologic/Psychiatric: Alert, Oriented x3, Normal Mood/Affect Skin: Normal Color, Warm/Dry Lymphatic: No Adenopathy Results Lab Laboratory Tests 01/10/22 10:33 01/10/22 10:40 01/11/22 04:48 Assessment/Plan Assessment/Plan 1 MACKENZIE THOMAS MD Jan 12, 2022 09:36
[2022-01-12] MEDS ORDERED: cefTRIAXone 1 GM PRE-MIX 50 ML IV NR (13:00)
[2022-01-12] MEDS ORDERED: Albuterol Inhaler IH (13:44)
[2022-01-12] MEDS ORDERED: FLUC100T PO (13:44)
[2022-01-12] MEDS ORDERED: OSLT75C PO (13:44)
[2022-01-12] MEDS ORDERED: CEPH500T PO (13:44)
--- NOTE | 2022-01-12 13:45 | Discharge Inst-Simple/Standard ---
Discharge Inst-Standard Reconcile Patient Problems Problems Reviewed?: Yes Discharge Medications New, Converted or Re-Newed RX: Call to Patients Pharmacy Patient Instructions/Follow Up Plan of Care/Instructions/FU: 1 wk mark clinic Activity as Tolerated: Yes Discharge Diet: Regular Diet Health Concerns: influenza A dyspnea Return to The Hospital For: any concern for worsening shortness of breath or other lifethreatning health concerns. ESTHER GARCIA MD Jan 12, 2022 13:45
--- NOTE | 2022-01-12 13:46 | Discharge Summary ---
Diagnosis/Chief Complaint Date of Admission Jan 10, 2022 at 11:54 Date of Discharge Discharge Date: Jan 12, 2022 Discharge Time: 1430 Reason Hospital Visit Pt is a 66 y/o male who is known to me from clinic. He reports that both the patient and his were ill recently - he tested positive for influenza A as did his , however he was increasingly short of breath. He currently is short of breath, but feels as if he is better than on admission. Prior to this publications writer coming into the room, the pt reports that he had very large amount of sputum come up which helped him to feel less short of breath. Discharge Summary Discharge Physical Examination Allergies: Coded Allergies: No Known Drug Allergies (Unverified , 11/13/11) Vitals & I&Os Vital Signs Date Time Temp Pulse Resp B/P (MAP) Pulse Ox O2 Delivery O2 Flow Rate FiO2 01/12/22 13:00 66 01/12/22 12:58 90 Room Air 01/12/22 12:45 36.8 131/82 (98) 01/12/22 11:13 0.00 01/12/22 11:00 20 01/12/22 04:00 90 Discharge Instructions to patient/family Please see electronic discharge instructions given to patient. Discharge Medications Reviewed and agree with Discharge Medication list on patient's Discharge Instruction sheet ESTHER GARCIA MD Jan 12, 2022 13:46
[2022-01-12 14:33] VITALS: BP 131/82
== END 2022-01-12 14:35 | disposition home or self-care (01) | DRG 193 ==
LOC: EDUNIT# 08:53 → ER 08:56 → ICU 11:54
PROVIDERS: ADMIT Family Medicine; ATTEND Family Medicine
DX: J10.1 Influenza due to other identified influenza virus with other respiratory manifestations (principal); J96.01 Acute respiratory failure with hypoxia; N39.0 Urinary tract infection, site not specified; I48.92 Unspecified atrial flutter; J45.901 Unspecified asthma with (acute) exacerbation; Z20.822 Contact with and (suspected) exposure to COVID-19; B96.20 Unspecified Escherichia coli [E. coli] as the cause of diseases classified elsewhere; E78.00 Pure hypercholesterolemia, unspecified; I10 Essential (primary) hypertension; Z96.652 Presence of left artificial knee joint; Z79.01 Long term (current) use of anticoagulants; I48.91 Unspecified atrial fibrillation
CPT/HCPCS: 36415; 71045; 80053; 81000; 83605; 83880; 84145; 85025; 85610; 85730; 86141; 87040; 87070; 87081; 87088; 87205; 87636; 94640; 94664; 94761

== ENCOUNTER → 2022-01-23 | Outpatient (CLI) | payer MEDICARE, OTHER ==
[~2022-01-23] MED LIST changes: +Albuterol Inhaler IH; +CEPH500T PO; +FLUC100T PO; +OSLT75C PO; +REGADENOSON 0.4 MG/5 ML SYR (LEXISCAN) IV ONE
[2022-01-23] MEDS: CATHETER FLUSH 10 ML SYR IVP PRN ×2 (07:55→09:22)
[2022-01-23 09:21] VITALS: BP 137/99
--- NOTE | 2022-01-23 18:34 | STRESS TEST ---
DATE OF SERVICE: 01/23/2022 RESTING AND POST REGADENOSON TECHNETIUM-99M TETROFOSMIN SPECT CT IMAGING ORDERING PHYSICIAN: Dr. Torres. PRIMARY PHYSICIAN: Dr. Babb. CLINICAL DIAGNOSIS: Chest discomfort. PROCEDURE: Baseline images were carried out after injection of 10.98 mCi of technetium-99m tetrofosmin. This was followed by 0.4 mg and 30.7 mCi of technetium tetrofosmin for stress imaging. The electrocardiogram showed sinus rhythm at baseline. Did not change significantly with regadenoson infusion. The patient tolerated the procedure well. Review of images at rest and following stress does not indicate any distinct perfusion defect consistent with myocardial ischemia or infarction. Some degree of diaphragmatic attenuation is seen both at rest and following regadenoson infusion. Gated images show normal global left ventricular systolic function with normal regional wall motion including the diaphragmatic wall of the left ventricle. CONCLUSIONS: 1. No evidence of significant myocardial ischemia or infarction on this study. 2. Normal regional wall motion. 3. Normal global left ventricular systolic function with a calculated ejection fraction of 63%. Job ID: [id number] DocumentID: [id number] Dictated Date: 01/23/2022 15:34:39 Reordering Clerk Date: 01/23/2022 18:32:00 Dictated By: KIM TORRES MD; BREONNA; FACP; FACC;
== END ==
LOC: CARD 07:41
PROVIDERS: ATTEND Internal Medicine Cardiovascular Disease
DX: R07.89 Other chest pain (principal)
CPT/HCPCS: 78452; 93017; A9502

== ENCOUNTER 2022-03-10 18:26 | Emergency (ER) | payer MEDICARE, OTHER ==
[~2022-03-10] VITALS: Ht 182 cm; Wt 86.5 kg
[~2022-03-10 18:26] MED LIST changes: -REGADENOSON 0.4 MG/5 ML SYR (LEXISCAN) IV ONE
--- NOTE | 2022-03-10 19:02 | ED Lower Extremity ---
General Chief Complaint: Lower Extremity Stated Complaint: FOOT/ANKLE PAIN Nursing Triage Note: PT STATES RT FOOT/ANKLE PAIN AND SWELLING FOR UNKNOWN CAUSE, WAS JUST SITTING AT THE [place] TODAY AND WHEN HE GOT UP HE WAS IN PAIN Source: patient Exam Limitations: no limitations History of Present Illness Date Seen by Provider: Mar 10, 2022 Time Seen by Provider: 18:49 Initial Comments 66yo male to the ER with a complaint of right ankle pain. He states he was at a sale [place] today, started having a little discomfort while there - then as the day progressed more swelling and pain to the point now he has "10/10" pain when he stands up to walk. At rest he states the pain is tolerable. No fevers, chills, URI symptoms. No shortness of breath/palpitations. He has intermittent Afib. chronically anticoagulated on xarelto for years - no history of clot while on xarelto. He denies calf pain, swelling in the lower leg. No trauma, twists, falls or injuries. He has no history of gout. denies any recent beer/steak, but did have a hamburger of lunch. Onset: this afternoon Severity: severe (when walking) Pain/Injury Location: right ankle Method of Injury: unknown Allergies and Home Medications Allergies Coded Allergies: No Known Drug Allergies (Unverified , 11/13/11) Patient Home Medication List Home Medication List Reviewed: Yes Acetaminophen (Acetaminophen) 500 Mg Tablet, 1,000 MG PO BID PRN for PAIN, (Reported) Entered as Reported by: DORON HALL on 01/16/16 1156 Apixaban (Eliquis) 5 Mg Tablet, 5 MG PO BID Prescribed by: ESTHER GARCIA on 01/17/16 1423 Cephalexin (Cephalexin) 500 Mg Tablet, 500 MG PO TID Prescribed by: ESTHER GARCIA on 01/12/22 1344 Diltiazem HCl (Diltiazem 12Hr ER) 60 Mg Cap.er.12h, 60 MG PO BID Prescribed by: ADRIANAN ESPINOZA on 08/16/18 1059 Fluconazole (Diflucan) 100 Mg Tablet, 100 MG PO DAILY Prescribed by: ESTHER GARCIA on 01/12/22 1344 Fluticasone/Vilanterol (Breo Ellipta 100-25 Mcg INH) 1 Each Blst.w.dev, 1 EACH IH DAILY, (Reported) Entered as Reported by: ANDRE MOONEY on 08/15/18 0958 Lisinopril (Lisinopril) 20 Mg Tablet, 20 MG PO DAILY, (Reported) Entered as Reported by: ANDRE MOONEY on 08/15/18 0958 Oseltamivir Phosphate (Tamiflu) 75 Mg Cap, 75 MG PO BID Prescribed by: ESTHER GARCIA on 01/12/22 1344 Simvastatin (Simvastatin) 10 Mg Tablet, 10 MG PO HS, (Reported) Entered as Reported by: DORON HALL on 01/16/16 1154 [Albuterol Inhaler] 8.5 GM HFA.AER.AD, 0 GM IH RTQ2H PRN for SOA Prescribed by: ESTHER GARCIA on 01/12/22 1344 Review of Systems Constitutional: see HPI Respiratory: no symptoms reported Cardiovascular: no symptoms reported Gastrointestinal: no symptoms reported Genitourinary: no symptoms reported Musculoskeletal: joint pain (right ankle) Skin: no symptoms reported All Other Systems Reviewed Negative Unless Noted: Yes Past Abikdpo-Jyzjib-Ezgkln Hx Patient Social History Substance use?: No Alcohol Use?: No Immunizations Up To Date Tetanus Booster (TDap): Unknown PED Vaccines UTD: Yes First/Initial COVID19 Vaccinat: YES COVID19 Vaccine Jet Blade Polisher: J&J Seasonal Allergies Seasonal Allergies: Yes Past Medical History Surgery/Hospitalization HX: HYPERTENSION, A FIB, ABLATION, LT KNEE REPLACED Surgeries: Yes (HERNIA, KNEE SCOPE, Left Total Knee ) Abdominal, Cardiac, Joint Replacement, Orthopedic Respiratory: Yes (ASTHMA) Asthma Currently Using CPAP: No Currently Using BIPAP: No Cardiac: Yes Atrial Fibrillation, High Cholesterol, Hypertension Neurological: No Reproductive Disorders: No Sexually Transmitted Disease: No HIV/AIDS: No Gastrointestinal: No Musculoskeletal: Yes (left knee surgery) Arthritis Endocrine: No Loss of Vision: Denies Hearing Impairment: Denies Cancer: No Psychosocial: No Integumentary: No Blood Disorders: No Adverse Reaction/Blood Tranf: No Family Medical History Arthritis 19 FATHER Hypercholesterolemia 19 FATHER Hypertension 19 FATHER Myocardial infarction 19 FATHER Thyroid disease Daughter Heart Disease, Diabetes, Hypertension Physical Exam Vital Signs Vital Signs - First Documented 03/10/22 18:34 Temp 36.0 Pulse 58 Resp 20 B/P (MAP) 140/101 (114) Pulse Ox 97 O2 Delivery Room Air Capillary Refill : Height, Weight, BMI Height: 6'0" Weight: 190lbs. 0.0oz. 86.589992ms; 26.00 BMI Method:Stated General Appearance: WD/WN, no apparent distress Cardiovascular: regular rate, rhythm Respiratory: no respiratory distress, no accessory muscle use Hips: bilateral hip non-tender, bilateral hip normal inspection, bilateral hip normal range of motion, bilateral hip no evidence of injury Legs: bilateral leg non-tender, bilateral leg normal inspection, bilateral leg normal range of motion, bilateral leg no evidence of injury Knees: bilateral knee non-tender, bilateral knee normal inspection, bilateral knee normal range of motion, bilateral knee no evidence of injury Ankles: right ankle no evidence of injury, right ankle limited range of motion, right ankle soft tissue tenderness (anterior right ankle, lateral swelling), right ankle swelling, right ankle other (very minimal increased warmth and erythema) Feet: bilateral foot non-tender, bilateral foot normal inspection, bilateral foot normal range of motion, bilateral foot no evidence of injury Neurologic/Psychiatric: alert, normal mood/affect, oriented x 3 Skin: normal color, warm/dry Progress/Results/Core Measures Results/Orders Lab Results Laboratory Tests Test 03/10/22 07:04 Range/Units Sodium Level 140 135-145 MMOL/L Potassium Level 4.2 3.6-5.0 MMOL/L Chloride Level 108 H 98-107 MMOL/L Carbon Dioxide Level 21 21-32 MMOL/L Anion Gap 11 5-14 MMOL/L Blood Urea Nitrogen 19 H 7-18 MG/DL Creatinine 0.92 0.60-1.30 MG/DL Estimat Glomerular Filtration Rate 92 BUN/Creatinine Ratio 21 Glucose Level 88 70-105 MG/DL Uric Acid 4.6 2.6-7.2 MG/DL Calcium Level 9.2 8.5-10.1 MG/DL My Orders Orders - GALE BOOKER MD Basic Metabolic Panel (03/10/22 18:54) Uric Acid (03/10/22 18:54) Vital Signs/I&O 03/10/22 18:34 Temp 36.0 Pulse 58 Resp 20 B/P (MAP) 140/101 (114) Pulse Ox 97 O2 Delivery Room Air Blood Pressure Mean: 114 Progress Progress Note : Time: 19:35 Progress Note Patient seen and examined, 66-year-old with nontraumatic right ankle pain. Evaluation today includes a physical exam, basic metabolic panel and uric acid. His basic metabolic panel is normal uric acid is within normal limits. Differential diagnosis based on history and physical exam includes arthritis, go ut, infection. Low risk secondary to anticoagulation for DVT physical exam does not support this concern and no calf pain. No swelling. Based on history and physical I am more concerned about early gout. It is minimally red, tender to palpation. There does seem to be an anterior lateral effusion. Secondary to his anticoagulation and low uric acid level consideration for arthrocentesis of the ankle however this would be high risk on the Xarelto. Discussed findings and plan of care with the patient. Opting at this time for conservative management, pain control. I have advised him to monitor the ankle for increasing redness warmth and swelling. He will need to follow-up with Dr. GARCIA this week. I am not going to put him on colchicine at this point. Just some hydrocodone. Offered to Aly wrap the ankle for stability. He is comfortable with all of this will follow up with Dr. GARCIA. All questions are sought and answered. Patient is stable for discharge. Departure Impression Primary Impression: Ankle pain Qualified Codes: M25.571 - Pain in right ankle and joints of right foot Disposition: 01 HOME, SELF-CARE Condition: Stable Departure-Patient Inst. Decision time for Depature: 19:37 Referrals: ESTHER GARCIA MD (PCP/Family) Primary Care Physician Patient Instructions: Lifestyle Changes to Manage Gout Add. Discharge Instructions: Information regarding gout is attached to this paperwork. At this point I am unsure if you indeed have gout, will need to watch the ankle for increasing redness and swelling. Please follow-up with Dr. GARCIA for further evaluation and management. At this point I would recommend compression, ice packs, pain medications. I have given you a prescription for hydrocodone, you can take this 1 every 6 hours as needed for pain. Hydrocodone can cause constipation. Please take a stool softener if you are having to take hydrocodone. You can take an additional extra strength Tylenol with the hydrocodone every 6 hours. If you develop a fever, red streaking up your ankle into the leg, any other emergent, concerning symptoms please return to the emergency room for reevaluation. Scripts Hydrocodone/Acetaminophen (Hydrocodone-Acetamin 5-325 mg) 5 Mg-325 Mg Tablet 1 TAB PO Q6H PRN for PAIN-MODERATE (5-7), #10 TAB Prov: GALE BOOKER MD 03/10/22 GALE BOOKER MD Mar 10, 2022 19:02
[2022-03-10 19:20] LABS: POTASSIUM 4.2 MMOL/L (3.6-5.0)
[2022-03-10 19:21] LABS: CALCIUM 9.2 MG/DL (8.5-10.1)
[2022-03-10 19:25] LABS: CREATININE SERUM 0.92 MG/DL (0.60-1.30)
[2022-03-10 19:28] LABS: URIC ACID 4.6 MG/DL (2.6-7.2)
[2022-03-10] MEDS ORDERED: ACHD5005 PO (19:39)
[2022-03-10] MEDS ORDERED: HYDROcodone/APAP 5 MG/325 MG (LORTAB) TAB PO ONE (19:45)
[2022-03-10 19:49] VITALS: BP 135/97
== END 2022-03-10 19:49 | disposition home or self-care (01) ==
LOC: EDUNIT# 18:26 → ER 18:28
DX: M25.471 Effusion, right ankle (principal); M25.571 Pain in right ankle and joints of right foot; I48.91 Unspecified atrial fibrillation; Z28.311 Partially vaccinated for COVID-19; Z79.01 Long term (current) use of anticoagulants
CPT/HCPCS: 36415; 80048; 84550; 99283

== ENCOUNTER → 2022-04-02 | Outpatient (CLI) | payer MEDICARE, OTHER ==
[~2022-04-02] MED LIST changes: +ACHD5005 PO
--- NOTE | 2022-04-02 12:37 | Diagnostic Imaging Report ---
INDICATION: Claudication ankle pain. Varicose veins. COMPARISON: None FINDINGS: Ankle brachial indices were obtained bilaterally. ROLLY on the right measures 1.28. ROLLY on the left measures 1.16. IMPRESSION: 1. Normal ankle brachial indices. Dictated by: Dictated on workstation # [id number]
--- NOTE | 2022-04-02 16:44 | Diagnostic Imaging Report ---
INDICATION: Right ankle pain. EXAMINATION: AP, oblique and lateral views of the right ankle were obtained. No fracture or acute bony abnormality is seen. There is mild degenerative change of the ankle joint without osteophyte formation. There is no erosive bony lesion. There are some vascular calcifications. IMPRESSION: Mild chronic changes in right ankle with no acute abnormality. Dictated by: Dictated on workstation # [id number]
== END ==
LOC: RAD 08:56
PROVIDERS: ATTEND Family Medicine
DX: I83.91 Asymptomatic varicose veins of right lower extremity (principal)
CPT/HCPCS: 73610; 93922

== ENCOUNTER 2022-04-17 15:20 | Inpatient (IN) | payer MEDICARE, OTHER ==
[~2022-04-17] VITALS: Ht 185 cm; Wt 90.0 kg
[2022-04-17] MEDS ORDERED: dilTIAZem DRIP PRE-MIX 125 ML IV STA (15:36)
[2022-04-17 15:43] LABS: BASOPHILS % (AUTO) 0 % (0-10); EOSINOPHILS # (AUTO) 0.2 10^3/uL (0.0-0.3); EOSINOPHILS % (AUTO) 2 % (0-10); HEMATOCRIT 41 % (40-54); HEMOGLOBIN 13.7 g/dL (13.3-17.7); LYMPHOCYTES # (AUTO) 1.2 X 10^3 (1.0-4.0); LYMPHOCYTES % (AUTO) 13 % (12-44); MEAN CORPUSCULAR HEMOGLOBIN 30 pg (25-34); MEAN CORPUSCULAR HGB CONC 33 g/dL (32-36); MEAN CORPUSCULAR VOLUME 91 fL (80-99); MEAN PLATELET VOLUME 8.8 fL (9.0-12.2); MONOCYTES # (AUTO) 1.6 X 10^3 (0.0-1.0); MONOCYTES % (AUTO) 17 % (0-12); NEUTROPHILS # (AUTO) 6.2 X 10^3 (1.8-7.8); NEUTROPHILS % (AUTO) 68 % (42-75); PLATELET COUNT 219 10^3/uL (130-400); WHITE BLOOD COUNT 9.1 10^3/uL (4.3-11.0)
[2022-04-17] MEDS ORDERED: NS IV 1000 ML 1,000 ML IV SCH (15:45)
[2022-04-17 15:47] LABS: INR 1.3 (0.8-1.4); PROTHROMBIN TIME PATIENT 17.1 SEC (12.2-14.7)
--- NOTE | 2022-04-17 15:47 | Diagnostic Imaging Report ---
INDICATION: Chest pain. EXAMINATION: Portable chest, 3:46 p.m. FINDINGS: There is a loop recorder projecting over the left side of the chest. Heart size and pulmonary vascularity are normal. Lungs are clear. There are no effusions or pneumothoraces. IMPRESSION: Negative chest. Dictated by: Dictated on workstation # [id number]
[2022-04-17 15:48] LABS: ALBUMIN 3.7 GM/DL (3.2-4.5); POTASSIUM 3.9 MMOL/L (3.6-5.0)
[2022-04-17 15:49] LABS: CALCIUM 9.1 MG/DL (8.5-10.1)
[2022-04-17 15:51] LABS: TOTAL PROTEIN 6.2 GM/DL (6.4-8.2)
[2022-04-17 15:52] LABS: BILIRUBIN,TOTAL 0.6 MG/DL (0.1-1.0)
[2022-04-17 15:54] LABS: CREATININE SERUM 1.02 MG/DL (0.60-1.30)
[2022-04-17] MEDS ORDERED: RT-ALBUTEROL HFA 8.5 GM INHALER IH STA (16:34)
--- NOTE | 2022-04-17 16:45 | ED Chest Pain ---
General Chief Complaint: Cardiac/General Problems Stated Complaint: CHEST PAIN Nursing Triage Note: Pt is here POV with chest pain and a-fib with rvr. Pt states that he just had knee surgery 2 days ago and was taken off his blood thinner but hasn't missed a dose of his diltiazem. Pt describes his cp as sharp and rates it at a 4/10. Source: patient, old records Exam Limitations: no limitations History of Present Illness Date Seen by Provider: Apr 17, 2022 Time Seen by Provider: 15:30 Initial Comments This 66-year-old gentleman presents to the emergency room with complaints of chest pain and tachycardia. He has atrial fibrillation with RVR on the monitor. His postoperative day #2 from right knee surgery. He was off Xarelto several days prior to the surgery. He has not missed any doses of diltiazem. His baseline heart rhythm is sinus, and he has paroxysmal atrial fibrillation. His primary care provider is Dr. Babb. His diesel dinkey operator is Dr. Torres. His orthopedic surgeon is Dr. Vargas. Allergies and Home Medications Allergies Coded Allergies: No Known Drug Allergies (Unverified , 11/13/11) Patient Home Medication List Home Medication List Reviewed: Yes Acetaminophen (Acetaminophen) 500 Mg Tablet, 1,000 MG PO BID PRN for PAIN, (Reported) Entered as Reported by: DORNO HALL on 01/16/16 1156 Apixaban (Eliquis) 5 Mg Tablet, 5 MG PO BID Prescribed by: ESTHER BABB on 01/17/16 1423 Cephalexin (Cephalexin) 500 Mg Tablet, 500 MG PO TID Prescribed by: ESTHER BABB on 01/12/22 1344 Diltiazem HCl (Diltiazem 12Hr ER) 60 Mg Cap.er.12h, 60 MG PO BID Prescribed by: ADRIANNA ESPINOZA on 08/16/18 1059 Fluconazole (Diflucan) 100 Mg Tablet, 100 MG PO DAILY Prescribed by: ESTHER BABB on 01/12/22 1344 Fluticasone/Vilanterol (Breo Ellipta 100-25 Mcg INH) 1 Each Blst.w.dev, 1 EACH IH DAILY, (Reported) Entered as Reported by: ANDRE MOONEY on 08/15/18 0958 Hydrocodone/Acetaminophen (Hydrocodone-Acetamin 5-325 mg) 5 Mg-325 Mg Tablet, 1 TAB PO Q6H PRN for PAIN-MODERATE (5-7) Prescribed by: GALE BOOKER on 03/10/22 193 Lisinopril (Lisinopril) 20 Mg Tablet, 20 MG PO DAILY, (Reported) Entered as Reported by: ANDRE MOONEY on 08/15/18 0958 Oseltamivir Phosphate (Tamiflu) 75 Mg Cap, 75 MG PO BID Prescribed by: ESTHER BABB on 01/12/22 1344 Simvastatin (Simvastatin) 10 Mg Tablet, 10 MG PO HS, (Reported) Entered as Reported by: DORON HALL on 01/16/16 1154 [Albuterol Inhaler] 8.5 GM HFA.AER.AD, 0 GM IH RTQ2H PRN for SOA Prescribed by: ESTHER BABB on 01/12/22 1344 Review of Systems Review of Systems Constitutional: no symptoms reported EENTM: No Symptoms Reported Respiratory: No Symptoms Reported Cardiovascular: See HPI Gastrointestinal: No Symptoms Reported Musculoskeletal: see HPI Skin: no symptoms reported Psychiatric/Neurological: No Symptoms Reported Endocrine: No Symptoms Reported Hematologic/Lymphatic: No Symptoms Reported Past Gdubldg-Lopqxe-Ljlgec Hx Patient Social History Tobacco Use?: No Use of E-Cig and/or Vaping dev: No Substance use?: No Alcohol Use?: No Immunizations Up To Date Tetanus Booster (TDap): Unknown PED Vaccines UTD: Yes First/Initial COVID19 Vaccinat: YES Second COVID19 Vaccination Andrea: YES Third COVID19 Vaccination Date: YES Seasonal Allergies Seasonal Allergies: Yes Past Medical History Surgery/Hospitalization HX: HYPERTENSION, A FIB, ABLATION, LT KNEE REPLACED Surgeries: Yes (HERNIA, KNEE SCOPE, Left Total Knee ) Abdominal, Cardiac (Ablation), Joint Replacement, Orthopedic Respiratory: Yes (ASTHMA) Asthma, Pneumonia Currently Using CPAP: No Currently Using BIPAP: No Cardiac: Yes Atrial Fibrillation (Paroxysmal), High Cholesterol, Hypertension Neurological: No Reproductive Disorders: No Sexually Transmitted Disease: No HIV/AIDS: No Gastrointestinal: No Musculoskeletal: Yes (left knee surgery) Arthritis Endocrine: No Loss of Vision: Denies Hearing Impairment: Denies Cancer: No Psychosocial: No Integumentary: No Blood Disorders: No Adverse Reaction/Blood Tranf: No Family Medical History Arthritis 19 FATHER Hypercholesterolemia 19 FATHER Hypertension 19 FATHER Myocardial infarction 19 FATHER Thyroid disease Daughter Heart Disease, Diabetes, Hypertension Physical Exam Vital Signs Vital Signs - First Documented 04/17/22 04/17/22 15:33 15:52 Temp 36.4 Pulse 127 Resp 20 B/P (MAP) 128/83 (98) Pulse Ox 96 O2 Delivery Room Air O2 Flow Rate 3.00 Capillary Refill : Less Than 3 Seconds Height, Weight, BMI Height: 6'0" Weight: 190lbs. 0.0oz. 86.772268dt; 25.00 BMI Method:Stated General Appearance: No Apparent Distress, WD/WN HEENT: PERRL/EOMI, Normal ENT Inspection Neck: Normal Inspection; No JVD Respiratory: Lungs Clear, Normal Breath Sounds, No Accessory Muscle Use Cardiovascular: No Edema, No Murmur, Irregularly Irregular, Tachycardia Gastrointestinal: Non Tender, Soft Extremity: No Pedal Edema, Other (Erythema and swelling to the right knee consistent with postop day #2. Incision clean, dry, and intact. No significant edema of the feet or ankles. Compression stockings in place.) Neurologic/Psychiatric: Alert, Oriented x3, No Motor/Sensory Deficits, Normal Mood/Affect Skin: Normal Color, Warm/Dry, Erythema (Right knee operative site) Progress/Results/Core Measures Results/Orders Lab Results Laboratory Tests Test 04/17/22 15:30 Range/Units White Blood Count 9.1 4.3-11.0 10^3/uL Red Blood Count 4.54 4.30-5.52 10^6/uL Hemoglobin 13.7 13.3-17.7 g/dL Hematocrit 41 40-54 % Mean Corpuscular Volume 91 80-99 fL Mean Corpuscular Hemoglobin 30 25-34 pg Mean Corpuscular Hemoglobin Concent 33 32-36 g/dL Red Cell Distribution Width 13.2 10.0-14.5 % Platelet Count 219 130-400 10^3/uL Mean Platelet Volume 8.8 L 9.0-12.2 fL Immature Granulocyte % (Auto) 0 % Neutrophils (%) (Auto) 68 42-75 % Lymphocytes (%) (Auto) 13 12-44 % Monocytes (%) (Auto) 17 H 0-12 % Eosinophils (%) (Auto) 2 0-10 % Basophils (%) (Auto) 0 0-10 % Neutrophils # (Auto) 6.2 1.8-7.8 X 10^3 Lymphocytes # (Auto) 1.2 1.0-4.0 X 10^3 Monocytes # (Auto) 1.6 H 0.0-1.0 X 10^3 Eosinophils # (Auto) 0.2 0.0-0.3 10^3/uL Basophils # (Auto) 0.0 0.0-0.1 10^3/uL Immature Granulocyte # (Auto) 0.0 0.0-0.1 10^3/uL Prothrombin Time 17.1 H 12.2-14.7 SEC INR Comment 1.3 0.8-1.4 Activated Partial Thromboplast Time 42 H 24-35 SEC Sodium Level 138 135-145 MMOL/L Potassium Level 3.9 3.6-5.0 MMOL/L Chloride Level 105 98-107 MMOL/L Carbon Dioxide Level 22 21-32 MMOL/L Anion Gap 11 5-14 MMOL/L Blood Urea Nitrogen 15 7-18 MG/DL Creatinine 1.02 0.60-1.30 MG/DL Estimat Glomerular Filtration Rate 82 BUN/Creatinine Ratio 15 Glucose Level 128 H 70-105 MG/DL Calcium Level 9.1 8.5-10.1 MG/DL Corrected Calcium 9.3 8.5-10.1 MG/DL Magnesium Level 2.0 1.6-2.4 MG/DL Total Bilirubin 0.6 0.1-1.0 MG/DL Aspartate Amino Transf (AST/SGOT) 20 5-34 U/L Alanine Aminotransferase (ALT/SGPT) 17 0-55 U/L Alkaline Phosphatase 81 40-136 U/L Myoglobin 129.4 H 10.0-92.0 NG/ML Troponin I < 0.028 <0.028 NG/ML Total Protein 6.2 L 6.4-8.2 GM/DL Albumin 3.7 3.2-4.5 GM/DL My Orders Orders - HAROON GUTIERREZ MD Cbc With Automated Diff (04/17/22 15:36) Magnesium (04/17/22 15:36) Chest 1 View, Ap/Pa Only (04/17/22 15:36) Ekg Tracing (04/17/22 15:36) Comprehensive Metabolic Panel (04/17/22 15:36) Myoglobin Serum (04/17/22 15:36) Protime With Inr (04/17/22 15:36) Partial Thromboplastin Time (04/17/22 15:36) O2 (04/17/22 15:36) Monitor-Rhythm Ecg Trace Only (04/17/22 15:36) Lipid Panel (04/18/22 06:00) Ed Iv/Invasive Line Start (04/17/22 15:36) Troponin I [place] (04/17/22 15:36) Diltiazem Injection (Cardizem Injection) (04/17/22 15:36) Diltiazem Drip Pre-Mix (Cardizem Drip Pr (04/17/22 15:36) Ns Iv 1000 Ml (Sodium Chloride 0.9%) (04/17/22 15:45) Albuterol Inhaler (Albuterol) (04/17/22 16:34) Ct Angio Chest W (R/O Pe) (04/17/22 17:10) Iohexol Injection (Omnipaque 350 Mg/Ml 1 (04/17/22 17:15) Ns (Ivpb) (Sodium Chloride 0.9% Ivpb Bag (04/17/22 17:15) Oxycodone/Apap 5/325mg Tablet (Percocet (04/17/22 18:45) Medications Given in ED Current Medications Medications Dose Ordered Sig/Sammy Route Start Time Stop Time Status Last Admin Dose Admin Iohexol 100 ml ONCE ONCE IV 04/17/22 17:15 04/17/22 17:16 DC 04/17/22 17:36 85 ML Oxycodone/ Acetaminophen 1 tab ONCE ONCE PO 04/17/22 18:45 04/17/22 18:46 DC 04/17/22 18:43 1 TAB Sodium Chloride 100 ml ONCE ONCE IV 04/17/22 17:15 04/17/22 17:16 DC 04/17/22 17:36 70 ML Vital Signs/I&O 04/17/22 04/17/22 04/17/22 04/17/22 15:33 15:42 15:50 15:52 Temp 36.4 Pulse 127 149 110 104 Resp 20 18 B/P (MAP) 128/83 (98) 117/90 120/79 121/77 (92) Pulse Ox 96 95 O2 Delivery Room Air Nasal Cannula O2 Flow Rate 3.00 04/17/22 04/17/22 15:53 19:27 Pulse 76 Resp 18 B/P (MAP) 107/82 Pulse Ox 95 94 O2 Delivery Nasal Cannula Nasal Cannula O2 Flow Rate 3.00 2.00 Blood Pressure Mean: 92 Progress Progress Note #1: Time: 16:46 Progress Note Patient was interviewed and examined shortly after arrival. Cardizem bolus 10 mg and drip at 10 mg/h was initiated. Patient had prompt response to the bolus with fairly rapid reduction in rate. His chest pain promptly resolved with improved rate. Oxygen saturation in the 89 to 93% range was noted on room air. Nasal cannula was applied at 2 L. After improved heart rate, a trial of room air was attempted. He was desaturating to around 90%. Repeat chest auscultation revealed no wheezing or crackles but he did have a slightly prolonged expiratory phase. Chest x-ray was negative. A trial treatment with an albuterol inhaler is being performed. If he is still hypoxic after that, I plan to perform CT angiography of the chest to rule out pulmonary embolus that may have occurred while he was off Xarelto. Labs including CBC, CMP, troponin, and magnesium were unremarkable. INR was slightly elevated consistent with Xarelto use. Progress Note #2: Progress Note Mild hypoxia did not resolve with better control of heart rate or with albuterol treatment. CT angiogram was obtained to rule out PE. No pneumonia or pulmonary embolus was identified. Pulmonary nodules were identified and patient was informed he would need to follow-up with his primary care provider regarding the pulmonary nodules. Ultimately, patient was admitted for further management and evaluation of A-fib RVR with concurrent hypoxia of undetermined etiology. Case was discussed with Dr. Doyle, diesel dinkey operator on-call and Dr. Babb, primary care provider providing inpatient care. Initial ECG Impression Date: Apr 17, 2022 Initial ECG Impression Time: 15:26 Initial ECG Rate: 144 Initial ECG Rhythm: A Fib/Flutter Initial ECG Impression: Atrial Fibrillation w/RVR Comment Atrial fibrillation with RVR. No ischemic ST elevation. Mild ST depression noted. Borderline left axis deviation. Diagnostic Imaging Diagonstic Imaging: Xray Plain Films/CT/US/NM/MRI: chest Comments Chest x-ray report was reviewed. There were no acute abnormalities. See report below: NAME: ZULLY HOBBS [facility] REC#: [id number] PT STATUS: REG ER : 1955 PHYSICIAN: HAROON GUTIERREZ MD ADMIT DATE: 04/17/22/ER Draft Date of Exam:04/17/22 CHEST 1 VIEW, AP/PA ONLY INDICATION: Chest pain. EXAMINATION: Portable chest, 3:46 p.m. FINDINGS: There is a loop recorder projecting over the left side of the chest. Heart size and pulmonary vascularity are normal. Lungs are clear. There are no effusions or pneumothoraces. IMPRESSION: Negative chest. Dictated on workstation # [id number] Dict: 04/17/22 1545 Trans: 04/17/22 1547 OTTONIEL [id number] Interpreted by: SAMUEL HORNE MD Diagonstic Imaging: CT Plain Films/CT/US/NM/MRI: chest Comments NAME: ZULLY HOBBS [facility] REC#: [id number] PT STATUS: REG ER : 1955 PHYSICIAN: HAROON GUTIERREZ MD ADMIT DATE: 04/17/22/ER Signed Date of Exam:04/17/22 CT ANGIO CHEST W (R/O PE) INDICATION: Chest pain today. Knee surgery 2 days ago. EXAMINATION: CTA of the chest 04/17/2022 FINDINGS: There are no central or proximal segmental pulmonary emboli. The thoracic aorta grossly unremarkable other than atherosclerotic disease. There is no mediastinal or hilar adenopathy. Within the lungs, there is a small 4 mm nodule in the right middle lobe image #79 with a 5 mm nodule in the anterior right middle lobe image #86. The remaining lungs clear. There are no effusions. There is no acute osseous abnormality. Visualized upper abdomen unremarkable for acute abnormality. IMPRESSION: 1. No central or proximal segmental pulmonary emboli 2. Several nodules in the right middle lobe. Follow-up using the Fleischner criteria recommended. Dictated by: Dictated on workstation # [id number] Dict: 04/17/22 1737 Trans: 04/17/22 1819 MARGI [id number] Interpreted by: CHIKIS RUANO MD Electronically signed by: CHIKIS RUANO MD 04/17/22 1819 Departure Communication (Admissions) Time/Spoke to Admitting Phy: 18:20 Dr. Babb Time/Spoke to Consulting Phy: 18:25 Dr. Doyle Impression Primary Impression: Atrial fibrillation with RVR Additional Impressions: Chest pain Qualified Codes: R07.9 - Chest pain, unspecified Hypoxia Pulmonary nodules Disposition: ADMITTED INPATIENT Condition: Improved Admissions Decision to Admit Reason: Admit from ER (General) Decision to Admit/Date: Apr 17, 2022 Time/Decision to Admit Time: 18:20 Departure-Patient Inst. Referrals: ESTHER BABB MD (PCP/Family) Primary Care Physician Copy Copies To 1: KIM TORRES MD FACP FAC CCDS Copies To 2: ESTHER BABB MD, JOSHUA T MD Apr 17, 2022 16:45
[2022-04-17] MEDS ORDERED: IOHEXOL 350 MG/ML 100 ML (OMNIPAQUE 350) VIAL IV ONE (17:15)
[2022-04-17] MEDS ORDERED: NS 100 ML (IVPB) BAG IV ONE (17:15)
--- NOTE | 2022-04-17 17:58 | Diagnostic Imaging Report ---
INDICATION: Chest pain today. Knee surgery 2 days ago. EXAMINATION: CTA of the chest 04/17/2022 FINDINGS: There are no central or proximal segmental pulmonary emboli. The thoracic aorta grossly unremarkable other than atherosclerotic disease. There is no mediastinal or hilar adenopathy. Within the lungs, there is a small 4 mm nodule in the right middle lobe image #79 with a 5 mm nodule in the anterior right middle lobe image #86. The remaining lungs clear. There are no effusions. There is no acute osseous abnormality. Visualized upper abdomen unremarkable for acute abnormality. IMPRESSION: 1. No central or proximal segmental pulmonary emboli 2. Several nodules in the right middle lobe. Follow-up using the Fleischner criteria recommended. Dictated by: Dictated on workstation # [id number]
[2022-04-17] MEDS ORDERED: oxyCODONE/APAP 5/325MG (PERCOCET 5) TABLET PO ONE (18:45)
[2022-04-17] MEDS ORDERED: ONDANSETRON 4 MG/2 ML (SDV) Z0FRAN IVP PRN (20:45)
[2022-04-17] MEDS: fentaNYL INJ 100 MCG/2 ML AMP IVP PRN (21:25)
[2022-04-17] MEDS ORDERED: CATHETER FLUSH 10 ML SYR IVP PRN (21:30)
[2022-04-17] MEDS ORDERED: PATIENT MAY USE OWN MEDS, ALL MC SCH (21:45)
[2022-04-17] MEDS: CATHETER FLUSH 10 ML SYR IVP SCH (22:10)
[2022-04-17] MEDS ORDERED: NS IV 500 ML 500 ML IV PRN (22:30)
--- NOTE | 2022-04-17 22:49 | Tele-ICU Progress Note ---
Subjective Date Seen by a Provider: Apr 17, 2022 Time Seen by a Provider: 09:15 Subjective/Events-last exam (Tele-ICU Physician , consultation) Available chart/ vitals / labs / Images reviewed H&P is from ER notes Patient's information available about PMH, allergy reviewed in EMR. ROS as per chart and RN report Video assessment done using teleICU camera, rest of exam as per RN Discussed with RN. He is a 66-year-old male with past medical history of atrial fibrillation for which he has been on Xarelto and Cardizem apparently had right knee replacement at some other facility and discharged home. He stopped his Xarelto 5 days before the surgery. Today he came to this hospital with a complaint of chest pain and palpitation and found to have atrial fibrillation with rapid ventricular rate. A CT angiogram of the chest was done to rule out any pulmonary embolism and he did not have any pulmonary embolism. He is started on Cardizem drip and admitted to the ICU to cardiology consultation is requested. At this time there is no consultation to telemetry ICU however I have evaluated via video visit per protocol and discussed with the ICU nurse. Impression 1. Atrial fibrillation with rapid ventricular rate. 2. Chest pain probably due to rapid ventricular rate which resolved with con trol of the heart rate 3. Status post right knee replacement Recommendations 1. Continue Cardizem drip 2. Resume anticoagulation when okay with primary care and cardiology. Critical care time spent this evening 15 minutes. Sepsis Event Evaluation Height, Weight, BMI Height: 6'0" Weight: 190lbs. 0.0oz. 86.798412cx; 26.23 BMI Method:Stated Exam Exam Patient acknowledged, consented, and participated in this virtual visit which was conducted using real time audio/video Vital Signs Date Time Temp Pulse Resp B/P (MAP) Pulse Ox O2 Delivery O2 Flow Rate FiO2 04/17/22 21:00 104 14 94 Room Air 04/17/22 20:38 37.1 18 91 Nasal Cannula 5.00 04/17/22 20:37 37.1 91 Nasal Cannula 5.00 04/17/22 20:00 84 94 Room Air 04/17/22 19:57 91 Nasal Cannula 2.00 04/17/22 19:52 94 04/17/22 19:45 84 145/34 (71) Room Air 3/3/23 19:27 76 18 107/82 94 Nasal Cannula 2.00 04/17/22 15:53 95 Nasal Cannula 3.00 04/17/22 15:52 104 18 121/77 (92) 95 Nasal Cannula 3.00 04/17/22 15:50 110 120/79 04/17/22 15:42 149 117/90 04/17/22 15:33 36.4 127 20 128/83 (98) 96 Room Air Height & Weight Height: 6'0" Weight: 190lbs. 0.0oz. 86.216565ou; 26.23 BMI Method:Stated General Appearance: No Apparent Distress, WD/WN HEENT: PERRL/EOMI, Normal ENT Inspection Neck: Normal Inspection; No JVD Respiratory: Lungs Clear, Normal Breath Sounds, No Accessory Muscle Use Cardiovascular: No Edema, No Murmur, Irregularly Irregular, Tachycardia Capillary Refill: Less Than 3 Seconds Extremity: No Pedal Edema, Other (Erythema and swelling to the right knee consistent with postop day #2. Incision clean, dry, and intact. No significant edema of the feet or ankles. Compression stockings in place.) Neurologic/Psychiatric: Alert, Oriented x3, No Motor/Sensory Deficits, Normal Mood/Affect Skin: Normal Color, Warm/Dry, Erythema (Right knee operative site) Other comments PE PER RN Results Lab Laboratory Tests 04/17/22 15:30 Assessment/Plan Assessment/Plan as above Critical Care: Critically Ill Patient Time spent with patient (mins): 15 ANA GONZALEZ MD Apr 17, 2022 22:49
[2022-04-17] MEDS ORDERED: dilTIAZem DRIP PRE-MIX 125 ML IV ONE (23:34)
[2022-04-18] MEDS: dilTIAZem DRIP PRE-MIX 125 ML IV SCH (01:15)
[2022-04-18 04:41] LABS: BASOPHILS % (AUTO) 1 % (0-10); EOSINOPHILS # (AUTO) 0.2 10^3/uL (0.0-0.3); EOSINOPHILS % (AUTO) 2 % (0-10); HEMATOCRIT 36 % (40-54); HEMOGLOBIN 11.9 g/dL (13.3-17.7); LYMPHOCYTES % (AUTO) 13 % (12-44); MEAN CORPUSCULAR HEMOGLOBIN 30 pg (25-34); MEAN CORPUSCULAR HGB CONC 33 g/dL (32-36); MEAN CORPUSCULAR VOLUME 91 fL (80-99); MEAN PLATELET VOLUME 9.4 fL (9.0-12.2); MONOCYTES # (AUTO) 1.3 10^3/uL (0.0-1.0); MONOCYTES % (AUTO) 16 % (0-12); NEUTROPHILS # (AUTO) 5.3 10^3/uL (1.8-7.8); NEUTROPHILS % (AUTO) 68 % (42-75); PLATELET COUNT 182 10^3/uL (130-400); WHITE BLOOD COUNT 7.8 10^3/uL (4.3-11.0)
[2022-04-18 05:02] LABS: BILIRUBIN,TOTAL 0.6 MG/DL (0.1-1.0); CALCIUM 8.7 MG/DL (8.5-10.1); CREATININE SERUM 0.86 MG/DL (0.60-1.30); MAGNESIUM 1.8 MG/DL (1.6-2.4); PHOSPHORUS 3.4 MG/DL (2.3-4.7); POTASSIUM 4.1 MMOL/L (3.6-5.0); TOTAL PROTEIN 5.4 GM/DL (6.4-8.2)
[2022-04-18] MEDS: KCL 20 MEQ TAB (K-DUR) PO SCH (05:08)
[2022-04-18] MEDS: POTASSIUM CL 10MEQ/50ML IVPB 50 ML IV SCH (05:08)
[2022-04-18] MEDS: MAGNESIUM 1 GM/100 ML IVPB 100 ML IV SCH ×3 (05:09→06:16)
[2022-04-18] MEDS: fentaNYL INJ 100 MCG/2 ML AMP IVP PRN (05:20)
[2022-04-18] MEDS: CATHETER FLUSH 10 ML SYR IVP SCH ×3 (05:47→20:05)
[2022-04-18] MEDS ORDERED: FLU QUAD HIGH DOSE 240 MCG/0.7 ML 2022-23 (FLUZONE) IM ONE (06:45)
[2022-04-18] MEDS ORDERED: METHOCARBAMOL 500 MG (ROBAXIN) TABLET PO PRN (07:00)
[2022-04-18] MEDS ORDERED: DILT240C91 PO (08:08)
[2022-04-18] MEDS ORDERED: RIVA20TA PO (08:09)
[2022-04-18] MEDS ORDERED: MTP25TSR PO (08:10)
[2022-04-18] MEDS ORDERED: OXC5T PO (08:11)
[2022-04-18] MEDS ORDERED: CELE-63 PO (08:12)
[2022-04-18] MEDS ORDERED: METH-731 PO (08:12)
--- NOTE | 2022-04-18 09:11 | Consultation-Cardiology ---
HPI-Cardiology Cardiology Consultation Date of Consultation 04/18/22 Date of Admission Time Seen by Provider: 09:05 Indication: Atrial fibrillation HPI 66-year-old gentleman with a history of atrial flutter. Had flutter ablation done in 2019. Has been doing well underwent right knee surgery earlier this week. He held his Eliquis for the surgery and restarted postoperatively. About 3 days ago started to notice palpitation with rapid heart rate. He came into the emergency room yesterday and noted to be in atrial fibrillation with rapid ventricular response. He denies any chest pain, having mild dyspnea, he was noted to be hypoxemic. Required 6 L nasal cannula. Had mild chest pain with the tachycardia improved after improving his heart rate Home Medications & Allergies Allergies: Coded Allergies: No Known Drug Allergies (Unverified , 11/13/11) Home Medication List Reviewed: Yes SHI-Atgvvw-Zpozwa Hx Patient Social History Smoking Status: Never a Smoker 2nd Hand Smoke Exposure: No Recent Hopitalizations: No Have you traveled recently?: No Alcohol Use?: Yes Immunizations Up To Date Tetanus Booster (TDap): Unknown Past Medical History Discussed below Family Medical History Significant Family History: Heart Disease, Diabetes, Hypertension Family History: Arthritis 19 FATHER Hypercholesterolemia 19 FATHER Hypertension 19 FATHER Myocardial infarction 19 FATHER Thyroid disease Daughter Review of Systems-General Review of Systems Constitutional: no symptoms reported, see HPI, weakness EENTM: see HPI, no symptoms reported Respiratory: see HPI Cardiovascular: see HPI; No chest pain, No edema, No Hx of Intervention, No palpitations, No syncope, No vascular heart diseas, No other Gastrointestinal: no symptoms reported, see HPI Genitourinary: no symptoms reported, see HPI Musculoskeletal: see HPI Skin: no symptoms reported, see HPI Psychiatric/Neurological: No Symptoms Reported Reviewed Test Results Reviewed Test Results Lab Laboratory Tests Test 04/17/22 15:30 04/18/22 03:20 Range/Units White Blood Count 9.1 7.8 4.3-11.0 10^3/uL Red Blood Count 4.54 3.95 L 4.30-5.52 10^6/uL Hemoglobin 13.7 11.9 L 13.3-17.7 g/dL Hematocrit 41 36 L 40-54 % Mean Corpuscular Volume 91 91 80-99 fL Mean Corpuscular Hemoglobin 30 30 25-34 pg Mean Corpuscular Hemoglobin Concent 33 33 32-36 g/dL Red Cell Distribution Width 13.2 13.2 10.0-14.5 % Platelet Count 219 182 130-400 10^3/uL Mean Platelet Volume 8.8 L 9.4 9.0-12.2 fL Immature Granulocyte % (Auto) 0 0 % Neutrophils (%) (Auto) 68 68 42-75 % Lymphocytes (%) (Auto) 13 13 12-44 % Monocytes (%) (Auto) 17 H 16 H 0-12 % Eosinophils (%) (Auto) 2 2 0-10 % Basophils (%) (Auto) 0 1 0-10 % Neutrophils # (Auto) 6.2 5.3 1.8-7.8 10^3/uL Lymphocytes # (Auto) 1.2 1.0 1.0-4.0 10^3/uL Monocytes # (Auto) 1.6 H 1.3 H 0.0-1.0 10^3/uL Eosinophils # (Auto) 0.2 0.2 0.0-0.3 10^3/uL Basophils # (Auto) 0.0 0.0 0.0-0.1 10^3/uL Immature Granulocyte # (Auto) 0.0 0.0 0.0-0.1 10^3/uL Prothrombin Time 17.1 H 12.2-14.7 SEC INR Comment 1.3 0.8-1.4 Activated Partial Thromboplast Time 42 H 24-35 SEC Sodium Level 138 138 135-145 MMOL/L Potassium Level 3.9 4.1 3.6-5.0 MMOL/L Chloride Level 105 107 98-107 MMOL/L Carbon Dioxide Level 22 23 21-32 MMOL/L Anion Gap 11 8 5-14 MMOL/L Blood Urea Nitrogen 15 14 7-18 MG/DL Creatinine 1.02 0.86 0.60-1.30 MG/DL Estimat Glomerular Filtration Rate 82 96 BUN/Creatinine Ratio 15 16 Glucose Level 128 H 100 70-105 MG/DL Calcium Level 9.1 8.7 8.5-10.1 MG/DL Corrected Calcium 9.3 9.5 8.5-10.1 MG/DL Magnesium Level 2.0 1.8 1.6-2.4 MG/DL Total Bilirubin 0.6 0.6 0.1-1.0 MG/DL Aspartate Amino Transf (AST/SGOT) 20 20 5-34 U/L Alanine Aminotransferase (ALT/SGPT) 17 15 0-55 U/L Alkaline Phosphatase 81 65 40-136 U/L Myoglobin 129.4 H 10.0-92.0 NG/ML Troponin I < 0.028 0.035 H <0.028 NG/ML Total Protein 6.2 L 5.4 L 6.4-8.2 GM/DL Albumin 3.7 3.0 L 3.2-4.5 GM/DL Phosphorus Level 3.4 2.3-4.7 MG/DL Triglycerides Level 55 <150 MG/DL Cholesterol Level 111 < 200 MG/DL LDL Cholesterol Direct 46 1-129 MG/DL VLDL Cholesterol 11 5-40 MG/DL HDL Cholesterol 42 40-60 MG/DL Physical Exam Physical Exam Vital Signs Vital Signs - First Documented 04/17/22 04/17/22 15:33 15:52 Temp 36.4 Pulse 127 Resp 20 B/P (MAP) 128/83 (98) Pulse Ox 96 O2 Delivery Room Air O2 Flow Rate 3.00 Capillary Refill : Less Than 3 Seconds Height, Weight, BMI Height: 6'0" Weight: 190lbs. 0.0oz. 86.095403yt; 26.73 BMI Method:Stated General Appearance: No Apparent Distress, WD/WN HEENT: PERRL/EOMI, Normal ENT Inspection Neck: Normal Inspection; No JVD Respiratory: Lungs Clear, Normal Breath Sounds, No Accessory Muscle Use Cardiovascular: No Edema, No Murmur, Irregularly Irregular, Tachycardia Gastrointestinal: Non Tender, Soft Extremity: No Pedal Edema, Other (Erythema and swelling to the right knee consistent with postop day #2. Incision clean, dry, and intact. No significant edema of the feet or ankles. Compression stockings in place.) Neurologic/Psychiatric: Alert, Oriented x3, No Motor/Sensory Deficits, Normal Mood/Affect Skin: Normal Color, Warm/Dry, Erythema (Right knee operative site) A/P-Cardiology Admission Diagnosis Atrial fibrillation Tachycardia Type II myocardial infarction Hypertension Assessment/Plan Atrial fibrillation with rapid ventricular response History of paroxysmal atrial flutter, underwent atrial flutter ablation by Dr. Humphries in 2019 Currently on Cardizem drip, I will switch him to oral Cardizem and monitor heart rate response Hypoxemia, unknown etiology, no significant pulmonary edema I will give him 1 dose of Lasix and evaluate response CHADVASC score 2, maintained on Xarelto. He has stopped it for his knee replacement surgery and restarted the medication postoperatively Chest pain nonspecific etiology, probably secondary to tachycardia Minimal troponin elevation type II DE secondary to tachycardia Stress test done by Dr. Cedillo in January 2022 with no significant ischemia or infarction Hypertension, monitor blood pressure response to Cardizem Status post right knee replacement done by Dr. Vargas earlier this week RENE DOLAN MD Apr 18, 2022 09:11
[2022-04-18] MEDS ORDERED: FUROSEMIDE 40 MG/4 ML INJ (LASIX) IVP ONE (09:15)
[2022-04-18] MEDS ORDERED: APIXABAN 5 MG (ELIQUIS) TABLET PO SCH (09:15)
--- NOTE | 2022-04-18 09:51 | History & Physicial ---
History of Present Illness History of Present Illness Reason for visit/HPI Pt is a 66 y/o male who is known to me from clinic. Rob had a right total knee replacement on 04/15/22 at [facility]. The patient reports that he had some chest pain while in the hospital, some shortness of breath as well, I am uncertain if he reported this to the providers. He reports that the pain had improved, then when he was home on wednesday the chest pain returned and he even tually was brought to the hospital by his spouse. He reports that he has continued to have some chest pain - worse when he has p alpitations. He also reports a strange sensation at times of choking on his tongue. He has had a few episodes like this usually when he is waking up at night. Date of Admission Apr 17, 2022 at 19:33 Date Seen by a Provider: Apr 18, 2022 Time Seen by a Provider: 09:35 Attending Physician Esther Babb MD Admitting Physician Admitting Physician: Esther Babb MD Attending Physician: Esther Babb MD Consult Dr. Doyle Allergies and Home Medications Allergies Coded Allergies: No Known Drug Allergies (Unverified , 11/13/11) Patient Home Medication List Home Medication List Reviewed: Yes Celecoxib (Celecoxib) 200 Mg Capsule, 200 MG PO BID, (Reported) Entered as Reported by: KARINA CASTAÑEDA on 04/18/22811 Last Action: Held Diltiazem HCl (Diltiazem 24Hr ER) 240 Mg Cap.er.24h, 240 MG PO HS, (Reported) Entered as Reported by: KARINA CASTAÑEDA on 04/18/22807 Last Action: Reviewed Fluticasone/Vilanterol (Breo Ellipta 100-25 Mcg INH) 1 Each Blst.w.dev, 1 EACH IH DAILY, (Reported) Entered as Reported by: ANDRE MOONEY on 08/15/18 0958 Last Action: Continued Methocarbamol (Methocarbamol) 500 Mg Tablet, 600 MG PO Q6-8HR, (Reported) Entered as Reported by: KARINA CASTAÑEDA on 04/18/22811 Last Action: Held Metoprolol Succinate (Metoprolol Succinate) 25 Mg Tab.er.24h, 25 MG PO DAILY, (Reported) Entered as Reported by: KARINA CASTAÑEDA on 04/18/22 0810 Last Action: Reviewed Oxycodone Hcl (Oxyir Tablet) 5 Mg Tab, 5 MG PO NEEDED, (Reported) Entered as Reported by: KARINA CASTAÑEDA on 04/18/22 0811 Last Action: Continued Rivaroxaban (Xarelto) 20 Mg Tablet, 20 MG PO DAILY, (Reported) Entered as Reported by: KARINA CASTAÑEDA on 04/18/22 0809 Last Action: Reviewed Simvastatin (Simvastatin) 10 Mg Tablet, 10 MG PO HS, (Reported) Entered as Reported by: DORON HALL on 01/16/16 1154 Last Action: Converted Discontinued Medications Acetaminophen (Acetaminophen) 500 Mg Tablet, 1,000 MG PO BID PRN for PAIN, (Reported) Discontinued Reason: No Longer Taking Entered as Reported by: DORON HALL on 01/16/16 1156 Last Action: Discontinued Apixaban (Eliquis) 5 Mg Tablet, 5 MG PO BID Discontinued Reason: No Longer Taking Prescribed by: ESTHER BABB on 01/17/16 1423 Last Action: Discontinued Cephalexin (Cephalexin) 500 Mg Tablet, 500 MG PO TID Discontinued Reason: No Longer Taking Prescribed by: ESTHER BABB on 01/12/22 1344 Last Action: Discontinued Diltiazem HCl (Diltiazem 12Hr ER) 60 Mg Cap.er.12h, 60 MG PO BID Discontinued Reason: No Longer Taking Prescribed by: ADRIANNA ESPINOZA on 08/16/18 1059 Last Action: Discontinued Fluconazole (Diflucan) 100 Mg Tablet, 100 MG PO DAILY Discontinued Reason: No Longer Taking Prescribed by: ESTHER BABB on 01/12/22 1344 Last Action: Discontinued Hydrocodone/Acetaminophen (Hydrocodone-Acetamin 5-325 mg) 5 Mg-325 Mg Tablet, 1 TAB PO Q6H PRN for PAIN-MODERATE (5-7) Discontinued Reason: No Longer Taking Prescribed by: GALE BOOKER on 03/10/22 1939 Last Action: Discontinued Lisinopril (Lisinopril) 20 Mg Tablet, 20 MG PO DAILY, (Reported) Discontinued Reason: No Longer Taking Entered as Reported by: ANDRE MOONEY on 08/15/18 0958 Last Action: Discontinued Oseltamivir Phosphate (Tamiflu) 75 Mg Cap, 75 MG PO BID Discontinued Reason: No Longer Taking Prescribed by: ESTHER BABB on 01/12/221343 Last Action: Discontinued [Albuterol Inhaler] 8.5 GM HFA.AER.AD, 0 GM IH RTQ2H PRN for SOA Discontinued Reason: No Longer Taking Prescribed by: ESTHER BABB on 01/12/221343 Last Action: Discontinued Past Ukxkyvd-Tdgtta-Sqcniw Hx Patient Social History Marrital Status: Living Status: lives at home with spouse, 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 Alcohol Beverage of Choice: Beer Smoking Status: Never a Smoker 2nd Hand Smoke Exposure: No Recent Hopitalizations: No Have you traveled recently?: No Alcohol Use?: Yes Pt feels they are or have been: No Immunizations Up To Date Tetanus Booster (TDap): Unknown Pediatric: Yes Seasonal Allergies Seasonal Allergies: Yes Surgeries Yes (HERNIA, KNEE SCOPE, Left Total Knee ) Abdominal, Cardiac (Ablation), Joint Replacement, Orthopedic Respiratory Yes (ASTHMA) Currently Using CPAP: No Currently Using BIPAP: No Cardiovascular Yes Atrial Fibrillation (Paroxysmal), High Cholesterol, Hypertension Neurological No Reproductive System Hx Reproductive Disorders: No Sexually Transmitted Disease: No HIV/AIDS: No Gastrointestinal No Musculoskeletal Yes (left knee surgery) Arthritis Endocrine History of Endocrine Disorders: No HEENT History of HEENT Disorders: No Loss of Vision: Denies Hearing Impairment: Denies Cancer No Psychosocial History of Psychiatric Problem: No Integumentary History of Skin or Integumenta: No Blood Transfusions History of Blood Disorders: No Adverse Reaction to a Blood Tr: No Reviewed Nursing Assessment Reviewed/Agree w Nursing PMH: Yes Family Medical History Significant Family History: Heart Disease, Diabetes, Hypertension Family Hx: Arthritis 19 FATHER Hypercholesterolemia 19 FATHER Hypertension 19 FATHER Myocardial infarction 19 FATHER Thyroid disease Daughter Review of Systems Constitutional: No chills, No fever, No malaise, No weakness EENTM: No hoarseness, No throat pain Respiratory: No cough, No dyspnea on exertion, No short of breath; other (clears throat frequently) Cardiovascular: chest pain, palpitations Gastrointestinal: No abdominal pain, No constipation, No diarrhea Genitourinary: no symptoms reported Musculoskeletal: no symptoms reported Skin: other (surgical site right knee anteriorly) Psychiatric/Neurological: No Symptoms Reported All Other Systems Reviewed Negative Unless Noted: Yes Physical Exam Vital Signs Vital Signs - First Documented 04/17/22 04/17/22 15:33 15:52 Temp 36.4 Pulse 127 Resp 20 B/P (MAP) 128/83 (98) Pulse Ox 96 O2 Delivery Room Air O2 Flow Rate 3.00 Capillary Refill : Less Than 3 Seconds Height, Weight, BMI Height: 6'0" Weight: 190lbs. 0.0oz. 86.144013so; 26.73 BMI Method:Stated General Appearance: No Apparent Distress, WD/WN HEENT: PERRL/EOMI, Normal ENT Inspection, Pharynx Normal Neck: Full Range of Motion, Normal Inspection, Non Tender, Supple Respiratory: Chest Non Tender, Lungs Clear, Normal Breath Sounds, No Accessory Muscle Use, No Respiratory Distress Cardiovascular: Irregularly Irregular Gastrointestinal: Normal Bowel Sounds, Non Tender, Soft Rectal: Deferred Extremity: Normal Capillary Refill, Non Tender, No Calf Tenderness, No Pedal Edema, Other (surgical site on anterior right knee/leg) Neurologic/Psychiatric: Alert, Oriented x3, No Motor/Sensory Deficits, Normal Mood/Affect Skin: Normal Color, Warm/Dry, Other (surgical site c/d/i) Assessment/Plan Assessment and Plan Chest pain Hypoxia Atrial fibrillation Anemia Elevated troponin Chronic Hypertension Apnea symptoms Type II Myocardial infarction Post op right total knee replacement Chest pain with Elevated troponin and Type II Myocardial infarction due to Hypoxia - discussed with Dr. Doyle- he is following pt closely - will repeat troponin this afternoon. - monitor symptoms. - supportive care with oxygen Atrial fibrillation - on cardizem, eliquis - pt on telemetry Anemia - post-op/hydration- monitor labs - hgb not low enough to be causing his hypoxemia Chronic Hypertension - pt on toprol and cardizem, pressures stable. Apnea symptoms - asked epiworth sleepiness scale questions - with his symptoms, choking episodes at night, and hypoxemia and afib, will order an outpatient repeat sleep study. Post op right total knee replacement - consult to physical therapy - restart polar pack and continuous motion device as would per post- knee replacement protocol. - ambulate in halls with therapy. dvt prophylaxis with compression socks and noac gi prophylaxis with ppi Admission Diagnosis Chest pain Hypoxia Atrial fibrillation Anemia Elevated troponin Chronic Hypertension Apnea symptoms Type II Myocardial infarction Post op right total knee replacement Admission Status: Inpatient Order (span 2 midnights) Reason for Inpatient Admission: inpatient admission due to hypoxia, afib, chest pain - anticipate another 2 days in hospital ESTHER BABB MD Apr 18, 2022 09:51
[2022-04-18] MEDS ORDERED: FLUTICASONE/VILANTEROL 100 MCG 14'S (BREO) IH SCH (11:15)
[2022-04-18] MEDS ORDERED: PANTOPRAZOLE 40 MG (PROTONIX) TAB PO ONE (11:30)
[2022-04-18] MEDS ORDERED: PATIENT MAY USE OWN MEDS, ALL MC SCH (11:45)
--- NOTE | 2022-04-18 12:35 | Physical Therapy Evaluation ---
PT Evaluation-General Medical Diagnosis Admission Date Apr 18, 2022 at 11:16 Medical Diagnosis: Atrial fibrillation, RVR, hypoxia Onset Date: Apr 18, 2022 Therapy Diagnosis Therapy Diagnosis: impaired mobility Height/Weight Height (Feet): 6 Height (Inches): 0 Weight (Pounds): 190 Weight (Ounces): 0.0 Precautions Precautions/Isolations: Fall Prevention, Standard Precautions Referral Physician: Michelle Babb MD Reason for Referral: Evaluation/Treatment Medical History Pertinent Medical History: Atrial Fib, HTN Additional Medical History a-fib, (B) TKA (with (R) TKA on 04-15-22), hypercholesterolemia Current History Admit via ED due to a-fib and hypoxia. Reviewed History: Yes Social History Home: Single Level Current Living Status: Significant Other Entry Into Home: Stairs With Railing PT Steps Into Home: 2 Prior Prior Level of Function SCALE: Activities may be completed with or without assistive devices. 2-Trvrqxcvxx-mtypcgc completes the activity by him/herself with no assistance from a helper. 5-Set-up or Clean-up Assistance-helper sets up or cleans up; patient completes activity. [place] assists only prior to or following the activity. 4-Supervision or Touching Assistance-helper provides verbal cues and/or touchi ng/steadying and/or contact guard assistance as patient completes activity. Assistance may be provided throughout the activity or intermittently. 3-Partial/Moderate Assistance-helper does LESS THAN HALF the effort. [place] lifts, holds or supports trunk or limbs, but provides less than half the effort. 2-Substantial/Maximal Assistance-helper does MORE THAN HALF the effort. [place] lifts or holds trunk or limbs and provides more than half the effort. 4-Seqyqzzzx-wnmzhn does ALL the effort. Patient does none of the effort to complete the activity. Or, the assistance of 2 or more helpers is required for the patient to complete the activity. If activity was not attempted, code reason: 7-Patient Refused. 9-Not Applicable-not attempted and the patient did not perform the activity before the current illness, exacerbation or injury. 10-Not Attempted due to Environmental Limitations-(lack of equipment, weather restraints, etc.). 88-Not Attempted due to Medical Conditions or Safety Concerns. Bed Mobility: 6 Transfers (B,C,W/C): 6 Gait: 6 Indoor Mobility (Ambulation): Independent Stairs: Independent Prior Devices Use: None Prior to the TKA, pt was (I) with all activities. Since the TKA, he has been using a walker. PT Evaluation-Current Subjective (R) knee pain with movement. Minimal pain at rest. Pain Numeric Pain Scale: 4 Location: Right Location Body Site: Knee Pain Description: Stabbing Pt/Family Goals Return home Objective Patient Orientation: Person, Place, Time, Situation Attachments: Oxygen, IV ROM/Strength ROM Upper Extremities WFL ROM Lower Extremities (L) knee ROM is normal. (R) knee PROM flexion to ~45 degrees, AROM to 30 degrees. Strength Upper Extremities WFL Strength Lower Extremities Pt is able to perform supine (R) LE exercises without assistance. Integumentary/Posture Bowel Incontinence: No Bladder Incontinence: No Neuromuscular (Tone, Coordination, Reflexes) Intact Sensory Vision: Functional Hearing: Functional Hand Dominance: Right Sensation Right Upper Extremit: Intact Sensation Left Upper Extremity: Intact Sensation Right Lower Extremit: Intact Sensation Left Lower Extremity: Intact Transfers Roll Left to Right (QC): 6 Sit to Lying (QC): 6 Lying to Sitting/Side of Bed(Q: 4 Sit to Stand (QC): 4 Gait Does the Patient Walk?: Yes Mode of Locomotion: Walk Anticipated Mode of Locomotion: Walk Distance: 6ft Gait Assistive Device: FWW Wheelchair Training Does the Pt Use a Wheelchair?: No Balance Sitting Static: Good Sitting Dynamic: Good Standing Static: Good Standing Dynamic: Good Assessment/Needs Pt had been performing home exercises s/p TKA. He was scheduled for outpatient PT. Rehab Potential: Good PT Habilitative Interventionist Goals Habilitative Interventionist Goals PT Longterm Goals Time Frame: Apr 25, 2022 Roll Left & Right (QC): 6 Sit to Lying (QC): 6 Lying-Sitting on Side/Bed(QC): 6 Sit to Stand (QC): 6 Chair/Sxy-yf-Swhds Xfer(QC): 6 Toilet Transfer (QC): 6 Car Transfer (QC): 6 Does the Patient Walk: Yes Walk 10 feet (QC): 6 Walk 50ft with 2 Turns (QC): 6 Walk 150 ft (QC): 6 Walking 10ft on Uneven Surface: 6 1 Step (curb) (QC): 6 PT Plan Problem List Problem List: Functional Strength, Gait, ROM Treatment/Plan Treatment Plan: Continue Plan of Care Treatment Duration: Apr 25, 2022 Frequency: 6 times per week Estimated Hrs Per Day: .25 hour per day Patient and/or Family Agrees t: Yes Time Time In: 1150 Time Out: 1220 DATE: Apr 18, 2022 Total Billed Treatment Time: 30 Total Billed Treatment 1, [facility] 30 MARY JANE REEDER PT Apr 18, 2022 12:35
[2022-04-18] MEDS: METHOCARBAMOL 500 MG (ROBAXIN) TABLET PO PRN (14:38)
[2022-04-18] MEDS ORDERED: LORazepam INJ 2 MG/ML (ATIVAN) VIAL IVP ONE (16:00)
[2022-04-18] MEDS ORDERED: RIVAROXABAN 20 MG TABLET (XARELTO) PO SCH ×2 (17:00)
[2022-04-18] MEDS: RT--FLUTICASONE/SALMETEROL 113-14 (AIRDUO RespiCLICK) IH SCH (20:49)
[2022-04-18] MEDS ORDERED: AtorvaSTATin TABLET 10 MG TABLET PO SCH (21:00)
[2022-04-19] MEDS: dilTIAZem DRIP PRE-MIX 125 ML IV SCH (01:20)
[2022-04-19 04:03] LABS: BASOPHILS % (AUTO) 0 % (0-10); EOSINOPHILS # (AUTO) 0.2 10^3/uL (0.0-0.3); EOSINOPHILS % (AUTO) 2 % (0-10); HEMATOCRIT 37 % (40-54); HEMOGLOBIN 12.4 g/dL (13.3-17.7); LYMPHOCYTES # (AUTO) 1.2 10^3/uL (1.0-4.0); LYMPHOCYTES % (AUTO) 14 % (12-44); MEAN CORPUSCULAR HEMOGLOBIN 30 pg (25-34); MEAN CORPUSCULAR HGB CONC 33 g/dL (32-36); MEAN CORPUSCULAR VOLUME 89 fL (80-99); MEAN PLATELET VOLUME 8.8 fL (9.0-12.2); MONOCYTES # (AUTO) 1.1 10^3/uL (0.0-1.0); MONOCYTES % (AUTO) 13 % (0-12); NEUTROPHILS # (AUTO) 6.2 10^3/uL (1.8-7.8); NEUTROPHILS % (AUTO) 71 % (42-75); PLATELET COUNT 224 10^3/uL (130-400); WHITE BLOOD COUNT 8.8 10^3/uL (4.3-11.0)
[2022-04-19 04:09] LABS: ALBUMIN 3.1 GM/DL (3.2-4.5)
[2022-04-19 04:10] LABS: POTASSIUM 4.2 MMOL/L (3.6-5.0)
[2022-04-19 04:11] LABS: CALCIUM 8.4 MG/DL (8.5-10.1)
[2022-04-19 04:12] LABS: TOTAL PROTEIN 5.8 GM/DL (6.4-8.2)
[2022-04-19 04:14] LABS: BILIRUBIN,TOTAL 0.7 MG/DL (0.1-1.0)
[2022-04-19 04:15] LABS: PHOSPHORUS 3.2 MG/DL (2.3-4.7)
[2022-04-19 04:16] LABS: CREATININE SERUM 0.88 MG/DL (0.60-1.30)
[2022-04-19 04:18] LABS: MAGNESIUM 2.1 MG/DL (1.6-2.4)
[2022-04-19] MEDS: CATHETER FLUSH 10 ML SYR IVP SCH (04:38)
[2022-04-19] MEDS: MAGNESIUM 1 GM/100 ML IVPB 100 ML IV SCH (04:38)
[2022-04-19] MEDS: POTASSIUM CL 10MEQ/50ML IVPB 50 ML IV SCH (04:38)
[2022-04-19] MEDS: KCL 20 MEQ TAB (K-DUR) PO SCH (04:38)
[2022-04-19] MEDS: METHOCARBAMOL 500 MG (ROBAXIN) TABLET PO PRN (08:08)
[2022-04-19] MEDS: RT--FLUTICASONE/SALMETEROL 113-14 (AIRDUO RespiCLICK) IH SCH (08:46)
[2022-04-19] MEDS ORDERED: PANTOPRAZOLE 40 MG (PROTONIX) TAB PO SCH (09:00)
--- NOTE | 2022-04-19 09:29 | Cardiology Progress Note ---
Subjective Date Seen by Provider: Apr 19, 2022 Time Seen by Provider: 09:27 Subjective/Events-last exam Patient was seen at bedside, walking with a walker, feeling better. No new complaint Objective-Cardiology Exam Last Set of Vital Signs Vital Signs 04/19/22 04/19/22 04:37 09:00 Temp 36.9 Pulse 91 Resp 13 B/P (MAP) 99/84 (89) Pulse Ox 95 O2 Delivery Nasal Cannula O2 Flow Rate 4.00 I&O Intake and Output 04/19/22 00:00 Intake Total 2770 ml Output Total 1325 ml Balance 1445 ml Intake Oral 2420 ml IV Total 350 ml Output Urine Total 1325 ml # Voids 5 General: Alert, Oriented X3, Cooperative HEENT: Atraumatic, PERRLA Neck: Supple, No JVD, No Thyromegaly Lungs: Clear to Auscultation, Normal Air Movement Heart: Normal S1, Normal S2, No Murmurs, Other (Irregular) Abdomen: Normal Bowel Sounds, Soft, No Tenderness, No Hepatosplenomegaly, No Masses Extremities: No Clubbing, No Cyanosis, No Edema, Normal Pulses, No Tenderness/Swelling Skin: No Rashes, No Breakdown, No Significant Lesion Neuro: Normal Gait, Normal Speech, Strength at 5/5 X4 Ext, Normal Tone, Sensation Intact Psych/Mental Status: Mental Status NL, Mood NL Results Lab Laboratory Tests 04/19/22 03:52 A/P-Cardiology Admission Diagnosis Atrial fibrillation Tachycardia Type II myocardial infarction Hypertension Assessment/Plan Atrial fibrillation with rapid ventricular response History of paroxysmal atrial flutter, underwent atrial flutter ablation by Dr. Humphries in 2019 Tolerating oral Cardizem well. Okay for discharge and follow-up as an outpatient with Dr. Cedillo Hypoxemia, unknown etiology, no significant pulmonary edema Better today, using oxygen CHADVASC score 2, maintained on Xarelto. He has stopped it for his knee replacement surgery and restarted the medication postoperatively Chest pain nonspecific etiology, probably secondary to tachycardia, repeat troponin was normal Stress test done by Dr. Torres in January 2022 with no significant ischemia or infarction Hypertension, monitor blood pressure response to Cardizem Status post right knee replacement done by Dr. Vargas earlier this week RENE DOLAN MD Apr 19, 2022 09:29
--- NOTE | 2022-04-19 09:45 | Physical Therapy Daily Note ---
PT Daily Note-Current Subjective Pt is in bed on arrival. Agreeable to treatment. Pain Numeric Pain Scale: 5-Moderate Pain Location: Right Location Body Site: Knee Pain Description: Ache, Pressure Section J - Health Conditions 1. Rarely or not at all 2. Occasionally 3. Frequently 4. Almost constantly 8. Unable to answer Pain Effect on Sleep: 2 Pain Interference with Therapy: 3 Pain Interference w/Day-to-Day: 3 Mental Status Patient Orientation: Person, Place, Time, Situation Transfers SCALE: Activities may be completed with or without assistive devices. 1-Ziiizfhtsy-srslcjr completes the activity by him/herself with no assistance from a helper. 5-Set-up or Clean-up Assistance-helper sets up or cleans up; patient completes a ctivity. [place] assists only prior to or following the activity. 4-Supervision or Touching Assistance-helper provides verbal cues and/or touching/steadying and/or contact guard assistance as patient completes activity. Assistance may be provided throughout the activity or intermittently. 3-Partial/Moderate Assistance-helper does LESS THAN HALF the effort. [place] lifts, holds or supports trunk or limbs, but provides less than half the effort. 2-Substantial/Maximal Assistance-helper does MORE THAN HALF the effort. [place] lifts or holds trunk or limbs and provides more than half the effort. 9-Tffrkcgpu-wwzycl does ALL the effort. Patient does none of the effort to complete the activity. Or, the assistance of 2 or more helpers is required for the patient to complete the activity. If activity was not attempted, code reason: 7-Patient Refused. 9-Not Applicable-not attempted and the patient did not perform the activity before the current illness, exacerbation or injury. 10-Not Attempted due to Environmental Limitations-(lack of equipment, weather restraints, etc.). 88-Not Attempted due to Medical Conditions or Safety Concerns. Roll Left & Right (QC): 6 Sit to Lying (QC): 4 Lying to Sitting/Side of Bed(Q: 4 Sit to Stand (QC): 5 Chair/Msl-yv-Ncqhz Xfer(QC): 5 Weight Bearing Right Lower Extremity: Right Weight Bearing/Tolerated Left Lower Extremity: Left Full Weight Bearing Gait Training Does the Patient Walk?: Yes Distance: 130ft Walk 10 feet (QC): 6 Walk 50 ft with 2 Turns(QC): 6 Gait Persons Needed: 1 Gait Assistive Device: FWW Wheelchair Training Does the Pt Use a Wheelchair?: No Exercises Supine Ex: LE Protocol Supine Reps: 15 (R) knee PROM flexion to ~70 degrees. Assessment Current Status: Good Progress Pt has irritation and redness under the distal end of the knee dressing. Dr. Babb observed the issue and recommended the pt contact the ortho office for immediate follow up. Pt is safe with gait and transfers. (I) with supine exercises with good form. 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 Time Frame: Apr 25, 2022 Roll Left & Right (QC): 6 Sit to Lying (QC): 6 Lying-Sitting on Side/Bed(QC): 6 Sit to Stand (QC): 6 Chair/Idj-ts-Ymqay Xfer(QC): 6 Toilet Transfer (QC): 6 Car Transfer (QC): 6 Does the Patient Walk: Yes Walk 10 feet (QC): 6 Walk 50ft with 2 Turns (QC): 6 Walk 150 ft (QC): 6 Walking 10ft on Uneven Surface: 6 1 Step (curb) (QC): 6 PT Plan Treatment/Plan Treatment Plan: Continue Plan of Care Treatment Duration: Apr 25, 2022 Frequency: 6 times per week Estimated Hrs Per Day: .25 hour per day Patient and/or Family Agrees t: Yes Time Time In: 904 Time Out: 934 DATE: Apr 19, 2022 Total Billed Treatment Time: 30 Total Billed Treatment 1, ex 15, gt 15 MARY JANE REEDER PT Apr 19, 2022 09:45
--- NOTE | 2022-04-19 10:03 | Discharge Summary ---
Diagnosis/Chief Complaint Date of Admission Apr 18, 2022 at 11:16 Date of Discharge Discharge Date: Apr 19, 2022 Discharge Time: 10:00 Admission Diagnosis Admission Diagnosis Chest pain Hypoxia Atrial fibrillation Anemia Elevated troponin Chronic Hypertension Apnea symptoms Type II Myocardial infarction Post op right total knee replacement Discharge Diagnosis Chest pain Hypoxia Atrial fibrillation Anemia Elevated troponin Chronic Hypertension Apnea symptoms Type II Myocardial infarction Post op right total knee replacement Reason Hospital Visit Pt is a 66 y/o male who is known to me from clinic. Rob had a right total knee replacement on 04/15/22 at [facility]. The patient reports that he had some chest pain while in the hospital, some shortness of breath as well, I am uncertain if he reported this to the providers. He reports that the pain had improved, then when he was home on wednesday the chest pain returned and he eventually was brought to the hospital by his spouse. He reports that he has continued to have some chest pain - worse when he has palpitations. He also reports a strange sensation at times of choking on his tongue. He has had a few episodes like this usually when he is waking up at night. Discharge Summary Consultations dr. doyle Discharge Physical Examination Allergies: Coded Allergies: No Known Drug Allergies (Unverified , 11/13/11) Vitals & I&Os Vital Signs Date Time Temp Pulse Resp B/P (MAP) Pulse Ox O2 Delivery O2 Flow Rate FiO2 04/19/22 10:56 36.9 121 9 99/84 96 Room Air 04/19/22 10:00 4.00 General Appearance: Alert, Oriented X3, Cooperative, No Acute Distress HEENT: Atraumatic, PERRLA, Mucous Memb Moist/[place] Respiratory: Clear to Auscultation, Normal Air Movement Cardiovascular: Other (irregularly irregular) Abdominal: Normal Bowel Sounds, Soft Skin: Other (erythema/bruising on caudal most apsect of the incision site, no discharge) Neuro: Other (using walker to ambulate) Psych/Mental Status: Mental Status NL, Mood NL Hospital Course Was the Problem List Reviewed?: Yes Chest pain Hypoxia Atrial fibrillation Anemia Elevated troponin Chronic Hypertension Apnea symptoms Type II Myocardial infarction Post op right total knee replacement Chest pain with Elevated troponin and Type II Myocardial infarction due to Hypoxia - discussed with Dr. Doyle- he is following pt closely - - the repeat troponin was negative - monitor symptoms. Hypoxia - - resolved- improved after lasix dose Atrial fibrillation - on cardizem, xarelto - will follow up with Dr. Doyle as outpatient - and work-up to be ordered wit h Dr. Dow - concern for possible sleep apnea - will wait until his knee heals more and he is able to sleep better at night prior to sleep study being ordered. Anemia - post-op/hydration- monitor labs - hgb not low enough to be causing his hypoxemia Chronic Hypertension - pt on toprol and cardizem, pressures stable. Apnea symptoms - asked epiworth sleepiness scale questions - with his symptoms, choking episodes at night, and hypoxemia and afib, will order an outpatient repeat sleep study. Post op right total knee replacement - consult to physical therapy - ice as needed to knee - ambulate in halls with therapy. dvt prophylaxis with compression socks and noac gi prophylaxis with ppi Pending Labs Discharge Instructions to patient/family Please see electronic discharge instructions given to patient. Discharge Medications Reviewed and agree with Discharge Medication list on patient's Discharge Instruction sheet ESTHER GARCIA MD Apr 19, 2022 10:03
[2022-04-19] MEDS ORDERED: PANT40TA52 PO (10:05)
--- NOTE | 2022-04-19 10:10 | Discharge Inst-Simple/Standard ---
Discharge Inst-Standard Reconcile Patient Problems Problems Reviewed?: Yes Discharge Medications New, Converted or Re-Newed RX: Transmitted to Pharmacy Patient Instructions/Follow Up Plan of Care/Instructions/FU: CALL TO ORTHOPEDIC SURGEON'S OFFICE ON 04/20/22 - FOR EVALUATION OF THE BOTTOM OF YOUR SURGICAL SITE WHICH IS RED. IF THE REDNESS WORSENS CALL THE ORTHO OR RADHA'S OFFICE TO BE SEEN JOSE CARLOS Activity as Tolerated: Yes Discharge Diet: Regular Diet Health Concerns: KNEE REPLACEMENT, AFIB, SHORTNESS OF BREATH Return to The Hospital For: ANY LIFETHREATENING ILLNESS OR INJURY OR OTHER EMERGENT CONCERNS OR SIGNIFICANT CHANGE IN PAIN IN KNEE OR REDNESS OR DISCHARGE Medication List: Active Scripts Active Pantoprazole Sodium 40 Mg Tablet.dr 40 Mg PO DAILY Reported Celecoxib 200 Mg Capsule 200 Mg PO BID Methocarbamol 500 Mg Tablet 600 Mg PO Q6-8HR Oxyir Tablet (Oxycodone HCl) 5 Mg Tab 5 Mg PO NEEDED Metoprolol Succinate 25 Mg Tab.er.24h 25 Mg PO DAILY Xarelto (Rivaroxaban) 20 Mg Tablet 20 Mg PO DAILY 30 Days Diltiazem 24Hr ER (Diltiazem HCl) 240 Mg Cap.er.24h 240 Mg PO HS Breo Ellipta 100-25 Mcg INH (Fluticasone/Vilanterol) 1 Each Blst.w.dev 1 Each IH DAILY Simvastatin 10 Mg Tablet 10 Mg PO HS LAST FILLED 10/02/15 #90 Lab results: Laboratory Tests Test 04/19/22 03:52 04/19/22 08:03 Range/Units White Blood Count 8.8 4.3-11.0 10^3/uL Red Blood Count 4.15 L 4.30-5.52 10^6/uL Hemoglobin 12.4 L 13.3-17.7 g/dL Hematocrit 37 L 40-54 % Mean Corpuscular Volume 89 80-99 fL Mean Corpuscular Hemoglobin 30 25-34 pg Mean Corpuscular Hemoglobin Concent 33 32-36 g/dL Red Cell Distribution Width 12.9 10.0-14.5 % Platelet Count 224 130-400 10^3/uL Mean Platelet Volume 8.8 L 9.0-12.2 fL Immature Granulocyte % (Auto) 0 % Neutrophils (%) (Auto) 71 42-75 % Lymphocytes (%) (Auto) 14 12-44 % Monocytes (%) (Auto) 13 H 0-12 % Eosinophils (%) (Auto) 2 0-10 % Basophils (%) (Auto) 0 0-10 % Neutrophils # (Auto) 6.2 1.8-7.8 10^3/uL Lymphocytes # (Auto) 1.2 1.0-4.0 10^3/uL Monocytes # (Auto) 1.1 H 0.0-1.0 10^3/uL Eosinophils # (Auto) 0.2 0.0-0.3 10^3/uL Basophils # (Auto) 0.0 0.0-0.1 10^3/uL Immature Granulocyte # (Auto) 0.0 0.0-0.1 10^3/uL Sodium Level 135 135-145 MMOL/L Potassium Level 4.2 3.6-5.0 MMOL/L Chloride Level 103 98-107 MMOL/L Carbon Dioxide Level 23 21-32 MMOL/L Anion Gap 9 5-14 MMOL/L Blood Urea Nitrogen 17 7-18 MG/DL Creatinine 0.88 0.60-1.30 MG/DL Estimat Glomerular Filtration Rate 95 BUN/Creatinine Ratio 19 Glucose Level 106 H 70-105 MG/DL Calcium Level 8.4 L 8.5-10.1 MG/DL Corrected Calcium 9.1 8.5-10.1 MG/DL Phosphorus Level 3.2 2.3-4.7 MG/DL Magnesium Level 2.1 1.6-2.4 MG/DL Total Bilirubin 0.7 0.1-1.0 MG/DL Aspartate Amino Transf (AST/SGOT) 19 5-34 U/L Alanine Aminotransferase (ALT/SGPT) 18 0-55 U/L Alkaline Phosphatase 68 40-136 U/L B-Type Natriuretic Peptide 265.5 H <100.0 PG/ML Total Protein 5.8 L 6.4-8.2 GM/DL Albumin 3.1 L 3.2-4.5 GM/DL Troponin I < 0.028 <0.028 NG/ML My orders: Orders - ESTHER GARCIA MD Fluticasone/Vilanterol 100 Mcg (Breo Ell (04/18/22 11:15) (Nf) Simvastatin (04/18/22 21:00) Oxycodone Immediate Rel Tablet (Oxyir Ta (04/18/22 11:15) Physical Therapy Order (04/18/22 11:05) Polar Pack Assessment/Order (04/18/22 11:05) Status Change To Inpatient (04/18/22 11:16) Initiate Admission Nursing Pro .admission (04/18/22 11:16) Pantoprazole Tablet (Protonix Tablet) (04/19/22 09:00) Pantoprazole Tablet (Protonix Tablet) (04/18/22 11:30) Cbc No Diff (04/19/22 05:00) Methocarbamol Tablet (Robaxin Tablet) (04/18/22 12:00) Oxycodone Immediate Rel Tablet (Oxyir Ta (04/18/22 12:00) Fluticasone/Salmeterol 113-14 (Airduo Re (04/18/22 21:00) Patient Visit (04/18/22 ) Pt Eval Low Complexity (04/18/22 ) Cbc With Automated Diff (04/19/22 05:00) Comprehensive Metabolic Panel (04/19/22 05:00) Magnesium (04/19/22 05:00) Phosphorus (04/19/22 05:00) Patient Visit (04/19/22 ) Exercise Therap, Ea 15 Min (04/19/22 ) Gait Training, Ea 15 Min (04/19/22 ) Attending Discharge Inpt/Inobs (04/19/22 10:03) ESTHER GARCIA MD Apr 19, 2022 10:10
[2022-04-19 10:56] VITALS: BP 99/84
== END 2022-04-19 10:58 | disposition home or self-care (01) | DRG 205 ==
LOC: EDUNIT# 15:20 → ER 15:21 → ICU 19:33 → OBSVTOIN 04-18 11:16
PROVIDERS: ADMIT Family Medicine; ATTEND Family Medicine
DX: R09.02 Hypoxemia (principal); I21.A1 Myocardial infarction type 2; D64.9 Anemia, unspecified; I10 Essential (primary) hypertension; R06.81 Apnea, not elsewhere classified; Z96.651 Presence of right artificial knee joint; Z79.01 Long term (current) use of anticoagulants; Z79.899 Other long term (current) drug therapy; J45.909 Unspecified asthma, uncomplicated; E78.00 Pure hypercholesterolemia, unspecified; I48.0 Paroxysmal atrial fibrillation; N40.2 Nodular prostate without lower urinary tract symptoms
CPT/HCPCS: 36415; 71045; 71275; 80053; 80061; 83735; 83874; 83880; 84100; 84484; 85025; 85027; 85610; 85730; 87081; 93005; 93041; 93306; 94640; G0378